=== PATIENT | female | born 1960 | race Caucasian/White ===

== ENCOUNTER 2024-07-06 16:58 | Inpatient (IN) ==
--- NOTE | 2024-07-06 17:04 | ED Triage Note ---
Date of Service July 06, 2024 Provider in Triage Author: Roscoe Mccrary History of Present Illness This patient was briefly evaluated while in triage. An abbreviated physical exam was performed. This patient is a 64-year-old Female who presents to the ED for evaluation shortness of breath, cough, heart racing x 3 days hx of afib, on warfarin was at her doctor just [employer], and was referred to the ED Physical Exam GENERAL: NAD CARDIOVASCULAR: tachycardic in 140s RESPIRATORY: CTA ABDOMEN: BS x 4. Nontender to palpation. Initial orders for labs and / or imaging were placed and patient was placed in the waiting area until a bed is available. Please see further documentation for the full ED course. MDM / Impression Impression Impression: Atrial fibrillation with RVR, Pleural effusion, Shortness of breath, Elevated troponin
--- NOTE | 2024-07-06 17:18 | Emergency Department Note ---
Impression & Plan Atrial fibrillation with RVR, Pleural effusion, Shortness of breath, Elevated troponin ED Provider Note NAME: JOSE M JOHNSON AGE: 64 SEX: F : 1960 ARRIVES VIA: Walk-In INFORMANT: Patient, friend at bedside ED PROVIDER(S): Jonah Pelayo MD CHIEF COMPLAINT: Shortness of breath MEDICAL DECISION MAKING: Patient presents due to concern for shortness of breath. The patient did have wheezing on exam was noted to be fairly tachycardic. Do believe that this may be secondary to the prior patient's use of her albuterol inhaler and nebulizers over the weekend. Patient also had wheezing on exam. IV was established and blood work was obtained and the patient was ordered IV methylprednisolone as well as leave albuterol treatments. The patient was also ordered 5 of IV Lopressor. Patient with a normal white count hemoglobin 11.9. Platelet count is unremarkable. The patient's kidney function with creatinine 1.34. Troponin to 122.3. No signs of obvious STEMI. Patient's initial EKG fast and regular patient may have underlying atrial flutter with possible 2-1 conduction. Repeat EKG shows A-fib with a rate of 97. Chest x-ray with left-sided pleural effusion. Patient is a normal white count no oxygen requirement will defer any antibiotics at this time. TSH is slightly low with elevated T4. There may be a thyroid component. I did speak with the on-call hospital service Dr. Solo and the patient was admitted to the medicine service. Critical Care: I have personally spent 42 minutes of critical care time in direct management of this patient. This includes bedside care, interpretation of diagnostic studies, and testing, discussion with consultants, patient, and family members, and other require inpatient management activities. This 42 minutes is in excess of all separately billable procedures. Discussion w/ other healthcare providers: Dr. Solo inpatient medicine service Prior /Outside records reviewed: None Differential diagnosis: Reactive airway disease, pneumonia, pneumothorax, COPD, CHF, ACS, pulmonary embolism, musculoskeletal, GERD as well as other pathologies were considered. Diagnostics, as interpreted by me: ECG: Rapid ventricular rate, narrow complex, rate of 138 likely atrial flutter with 2-1 conduction, right axis deviation, T wave version in V2 no obvious ST elevation. Repeat EKG interpreted myself A-fib rate of 97, normal QRS, right axis deviation, T wave version in aVL and V2 as well as V3. No obvious ST elevation. Cardiac monitoring: An order was placed for continuous cardiac monitoring. The monitor shows a rate of 112 with tachycardic and irregular irregular rhythm. Patient was placed on pulse oximetry Medical decision rules: None Imaging studies: I informally interpreted the patient's chest x-ray does not show obvious pneumonia or pneumothorax with formal report to follow. HPI: Patient presents due to concern for shortness of breath. The patient reports that she has been short of breath since Saturday it has been fairly constant. The patient does report that it worsens with activity. She also cannot lay flat. No prior history of A-fib status post ablation as well as valve replacements. The patient does take Coumadin. She is a smoker smoking about a pack over 3 days. Patient states that she does have cough but it is nonproductive. No falls or trauma the patient denies any leg swelling or calf pain. Patient denies any prior history of DVT or PE. Patient states that she has had some associated orthopnea but no leg swelling denies any history of CHF per patient. Patient does admit that she had been increasing her albuterol nebulizer use for shortness of breath over the weekend and was unsure as to whether not this was helpful. PAST MEDICAL HISTORY: See Below PAST SURGICAL HISTORY: See Below SOCIAL HISTORY: See Below HOME MEDICATIONS: See Below ALLERGIES: See Below VITALS: See Below PHYSICAL EXAMINATION: GENERAL: NAD, non-toxic. EYE EXAM: Normal conjunctiva. PERRL, no anisocoria and EOM's grossly intact w/o pain. OROPHARYNX: Dry mucous membranes, edentulous. NECK: Trachea midline, no stridor. Supple, no nuchal rigidity, no adenopathy, non-tender. No signs of meningismus. FROM of the neck with good chin to chest and neck extension. LUNGS: Wheezing noted throughout. Normal chest wall mechanics. HEART: Tachycardic and irregularly irregular, no MRG. ABDOMEN: Abdomen soft, non-tender, no masses, no rebound or guarding. BACK: No CVA TTP. SKIN: No rashes and no bruising. UPPER EXTREMITIES: Upper extremities are grossly normal. LOWER EXTREMITIES: Grossly normal, no edema. Negative Homans' sign bilaterally. NEURO EXAM: A&O x3, cranial nerves II-XII grossly intact, normal speech, moves all 4 extremities. 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 Family History Other Family history non-contributory Social History Smoking Status: Current every day smoker Preferred Language: Singaporean Feels Safe at Home: Yes Allergies Allergies Allergy/AdvReac Type Severity Reaction Status Date / Time Quinolones Allergy Intermediate HIVES Verified 01/26/13 16:26 cyclobenzaprine Allergy Mild Verified 01/26/13 16:26 amitriptyline Allergy Unknown UNKNOWN Verified 06/28/17 00:29 Home Meds Home Medications Medication Instructions Recorded Confirmed NOTE: ##0 03/10/13 Meclizine HCl 25 mg PO TID PRN dizziness ##0 06/23/14 DOCUSATE SODIUM 1 cap PO DAILY ##0 09/01/14 Multivitamin 1 tab PO DAILY #0 tabs 09/01/14 NITROGLYCERIN (NITROSTAT) 0.3 mg UT PRN #0 BTLS 09/01/14 Omeprazole (Prilosec) 40 mg PO QAM #0 caps 09/01/14 Bupropion (Wellbutrin) 75 mg PO DAILY #0 tabs 03/31/16 LEVOTHYROXINE SODIUM (SYNTHROID) 150 mcg PO DAILY ##0 03/31/16 ATORVASTATIN (LIPITOR) 80 mg PO DAILY #0 tabs 06/28/17 Albuterol Sulfate (Proventil Hfa) 2 puff inhalation Q4H PRN 06/28/17 SOB/Wheezing ##0 FERROUS SULFATE (KP FERROUS 325 mg PO DAILY #0 tabs 06/28/17 SULFATE) Furosemide (Lasix) 40 mg PO DAILY #0 tabs 06/28/17 IPRATROPIUM-ALBUTEROL (DUONEB) 3 ml inhalation Q4H PRN 06/28/17 SOB/Wheezing #0 inhalations KLOR CON M10 10 meq PO DAILY ##0 06/28/17 Metoprolol Tartrate (Lopressor) 12.5 mg PO BID #0 tabs 06/28/17 (Lopressor) Warfarin Sod (Coumadin) 10 mg PO UD ##0 06/28/17 Previous Rx's Medication Instructions Recorded ENOXAPARIN (LOVENOX) 110 mg SC DAILY ##3 06/29/17 enoxaparin 80 mg/0.8 mL 80 mg (0.8 mL) subcut Q12H #8 mL 06/15/23 subcutaneous syringe (Lovenox) Results & Data (ED) Vital Signs Vital Signs - 24 hr 07/06/24 17:02 07/06/24 17:14 07/06/24 17:56 Temperature 36.7 C Temperature Source Temporal Artery Scan Pulse Rate 138 H 116 H Pulse Rate [Finger] Pulse Rhythm Regular Pulse Strength Normal Respiratory Rate 20 Respiratory Effort / Characteristics Non-Labored Spontaneous Respiratory Depth Normal Blood Pressure 110/70 Blood Pressure [Right Arm] Blood Pressure Mean 83 Blood Pressure Mean [Right Arm] Pulse Oximetry 97 97 Oxygen Delivery Method Room Air Room Air Oxygen Flow Rate 0 Sepsis Recent Fever Within 48 Hours No Sepsis New/Unexplained Change in Mental Status N/A Sepsis Action Taken by Nursing No Action Required 07/06/24 18:01 07/06/24 18:30 Temperature Temperature Source Pulse Rate 96 H Pulse Rate [Finger] 91 H Pulse Rhythm Pulse Strength Respiratory Rate 26 H Respiratory Effort / Characteristics Respiratory Depth Blood Pressure 126/83 Blood Pressure [Right Arm] 112/84 Blood Pressure Mean Blood Pressure Mean [Right Arm] 93 Pulse Oximetry 94 Oxygen Delivery Method Room Air Oxygen Flow Rate Sepsis Recent Fever Within 48 Hours Sepsis New/Unexplained Change in Mental Status Sepsis Action Taken by Longterm Medications Current Medication List: was personally reviewed by me Laboratory Data Attestation: I reviewed the patient's lab results. 07/06/24 17:21 07/06/24 17:21 Lab Results 07/06/24 Range/Units 17:21 WBC 7.34 (4.8-10.8) K/ul RBC 4.40 (4.20-5.40) M/uL Hgb 11.9 L (12.0-16.0) g/dl Hct 38.1 (37.0-47.0) % MCV 86.6 (80.0-100.0) fL MCH 27.0 (25.0-34.0) pg MCHC 31.2 L (32.0-36.0) g/dL RDW Std Deviation 46.2 (36.4-46.3) fL RDW Coeff of Mitul 14.8 H (11.5-14.5) % Plt Count 220 (130-400) K/uL MPV 12.8 H (9.4-12.4) fL Immature Gran % (Auto) 0.3 % Neut % (Auto) 65.8 % Lymph % (Auto) 16.8 % Saunders % (Auto) 12.3 % Eos % (Auto) 3.7 % Baso % (Auto) 1.1 % Neut # (Auto) 4.84 (1.40-6.50) K/uL Lymph # (Auto) 1.23 (1.20-3.40) K/uL Saunders # (Auto) 0.90 H (0.11-0.59) K/uL Eos # (Auto) 0.27 (0.00-0.50) K/uL Baso # (Auto) 0.08 (0.00-0.20) K/uL Immature Gran # (Auto) 0.02 (0.01-0.20) K/uL PT 21.1 H (9.0-12.0) Seconds INR 2.1 H (0.9-1.1) Sodium 139 (136-145) mmol/L Potassium 4.4 (3.5-5.1) mmol/L Chloride 105 (98-107) mmol/L Carbon Dioxide 27 (21-32) mmol/L Anion Gap 7 (3-11) BUN 18 (6-23) mg/dl Creatinine 1.34 H (0.6-1.2) mg/dl Est Cr Clr Drug Dosing 40.7 ml/min eGFR 44.56 BUN/Creatinine Ratio 13.4 (10-20) Glucose 137 H (70-99(Fasting)) mg/dl Calcium 9.6 (8.6-10.3) mg/dl Magnesium 1.8 (1.7-2.4) mg/dl Total Bilirubin 1.2 H (0.2-1.0) mg/dl AST 40 H (13-39) U/L ALT 22 (7-52) U/L Alkaline Phosphatase 75 (34-104) U/L Troponin I High Sens 122.3 H* (0-14) pg/ml Total Protein 7.5 (6.0-8.3) gm/dl Albumin 4.2 (3.4-5.0) gm/dl Globulin 3.3 (2.5-4.0) gm/dl Albumin/Globulin Ratio 1.3 (0.9-2) TSH 0.292 L (0.300-4.500) uIu/ml Free T4 2.17 H (0.61-1.60) ng/dl Administered Medications Discontinued Medications Levalbuterol HCl (Levalbuterol 1.25 Mg/3 Ml Neb) 1.25 mg NEB NOW STA Stop: 07/06/24 17:40 Last Admin: 07/06/24 18:01 Dose: 1.25 mg Documented By: YAHAIRA Methylprednisolone (Methylprednisolone 125 Mg/2 Ml Vial) 125 mg IV NOW STA Stop: 07/06/24 17:40 Last Admin: 07/06/24 18:01 Dose: 125 mg Documented By: YAHAIRA Metoprolol Tartrate (Metoprolol Tartrate 1 Mg/Ml Vial) 5 mg IV NOW STA Stop: 07/06/24 17:40 Last Admin: 07/06/24 18:01 Dose: 5 mg Documented By: YAHAIRA Imaging Data Radiologist's Impression: Chest X-Ray 07/06/24 17:04 INDICATION: Chest pain. TECHNIQUE: Frontal radiograph of the chest. COMPARISON: Radiograph from 06/15/2023. FINDINGS: Cardiomegaly. Mild pulmonary vascular congestion. Small left pleural effusion with underlying atelectasis/airspace disease. Subsegmental atelectasis/airspace disease in the right lower lobe. No pneumothorax. No acute fracture. IMPRESSION: Mild pulmonary vascular congestion. Small left pleural effusion with underlying atelectasis/airspace disease. Subsegmental atelectasis/airspace disease in the right lower lobe. Electronically signed by Nabor Odom 07-06-2024 5:52 PM Discharge Plan Visit Data Chief Complaint: Shortness of Breath/Dyspnea Stated Complaint: FAST HEART RATE, SOB, ED Provider: Jonah Pelayo Discharge Problem: Atrial fibrillation with RVR, Pleural effusion, Shortness of breath, Elevated troponin Forms Stand Alone Forms: My [facility] [employer] Prescriptions Prescriptions: No Action NOTE: Qty: 0 Patient Comments: FAMILY REPORTS, PT NOT GOOD AT TAKING MEDICATIONS PRESCRIBED, WILL MISS SCHEDULED DOSES. Meclizine HCl 25 MG tablet 25 mg PO TID PRN (Reason: dizziness) Qty: 0 DOCUSATE SODIUM 100 MG capsule 1 cap PO DAILY Qty: 0 Multivitamin tablet 1 tab PO DAILY Qty: 0 NITROGLYCERIN (NITROSTAT) 0.3 MG SUB 0.3 mg UT PRN Qty: 0 Omeprazole (Prilosec) 40 MG CONTR REL CAP 40 mg PO QAM Qty: 0 LEVOTHYROXINE SODIUM (SYNTHROID) 150 MCG tablet 150 mcg PO DAILY Qty: 0 Bupropion (Wellbutrin) 75 MG tablet 75 mg PO DAILY Qty: 0 ATORVASTATIN (LIPITOR) 80 MG tablet 80 mg PO DAILY Qty: 0 Metoprolol Tartrate (Lopressor) (Lopressor) 25 MG tablet 12.5 mg PO BID Qty: 0 Warfarin Sod (Coumadin) 5 MG tablet 10 mg PO UD Qty: 0 Patient Comments: Take 10mg PO daily for Now.Dose to keen inr between 2.5 to 3.5 Furosemide (Lasix) 40 MG tablet 40 mg PO DAILY Qty: 0 KLOR CON M10 10 meq PO DAILY Qty: 0 FERROUS SULFATE (KP FERROUS SULFATE) 325 MG tablet 325 mg PO DAILY Qty: 0 Albuterol Sulfate (Proventil Hfa) 108 MCG/ACT AER 2 puff Inhalation Q4H PRN (Reason: SOB/Wheezing) Qty: 0 IPRATROPIUM-ALBUTEROL (DUONEB) 3 ML NEBULIZR-SOLN 3 ml Inhalation Q4H PRN (Reason: SOB/Wheezing) Qty: 0 ENOXAPARIN (LOVENOX) 80 MG/0.8 ML INJECTION 110 mg SC DAILY Qty: 3 0RF enoxaparin [Lovenox] 80 mg/0.8 mL syringe 80 mg subcut Q12H Qty: 8 0RF Referrals Referrals: Eron Watson MD [Primary Care Provider] -
[2024-07-06 17:38] LABS: Basophils # (auto) 0.08 K/uL (0.00-0.20); Basophils % (auto) 1.1 %; Eosinophils # (auto) 0.27 K/uL (0.00-0.50); Eosinophils % (auto) 3.7 %; Hematocrit (blood only) 38.1 % (37.0-47.0); Hemoglobin 11.9 g/dl (12.0-16.0); Immature Granulocytes # (auto) 0.02 K/uL (0.01-0.20); Immature Granulocytes % (auto) 0.3 %; Lymphocytes # (auto) 1.23 K/uL (1.20-3.40); Lymphocytes % (auto) 16.8 %; Mean Corpuscular Hgb Conc 31.2 g/dL (32.0-36.0); Mean Corpuscular Volume 86.6 fL (80.0-100.0); Mean Platelet Volume 12.8 fL (9.4-12.4); Monocytes % (auto) 12.3 %; Neutrophils # (auto) 4.84 K/uL (1.40-6.50); Neutrophils % (auto) 65.8 %; Platelet Count 220 K/uL (130-400); RDW Coefficient of Variation 14.8 % (11.5-14.5); RDW Standard Deviation 46.2 fL (36.4-46.3); White Blood Count 7.34 K/ul (4.8-10.8)
[2024-07-06 17:51] LABS: Albumin Globulin Ratio 1.3 (0.9-2); Albumin Level 4.2 gm/dl (3.4-5.0); BUN Creatinine Ratio 13.4 (10-20); Bilirubin,Total 1.2 mg/dl (0.2-1.0); Calcium 9.6 mg/dl (8.6-10.3); Creatinine Clr Calc Pharmacy 40.7 ml/min; Globulin 3.3 gm/dl (2.5-4.0); Magnesium 1.8 mg/dl (1.7-2.4); Potassium 4.4 mmol/L (3.5-5.1); Total Protein 7.5 gm/dl (6.0-8.3)
--- NOTE | 2024-07-06 17:53 | XRay Report ---
INDICATION: Chest pain. TECHNIQUE: Frontal radiograph of the chest. COMPARISON: Radiograph from 06/15/2023. FINDINGS: Cardiomegaly. Mild pulmonary vascular congestion. Small left pleural effusion with underlying atelectasis/airspace disease. Subsegmental atelectasis/airspace disease in the right lower lobe. No pneumothorax. No acute fracture. IMPRESSION: Mild pulmonary vascular congestion. Small left pleural effusion with underlying atelectasis/airspace disease. Subsegmental atelectasis/airspace disease in the right lower lobe. Electronically signed by Nabor Odom 07-06-2024 5:52 PM
[2024-07-06] MEDS: LEVALBUTEROL 1.25 MG/3 ML NEB NEB STA (18:01)
[2024-07-06] MEDS: methylPREDNISolone 125 MG/2 ML VIAL IV STA (18:01)
[2024-07-06] MEDS: METOPROLOL TARTRATE 1 MG/ML VIAL IV STA (18:01)
[2024-07-06 18:06] LABS: Thyroid Stimulating Hormone 0.292 uIu/ml (0.300-4.500)
[2024-07-06 18:08] LABS: Troponin I High Sensitivity 122.3 pg/ml (0-14)
[2024-07-06 18:09] LABS: INR 2.1 (0.9-1.1); Prothrombin Time 21.1 Seconds (9.0-12.0)
[2024-07-06 18:42] LABS: T4 Free Thyroxine 2.17 ng/dl (0.61-1.60)
[2024-07-06] MEDS: MAGNESIUM SULFATE / D5W 1 GM/100 ML BAG IV SCH (19:33)
[2024-07-06] MEDS ORDERED: MECLIZINE HCL 25 MG TAB PO PRN (19:39)
[2024-07-06] MEDS ORDERED: ALUMINUM/MAGNESIUM SUSP 30 ML UDC PO PRN (19:41)
[2024-07-06] MEDS ORDERED: POLYETHYLENE (MIRALAX) 17 GM PACK PO PRN (19:41)
[2024-07-06] MEDS ORDERED: ACETAMINOPHEN 325 MG TAB PO PRN (19:41)
--- NOTE | 2024-07-06 19:51 | History & Physical Report ---
Date of Service July 06, 2024 Assessment & Plan (1) Atrial fibrillation with RVR: Plan A-fib RVR: Patient presented with elevated heart rate, noted to be in A-fib. Received 5 Mg IV metoprolol in ED with heart rate improvement in 90s. Will start her on metoprolol to tartrate 25 Mg twice daily, IV metoprolol 5 Mg every 4 hours as needed for heart rate greater than 115 beats per minute. Cardiology consult, telemetry monitoring, monitor replete electrolytes. COPD exacerbation: Solu-Medrol, azithromycin. Follow clinical response. History of hypothyroidism: FT4 elevated with low TSH, will decrease the levothyroxine dose to 125 mcg daily. Repeat thyroid function test in about 6 weeks time, follow-up with PCP. Other chronic medical conditions: Continue with/resume home meds as when able DVT prophylaxis: Patient on warfarin for A-fib Full code History of Present Illness Chief Complaint: A-fib RVR Primary Care Provider: Eron Watson MD 64-year-old lady with PMH of asthma, COPD, A-fib RVR, prosthetic replacement of heart valve comes at referral of her PCP office for A-fib RVR. Per patient, she was not feeling well since last 3 to 4 days, was having worsening shortness of breath, nonproductive cough/increase in frequency, palpitation and visited her doctor today where she was noted to be with heart rate in 130s and atrial fibrillation and was directed to the ED. Patient denies sore throat/fever/chest pain/belly pain. Patient reports some nausea and vomiting , last vomiting was yesterday. Patient denies pain or burning with passing urine, reports moving bowels okay. Patient is a current smoker, smokes 1 packs in 3 days, denies alcohol use, reports occasional marijuana use. Medications reviewed with the patient at bedside Plan of care discussed with the patient and her niece at bedside in detail, they voiced understanding. Full code as per my discussion with the patient. Allergies Allergy/AdvReac Type Severity Reaction Status Date / Time Quinolones Allergy Intermediate HIVES Verified 07/06/24 19:17 cyclobenzaprine Allergy Mild Verified 07/06/24 19:17 amitriptyline Allergy Unknown UNKNOWN Verified 07/06/24 19:17 Home Medications Medication Instructions Recorded Confirmed Type NOTE: ##0 03/10/13 History meclizine 25 mg tablet 25 mg PO QPM PRN Dizziness ##0 06/23/14 07/06/24 History multivitamin 1 tab PO DAILY #0 tabs 09/01/14 07/06/24 History nitroglycerin 0.3 mg sublingual 0.3 mg UT PRN #0 BTLS 09/01/14 07/06/24 History tablet (Nitrostat) bupropion HCl 75 mg tablet 75 mg PO QPM #0 tabs 03/31/16 07/06/24 History levothyroxine 150 mcg tablet 150 mcg PO DAILY ##0 03/31/16 07/06/24 History albuterol sulfate 90 mcg/actuation 2 puff inhalation Q4H PRN 06/28/17 07/06/24 History aerosol inhaler shortness of breath/wheezing ##0 ferrous sulfate 325 mg (65 mg 325 mg PO DAILY #0 tabs 06/28/17 07/06/24 History iron) tablet furosemide 40 mg tablet 40 mg PO QAM #0 tabs 06/28/17 07/06/24 History ipratropium 0.5 mg-albuterol 3 mg 3 ml inhalation Q4H PRN 06/28/17 07/06/24 History (2.5 mg base)/3 mL nebulization sob/wheezing #0 inhalations soln potassium chloride 10 mEq 10 meq PO QAM ##0 06/28/17 07/06/24 History tablet,extended release (Klor-Con) warfarin 5 mg tablet 5 - 7.5 mg PO .SEEATTACHED ##0 06/28/17 07/06/24 History ezetimibe 10 mg tablet 10 mg PO QPM 07/06/24 07/06/24 History metoprolol succinate 25 mg 25 mg PO QAM 07/06/24 07/06/24 History tablet,extended release 24 hr rosuvastatin 40 mg tablet 40 mg PO QPM 07/06/24 07/06/24 History Past Med/Surg History Problem List (Updated 07/06/24 @ 19:00 by Jonah Pelayo MD) Elevated troponin (Acute) Shortness of breath (Acute) Pleural effusion (Acute) Atrial fibrillation with RVR (Acute) Encounter for removal of sutures (Acute) Pneumonia 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 Family History Other Family history non-contributory Social History Smoking Status: Current every day smoker Preferred Language: Portuguese Feels Safe at Home: Yes Review of Systems Review of Systems: Negative otherwise mentioned in HPI. Physical Exam Physical Exam: GENERAL: Alert and oriented x3. NAD, on RA. HEENT: No pallor, no icterus. Pupils equal, round and reactive to light. Oral mucosa moist. NECK: No JVD, no neck masses. HEART: S1 and S2 heard. irregular rate and rhythm.HR in 110s. No murmur, no gallop. RESPIRATORY SYSTEM: Normal AP diameter. No accessory muscle use. b/l decreased breath sounds and rhonchi, no crackles. ABDOMEN: Soft, bowel sounds present, nontender, no distention. CENTRAL NERVOUS SYSTEM: No facial droop. Speech is clear. Obeys simple commands. Moves extremities. EXTREMITIES: No edema, no erythema seen. Results & Data Results & Data Vital Signs (Past 12 Hours) Vital Signs Temp Pulse Pulse Resp BP BP Pulse Ox 07/06/24 19:32 132 H 24 110/90 92 07/06/24 18:30 91 H 26 H 112/84 94 07/06/24 18:01 96 H 126/83 07/06/24 17:56 116 H 07/06/24 17:14 97 07/06/24 17:02 36.7 C 138 H 20 110/70 97 O2 Del Method O2 Flow Rate 07/06/24 19:32 Room Air 07/06/24 18:30 Room Air 07/06/24 18:01 07/06/24 17:56 07/06/24 17:14 Room Air 0 07/06/24 17:02 Room Air
[2024-07-06] MEDS: AZITHROMYCIN 250 MG TAB PO SCH (20:04)
[2024-07-06] MEDS ORDERED: methylPREDNISolone 125 MG/2 ML VIAL IV SCH (21:00)
[2024-07-06] MEDS: ROSUVASTATIN CALCIUM 20 MG TAB PO SCH (21:30)
[2024-07-06] MEDS: WARFARIN SOD 5 MG TAB PO ONE (21:31)
[2024-07-06] MEDS: buPROPion HCl 75 MG TABLET PO SCH (21:31)
[2024-07-06] MEDS: EZETIMIBE 10 MG TAB PO SCH (21:31)
[2024-07-06] MEDS: METOPROLOL TARTRATE 25 MG TAB PO ONE (21:34)
[2024-07-06] MEDS: methylPREDNISolone 40 MG in SYRINGE 0 ML IV SCH (22:40)
[2024-07-07] MEDS: METOPROLOL TARTRATE 1 MG/ML VIAL IV PRN (02:43)
[2024-07-07] MEDS: LEVOTHYROXINE SODIUM 125 MCG TABLET PO SCH (06:03)
--- OUTSIDE RECORDS SUMMARY | 2024-07-07 06:23 | External Medical Summary | Summary of Care ---
Author Name Unknown Organization [facility] Address [address] [place] [address] Phone [phone] Care Team Providers Care Freezer Person Name Role Phone Shirley COLEY MD, Eron Rodríguez Primary Care Provider Encounter Details Date Type Department Care Team (Late st Contact Info) Description 07/03/2024 Orders Only PATIENT PORTAL DO NOT DELETE THIS DEPT USED BY [place] REY[place]O [id number] Allergies Active Allergy Reactions Criticality Noted Date Comments Ciprofloxacin 12/19/2006 hives Cyclobenzaprine 12/19/2006 Gi upset Nortriptyline Hcl 12/19/2006 Fast heart rate documented as of this encounter (statuses as of 07/03/2024) Medications Multiple Vitamins-Minerals (MULTIVITAMIN ADULT) TABS Take 1 Tab by mouth daily. Active Cholecalciferol 25 MCG (1000 UT) Oral Tablet Take 1 Tablet by mouth in the morning. 04/28/20 18 Active albuterol-ipratrop ium (DUONEB) 2.5-0.5 MG/3ML nebulizer solutionIndication s:Asthma, mild persistent USE INHALATION SOLUTION DIRECTED EVERY 4 HOURS 180 mL 04/06/20 19 Active Additional Information Patient not taking.Reported on 11/07/2023 Nitroglycerin 0.3 MG Sublingual Tablet Sublingual (Nitrostat)Indicat ions:Paroxysmal atrial fibrillation (HCC) PLACE 1 TAB UNDER TONGUE EVERY 5 MIN NEEDED FOR CHEST PAIN. MAX 3 TABS IN 15 MIN 100 Tablet 2 04/10/20 22 Active Additional Information Patient not taking.Reported on 11/07/2023 Furosemide 40 MG Oral Tablet (Lasix)Indications :History of low potassium Take 1.5 Tablets by mouth in the morning. 135 Tablet 3 06/14/20 23 Active Additional Information Patient taking differently: 80 mgOral Daily(AM), Reported on 08/02/2023 Potassium Chloride Yael ER 10 MEQ Oral Tablet Extended Release (Klor-Con M10)Indications:Hi story of low potassium Take 2 Tablets by mouth in the morning. 180 Tablet 3 06/14/20 23 Active buPROPion HCl 75 MG Oral Tablet (Wellbutrin) TAKE 1 TABLET BY MOUTH EVERY DAY 90 Tablet 1 06/20/20 23 Active Levothyroxine Sodium 150 MCG Oral Tablet (Levoxyl)Indicatio ns:Acquired hypothyroidism TAKE 1 TAB BY MOUTH DAILY FIRST THING IN THE MORNING. (AT LEAST 30 MIN PRIOR TO BREAKFAST OR OTHER MEDS) SAT-SAT. TAKE 1 & 1/2 TAB ON SATURDAY 100 Tablet 3 08/17/20 23 Active Meclizine HCl 25 MG Oral Tablet (Antivert)Indicati ons:Dizziness TAKE 1 TABLET BY MOUTH UP TO 3 TIMES DAILY NEEDED FOR DIZZINESS 90 Tablet 1 10/16/19 24 Active Albuterol Sulfate HFA 108 (90 Base) MCG/ACT Inhalation Aerosol SolutionIndication s:Wheezing USE 2 PUFFS EVERY 4 HOURS NEEDED FOR WHEEZING/COUGH 18 g 1 10/16/19 24 Active Ezetimibe 10 MG Oral Tablet (Zetia)Indications :Dyslipidemia, goal LDL below 70 TAKE 1 TABLET BY MOUTH EVERY DAY 90 Tablet 3 02/07/20 24 Active Metoprolol Succinate ER 25 MG Oral Tablet Extended Release 24 Hour (toPROL XL)Indications:Atr ial fibrillation, unspecified type (HCC) TAKE 1 TABLET BY MOUTH EVERY DAY IN THE MORNING 30 Tablet 5 06/18/20 24 Active Rosuvastatin Calcium 40 MG Oral Tablet (Crestor) Take 1 Tablet by mouth in the morning. 90 Tablet 06/30/20 24 Active Hospital, Clinic, or Other Facility Administered Medication Ordered Dose Route Frequency Start Date End Date Status Albuterol Sulfate (Proventil) (2.5 MG/3ML) 0.083% inhalation solution 2.5 mgIndications:COPD, mild (HCC) 2.5 mg NEBULIZER PRN 09/12/2023 09/11/2024 Active albuterol (VENTOLIN HFA/PROVENTIL HFA) inhalerIndications:COPD , mild (HCC) 3 Puff IN PRN 09/12/2023 09/11/2024 Active documented as of this encounter (statuses as of 07/03/2024) Active Problems Problem Noted Date Diagnosed Date COPD, group C, by GOLD 2017 classification 10/07 Overview: Per COPD GOLD Classification Chronic kidney disease, stage 3b 07/08/2023 Overview: Per CKD protocol COPD exacerbation 01/29/2022 Chronic atrial fibrillation 02/09/2021 Elevated PTHrP level 04/28/2018 Dyslipidemia, goal LDL below 100 07/16/2016 Tobacco use disorder 07/16/2016 Asthma, mild persistent 05/26/2013 GIB (gastrointestinal bleeding) 03/11/2013 Anemia 03/11/2013 S/P AVR 03/11/2013 S/P MVR (mitral valve replacement) 03/11/2013 MEDICATION USE AGREEMENT 12/04/2011 Dyslipidemia, goal LDL below 130 07/25/2010 Atrial fibrillation 10/13/2008 S/P aortic valve replacement 10/13/2008 S/P mitral valve replacement 10/13/2008 Other and unspecified rheumatic heart diseases(3 98.99) 03/03/2008 Esophageal reflux 12/25/2005 Lymphadenitis, unspecified, except mesenteric Hypothyroidism 04/16/2002 ADJ DISORDER W/DEPRES MOOD 04/16/2002 Anticoagulation management encounter 02/24/2002 MITR-AORTIC MULT INVOLV 06/11/2001 [facility] current use of anticoagulant therapy Overview (05/27/2017): ICD-10 update of inactive term documented as of this encounter (statuses as of 07/03/2024) Resolved Problems Problem Noted Date Diagnosed Date Resolved Date COPD, mild 01/29/2022 10/10/2023 Overview: Per COPD GOLD Classification Stage 3a chronic kidney disease 07/04/2020 07/11/2023 Overview: Per CKD protocol Paroxysmal atrial fibrillation 03/10/2019 01/29/2022 Kidney disease, chronic, sta ge III (GFR 30-59 ml/min) 10/31/2015 07/07/2020 Overview: Per CKD protocol #1 LISA (acute kidney injury) 03/17/2013 Hemorrhagic shock 03/11/2013 03/10/2019 Dyslipidemia, goal to be determined 10/06/2010 08/05/2013 Asthma with severity to be determined 02/16/2010 05/26/2013 Overview (12/05/2015): Per Asthma Taxonomy ICD-10 update of inactive term Dyslipidemia, goal to be determined 08/04/2008 07/25/2010 Asthma, allergic 11/24/2007 02/16/2010 ADVANCE DIRECTIVE INFORMATION 06/16/2007 06/29/2024 Overview (06/16/2007): No, Advance Directive brochure given to patient at prior appointment. documented as of this encounter (statuses as of 07/03/2024) Immunizations Name Administration Dates Next Due COVID-19 mRNA, LNP-s, No Pre serve, 2-Dose Series (Moderna) 02/18/2021,01/17/2021 Pneumococcal Polysaccharide PPV23 (Pneumovax) 06/23/2018 Seasonal Influenza Vac., MDV , IM, 0.5 mL (Fluzone) 10/26/2013,06/01/2010,08/04/2008,09/22 Seasonal Influenza, PF, 6 M & above, IM , (FluLaval or Fluzone) 06/23/2018 Seasonal Influenza, Quadriva lent, No Preserve, IM 09/13/2015 TD, Preservative Free 03/10/2019 TDAP, Age 7 and older, IM (Adacel) 01/22/2008 documented as of this encounter Social History Tobacco Use Types Packs/Day Years Used Date Smoking Tobacco: Every Day Cigarettes 0.5 34 Smokeless Tobacco: Never Alcohol Use Standard Drinks/Week Comments Yes 0 (1 standard drink = 0.6 oz pur e alcohol) very rare PHQ-2 Answer Date Recorded PHQ Adult Total Score 0 08/28/2022 Comments No Sex and Gender Information Value Date Recorded Sex Assigned at Not on file Legal Sex Female 5:13 AM EST Gender Identity Not on file Sexual Orientation Not on file documented as of this encounter Functional Status * Are you deaf or do you have serious difficulty hearing? Answer Date of Assessment Author No 09/29/2014 7:54 AM Cramen Tony RN * Are you blind or do you have serious difficulty seeing, even when wearing glasses? Answer Date of Assessment Author No 09/29/2014 7:54 AM Carmen Tony RN * Do you have serious difficulty walking or climbing stairs? (5 years old or older) Answer Date of Assessment Author No 09/29/2014 7:54 AM Carmen Tony RN * Do you have difficulty dressing or bathing? (5 years old or older) Answer Date of Assessment Author No 09/29/2014 7:54 AM Carmen Tony RN * Because of a physical, mental, or emotional condition, do you have difficulty doing errands alone such as visiting a doctors office or shopping? (15 years old or older) Answer Date of Assessment Author No 09/29/2014 7:54 AM Carmen Tony RN documented as of this encounter Mental Status * Because of a physical, mental, or emotional condition, do you have serious difficulty concentrating, remembering, or making decisions? (5 years old or older) Answer Entry Date Author No 09/29/2014 7:54 AM Carmen Tony RN documented in this encounter Plan of Treatment Upcoming Encounters Date Type Department Care Team (Late st Contact Info) Description 08/13/2024 4:00 PM EST Office Visit Family Practice [facility] [place] [address] [place] [address] Deborah Manning PA-C [address] [place] [address] Health Maintenance Due Date Last Done Comments DISCUSS TOBACCO CESSATION (REFER TO SMARTSET #8068) 1961 Alpha-1 Antitrypsin 1979 HPV/Co-Test 1991 Cologuard 2006 Colonoscopy 2006 Colorectal Cancer Screening 2006 Fecal Occult Blood Test 2006 Sigmoidoscopy 2006 Zoster Vaccines (1 of 2) 2011 Cervical Cancer Screening 11/19/2015 Pap Smear 11/19/2015 11/18/2012 (Done elsewhere), 04/16/2002 Pneumococcal Vaccine: Pediatrics (0 to 5 Years) and At-Risk Patients (6 to 64 Years) (2 of 2 - PCV) 06/23/2019 06/23/2018 Mammogram 07/14/2019 07/14/2018, 08/27, 07/21/2003 Depression Screening 08/28/2023 08/28/2022 COVID-19 Vaccine ( season) 2024 02/18/2021, 01/17/2021 Influenza Vaccine (FLU shot) (#1) 2024 06/23/2018, 09/13/2015, 10/26/2013, Additional history exists GFR 04/29/2024 10/28/2023, 08/26, 08/02/2023, Additional history exists CKD PHOS USE SMARTSET 50674 06/12/202405/26, 01/29/2022, 02/09/2021, Additional history exists Albumin/Creatinine Ratio 07/08/2024 023, 01/29/2022, 11/16/2019, Additional history exists CKD HGB USE SMARTSET 61725 10/27/202410/27, 08/02/2023, 07/08/2023, Additional history exists O2 ASSESSMENT COMPLETED IN PAST YEAR FOR COPD 10/27/2024 10/28/2023 TSH 10/27/2024 10/28/2023, 05/26, 08/28/2022, Additional history exists Diabetes Screening 10/27/2026 10/28/2023, 0 09/12/2023, 08/02/2023, Additional history exists Lipid Panel 06/12/2028 06/12/2023, 06/01/2022, 06/02/2021, Additional history exists DTap/Tdap Vaccines (3 - Td or Tdap) 03/10/2029 03/10/2019, 01/22/2008 HPV (Gardasil) Vaccine Aged Out No lo nger eligible based on patient's age to complete this topic Hepatitis B Vaccine Aged Out No longe r eligible based on patient's age to complete this topic MENINGOCOCCAL (MENACTRA/MENVEO) Aged Out No longer eligible based on patient's age to complete this topic documented as of this encounter Medical Devices Implanted Type Area Post Acute Care Nurse Device Identifier Shelf Expiration Date Model / Serial / Lot Sut Dima 6 [id number] - [id number] Implanted:Qty: 4 on 09/28/2014 by Angel Rios MD at [place] [facility] [place] N/A: Chest JNJ : [employer] 02/23/2019 [id number] / / [id number] Valve Heart [facility]ortic [facility] Hp19mm - [id number] Implanted:Qty: 1 on 09/28/2014 by Angel Rios MD at [place] [facility] [place] N/A: Heart [facility] : CARDIOVASCULAR 05/22/2015 [id number] / [id number] / documented as of this encounter Advance Directives * Full Code (Latest Code Status on File) Date Activated Date Inactivated Comments 09/28/2014 11:40 AM 10/03/2014 3:24 PM This order re flects the patients wishes and were consensually agreed upon. * Full Code Date Activated Date Inactivated Comments 03/11/2013 1:08 AM 03/17/2013 7:00 PM This order r eflects the patients wishes and were consensually agreed upon. Question Answer Comments Discussion of Advance Directives occurred with: Not Discussed Does the patient have a Living Will? No Does the patient have Health Care Power of Attor elsi? No Care Teams Freezer Person Relationship Specialty Start Date End Date Eron Watson III, MD [address] [facility] [place] [address] PCP - General Family Medicine 11/16/19 documented as of this encounter
--- OUTSIDE RECORDS SUMMARY | 2024-07-07 06:23 | External Medical Summary | Summary of Care ---
Author Name Unknown Organization [facility] Address [address] [place] [address] Phone [phone] Care Team Providers Care Commercial Loan Assistant Name Role Phone Shirley COLEY MD, John E Primary Care Provider [phone] Reason for Visit * Reason Onset Date Comments Medication Refill 06/29/2024 Encounter Details Date Type Department Care Team (Late st Contact Info) Description 06/29/2024 Refill Family Practice [facility] [address] [facility] [place] [place] [address] Clement Louise III, MD [address] [place] [address] Dyslipidemia, goal LDL below 100*; Encounter for long-term (current) use of medications Allergies Active Allergy Reactions Criticality Noted Date Comments Ciprofloxacin 12/19/2006 hives Cyclobenzaprine 12/19/2006 Gi upset Nortriptyline Hcl 12/19/2006 Fast heart rate documented as of this encounter (statuses as of 07/02/2024) Medications Medication Sig Dispensed Refills Start Date End Date Status Multiple Vitamins-Minerals (MULTIVITAMIN ADULT) TABS Take 1 Tab by mouth daily. Active Cholecalciferol 25 MCG (1000 UT) Oral Tablet Take 1 Tablet by mouth in the morning. 04/28/2018 Active albuterol-ipratropi um (DUONEB) 2.5-0.5 MG/3ML nebulizer solutionIndications :Asthma, mild persistent USE INHALATION SOLUTION DIRECTED EVERY 4 HOURS 180 mL 04/06/2019 Active Additional Information Patient not taking.Reported on 11/07/2023 Nitroglycerin 0.3 MG Sublingual Tablet Sublingual (Nitrostat)Indicati ons:Paroxysmal atrial fibrillation (HCC) PLACE 1 TAB UNDER TONGUE EVERY 5 MIN NEEDED FOR CHEST PAIN. MAX 3 TABS IN 15 MIN 100 Tablet 2 04/10/2022 Active Additional Information Patient not taking.Reported on 11/07/2023 Furosemide 40 MG Oral Tablet (Lasix)Indications: History of low potassium Take 1.5 Tablets by mouth in the morning. 135 Tablet 3 06/14/2023 Active Additional Information Patient taking differently: 80 mgOral Daily(AM), Reported on 08/02/2023 Potassium Chloride Yael ER 10 MEQ Oral Tablet Extended Release (Klor-Con M10)Indications:His tory of low potassium Take 2 Tablets by mouth in the morning. 180 Tablet 3 06/14/2023 Active buPROPion HCl 75 MG Oral Tablet (Wellbutrin) TAKE 1 TABLET BY MOUTH EVERY DAY 90 Tablet 1 06/20/2023 Active Levothyroxine Sodium 150 MCG Oral Tablet (Levoxyl)Indication s:Acquired hypothyroidism TAKE 1 TAB BY MOUTH DAILY FIRST THING IN THE MORNING. (AT LEAST 30 MIN PRIOR TO BREAKFAST OR OTHER MEDS) SAT-SAT. TAKE 1 & 1/2 TAB ON SATURDAY 100 Tablet 3 08/17/2023 Active Meclizine HCl 25 MG Oral Tablet (Antivert)Indicatio ns:Dizziness TAKE 1 TABLET BY MOUTH UP TO 3 TIMES DAILY NEEDED FOR DIZZINESS 90 Tablet 1 10/16/2023 Active Albuterol Sulfate HFA 108 (90 Base) MCG/ACT Inhalation Aerosol SolutionIndications :Wheezing USE 2 PUFFS EVERY 4 HOURS NEEDED FOR WHEEZING/COUGH 18 g 1 10/16/2023 Active Ezetimibe 10 MG Oral Tablet (Zetia)Indications: Dyslipidemia, goal LDL below 70 TAKE 1 TABLET BY MOUTH EVERY DAY 90 Tablet 3 02/07/2024 Active Metoprolol Succinate ER 25 MG Oral Tablet Extended Release 24 Hour (toPROL XL)Indications:Atri al fibrillation, unspecified type (HCC) TAKE 1 TABLET BY MOUTH EVERY DAY IN THE MORNING 30 Tablet 5 06/18/2024 Active Rosuvastatin Calcium 40 MG Oral Tablet (Crestor) Take 1 Tablet by mouth in the morning. 90 Tablet 06/30/2024 Active Rosuvastatin Calcium 40 MG Oral Tablet (Crestor) TAKE 1 TABLET BY MOUTH EVERY DAY 90 Tablet 1 10/16/2023 Discontinu ed(Refill) Hospital, Clinic, or Other Facility Administered Medication Ordered Dose Route Frequency Start Date End Date Status Albuterol Sulfate (Proventil) (2.5 MG/3ML) 0.083% inhalation solution 2.5 mgIndications:COPD, mild (HCC) 2.5 mg NEBULIZER PRN 09/12/2023 09/11/2024 Active albuterol (VENTOLIN HFA/PROVENTIL HFA) inhalerIndications:COPD , mild (HCC) 3 Puff IN PRN 09/12/2023 09/11/2024 Active documented as of this encounter (statuses as of 07/02/2024) Active Problems Problem Noted Date Diagnosed Date [...] management encounter 02/24/2002 MITR-AORTIC MULT INVOLV 06/11/2001 alf current use of anticoagulant therapy Overview: ICD-10 update of inactive term documented as of this encounter (statuses as of 07/02/2024) Resolved Problems Problem Noted Date Diagnosed Date [...] with severity to be determined 02/16/2010 05/26/2013 Overview: Per Asthma Taxonomy ICD-10 update of inactive term Dyslipidemia, goal to be determined 08/04/2008 07/25/2010 Asthma, allergic 11/24/2007 02/16/2010 ADVANCE DIRECTIVE INFORMATION 06/16/2007 06/29/2024 Overview: No, Advance Directive brochure given to patient at prior appointment. documented as of this encounter (statuses as of 07/02/2024) Immunizations Name Administration Dates Next Due COVID-19 [...] Recorded PHQ Adult Total Score 0 08/28/2022 Sex and Gender Information Value Date Recorded Sex Assigned at Not on file Gender Identity Not on file Sexual Orientation Not on file Job Start Date Occupation Industry Not on file Not on file Not on file documented as of this encounter Functional Status Functional Status Response Date of Assess ment Are you deaf or do you have serious difficulty h earing? No 09/29/2014 Are you blind or do you have serious difficulty seeing, even when wearing glasses? No 09/29/2014 Do you have serious difficul ty walking or climbing stairs? (5 years old or older) No 09/29/2014 Do you have difficulty dress ing or bathing? (5 years old or older) No 09/29/2014 Because of a physical, menta l, or emotional condition, do you have difficulty doing errands alone such as visiting a doctor s office or shopping? (15 years old or older) No 09/29/19 15 Cognitive Status Response Date of Assessm ent Because of a physical, menta l, or emotional condition, do you have serious difficulty concentrating, remembering, or making decisions? (5 years old or older) No 09/29/2014 documented as of this encounter Miscellaneous Notes * Telephone Encounter - Jose F Hahn - 07/02/2024 12:43 AM EST Received message from [facility] regarding patient needing labs. Patient was notified. Successfully contacted patient and provided [facility] message. * Telephone Encounter - Ildefonso Maciel [facility] - 06/30/2024 2:34 PM ESTSigned Prescriptions: Disp Refills Rosuvastatin Calcium 40 MG Oral Tablet (Cr*90 Tab*0 Sig: Take 1 Tablet by mouth in the morning. Authorizing Provider: CLEMENT LOUISE III Ordering User: ILDEFONSO MACIEL * Telephone Encounter - Geovanna Go carton forming machine adjuster - 06/29/2024 12:27 PM EST Did you pend patient's preferred pharmacy and medication before forwarding?yes Pharmacy: [id number] [address] [facility] Pending Prescriptions: Disp Refills Rosuvastatin Calcium 40 MG Oral Tablet (C*90 Tab*1 Sig: Take 1 Tablet by mouth in the morning. Last Visit: 10/28/2023 (in office), Visit date not found (telemedicine) Next Visit: 08/13/2024 If no future appointments scheduled, and last appointment is greater than a year ago, please schedule patient for a follow-up appointment Last date the medication was ordered: 10/16/2023 Is this request for a controlled substance?No Urine Drug Screen: Results for orders placed or performed in visit on 06/19/17 TOX SCREEN, URINE, W/ CONFIRMATION Result Value Amphetamine NEGATIVE Barbiturates NEGATIVE Benzodiazepines NEGATIVE Cannabinoids POSITIVE (A) Cocaine Metabolite NEGATIVE Morphine / Codeine NEGATIVE METHADONE METABOLITE NEGATIVE OXYCODONE NEGATIVE TOX COMMENT THE ABOVE SCREENING RESULTS ARE PRESUMPTIVE AND CAN ONLY BE USED FOR MEDICAL PURPOSES. POSITIVE RESULTS REFLEX TO CONFIRMATORY TESTING. Cutoff Concentration *Note: Due to a large number of results and/or encounters for the requested time period, some results have not been displayed. A complete set of results can be found in Results Review. Patient Phone Numbers Labs: Lab Results Component Value Date/Time CREAT 1.4 (H) 10/28/2023 03:24 PM CREAT 1.3 (H) 11/16/2019 10:36 AM POTASSIUM 4.0 10/28/2023 03:24 PM POTASSIUM 3.7 03/10/2019 12:29 PM TSH 0.80 10/28/2023 03:24 PM TSH 0.25 (L) 03/10/2019 12:29 PM LDL 62 06/12/2023 01:09 PM LDL 68 01/29/2022 03:57 PM LDL 102 11/16/2019 10:36 AM ALT 25 09/12/2023 02:42 PM ALT 25 03/10/2019 12:29 PM HGBA1C 4.9 09/15/2014 02:58 PM documented in this encounter Plan of Treatment Upcoming Encounters Date Type Department Care Team (Late st Contact Info) Description 08/13/2024 4:00 PM EST Office Visit Family Practice [facility] [place] [address] [facility] [place] [address] Deborah Manning PA-C [address] [place] [address] Scheduled Orders Name Type Priority Associated Diagnoses Orde r Schedule LIPID PANEL WITH DIRECT LDL IF TG IS HIGH Lab Routine Dyslipidemia, goal LDL below 100 Expected: 06/30/2024 (Approximate), Expires: 06/30/2025 ALBUMIN / CREATININE RATIO, URINE Lab Routine Encounter for long-term (current) use of medications Expected: 06/30/2024, Expires: 06/30/2025 BASIC METABOLIC PANEL Lab Routine Encounter for long-term (current) use of medications Expected: 06/30/2024 (Approximate), Expires: 06/30/2025 Health Maintenance Due Date Last Done Comments DISCUSS TOBACCO CESSATION (REFER TO SMARTSET #3411) 1961 Alpha-1 Antitrypsin 1979 HPV/Co-Test 1991 Cologuard [...] Additional history exists CKD PHOS USE SMARTSET 63420 06/12/202405/26, 01/29/2022, 02/09/2021, Additional history exists Albumin/Creatinine Ratio 07/08/202407/08/ 023, 01/29/2022, 11/16/2019, Additional history exists CKD HGB USE SMARTSET 67087 10/27/202410/27, 08/02/2023, 07/08/2023, Additional history exists O2 ASSESSMENT COMPLETED IN PAST YEAR FOR COPD 10/27/2024 10/28/2023 TSH 10/27/2024 10/28/2023, 05/26, 08/28/2022, Additional history exists Diabetes Screening 10/27/2026 10/28/2023, 0 09/12/2023, 08/02/2023, Additional history exists Lipid Panel 06/12/2028 06/12/2023, 06/0 01/2022, 06/02/2021, Additional history exists DTap/Tdap Vaccines (3 [...] this encounter Medical Devices Implanted Type Area Watch Mechanic Device Identifier Shelf Expiration Date Model / Serial / Lot oM Ch 6 [id number] - [id number] Implanted:Qty: 4 on 09/28/2014 [place] [facility] [place] Chest JNJ : [employer] 02/23/2019 [id number] / / [id number] Valve Heart Aortic [facility] Hp19mm - [id number] Implanted:Qty: 1 on 09/28/2014 [place] Rois [place] [facility] [place]: Heart [facility] : CARDIOVASCULAR 05/22/2015 [id number]-[id number] / [id number] / documented as of this encounter Visit Diagnoses Diagnosis Dyslipidemia, goal LDL below 100- Primary Other and unspecified hyperlipidemia Encounter for long-term (current) use of medications Encounter for long-term (current) use of other medications documented in this encounter Advance Directives * Full Code [...] Power of Attor elsi? No Care Teams Commercial Loan Assistant Relationship Specialty Start Date End Date Clement Louise III, MD [address] [place] [address] PCP - General Family Medicine 11/16/19 documented as of this encounter
--- OUTSIDE RECORDS SUMMARY | 2024-07-07 06:23 | External Medical Summary | Summary of Care ---
Author Name Unknown Organization [facility] Address [address] [place] [address] Phone [phone] Care Team Providers Care Student Financial Services Counselor Name Role Phone Shirley COLEY MD, John E Primary Care Provider [phone] Reason for Visit * Reason Onset Date Comments Medication Refill 06/29/2024 Encounter Details Date Type Department Care Team (Late st Contact Info) Description 06/29/2024 Refill Family Practice [facility] 200 [facility] [place] [address] Clement Louise III, MD [address] [place] [address] Dyslipidemia, goal LDL below 100*; Encounter for long-term (current) use of medications Allergies Active Allergy Reactions Criticality Noted Date Comments Ciprofloxacin 12/19/2006 hives Cyclobenzaprine 12/19/2006 Gi upset Nortriptyline Hcl 12/19/2006 Fast heart rate documented as of this encounter (statuses as of 07/01/2024) Medications Medication Sig Dispensed Refills Start Date [...] as of this encounter (statuses as of 07/01/2024) Active Problems Problem Noted Date Diagnosed Date [...] management encounter 02/24/2002 MITR-AORTIC MULT INVOLV 06/11/2001 residential current use of anticoagulant therapy Overview: ICD-10 update of inactive term documented as of this encounter (statuses as of 07/01/2024) Resolved Problems Problem Noted Date Diagnosed Date [...] as of this encounter (statuses as of 07/01/2024) Immunizations Name Administration Dates Next Due COVID-19 [...] encounter Miscellaneous Notes * Telephone Encounter - Ildefonso Maciel [facility] - 06/30/2024 2:34 PM ESTSigned Prescriptions: Disp Refills Rosuvastatin Calcium 40 MG Oral Tablet (Cr*90 Tab*0 Sig: Take 1 Tablet by mouth in the morning. Authorizing Provider: CLEMENT LOUISE III User: ILDEFONSO MACIEL * Telephone Encounter - Geovanna Go CPhT - 06/29/2024 12:27 PM EST Did you pend patient's preferred pharmacy and medication before forwarding?yes Pharmacy: [id number] [address] [facility] Pending Prescriptions: Disp Refills Rosuvastatin Calcium 40 [...] EST Office Visit Family Practice [facility] [place] [address] [place] [address] Deborah Manning PA-C [address] [place] [address] Scheduled Orders Name Type Priority Associated Diagnoses [...] Comments DISCUSS TOBACCO CESSATION (REFER TO SMARTSET #3295) 1960 Alpha-1 Antitrypsin 1979 HPV/Co-Test 1991 Cologuard [...] Depression Screening 08/28/2023 08/28/2022 COVID-19 Vaccine ( - season) 2024 02/18/2021, 01/17/2021 Influenza Vaccine (FLU shot) (#1) 2024 06/23/2018, 09/13/2015, 10/26/2013, Additional history exists GFR 04/29/2024 10/28/2023, 08/26, 08/02/2023, Additional history exists CKD PHOS USE SMARTSET 18829 06/12/202405/26, 01/29/2022, 02/09/2021, Additional history exists Albumin/Creatinine Ratio 07/08/202407/08/ 023, 01/29/2022, 11/16/2019, Additional history exists CKD HGB USE SMARTSET 11623 10/27/202410/27, 08/02/2023, 07/08/2023, Additional history exists O2 [...] this encounter Medical Devices Implanted Type Area Conditioning Yard Supervisor Device Identifier Shelf Expiration Date Model / Serial / Lot Sut Steel 6 M654g - [id number] Implanted:Qty: 4 on 09/28/2014 by Angel Rios MD at [place] [facility] [place] N/A: Chest JNJ : [employer] 02/23/2019 M654G / / [id number] Valve Heart Aortic [facility] Hp19mm - [id number] Implanted:Qty: 1 on 09/28/2014 by Angel Rios MD at OR [facility] [place] N/A: Heart [facility] : CARDIOVASCULAR 05/22/2015 [id number] / documented as of this encounter Visit [...] Power of Attor elsi? No Care Teams Student Financial Services Counselor Relationship Specialty Start Date End Date Clement Louise III, MD [address] [place] [address] PCP - General Family Medicine 11/16/19 documented as of this encounter
--- OUTSIDE RECORDS SUMMARY | 2024-07-07 06:24 | External Medical Summary | Summary of Care ---
Author Name Unknown Organization [facility] Address [address] [place] [address] Phone [phone] Care Team Providers Care Global Sales Executive Name Role Phone Shirley COLEY MD, John E Primary Care Provider [phone] Reason for Visit * Reason Comments eRx-Medication Refill Encounter Details Date Type Department Care Team (Late st Contact Info) Description 02/29/[address] [facility] 200 [facility] [place] [address] Eron Watson III, MD 200 [place] [address] History of low potassium Allergies Active Allergy Reactions Criticality Noted Date Comments Ciprofloxacin 12/19/2006 hives Cyclobenzaprine 12/19/2006 Gi upset Nortriptyline Hcl 12/19/2006 Fast heart rate documented as of this encounter (statuses as of 03/02/2024) Medications Medication Sig Dispensed Refills Start Date End Date Status Multiple Vitamins-Minerals (MULTIVITAMIN ADULT) TABS Take 1 Tab by mouth daily. Active Cholecalciferol 25 MCG (1000 UT) Oral Tablet Take 1 Tablet by mouth in the morning. 04/28/2018 Active albuterol-ipratropiu m (DUONEB) 2.5-0.5 MG/3ML nebulizer solutionIndications: Asthma, mild persistent USE INHALATION SOLUTION DIRECTED EVERY 4 HOURS 180 mL 04/06/2019 Active Additional Information Patient not taking.Reported on 11/07/2023 Nitroglycerin 0.3 MG Sublingual Tablet Sublingual (Nitrostat)Indicatio ns:Paroxysmal atrial fibrillation (HCC) PLACE 1 TAB UNDER TONGUE EVERY 5 MIN NEEDED FOR CHEST PAIN. MAX 3 TABS IN 15 MIN 100 Tablet 2 04/10/2022 Active Additional Information Patient not taking.Reported on 11/07/2023 Warfarin Sodium 5 MG Oral Tablet (Coumadin)Indication s:S/P aortic valve replacement,S/P MVR (mitral valve replacement) TAKE 2 TABLETS (10 MG) BY MOUTH TODAY, THEN DIRECTED BY THE ANTI-COAGULATION CLINIC 30 Tablet 11 05/06/2023 Active Furosemide 40 MG Oral Tablet (Lasix)Indications:H istory of low potassium Take 1.5 Tablets by mouth in the morning. 135 Tablet 3 06/14/2023 Active Additional Information Patient taking differently: 80 mgOral Daily(AM), Reported on 08/02/2023 Potassium Chloride Yael ER 10 MEQ Oral Tablet Extended Release (Klor-Con M10)Indications:Hist ory of low potassium Take 2 Tablets by mouth in the morning. 180 Tablet 3 06/14/2023 Active buPROPion HCl 75 MG Oral Tablet (Wellbutrin) TAKE 1 TABLET BY MOUTH EVERY DAY 90 Tablet 1 06/20/2023 Active Levothyroxine Sodium 150 MCG Oral Tablet (Levoxyl)Indications :Acquired hypothyroidism TAKE 1 TAB BY MOUTH DAILY FIRST THING IN THE MORNING. (AT LEAST 30 MIN PRIOR TO BREAKFAST OR OTHER MEDS) MON-SAT. TAKE 1 & 1/2 TAB ON SATURDAY 100 Tablet 3 08/17/2023 Active Meclizine HCl 25 MG Oral Tablet (Antivert)Indication s:Dizziness TAKE 1 TABLET BY MOUTH UP TO 3 TIMES DAILY NEEDED FOR DIZZINESS 90 Tablet 1 10/16/2023 Active Rosuvastatin Calcium 40 MG Oral Tablet (Crestor) TAKE 1 TABLET BY MOUTH EVERY DAY 90 Tablet 1 10/16/2023 Active Albuterol Sulfate HFA 108 (90 Base) MCG/ACT Inhalation Aerosol SolutionIndications: Wheezing USE 2 PUFFS EVERY 4 HOURS NEEDED FOR WHEEZING/COUGH 18 g 1 10/16/2023 Active Metoprolol Succinate ER 25 MG Oral Tablet Extended Release 24 Hour (toPROL XL)Indications:Atria l fibrillation, unspecified type (HCC) TAKE 1 TABLET BY MOUTH EVERY DAY IN THE MORNING 30 Tablet 5 01/02/2024 Active Ezetimibe 10 MG Oral Tablet (Zetia)Indications:D yslipidemia, goal LDL below 70 TAKE 1 TABLET BY MOUTH EVERY DAY 90 Tablet 3 02/07/2024 Active Hospital, Clinic, or Other Facility Administered Medication Ordered Dose Route Frequency Start Date End Date Status Albuterol Sulfate (Proventil) (2.5 MG/3ML) 0.083% inhalation solution 2.5 mgIndications:COPD, mild (HCC) 2.5 mg NEBULIZER PRN 09/12/2023 09/11/2024 Active albuterol (VENTOLIN HFA/PROVENTIL HFA) inhalerIndications:COPD , mild (HCC) 3 Puff IN PRN 09/12/2023 09/11/2024 Active documented as of this encounter (statuses as of 03/02/2024) Active Problems Problem Noted Date Diagnosed Date [...] and unspecified rheumatic heart diseases(3 98.99) 03/03/2008 ADVANCE DIRECTIVE INFORMATION 06/16/2007 Overview: No, Advance Directive brochure given to patient at prior appointment. Esophageal reflux 12/25/2005 Lymphadenitis, unspecified, except mesenteric Hypothyroidism 04/16/2002 ADJ DISORDER W/DEPRES MOOD 04/16/2002 Anticoagulation management encounter 02/24/2002 MITR-AORTIC MULT INVOLV 06/11/2001 technician terminal and repeater current use of anticoagulant therapy Overview: ICD-10 update of inactive term documented as of this encounter (statuses as of 03/02/2024) Resolved Problems Problem Noted Date Diagnosed Date [...] determined 08/04/2008 07/25/2010 Asthma, allergic 11/24/2007 02/16/2010 documented as of this encounter (statuses as of 03/02/2024) Immunizations Name Administration Dates Next Due COVID-19 mRNA, LNP-s, No Pre serve, 2-Dose Series (Moderna) 02/18/2021,01/17/2021 Pneumococcal Polysaccharide PPV23 (Pneumovax) 06/23/2018 Seasonal Influenza, PF, 6 M & above, IM , (FluLaval or Fluzone) 06/23/2018 Seasonal Influenza, Quadriva lent, No Preserve, IM 09/13/2015 Seasonal Influenza, Split, I IV3, With Preserve, Inj 10/26/2013,06/01/2010,08/04/2008,09/22 TD, Preservative Free 03/10/2019 TDAP, Age 8 [...] encounter Miscellaneous Notes * Telephone Encounter - Jeremie Soto, [facility] - 03/02/2024 10:45 AM EDT Refused Prescriptions: Disp Refills Furosemide 40 MG Oral Tablet (Lasix) 90 Tab*2 Sig: TAKE 1 TABLET BY MOUTH EVERY DAYRefused By: JEREMIE SOTO for Refusal: Too soon Klor-Con M10 10 MEQOral Tablet Extended R*90 Tab*2 Sig: TAKE 1 TABLET BY MOUTH EVERY DAYRefused By: JEREMIE SOTO for Refusal: Too soon documented in this encounter Plan of Treatment Upcoming Encounters Date Type Department Care Team (Late st Contact Info) Description 03/06/2024 6:15 AM EDT Anticoagulation [facility], [place]ividad [place] [address] [place] [address] [place] [address] [facility], [address] [place] [address] Health Maintenance Due Date Last Done Comments DISCUSS TOBACCO CESSATION (REFER TO SMARTSET #6003) 1960 Alpha-1 Antitrypsin 1979 HPV/Co-Test 1991 Cologuard [...] 06/23/2019 06/23/2018 Mammogram 07/14/2019 07/14/2018, 08/27, 07/21/2003 COVID-19 Vaccine ( - 2022- season) 2023 02/18/2021, 01/17/2021 Depression Screening 08/28/2023 08/28/2022 Influenza Vaccine (FLU shot) (#1) 2024 06/23/2018, 09/13/2015, 10/26/2013, Additional history exists GFR 04/29/2024 10/28/2023, 08/26, 08/02/2023, Additional history exists CKD PHOS USE SMARTSET 17748 06/12/202405/26, 01/29/2022, 02/09/2021, Additional history exists Albumin/Creatinine Ratio 07/08/2024 023, 01/29/2022, 11/16/2019, Additional history exists CKD HGB USE SMARTSET 47778 10/27/202410/27, 08/02/2023, 07/08/2023, Additional history exists O2 ASSESSMENT COMPLETED IN PAST YEAR FOR COPD 10/27/2024 10/28/2023 TSH 10/27/2024 10/28/2023, 05/26, 08/28/2022, Additional history exists Diabetes Screening 10/27/2026 10/28/2023, 0 09/12/2023, 08/02/2023, Additional history exists Lipid Panel 06/12/2028 06/12/2023, 06/0 01/2022, 06/02/2021, Additional history exists DTaP,Tdap,and Td Vaccines (3 - Td or Tdap) 03/10/2029 [...] this encounter Medical Devices Implanted Type Area Adoption Agent Device Identifier Shelf Expiration Date Model / Serial / Lot Sut Steel 6 M654g - [id number] Implanted:Qty: 4 on 09/28/2014 by [place] [facility] [place] Chest JNJ : [employer] 02/23/2019 M654G / / [id number] Valve Heart Aortic [facility] Hp19mm - [id number] Implanted:Qty: 1 on 09/28/2014 by Angel Rios MD [place] [facility] [place]/A: Heart [facility] : CARDIOVASCULAR 05/22/2015 [id number]-[id number] / [id number] / documented as of this encounter Visit Diagnoses Diagnosis History of low potassium documented in this encounter Advance Directives * [...] Power of Attor elsi? No Care Teams Global Sales Executive Relationship Specialty Start Date End Date Eron Watson III, MD [address] [place] [address] PCP - General Family Medicine 11/16/19 documented as of this encounter
--- OUTSIDE RECORDS SUMMARY | 2024-07-07 06:24 | External Medical Summary | Summary of Care ---
Author Name Unknown Organization [facility] Address [address] [place] [address] Phone [phone] Care Team Providers Care Insurance Claims Adjuster Name Role Phone Shirley COLEY MD, Eron Rodríguez Primary Care Provider [phone] Reason for Visit * Reason Comments Dosage Adjustment Via Phone (anticoag Cl inic) Encounter Details Date Type Department Care Team ([facility] st Contact Info) Description 02/28/2024 6:45 PM EDT [facility], Fordmaryse Hastings [address] [place] [address] [place] [address] [place] [address] Anticoagulation management encounter* Allergies Active Allergy Reactions Criticality Noted Date Comments Ciprofloxacin 12/19/2006 hives Cyclobenzaprine 12/19/2006 Gi upset Nortriptyline Hcl 12/19/2006 Fast heart rate documented as of this encounter (statuses as of 02/28/2024) Medications Medication Sig Dispensed Refills Start Date [...] as of this encounter (statuses as of 02/28/2024) Active Problems Problem Noted Date Diagnosed Date [...] management encounter 02/24/2002 MITR-AORTIC MULT INVOLV 06/11/2001 long-term current use of anticoagulant therapy Overview: ICD-10 update of inactive term documented as of this encounter (statuses as of 02/28/2024) Resolved Problems Problem Noted Date Diagnosed Date [...] as of this encounter (statuses as of 02/28/2024) Immunizations Name Administration Dates Next Due COVID-19 [...] No 09/29/2014 documented as of this encounter Progress Notes * Vickie Chan PHARM Tech - 02/28/2024 8:07 AM EDT Patient Phone Numbers Spoke with patient to remind her she is overdue for PT/INR blood work. Patient states she will makeit to lab a day next week, not sure which day at this time. Will follow up with result. Thank you, Vickie Chan Planer Hand [facility] ([facility]) 02/28/2024,8:07 AM documented in this encounter Plan of Treatment Upcoming Encounters Date Type Department Care Team (Late st Contact Info) Description 03/06/2024 6:15 AM EDT An[facility], Natividad [address] [place] [address] [place] [address] Health Maintenance Due Date Last Done Comments DISCUSS TOBACCO CESSATION (REFER TO SMARTSET #1376) 1960 Alpha-1 Antitrypsin 1979 HPV/Co-Test 1991 Cologuard [...] Mammogram 07/14/2019 07/14/2018, 08/27, 07/21/2003 COVID-19 Vaccine (2022- season) 2023 02/18/2021, 01/17/2021 Depression Screening 08/28/2023 08/28/2022 Influenza Vaccine (FLU shot) (#1) 2024 06/23/2018, 09/13/2015, 10/26/2013, Additional history exists GFR 04/29/2024 10/28/2023, 08/26, 08/02/2023, Additional history exists CKD PHOS USE SMARTSET 80042 06/12/202405/26, 01/29/2022, 02/09/2021, Additional history exists Albumin/Creatinine Ratio 07/08/2024 023, 01/29/2022, 11/16/2019, Additional history exists CKD HGB USE SMARTSET 03223 10/27/202410/27, 08/02/2023, 07/08/2023, Additional history exists O2 [...] this encounter Medical Devices Implanted Type Area Pocket Setter Lockstitch Device Identifier Shelf Expiration Date Model / Serial / Lot Sut Steel 6 M654g - [id number] Implanted:Qty: 4 on 09/28/2014 by [place] [facility] [place]A: Chest JNJ : [employer] 02/23/2019 M654G / / [id number] Valve Heart Aortic [facility] Hp19mm - [id number] Implanted:Qty: 1 on 09/28/2014 by Angel Rios MD [place] [facility] [place] N/A: Heart [facility] : CARDIOVASCULAR 05/22/2015 [id number]-[id number] / [id number] / documented as of this encounter Visit Diagnoses Diagnosis Anticoagulation management encounter- Primary Encounter for therapeutic drug monitoring documented in this encounter Advance Directives * [...] Power of Attor elsi? No Care Teams Insurance Claims Adjuster Relationship Specialty Start Date End Date Eron Watson III, MD [address] [place] [address] PCP - General Family Medicine 11/16/19 documented as of this encounter
--- OUTSIDE RECORDS SUMMARY | 2024-07-07 06:24 | External Medical Summary | Summary of Care ---
Author Name Unknown Organization [facility] Address [address] [place] [address] Phone [phone] Care Team Providers Care Shaper Setter Name Role Phone Shirley COLEY MD, John E Primary Care Provider [phone] Reason for Visit * Reason Comments eRx-Medication Refill Encounter Details Date Type Department Care Team (Late st Contact Info) Description 06/16/2024 Refill Family Practice [facility] [place] 200 [place] [address] Eron Watson III, MD 200 [place] [address] History of low potassium; S/P aortic valve replacement; S/P MVR (mitral valve replacement) Allergies Active Allergy Reactions Criticality Noted Date Comments Ciprofloxacin 12/19/2006 hives Cyclobenzaprine 12/19/2006 Gi upset Nortriptyline Hcl 12/19/2006 Fast heart rate documented as of this encounter (statuses as of 06/18/2024) Medications Medication Sig Dispensed Refills Start Date [...] on 11/07/2023 Furosemide 40 MG Oral Tablet (Lasix)Indications:H istory [...] 10/16/2023 Active Ezetimibe 10 MG Oral Tablet (Zetia)Indications:D yslipidemia, goal LDL below 70 TAKE 1 TABLET BY MOUTH EVERY DAY 90 Tablet 3 02/07/2024 Active Metoprolol Succinate ER 25 MG Oral Tablet Extended Release 24 Hour (toPROL XL)Indications:Atria l fibrillation, unspecified type (HCC) TAKE 1 TABLET BY MOUTH EVERY DAY IN THE MORNING 30 Tablet 5 06/18/2024 Active Hospital, Clinic, or Other Facility Administered Medication Ordered Dose Route Frequency Start Date End Date Status Albuterol Sulfate (Proventil) (2.5 MG/3ML) 0.083% inhalation solution 2.5 mgIndications:COPD, mild (HCC) 2.5 mg NEBULIZER PRN 09/12/2023 09/11/2024 Active albuterol (VENTOLIN HFA/PROVENTIL HFA) inhalerIndications:COPD , mild (HCC) 3 Puff IN PRN 09/12/2023 09/11/2024 Active documented as of this encounter (statuses as of 06/18/2024) Active Problems Problem Noted Date Diagnosed Date [...] management encounter 02/24/2002 MITR-AORTIC MULT INVOLV 06/11/2001 [facility] current use of anticoagulant therapy Overview: ICD-10 update of inactive term documented as of this encounter (statuses as of 06/18/2024) Resolved Problems Problem Noted Date Diagnosed Date [...] as of this encounter (statuses as of 06/18/2024) Immunizations Name Administration Dates Next Due COVID-19 [...] encounter Miscellaneous Notes * Telephone Encounter - Yamileth Davies PHARM Tech - 06/18/2024 2:55 PM EDT Received message from [facility] regarding patient needing an appointment and labs. Call Placed, Pt was agreeable to set up appointment but did not want to schedule at this time. Patient advised they will call back to set up appointment. Thank you, Yamielth Davies Dough Maker [facility] 06/18/2024, 2:55 PM * Telephone Encounter - Christa Day [facility] - 06/18/2024 1:51 PM EDT Refused Prescriptions: Disp Refills Furosemide 40 MG Oral Tablet (Lasix) 90 Tab*2 Sig: Take 1 Tablet by mouth in the morning. TAKE 1 AND 1/2 TABLET BY MOUTH IN THE MORNING. Refused By: CHRISTA DAY Reason for Refusal: Patient Should Contact Provider First Warfarin Sodium 5 MG Oral Tablet (Coumadin)30 Tab*11 Sig: TAKE 2 TABLETS (10 MG) BY MOUTH TODAY, THEN DIRECTED BY THE ANTI-COAGULATION CLINIC Refused By: CHRISTA DAY Reason for Refusal: Patient Should Contact Provider First Mendez M10 10 MEQ Oral Tablet Extended R*90 Tab*2 Sig: TAKE 1 TABLET BY MOUTH EVERY DAY Refused By: CHRISTA DAY Reason for Refusal: Too soon Reason for Refusal Comment: DOSE INCREASED ----- * Telephone Encounter - Christa Day RPh - 06/18/2024 1:43 PM EDT Please contact patient so that an appointment can be scheduled with her PRIMARY CARE AND CARDIOLOGY. She has not had INR checked since October and has been discharged from coumadin clinic. Last Visit: 10/28/2023 (in office), Visit date not found (telemedicine) Next Visit: Visit date not found Thank you, Christa Day, PharmD Clinical Pharmacist [facility] ([facility]) [phone] 06/18/2024, 1:49 PM documented in this encounter Plan of Treatment Upcoming Encounters Date Type Department Care Team (Late st Contact Info) Description 08/13/2024 4:00 PM EST Office Visit Family Practice [facility] [address] [place] [address] Deborah Manning PA-C [address] [place] [address] Health Maintenance Due Date Last Done Comments DISCUSS TOBACCO CESSATION (REFER TO SMARTSET #3291) 1960 Alpha-1 Antitrypsin 1979 HPV/Co-Test 1991 Cologuard [...] Additional history exists CKD PHOS USE SMARTSET 04773 06/12/202405/26, 01/29/2022, 02/09/2021, Additional history exists Albumin/Creatinine Ratio 07/08/202407/08/ 023, 01/29/2022, 11/16/2019, Additional history exists CKD HGB USE SMARTSET 96523 10/27/202410/27, 08/02/2023, 07/08/2023, Additional history exists O2 [...] this encounter Medical Devices Implanted Type Area [employer] Special Education Teacher Device Identifier Shelf Expiration Date Model / Serial / Lot Sut Steel 6 M654g - [id number] Implanted:Qty: 4 on 09/28/2014 [place] [facility] [place] Chest JNJ : [employer] 02/23/2019 M654G / / [id number] Valve Heart Aortic [facility] Hp19mm - [id number] Implanted:Qty: 1 on 09/28/2014 [place] R[place] [facility] [place]/A: Heart [facility] : CARDIOVASCULAR 05/22/2015 [id number]-[id number] / [id number] / documented as of this encounter Visit Diagnoses Diagnosis History of low potassium S/P aortic valve replacement Heart valve replaced by other means S/P MVR (mitral valve replacement) Heart valve replaced by other means documented in this encounter Advance Directives * [...] Power of Attor elsi? No Care Teams Shaper Setter Relationship Specialty Start Date End Date Eron Watson III, MD 200 [place] [address] PCP - General Family Medicine 11/16/19 documented as of this encounter
--- OUTSIDE RECORDS SUMMARY | 2024-07-07 06:24 | External Medical Summary | Summary of Care ---
Author Name Unknown Organization [facility] Address [address] [place] [address] Phone [phone] Care Team Providers Care Truck Repair Service Estimator Name Role Phone Shirley COLEY MD, Eron Rodríguez Primary Care Provider [phone] Reason for Visit * Reason Onset Date Comments FYI 06/29/2024 Encounter Details Date Type Department Care Team (Late st Contact Info) Description 06/29/2024 Telephone Centralized Clinical Pharmacy Services, Natividad [facility] [address] [place] [address] [place] [address] Rafaela Meza, [facility] [address] [place] [address] Allergies Active Allergy Reactions Criticality Noted Date Comments Ciprofloxacin 12/19/2006 hives Cyclobenzaprine 12/19/2006 Gi upset Nortriptyline Hcl 12/19/2006 Fast heart rate documented as of this encounter (statuses as of 06/29/2024) Medications Medication Sig Dispensed Refills Start Date [...] as of this encounter (statuses as of 06/29/2024) Active Problems Problem Noted Date Diagnosed Date [...] management encounter 02/24/2002 MITR-AORTIC MULT INVOLV 06/11/2001 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 Discharge letter printed and mailed to patient today via Certified Mail. Mary Smallwood CPhT, [place] Director Of Valuation II Centralized Clincal Pharmacy Services ([facility]PS) * Telephone Encounter - Rafaela Meza RPh - 06/29/2024 12:[address] [facility] final d/c letter not read on myG yet. Letter will be printed and mailed to patient. Rafaela Meza Rph, Pharm.D. Clinical Pharmacist Centralized Clinical Pharmacy Services (CCPS) [phone] 06/29/2024,12:54 PM documented in this encounter Plan of Treatment Upcoming Encounters Date Type Department Care Team (Late st Contact Info) Description 08/13/2024 4:00 PM EST Office Visit Family Practice Monty [facility] [place] [address] [place] [address] Deborah Manning PA-C [address] [facility] [place] [address] Health Maintenance Due Date Last Done Comments DISCUSS TOBACCO CESSATION (REFER TO SMARTSET #1443) 1961 Alpha-1 Antitrypsin 1979 HPV/Co-Test 1991 Cologuard [...] Additional history exists CKD PHOS USE SMARTSET 30304 06/12/202405/26, 01/29/2022, 02/09/2021, Additional history exists Albumin/Creatinine Ratio 07/08/2024 023, 01/29/2022, 11/16/2019, Additional history exists CKD HGB USE SMARTSET 79665 10/27/202410/27, 08/02/2023, 07/08/2023, Additional history exists O2 [...] this encounter Medical Devices Implanted Type Area Sider Mechanic Device Identifier Shelf Expiration Date Model / Serial / Lot Sut Steel 6 M654g - [id number] Implanted:Qty: 4 on 09/28/2014 by Angel Rios MD at [place] [facility] [place]/A: Chest JNJ : [employer] 02/23/2019 M654G / / [id number] Valve Heart Aortic [facility] Hp19mm - [id number] Implanted:Qty: 1 on 09/28/2014 by Angel Rios MD at [place] [facility] [place] N/A: Heart [facility] [employer]ER : CARDIOVASCULAR 05/22/2015 [id number]-50 [id number] / [id number] / documented as of this encounter Advance [...] Power of Attor elsi? No Care Teams Truck Repair Service Estimator Relationship Specialty Start Date End Date Shirley COLEY, Eron Rodríguez MD [address] [place] [address] PCP - General Family Medicine 11/16/19 documented as of this encounter
--- OUTSIDE RECORDS SUMMARY | 2024-07-07 06:24 | External Medical Summary | Summary of Care ---
Author Name Unknown Organization [facility] Address [address] [place] [address] Phone [phone] Care Team Providers Care Instructor Industrial Design Name Role Phone Shirley COLEY MD, Eron Rodríguez Primary Care Provider [phone] Reason for Visit * Reason Comments Dosage Adjustment Via Phone (anticoag Cl inic) Encounter Details Date Type Department Care Team (Latest Contact Info) Description 01/30/2024 6:45 PM EDT Anticoagulation Centralized Clinical Pharmacy Services, Natividad [address] [place] [address] [place] [address] S/P aortic valve replacement*; S/P mitral valve replacement; Atrial fibrillation (HCC); Chronic atrial fibrillation (HCC) Allergies Active Allergy Reactions Criticality Noted Date Comments Ciprofloxacin 12/19/2006 hives Cyclobenzaprine 12/19/2006 Gi upset Nortriptyline Hcl 12/19/2006 Fast heart rate documented as of this encounter (statuses as of 01/30/2024) Medications Medication Sig Dispensed Refills Start Date [...] Additional Information Patient not taking.Reported on 11/07/2023 Ezetimibe 10 MG Oral Tablet (Zetia)Indications:D yslipidemia, goal LDL below 70 TAKE 1 TABLET BY MOUTH EVERY DAY 90 Tablet 3 12/31/2022 Active Warfarin Sodium 5 MG Oral Tablet (Coumadin)Indication [...] THE MORNING 30 Tablet 5 01/02/2024 Active Hospital, Clinic, or Other Facility Administered Medication Ordered Dose Route Frequency Start Date End Date Status Albuterol Sulfate (Proventil) (2.5 MG/3ML) 0.083% inhalation solution 2.5 mgIndications:COPD, mild (HCC) 2.5 mg NEBULIZER PRN 09/12/2023 09/11/2024 Active albuterol (VENTOLIN HFA/PROVENTIL HFA) inhalerIndications:COPD , mild (HCC) 3 Puff IN PRN 09/12/2023 09/11/2024 Active documented as of this encounter (statuses as of 01/30/2024) Active Problems Problem Noted Date Diagnosed Date [...] encounter 02/24/2002 MITR-AORTIC MULT INVOLV 06/11/2001 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 [employer] [facility] message sent --yes Clinic will follow up again in 4 week(s). Last INR 10/28/2023 Thank you, Sosa Moss CPhT Loan Auditor II Centralized Clinical Pharmacy Services (CCPS) 01/30/2024,8:22 AM documented in this encounter Plan of Treatment Upcoming Encounters Date Type Department Care Team (Late st Contact Info) Description 02/28/2024 6:45 PM EDT Anticoagulation Centralized Clinical Pharmacy Services, Natividad Hastings [address] [place] [address] [place] [address] [facility] [address] [facility] [place] [address] Health Maintenance Due Date Last Done Comments [...] Screening 08/28/2023 08/28/2022 Influenza Vaccine (FLU shot) (Season Ended) 2024 06/23/2018, 09/13/2015, 10/26/2013, Additional history exists GFR 04/29/2024 10/28/2023, 08/26, 08/02/2023, Additional history exists CKD PHOS USE SMARTSET 44886 06/12/202405/26, 01/29/2022, 02/09/2021, Additional history exists Albumin/Creatinine Ratio 07/08/2024 023, 01/29/2022, 11/16/2019, Additional history exists CKD HGB USE SMARTSET 84630 10/27/202410/27, 08/02/2023, 07/08/2023, Additional history exists O2 ASSESSMENT COMPLETED IN PAST YEAR FOR COPD 10/27/2024 10/28/2023 TSH 10/27/2024 10/28/2023, 05/26, 08/28/2022, Additional history exists Diabetes Screening 10/27/2026 10/28/2023, 0 09/12/2023, 08/02/2023, Additional history exists Lipid Panel 06/12/2028 06/12/2023, 06/0 01/2022, 06/02/2021, Additional history exists DTaP,Tdap,and Td Vaccines (3 - Td or Tdap) 03/10/2029 03/10/2019, 01/22/2008 GARDASIL-HPV IMMUNIZATION SERIES Aged Out No longer eligible based on patient's age to complete this topic Hepatitis B Aged Out No longer eligi ble based on patient's age to complete this topic MENINGOCOCCAL (MENACTRA/MENVEO) Aged Out No longer eligible based on patient's age to complete this topic documented as of this encounter Medical Devices Implanted Type Area Rf Design Engineer Device Identifier Shelf Expiration Date Model / Serial / Lot Sut Dima 6 M654g - [id number] Implanted:Qty: 4 on 09/28/2014 [place] [facility] [place] Chest JNJ : [employer] 02/23/2019 M654G / / [id number] Valve Heart Aortic [facility] Hp19mm - [id number] Implanted:Qty: 1 on 09/28/2014 by Angel Rios MD [place] [facility] [place]/A: Heart [facility] [employer] : CARDIOVASCULAR 05/22/2015 [id number]-50 5 / [id number] / documented as of this encounter Visit Diagnoses Diagnosis S/P aortic valve replacement- Primary Heart valve replaced by other means S/P mitral valve replacement Heart valve replaced by other means Atrial fibrillation (HCC) Atrial fibrillation Chronic atrial fibrillation (HCC) Atrial fibrillation documented in this encounter Advance Directives * [...] Power of Attor elsi? No Care Teams Instructor Industrial Design Relationship Specialty Start Date End Date Eron Watson III, MD [address] [place] [address] PCP - General Family Medicine 11/16/19 documented as of this encounter
--- OUTSIDE RECORDS SUMMARY | 2024-07-07 06:24 | External Medical Summary | Summary of Care ---
Author Name Unknown Organization [facility] Address [address] [place] [address] Phone [phone] Care Team Providers Care Audograph Operator Name Role Phone Shirley COLEY MD, Eron Rodríguez Primary Care Provider [phone] Reason for Visit * Reason Onset Date Comments FYI 06/29/2024 Encounter Details Date Type Department Care Team (Late st Contact Info) Description 06/29/2024 Telephone Centralized Clinical Pharmacy Services, Natividad Hastings [address] [place] [address] [place] [address] Rafaela Meza, [facility] [address] [place] [address] Allergies Active Allergy Reactions Criticality Noted Date [...] encounter 02/24/2002 MITR-AORTIC MULT INVOLV 06/11/2001 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 Mary Smallwood CPhT, [place] Oil Refiner II Centralized Clincal Pharmacy Services (CCPS) * Telephone Encounter - Rafaela Meza RPh - 06/29/2024 12:53 PM EST [facility] final d/c letter not read on myG yet. Letter will be printed and mailed to patient. Rafaela Meza Rph, Pharm.D. Clinical Pharmacist Centralized Clinical Pharmacy Services (CCPS) [phone] 06/29/2024,12:54 PM documented in this encounter Plan of Treatment Upcoming Encounters Date Type Department Care Team (Late st Contact Info) Description 08/13/2024 4:00 PM EST Office Visit Family Practice Monty Borden [place] [address] [place] [address] Deborah Manning PA-C [address] [facility] [place] [address] Health Maintenance Due Date Last Done Comments DISCUSS TOBACCO CESSATION (REFER TO SMARTSET #5891) 1960 Alpha-1 Antitrypsin 1979 HPV/Co-Test 1991 Cologuard [...] Additional history exists CKD PHOS USE SMARTSET 76616 06/12/202405/26, 01/29/2022, 02/09/2021, Additional history exists Albumin/Creatinine Ratio 07/08/2024 023, 01/29/2022, 11/16/2019, Additional history exists CKD HGB USE SMARTSET 69177 10/27/202410/27, 08/02/2023, 07/08/2023, Additional history exists O2 [...] this encounter Medical Devices Implanted Type Area Contract Administrative Assistant Device Identifier Shelf Expiration Date Model / Serial / Lot Sut Steel 6 M654g - [id number] Implanted:Qty: 4 on 09/28/2014 by Angel Rios MD at [place] [facility] [place] N/A: Chest JNJ : [employer] 02/23/2019 M654G / / [id number] Valve Heart Aortic [facility] Hp19mm - [id number] Implanted:Qty: 1 on 09/28/2014 by Angel Rios MD at OR [facility] [place] N/A: Heart [facility] [employer] : CARDIOVASCULAR 05/22/2015 19AFHPJ-50 5 / [id number] / documented as of this encounter Advance [...] Power of Attor elsi? No Care Teams Audograph Operator Relationship Specialty Start Date End Date Shirley COLEY, Eron Rodríguez MD [address] [place] [address] PCP - General Family Medicine 11/16/19 documented as of this encounter
--- OUTSIDE RECORDS SUMMARY | 2024-07-07 06:24 | External Medical Summary | Summary of Care ---
Author Name Unknown Organization [facility] Address [address] [place] [address] Phone [phone] Care Team Providers Care Water Quality Control Engineer Name Role Phone Shirley COLEY MD, Eron Rodríguez Primary Care Provider [phone] Reason for Visit * Reason Comments Dosage Adjustment Via Phone (anticoag Cl inic) Encounter Details Date Type Department Care Team (Late st Contact Info) Description 04/03/2024 6:45 PM EDT Anticoagulation Centralized Clinical Pharmacy Services, [facility] [place] [address] [place] [address] [place] [address] [place] [address] S/P aortic valve replacement*; S/P mitral valve replacement; Atrial fibrillation (HCC); Chronic atrial fibrillation (HCC) Allergies Active Allergy Reactions Criticality Noted Date Comments Ciprofloxacin 12/19/2006 hives Cyclobenzaprine 12/19/2006 Gi upset Nortriptyline Hcl 12/19/2006 Fast heart rate documented as of this encounter (statuses as of 04/03/2024) Medications Medication Sig Dispensed Refills Start Date [...] as of this encounter (statuses as of 04/03/2024) Active Problems Problem Noted Date Diagnosed Date [...] management encounter 02/24/2002 MITR-AORTIC MULT INVOLV 06/11/2001 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 Last INR 3/4. Will attempt gain in 4 weeks. Thank you, Michelle Durand Websphere Portal Architect Centralized Clinical Pharmacy Services (CCPS) ( Formerly Telepharmacy) 04/03/2024, 7:57 AM documented in this encounter Plan of Treatment Upcoming Encounters Date Type Department Care Team (Late st Contact Info) Description 05/01/2024 6:45 PM EDT Anticoagulation Centralized Clinical Pharmacy Services, Natividad Hastings [address] [place] [address] [place] [address] [facility] [address] [place] [address] Health Maintenance Due Date Last Done Comments DISCUSS TOBACCO CESSATION (REFER TO SMARTSET #0026) 1960 Alpha-1 Antitrypsin 1979 HPV/Co-Test 1991 Cologuard [...] 07/14/2019 07/14/2018, 08/27, 07/21/2003 COVID-19 Vaccine ( season) 2023 02/18/2021, 01/17/2021 Depression Screening 08/28/2023 08/28/2022 Influenza Vaccine (FLU shot) (#1) 2024 06/23/2018, 09/13/2015, 10/26/2013, Additional history exists GFR 04/29/2024 10/28/2023, 08/26, 08/02/2023, Additional history exists CKD PHOS USE SMARTSET 44163 06/12/202405/26, 01/29/2022, 02/09/2021, Additional history exists Albumin/Creatinine Ratio 07/08/2024 023, 01/29/2022, 11/16/2019, Additional history exists CKD HGB USE SMARTSET 45706 10/27/202410/27, 08/02/2023, 07/08/2023, Additional history exists O2 [...] this encounter Medical Devices Implanted Type Area Healthcare Business Analyst Device Identifier Shelf Expiration Date Model / Serial / Lot Sut Steel 6 M654g - [id number] Implanted:Qty: 4 on 09/28/2014 by Angel Rios MD [place] [facility] [place]/A: Chest JNJ : [employer] 02/23/2019 M654G / / [id number] Valve Heart Aortic [facility] Hp19mm - [id number] Implanted:Qty: 1 on 09/28/2014 by Angel Rios MD at [place] [facility] [place] N/A: Heart [facility] [employer] : CARDIOVASCULAR 05/22/2015 19AFHPJ-50 5 / [id number] / documented as of this encounter Visit [...] Power of Attor elsi? No Care Teams Water Quality Control Engineer Relationship Specialty Start Date End Date Eron Watson III, MD [address] [facility] [place] [address] PCP - General Family Medicine 11/16/19 documented as of this encounter
--- OUTSIDE RECORDS SUMMARY | 2024-07-07 06:24 | External Medical Summary | Summary of Care ---
Author Name Unknown Organization [facility] Address [address] [place] [address] Phone [phone] Care Team Providers Care Pattern Illustrator Name Role Phone Shirley COLEY MD, Eron Rodríguez Primary Care Provider [phone] Reason for Visit * Reason Comments eRx-Medication Refill Encounter Details Date Type Department Care Team (Late st Contact Info) Description 02/06/2024 Refill Cardiology [place] [address]acie [address] [place], [place] [id number] Micki Lock CRNP [address] [place] [address] Dyslipidemia, goal LDL below 70 Allergies Active Allergy Reactions Criticality Noted Date Comments Ciprofloxacin 12/19/2006 hives Cyclobenzaprine 12/19/2006 Gi upset Nortriptyline Hcl 12/19/2006 Fast heart rate documented as of this encounter (statuses as of 02/07/2024) Medications Medication Sig Dispensed Refills Start Date End Date Status Multiple Vitamins-Minerals (MULTIVITAMIN ADULT) TABS Take 1 Tab by mouth daily. Active Cholecalciferol 25 MCG (1000 UT) Oral Tablet Take 1 Tablet by mouth in the morning. 8 Active albuterol-ipratropi um (DUONEB) 2.5-0.5 MG/3ML nebulizer solutionIndications :Asthma, mild persistent USE INHALATION SOLUTION DIRECTED EVERY 4 HOURS 180 mL 9 Active Additional Information Patient not taking.Reported on 11/07/2023 Nitroglycerin 0.3 MG Sublingual Tablet Sublingual (Nitrostat)Indicati ons:Paroxysmal atrial fibrillation (HCC) PLACE 1 TAB UNDER TONGUE EVERY 5 MIN NEEDED FOR CHEST PAIN. MAX 3 TABS IN 15 MIN 100 Tablet 2 2 Active Additional Information Patient not taking.Reported on 11/07/2023 Warfarin Sodium 5 MG Oral Tablet (Coumadin)Indicatio ns:S/P aortic valve replacement,S/P MVR (mitral valve replacement) TAKE 2 TABLETS (10 MG) BY MOUTH TODAY, THEN DIRECTED BY THE ANTI-COAGULATIO N CLINIC 30 Tablet 11 3 Active Furosemide 40 MG Oral Tablet (Lasix)Indications: History of low potassium Take 1.5 Tablets by mouth in the morning. 135 Tablet 3 3 Active Additional Information Patient taking differently: 80 mgOral Daily(AM), Reported on 08/02/2023 Potassium Chloride Yael ER 10 MEQ Oral Tablet Extended Release (Klor-Con M10)Indications:His tory of low potassium Take 2 Tablets by mouth in the morning. 180 Tablet 3 3 Active buPROPion HCl 75 MG Oral Tablet (Wellbutrin) TAKE 1 TABLET BY MOUTH EVERY DAY 90 Tablet 1 3 Active Levothyroxine Sodium 150 MCG Oral Tablet (Levoxyl)Indication s:Acquired hypothyroidism TAKE 1 TAB BY MOUTH DAILY FIRST THING IN THE MORNING. (AT LEAST 30 MIN PRIOR TO BREAKFAST OR OTHER MEDS) SAT-SAT. TAKE 1 & 1/2 TAB ON SATURDAY 100 Tablet 3 3 Active Meclizine HCl 25 MG Oral Tablet (Antivert)Indicatio ns:Dizziness TAKE 1 TABLET BY MOUTH UP TO 3 TIMES DAILY NEEDED FOR DIZZINESS 90 Tablet 1 4 Active Rosuvastatin Calcium 40 MG Oral Tablet (Crestor) TAKE 1 TABLET BY MOUTH EVERY DAY 90 Tablet 1 4 Active Albuterol Sulfate HFA 108 (90 Base) MCG/ACT Inhalation Aerosol SolutionIndications :Wheezing USE 2 PUFFS EVERY 4 HOURS NEEDED FOR WHEEZING/COUGH 18 g 1 4 Active Metoprolol Succinate ER 25 MG Oral Tablet Extended Release 24 Hour (toPROL XL)Indications:Atri al fibrillation, unspecified type (HCC) TAKE 1 TABLET BY MOUTH EVERY DAY IN THE MORNING 30 Tablet 5 4 Active Ezetimibe 10 MG Oral Tablet (Zetia)Indications: Dyslipidemia, goal LDL below 70 TAKE 1 TABLET BY MOUTH EVERY DAY 90 Tablet 3 4 Active Ezetimibe 10 MG Oral Tablet (Zetia)Indications: Dyslipidemia, goal LDL below 70 TAKE 1 TABLET BY MOUTH EVERY DAY 90 Tablet 3 3 02/07/20 24 Discontinued Hospital, Clinic, or Other Facility Administered Medication Ordered Dose Route Frequency Start Date End Date Status Albuterol Sulfate (Proventil) (2.5 MG/3ML) 0.083% inhalation solution 2.5 mgIndications:COPD, mild (HCC) 2.5 mg NEBULIZER PRN 09/12/2023 09/11/2024 Active albuterol (VENTOLIN HFA/PROVENTIL HFA) inhalerIndications:COPD , mild (HCC) 3 Puff IN PRN 09/12/2023 09/11/2024 Active documented as of this encounter (statuses as of 02/07/2024) Active Problems Problem Noted Date Diagnosed Date [...] management encounter 02/24/2002 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-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 MULT 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 Overview: ICD-10 update of inactive term documented as of this encounter (statuses as of 02/07/2024) Resolved Problems Problem Noted Date Diagnosed Date [...] as of this encounter (statuses as of 02/07/2024) Immunizations Name Administration Dates Next Due COVID-19 [...] encounter Miscellaneous Notes * Telephone Encounter - Roger Car PA-C - 02/07/2024 1:12 PM EDT Signed Prescriptions: Disp Refills Ezetimibe 10 MG Oral Tablet (Zetia) 90 Tab*3 Sig: TAKE 1 TABLET BY MOUTH EVERY DAY Authorizing Provider: ROGER CAR * Telephone Encounter - Tami Colbert [facility] - 02/07/2024 8:32 AM EDTPending Prescriptions: Disp Refills Ezetimibe 10 MG Oral Tablet [Pharmacy Med *90 Tab*3 Sig: TAKE 1 TABLET BY MOUTH EVERY DAY * Telephone Encounter - Tami Colbert [facility] - 02/07/2024 8:30 AM EDT Pending Prescriptions: Disp Refills Ezetimibe 10 MG Oral Tablet (Zetia) [Phar*90 Tab*3 Sig: TAKE 1 TABLET BY MOUTH EVERY DAY Patient Active Problem List Diagnosis MITR-AORTIC MULT INVOLV Anticoagulation management encounter Hypothyroidism ADJ DISORDER W/DEPRES MOOD Lymphadenitis, unspecified, except mesenteric shelter current use of anticoagulant therapy ADVANCE DIRECTIVE INFORMATION Esophageal reflux Other and unspecified rheumatic heart diseases(398.99) Atrial fibrillation (HCC) S/P aortic valve replacement S/P mitral valve replacement Dyslipidemia, goal LDL below 130 MEDICATION USE AGREEMENT GIB (gastrointestinal bleeding) Anemia S/P AVR S/P MVR (mitral valve replacement) Asthma, mild persistent Dyslipidemia, goal LDL below 100 Tobacco use disorder Elevated PTHrP level Chronic atrial fibrillation (HCC) COPD exacerbation (HCC) Chronic kidney disease, stage 3b (HCC) COPD, group C, by GOLD 2017 classification ([facility]) Last Visit: Visit date not found (in office), Visit date not found (telemedicine) Next Visit: on Recall for GW Results for orders placed or performed in visit on 10/28/23 CBC Result Value Ref Range WBC 8.31 4.00 - 10.80 K/uL RBC 4.72 3.85 - 5.15 M/uL HGB 12.5 12.0 - 15.3 g/dL HCT 40.2 36.0 - 45.2 % MCV 85.2 81.5 - 97.5 fL MCH 26.5 27.0 - 34.0 pg MCHC 31.1 32.0 - 36.0 g/dL RDW 15.4 11.5 - 15.5 % PLT 240 140 - 400 K/uL MPV 11.9 6.6 - 11.1 fL TSH WITH FREE T4 IF INDICATED Result Value Ref Range TSH 0.80 0.27 - 4.20 uIU/mL BASIC METABOLIC PANEL Result Value Ref Range BUN 24 (H) 6 - 20 mg/dL Creatinine 1.4 (H) 0.5 - 1.0 mg/dL Estimated Glomerular Filtration Rate 44 (L) >=60 mL/min Sodium 140 135 - 146 mmol/L Potassium 4.0 3.5 - 5.1 mmol/L Chloride 102 98 - 107 mmol/L CO2 27 22 - 32 mmol/L Anion Gap 11 7 - 15 mmol/L Glucose 104 70 - 120 mg/dL Calcium 9.5 8.4 - 10.2 mg/dL BNP, NT-PRO Result Value Ref Range BNP, NT-Pro 1,368 (H) <300 pg/mL PT INR Result Value Ref Range Prothrombin Time 40.4 (H) 11.6 - 15.2 seconds INR 4.1 (H) 0.8 - 1.2 *Note: Due to a large number of results and/or encounters for the requested time period, some results have not been displayed. A complete set of results can be found in Results Review. documented in this encounter Plan of Treatment Upcoming Encounters Date Type Department Care Team (Late st Contact Info) Description 02/28/2024 6:45 PM EDT Anticoagulation [facility], Natividad Hastings [address] [place] [address] [place] [address] [facility] [address] [facility] [place] [address] Health Maintenance Due Date Last Done Comments DISCUSS TOBACCO CESSATION (REFER TO SMARTSET #5190) 1961 Alpha-1 Antitrypsin 1979 HPV/Co-Test 1991 Cologuard [...] 07/14/2018, 08/27, 07/21/2003 COVID-19 Vaccine ( - season) 2023 02/18/2021, 01/17/2021 Depression Screening 08/28/2023 08/28/2022 Influenza Vaccine (FLU shot) (Season Ended) 2024 06/23/2018, 09/13/2015, 10/26/2013, Additional history exists GFR 04/29/2024 10/28/2023, 08/26, 08/02/2023, Additional history exists CKD PHOS USE SMARTSET 89281 06/12/202405/26, 01/29/2022, 02/09/2021, Additional history exists Albumin/Creatinine Ratio 07/08/202407/08/ 023, 01/29/2022, 11/16/2019, Additional history exists CKD HGB USE SMARTSET 92588 10/27/202410/27, 08/02/2023, 07/08/2023, Additional history exists O2 [...] this encounter Medical Devices Implanted Type Area Encapsulator Device Identifier Shelf Expiration Date Model / Serial / Lot Sut Steel 6 M654g - [id number] Implanted:Qty: 4 on 09/28/2014 by Angel Rios MD at [place] [facility] [place] N/A: Chest JNJ : [employer] 02/23/2019 [id number] / / [id number] Valve Heart Aortic [facility] Hp19mm - [id number] Implanted:Qty: 1 on 09/28/2014 by Angel Rios MD at [place] [facility] [place] N/A: Heart [employer] : CARDIOVASCULAR 05/22/2015 [id number]-50 [id number] / [id number] / documented as of this encounter Visit Diagnoses Diagnosis Dyslipidemia, goal LDL below 70 Other and unspecified hyperlipidemia documented in this encounter Advance Directives * [...] Power of Attor elsi? No Care Teams Pattern Illustrator Relationship Specialty Start Date End Date Eron Watson III, MD [address] [place] [address] PCP - General Family Medicine 11/16/19 documented as of this encounter
--- OUTSIDE RECORDS SUMMARY | 2024-07-07 06:24 | External Medical Summary | Summary of Care ---
Author Name Unknown Organization [facility] Address [address] [place] [address] Phone [phone] Care Team Providers Care Outdoor Adventure Leader Name Role Phone Shirley COLEY MD, Eron Rodríguez Primary Care Provider [phone] Reason for Visit * Reason Comments Dosage Adjustment Via Phone (anticoag Cl inic) Encounter Details Date Type Department Care Team (Late st Contact Info) Description 05/01/2024 6:45 PM EDT Anticoagulation [facility], [address] [place] [address] [place] [address] S/P aortic valve replacement*; S/P mitral valve replacement; Chronic atrial fibrillation (HCC); Atrial fibrillation, unspecified type (HCC) Allergies Active Allergy Reactions Criticality Noted Date Comments Ciprofloxacin 12/19/2006 hives Cyclobenzaprine 12/19/2006 Gi upset Nortriptyline Hcl 12/19/2006 Fast heart rate documented as of this encounter (statuses as of 05/01/2024) Medications Medication Sig Dispensed Refills Start Date [...] 01/02/2024 Active Ezetimibe 10 MG Oral Tablet (Zetia)Indications: Dyslipidemia, goal LDL below 70 TAKE 1 TABLET BY MOUTH EVERY DAY 90 Tablet 3 02/07/2024 Active Warfarin Sodium 5 MG Oral Tablet (Coumadin)Indicatio ns:S/P aortic valve replacement,S/P MVR (mitral valve replacement) TAKE 2 TABLETS (10 MG) BY MOUTH TODAY, THEN DIRECTED BY THE ANTI-COAGULATION CLINIC 30 Tablet 11 05/06/2023 4 Discontinu ed([facility]) Hospital, Clinic, or Other Facility Administered Medication Ordered Dose Route Frequency Start Date End Date Status Albuterol Sulfate (Proventil) (2.5 MG/3ML) 0.083% inhalation solution 2.5 mgIndications:COPD, mild (HCC) 2.5 mg NEBULIZER PRN 09/12/2023 09/11/2024 Active albuterol (VENTOLIN HFA/PROVENTIL HFA) inhalerIndications:COPD , mild (HCC) 3 Puff IN PRN 09/12/2023 09/11/2024 Active documented as of this encounter (statuses as of 05/01/2024) Active Problems Problem Noted Date Diagnosed Date [...] management encounter 02/24/2002 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 Overview: ICD-10 update of inactive term documented as of this encounter (statuses as of 05/01/2024) Resolved Problems Problem Noted Date Diagnosed Date [...] as of this encounter (statuses as of 05/01/2024) Immunizations Name Administration Dates Next Due COVID-19 mRNA, LNP-s, No Pre serve, 2-Dose Series (Moderna) 02/18/2021,01/17/2021 Pneumococcal Polysaccharide PPV23 (Pneumovax) 06/23/2018 Seasonal Influenza, PF, 6 M & above, IM , (FluLaval or Fluzone) 06/23/2018 Seasonal Influenza, Quadriva lent, No Preserve, IM 09/13/2015 Seasonal Influenza, Trivalen t, (IIV3), with Preserv, (Fluzone) 10/26/2013,06/01/2010,08/04/2008,09/22 TD, Preservative Free 03/10/2019 TDAP, Age [...] as of this encounter Progress Notes * Rafaela Meza RPh - 05/01/2024 10:30 AM EDT Patient discharged from [facility] service at this time. Discharge Checklist 1. Delete the care team [x] 2. Uncheck list membership [x] 3. D/C Coag orders [x] 4. Resolve episode [x] 5. Discontinue warfarin on med list (if applicable) [x] 6. Cancel future appointments [x] Rafaela Meza Rph, Pharm.D. Clinical Pharmacist [facility] ([facility]) [phone] 05/01/2024,10:31 AM * Rafaela Meza [facility] - 05/01/2024 10:29 AM EDT Sent via Pressi 05/01/24. Dear Yaneth Dietrich, This letter is being sent to inform you that the [facility] has discharged you due to your non-compliance with plan of care. Because appropriate management of anticoagulation therapy requires regular monitoring and you have failed to comply with the established monitoring requirements it has become necessary for us to terminate your relationship with the anticoagulation (Coumadin) clinic. You have not kept your scheduled appointments, have not returned any of the several phone calls from clinic, nor responded to the letters/correspondence we have sent. If you are still taking the Coumadin (warfarin), it is very important to have regular labwork and followup in order toensure both the safety and efficacy of the medication. Without such, you are placing yourself at risk of bleeding or potential blood clots. At this point, the management of your Coumadin (warfarin) will be transferred back to your physician who will also receive a copy of this letter. Please note that you will be welcomed back to the Anticoagulation Clinic at any time in the future at your request and upon agreement to be more compliant with future appointments. If you have any questions, problems or concerns, please do not hesitate to contact me at the phone number listed above Rafaela Meza RPh 05/01/2024, 10:29 AM * Zina Dickson and rescue fire fighter crash fire - 05/01/2024 8:07 AM EDT Patient has reached 6 months with no new INR, last INR is from 10/28/23. [facility] please advise. Thank you, Katie Dickson Purler [facility] ([facility]) 05/01/2024, 8:07 AM documented in this encounter Plan of Treatment Health Maintenance Due Date Last Done Comments DISCUSS TOBACCO CESSATION (REFER TO SMARTSET #4811) 1960 Alpha-1 Antitrypsin 1979 HPV/Co-Test 1991 Cologuard [...] Additional history exists CKD PHOS USE SMARTSET 67479 06/12/202405/26, 01/29/2022, 02/09/2021, Additional history exists Albumin/Creatinine Ratio 07/08/2024 023, 01/29/2022, 11/16/2019, Additional history exists CKD HGB USE SMARTSET 75488 10/27/202410/27, 08/02/2023, 07/08/2023, Additional history exists O2 [...] this encounter Medical Devices Implanted Type Area Illustrator Set Device Identifier Shelf Expiration Date Model / Serial / Lot Sut Dima 6 M654g - [id number] Implanted:Qty: 4 on 09/28/2014 by Angel Rios MD at OR [facility] [place] [place] N/A: Chest JNJ : [employer] 02/23/2019 M654G / / [id number] Valve Heart Aortic [facility] Hp19mm - [id number] Implanted:Qty: 1 on 09/28/2014 by Angel Rios MD at OR [facility] [place] [place] N/A: Heart [facility] [employer] : CARDIOVASCULAR 05/22/2015 [id number]-50 [id number] / [id number] / documented as of this encounter Visit Diagnoses Diagnosis S/P aortic valve replacement- Primary Heart valve replaced by other means S/P mitral valve replacement Heart valve replaced by other means Chronic atrial fibrillation (HCC) Atrial fibrillation Atrial fibrillation, unspecified type (HCC) documented in this encounter Advance Directives * [...] Power of Attor elsi? No Care Teams Outdoor Adventure Leader Relationship Specialty Start Date End Date Eron Watson III, MD [address] [place] [address] PCP - General Family Medicine 11/16/19 documented as of this encounter
--- OUTSIDE RECORDS SUMMARY | 2024-07-07 06:24 | External Medical Summary | Summary of Care ---
Author Name Unknown Organization [facility] Address [address] [place] [address] Phone [phone] Care Team Providers Care Technical Writer And Editor Name Role Phone Shirley COLEY MD, Eron Rodríguez Primary Care Provider [phone] Reason for Visit * Reason Comments eRx-Medication Refill Encounter Details Date Type Department Care Team (Late st Contact Info) Description 06/16/[address] [facility] [address] [facility] [place] [address] Deborah Manning PA-C [address] [facility] [place] [address] Atrial fibrillation, unspecified type (HCC) Allergies Active [...] FOR WHEEZING/COUGH 18 g 1 4 Active Ezetimibe 10 MG Oral Tablet (Zetia)Indications: Dyslipidemia, goal LDL below 70 TAKE 1 TABLET BY MOUTH EVERY DAY 90 Tablet 3 4 Active Metoprolol Succinate ER 25 MG Oral Tablet Extended Release 24 Hour (toPROL XL)Indications:Atri al fibrillation, unspecified type (HCC) TAKE 1 TABLET BY MOUTH EVERY DAY IN THE MORNING 30 Tablet 5 4 Active Metoprolol Succinate ER 25 MG Oral Tablet Extended Release 24 Hour (toPROL XL)Indications:Atri al fibrillation, unspecified type (HCC) TAKE 1 TABLET BY MOUTH EVERY DAY IN THE MORNING 30 Tablet 5 4 06/18/20 24 Discontinued Hospital, Clinic, or Other Facility [...] management encounter 02/24/2002 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] Additional history exists CKD PHOS USE SMARTSET 51143 06/12/202405/26, 01/29/2022, 02/09/2021, Additional history exists Albumin/Creatinine Ratio 07/08/2024 023, 01/29/2022, 11/16/2019, Additional history exists CKD HGB USE SMARTSET 65312 10/27/202410/27, 08/02/2023, 07/08/2023, Additional history exists O2 [...] this encounter Medical Devices Implanted Type Area Regulatory Compliance Officer Device Identifier Shelf Expiration Date Model / Serial / Lot Sut Steel 6 M654g - [id number] Implanted:Qty: 4 on 09/28/2014 by Angel Rios MD at [place] [facility] [place] N/A: Chest JNJ : [employer] 02/23/2019 M654G / / [id number] Valve Heart Aortic [facility] Hp19mm - [id number] Implanted:Qty: 1 on 09/28/2014 by Angel Rios MD at OR [facility] [place] N/A: Heart [facility] [employer] : CARDIOVASCULAR 05/22/2015 19AFHPJ-50 [id number] / [id number] / documented as of this encounter Visit Diagnoses Diagnosis Atrial fibrillation, unspecified type (HCC) documented in [...] Power of Attor elsi? No Care Teams Technical Writer And Editor Relationship Specialty Start Date End Date Eron Watson III, MD [address] [place] [address] PCP - General Family Medicine 11/16/19 documented as of this encounter
--- OUTSIDE RECORDS SUMMARY | 2024-07-07 06:24 | External Medical Summary | Summary of Care ---
Author Name Unknown Organization [facility] Address [address] [place] [address] Phone [phone] Care Team Providers Care Extermination Supervisor Name Role Phone Shirley COLEY MD, John E Primary Care Provider [phone] Reason for Visit * Reason Onset Date Comments Advice 10/15/2023 Med Request 10/15/2023 Encounter Details Date Type Department Care Team (Late st Contact Info) Description 10/15/2023 Telephone Family Practice [facility] [address] [facility] [place] [address] Eron Watson III, MD [address] [place] [address] Advice; Med Request Allergies Active Allergy Reactions Criticality Noted Date Comments Ciprofloxacin 12/19/2006 hives Cyclobenzaprine 12/19/2006 Gi upset Nortriptyline Hcl 12/19/2006 Fast heart rate documented as of this encounter (statuses as of 01/14/2024) Medications Medication Sig Dispensed Refills Start Date End Date Status Multiple Vitamins-Minerals (MULTIVITAMIN ADULT) TABS Take 1 Tab by mouth daily. Active Cholecalciferol 25 MCG (1000 UT) Oral Tablet Take 1 Tablet by mouth in the morning. 8 Active albuterol-ipratrop ium (DUONEB) 2.5-0.5 MG/3ML nebulizer [...] on 11/07/2023 Ezetimibe 10 MG Oral Tablet (Zetia)Indications :Dyslipidemia, goal LDL below 70 TAKE 1 TABLET BY MOUTH EVERY DAY 90 Tablet 3 3 Active Warfarin Sodium 5 MG Oral Tablet (Coumadin)Indicati ons:S/P aortic valve replacement,S/P MVR (mitral valve replacement) TAKE 2 TABLETS (10 MG) BY MOUTH TODAY, THEN DIRECTED BY THE ANTI-COAGULATIO N CLINIC 30 Tablet 11 3 Active Furosemide 40 MG Oral Tablet (Lasix)Indications :History [...] ON SATURDAY 100 Tablet 3 3 Active Albuterol Sulfate HFA 108 (90 Base) MCG/ACT Inhalation Aerosol SolutionIndication s:Wheezing USE 2 PUFFS EVERY 4 HOURS NEEDED FOR WHEEZING/COUGH 18 g 1 2 024 Discontinued Rosuvastatin Calcium 40 MG Oral Tablet (Crestor) TAKE 1 TABLET BY MOUTH EVERY DAY 90 Tablet 1 3 024 Discontinued Meclizine HCl 25 MG Oral Tablet (Antivert)Indicati ons:Dizziness TAKE 1 TABLET BY MOUTH UP TO 3 TIMES DAILY NEEDED FOR DIZZINESS 90 Tablet 1 3 024 Discontinued Metoprolol Succinate ER 25 MG Oral Tablet Extended Release 24 Hour (Toprol XL)Indications:Atr ial fibrillation, unspecified type (HCC) Take 1 Tablet by mouth in the morning. 30 Tablet 5 3 024 Discontinued Azithromycin 250 MG Oral Tablet (Zithromax) Take 2 tabs by mouth on the first day, then 1 tab daily on days two through five 6 Tablet 3 024 Discontinued(Me dication List Clean Up) predniSONE 10 MG Oral Tablet (Deltasone) Take 5 tabs for 2 days, 4 tabs for 2 days, 3 tabs for 2 days, 2 tabs for 2 days 1 tab for 2 days 30 Tablet 3 024 Discontinued(Me dication List Clean Up) Tiotropium Morris Monohydrate 1.25 MCG/ACT Inhalation Aerosol Solution (Spiriva Respimat) Inhale 2 Puffs by mouth in the morning. 4 g 5 4 024 Discontinued(Me dication List Clean Up) predniSONE 10 MG Oral Tablet (Deltasone) Take 5 tabs for 2 days, 4 tabs for 2 days, 3 tabs for 2 days, 2 tabs for 2 days 1 tab for 2 days 30 Tablet 4 024 Discontinued(Me dication List Clean Up) Amoxicillin-Pot Clavulanate 875-125 MG Oral Tablet (Augmentin) Take 1 Tablet by mouth in the morning and 1 Tablet before bedtime. Do all this for 10 days. 20 Tablet 4 024 Discontinued(Me dication List Clean Up) Hospital, Clinic, or Other Facility Administered Medication Ordered Dose Route Frequency Start Date End Date Status Albuterol Sulfate (Proventil) (2.5 MG/3ML) 0.083% inhalation solution 2.5 mgIndications:COPD, mild (HCC) 2.5 mg NEBULIZER PRN 09/12/2023 09/11/2024 Active albuterol (VENTOLIN HFA/PROVENTIL HFA) inhalerIndications:COPD , mild (HCC) 3 Puff IN PRN 09/12/2023 09/11/2024 Active documented as of this encounter (statuses as of 01/14/2024) Active Problems Problem Noted Date Diagnosed Date [...] management encounter 02/24/2002 MITR-AORTIC MULT INVOLV 06/11/2001 [facility] current use of anticoagulant therapy Overview: ICD-10 update of inactive term documented as of this encounter (statuses as of 01/14/2024) Resolved Problems Problem Noted Date Diagnosed Date [...] as of this encounter (statuses as of 01/14/2024) Immunizations Name Administration Dates Next Due COVID-19 mRNA, LNP-s, No Pre serve, 2-Dose Series (Moderna) 02/18/2021,01/17/2021 Pneumococcal Polysaccharide PPV23 (Pneumovax) 06/23/2018 Seasonal Influenza, PF, 6 M & above, IM , (FluLaval or Fluzone) 06/23/2018 Seasonal Influenza, Quadriva lent, No Preserve, IM 09/13/2015 Seasonal Influenza, Split, I IV3, With Preserve, Inj 10/26/2013,06/01/2010,08/04/2008,09/22 TD, Preservative Free 03/10/2019 TDAP (age 11 and older)(Adacel) 01/22/2008 documented as of this encounter Social [...] encounter Miscellaneous Notes * Telephone Encounter - Storm Duran OSA - 10/18/2023 9:38 AM EST MyG sent 10-18-2023 * Telephone Encounter - Chichi العلي DO - 10/15/2023 4:43 PM EST Sent in abx and steroid for possible COPD recommendation, recommend in person evaluation tomorrow, ER with emergencies- we are seeing a lot of influenza, and if she has that or covid, need antiviral medication, antibiotics wont help, so recommend testing in office. Please make an in person appointment for evaluation, exam to decide the best path forward together Ok to use an acute "same day" appt. Note: to get "first dibbs" on the appointments- they don't open up until 5pm the day prior. You cancall (phones are open until 7pm) or go online to make an acute appt after 5pm Chichi العلي DO * Telephone Encounter - Marti Duran LPN - 10/15/2023 3:13 PM EST Okay for requested meds or should she be seen first?She has COPD but I don't see a rescue kit on her med list. * Telephone Encounter - Annamaria Philippe OSA - 10/15/2023 2:34 PM EST Patient called requesting antibiotic and steroid. She is having chest congestion, runny nose, wheezing and cough. Please send to pharmacy on file. documented in this encounter Plan of Treatment Upcoming Encounters Date Type Department Care Team (Late st Contact Info) Description 01/30/2024 6:45 PM EDT Anticoagulation Pharmacy Call Center [address] [facility] [place] [address] [facility] [address] [facility] [place] [address] Health Maintenance Due Date Last Done Comments DISCUSS TOBACCO CESSATION (REFER TO SMARTSET #6376) 1961 Alpha-1 Antitrypsin 1979 HPV/Co-Test 1991 Cologuard [...] Additional history exists CKD PHOS USE SMARTSET 24348 06/12/202405/26, 01/29/2022, 02/09/2021, Additional history exists Albumin/Creatinine Ratio 07/08/202407/08/ 023, 01/29/2022, 11/16/2019, Additional history exists CKD HGB USE SMARTSET 55444 10/27/202410/27, 08/02/2023, 07/08/2023, Additional history exists O2 [...] this encounter Medical Devices Implanted Type Area Director Heart Device Identifier Shelf Expiration Date Model / Serial / Lot Sut Dima 6 M654g - [id number] Implanted:Qty: 4 on 09/28/2014 by Angel Rios MD at [place] [facility] [place] N/A: Chest JNJ : [employer] 02/23/2019 M654G / / [id number] Valve Heart Aortic [facility] Hp19mm - [id number] Implanted:Qty: 1 on 09/28/2014 by Angel Rios MD at [place] [facility] [place] N/A: Heart [employer] : CARDIOVASCULAR 05/22/2015 [id number]-50 [id number] / [id number] / documented as of this encounter Advance [...] Power of Attor elsi? No Care Teams Extermination Supervisor Relationship Specialty Start Date End Date Eron Watson III, MD [address] [facility] [place] [address] PCP - General Family Medicine 11/16/19 documented as of this encounter
--- OUTSIDE RECORDS SUMMARY | 2024-07-07 06:24 | External Medical Summary | Summary of Care ---
Author Name Unknown Organization [facility] Address [address] [place] [address] Phone [phone] Care Team Providers Care Shingle Carrier Name Role Phone Shirley COLEY MD, John E Primary Care Provider [phone] Encounter Details Date Type Department Care Team (Late st Contact Info) Description 10/29/2023 Telephone Family Practice [facility] [address] [place] [address] Eron Watson III, MD [address] [place] [address] Allergies Active Allergy Reactions Criticality Noted Date Comments Ciprofloxacin 12/19/2006 hives Cyclobenzaprine 12/19/2006 Gi upset Nortriptyline Hcl 12/19/2006 Fast heart rate documented as of this encounter (statuses as of 01/28/2024) Medications Medication Sig Dispensed Refills Start Date [...] on 11/07/2023 Ezetimibe 10 MG Oral Tablet (Zetia)Indications: Dyslipidemia, [...] Oral Tablet Extended Release 24 Hour (Toprol XL)Indications:Atri al fibrillation, unspecified type (HCC) Take 1 Tablet by mouth in the morning. 30 Tablet 5 3 01/02/20 24 Discontinued Hospital, Clinic, or Other Facility Administered Medication Ordered Dose Route Frequency Start Date End Date Status Albuterol Sulfate (Proventil) (2.5 MG/3ML) 0.083% inhalation solution 2.5 mgIndications:COPD, mild (HCC) 2.5 mg NEBULIZER PRN 09/12/2023 09/11/2024 Active albuterol (VENTOLIN HFA/PROVENTIL HFA) inhalerIndications:COPD , mild (HCC) 3 Puff IN PRN 09/12/2023 09/11/2024 Active documented as of this encounter (statuses as of 01/28/2024) Active Problems Problem Noted Date Diagnosed Date [...] management encounter 02/24/2002 MITR-AORTIC MULT INVOLV 06/11/2001 correction current use of anticoagulant therapy Overview: ICD-10 update of inactive term documented as of this encounter (statuses as of 01/28/2024) Resolved Problems Problem Noted Date Diagnosed Date [...] as of this encounter (statuses as of 01/28/2024) Immunizations Name Administration Dates Next Due COVID-19 [...] encounter Miscellaneous Notes * Telephone Encounter - Linda Dominique OSA - 11/01/2023 10:03 AM EST Sent to radiation oncology. Not sure where this needs to be sent but it is not for us. It looks like cardiology appointment is needed. * Telephone Encounter - Deborah Manning PA-C - 10/29/2023 8:35 PM EST Schedule cardiololgy debra * Telephone Encounter - Frieda Regalado LPN - 10/29/2023 3:46 PM EST ----- Message from Deborah Boris Manning PA-C sent at 10/28/2023 8:04 PM EST ----- Change in EKG noted. Would recommend getting an echocardiogram and in with Cardiology a sap documented in this encounter Plan of Treatment Upcoming Encounters Date Type Department Care Team (Late st Contact Info) Description 01/30/2024 6:45 PM EDT Anticoagulation [facility] [address] [place] [address] [place] [address] [facility] [address] [facility] [place] [address] Health Maintenance Due Date Last Done Comments [...] Mammogram 07/14/2019 07/14/2018, 08/27, 07/21/2003 COVID-19 Vaccine (3 - 2022- season) 2023 02/18/2021, 01/17/2021 Depression Screening 08/28/2023 08/28/2022 Influenza Vaccine (FLU shot) (Season Ended) 2024 06/23/2018, 09/13/2015, 10/26/2013, Additional history exists GFR 04/29/2024 10/28/2023, 08/26, 08/02/2023, Additional history exists CKD PHOS USE SMARTSET 71641 06/12/202405/26, 01/29/2022, 02/09/2021, Additional history exists Albumin/Creatinine Ratio 07/08/2024 023, 01/29/2022, 11/16/2019, Additional history exists CKD HGB USE SMARTSET 16862 10/27/202410/27, 08/02/2023, 07/08/2023, Additional history exists O2 [...] this encounter Medical Devices Implanted Type Area Staffing And Scheduling Coordinator Device Identifier Shelf Expiration Date Model / Serial / Lot Sut Steel 6 M654g - [id number] Implanted:Qty: 4 on 09/28/2014 by Angel Rios MD at OR [facility] [place] N/A: Chest JNJ : [employer] 02/23/2019 M654G / / [id number] Valve Heart Aortic [facility] Hp19mm - [id number] Implanted:Qty: 1 on 09/28/2014 by Angel Rios MD at OR [facility] [place] N/A: Heart [employer] : CARDIOVASCULAR 05/22/2015 [id number]-[id number] / [id number] / documented as of this encounter Advance [...] Power of Attor elsi? No Care Teams Shingle Carrier Relationship Specialty Start Date End Date Eron Watson III, MD [address] [place] [address] PCP - General Family Medicine 11/16/19 documented as of this encounter
--- OUTSIDE RECORDS SUMMARY | 2024-07-07 06:25 | External Medical Summary | Summary of Care ---
Author Name Unknown Organization [facility] Address [address] [place] [address] Phone [phone] Care Team Providers Care Equipment Scheduler Name Role Phone Shirley COLEY MD, Eron Rodríguez Primary Care Provider [phone] Reason for Visit * Reason Comments Dosage Adjustment Via Phone (anticoag Cl inic) Encounter Details Date Type Department Care Team (Latest Contact Info) Description 01/09/2024 6:45 PM EDT Anticoagulation Pharmacy Call Center [address] [place] [address] [facility] [address] [place] [address] S/P aortic valve replacement*; S/P mitral valve replacement; Atrial fibrillation (HCC); Chronic atrial fibrillation (HCC) Allergies Active Allergy Reactions Criticality Noted Date Comments Ciprofloxacin 12/19/2006 hives Cyclobenzaprine 12/19/2006 Gi upset Nortriptyline Hcl 12/19/2006 Fast heart rate documented as of this encounter (statuses as of 01/09/2024) Medications Medication Sig Dispensed Refills Start Date End Date Status Multiple Vitamins-Minerals (MULTIVITAMIN ADULT) TABS Take 1 Tab by mouth daily. 0 Active Cholecalciferol 25 MCG (1000 UT) Oral Tablet Take 1 Tablet by mouth in the morning. 0 04/28/2018 Active albuterol-ipratropiu m (DUONEB) 2.5-0.5 MG/3ML nebulizer solutionIndications: Asthma, mild persistent USE INHALATION SOLUTION DIRECTED EVERY 4 HOURS 180 mL 0 04/06/2019 Active Additional Information Patient not taking.Reported [...] as of this encounter (statuses as of 01/09/2024) Active Problems Problem Noted Date Diagnosed Date [...] management encounter 02/24/2002 MITR-AORTIC MULT INVOLV 06/11/2001 terminologist current use of anticoagulant therapy Overview: ICD-10 update of inactive term documented as of this encounter (statuses as of 01/09/2024) Resolved Problems Problem Noted Date Diagnosed Date [...] as of this encounter (statuses as of 01/09/2024) Immunizations Name Administration Dates Next Due COVID-19 [...] as of this encounter Progress Notes * Chayito Hodges PHARM Tech - 01/09/2024 8:11 AM EDT Patient Phone Numbers No voicemail, unable to leave message on patients answering machine to schedule MT[facility] appointmentfor anticoagulation management. [facility] sent --yes Clinic will follow up again in 3 week(s). [Attempt # N/A] Thank you, Chayito Hodges Finance Professor [facility] ([facility]) [phone] 01/09/2024,8:11 AM documented in this encounter Plan of Treatment Upcoming Encounters Date Type Department Care Team (Late st Contact Info) Description 01/30/2024 6:45 PM EDT Anticoagulation Pharmacy Call Center WB [address] [facility] [place] [address] [facility] [address] [facility] [place] [address] Health Maintenance Due Date Last Done Comments [...] Additional history exists CKD PHOS USE SMARTSET 06031 06/12/202405/26, 01/29/2022, 02/09/2021, Additional history exists Albumin/Creatinine Ratio 07/08/2024 023, 01/29/2022, 11/16/2019, Additional history exists CKD HGB USE SMARTSET 02044 10/27/202410/27, 08/02/2023, 07/08/2023, Additional history exists O2 [...] this encounter Medical Devices Implanted Type Area Certified Composites Technician Device Identifier Shelf Expiration Date Model / Serial / Lot Sut Steel 6 M654g - [id number] Implanted:Qty: 4 on 09/28/2014 by Angel Rios MD at OR [facility] [place] N/A: Chest JNJ : [employer] 02/23/2019 M654G / / [id number] Valve Heart Aortic [facility] Hp19mm - [id number] Implanted:Qty: 1 on 09/28/2014 by Angel Rios MD at OR [facility] [place] N/A: Heart [facility] [employer] : CARDIOVASCULAR 05/22/2015 [id number]-50 [id number] / [id number] / documented as of this encounter Visit Diagnoses Diagnosis S/P aortic valve replacement- Primary Heart valve replaced by other means S/P mitral valve replacement Heart valve replaced by other means Atrial fibrillation (HCC) Atrial fibrillation Chronic atrial fibrillation (HCC) Atrial fibrillation documented in this encounter Advance Directives Latest Code Status on File Code Status Date Activated Date Inactivated Comments Full Code 09/28/2014 11:40 AM 10/03/2014 3:24 PM This o rder reflects the patients wishes and were consensually agreed upon. Code Status History Code Status Date Activated Date Inactivated Comments Full Code 03/11/2013 1:08 AM 03/17/2013 7:00 PM This order reflects the patients wishes and were consensually agreed upon. Question Answer Comments Discussion of Advance Directives occurred with: Not Discussed Does the patient have a Living Will? No Does the patient have Health Care Power of Carbonator? No Care Teams Equipment Scheduler Relationship Specialty Start Date End Date Eron Watson III, MD [address] [facility] [place] [address] PCP - General Family Medicine 11/16/19 documented as of this encounter
[2024-07-07 07:01] LABS: Hematocrit (blood only) 32.9 % (37.0-47.0); Hemoglobin 10.8 g/dl (12.0-16.0); Mean Corpuscular Hemoglobin 27.8 pg (25.0-34.0); Mean Corpuscular Hgb Conc 32.8 g/dL (32.0-36.0); Mean Corpuscular Volume 84.8 fL (80.0-100.0); Mean Platelet Volume 12.9 fL (9.4-12.4); Platelet Count 178 K/uL (130-400); RDW Coefficient of Variation 14.7 % (11.5-14.5); RDW Standard Deviation 44.9 fL (36.4-46.3); Red Blood Count 3.88 M/uL (4.20-5.40); White Blood Count 4.69 K/ul (4.8-10.8)
[2024-07-07 07:19] LABS: BUN Creatinine Ratio 17.4 (10-20); Creatinine Clr Calc Pharmacy 41.3 ml/min; Magnesium 2.2 mg/dl (1.7-2.4); Phosphorus 3.7 mg/dl (2.5-4.9); Potassium 4.4 mmol/L (3.5-5.1)
[2024-07-07] MEDS: METOPROLOL TARTRATE 25 MG TAB PO SCH (07:50)
[2024-07-07] MEDS: FUROSEMIDE 40 MG TAB PO SCH (07:51)
[2024-07-07] MEDS: FERROUS SULFATE 325 MG TAB PO SCH (07:51)
[2024-07-07] MEDS: POTASSIUM CHLORIDE 10 MEQ TABCR PO SCH (08:02)
[2024-07-07] MEDS ORDERED: LEVALBUTEROL HCL 0.63 MG/3 ML NEB NEB PRN (08:25)
[2024-07-07] MEDS: ALBUT/IPRATROP 3MG/0.5MG NEB 3 ML VIAL NEB SCH (08:51)
[2024-07-07] MEDS: predniSONE 20 MG TAB PO SCH (09:27)
[2024-07-07] MEDS ORDERED: STAT IV Infusion **Titration per Protocol STA (09:58)
--- NOTE | 2024-07-07 10:14 | Cardiology Consultation ---
Date of Consultation July 07, 2024 Assessment & Plan (1) Atrial fibrillation with RVR: (2) COPD exacerbation: (3) Hypothyroidism: (4) H/O mechanical aortic valve replacement: (5) History of mitral valve replacement with mechanical valve: Plan Patient with worsening cough/wheezing/SOB over the last week, consistent with probable COPD exacerbation, lower respiratory tract infection. Arrived at PCP office yesterday for treatment/evaluation and found to have recurrent afib RVR with HR's in the 130's and sent to the ER. Upon arrival to ER, she was treated with several doses of IV metoprolol and started on metoprolol tartrate 25 mg BID (home dose is metoprolol succinate 25 mg daily).. Patient is on chronic Coumadin for anticoagulation given her mechanical AVR and mechanical MVR. Unfortunately she has been non compliant with PT/INR follow up and was discharged from anticoagulation clinic. despite being discharged, patient reports she has been taking Coumadin 5 mg and 7.5 mg on a regular basis. INR on admission was 2.1. GOal INR is 2.5-3.5 with her mechanical valve Daily PT/INR. Repeat pending today. Will need to re-establish with anticoagulation clinic Echo ordered. Results pending In regards to afib RVR, will start IV diltiazem for improved HR support. Continue metoprolol 25 mg BID for now. Titrate as needed/tolerated. Rate vs rhythm control needs to be considered as it may be difficult to maintain NSR going forward. Continue Coumadin. INR 2.1 and therapeutic in regards to afib. minimally elevated troponin consistent with demand ischemia in setting of afib RVR. She has a history of normal coronary arteries per most recent cath in 2014. No anginal complaints Repeat EKG in AM BP controlled. Continue antibiotics, steroids, neb treatments per hospitalist for COPD exacerbation. TSH low on arrival. Levothyroxine dose reduced. Case discussed with Dr. Donato Dobson spent a total of minutes on the date of service in preparation, delivery, and documentation of the care provided to this patient, excluding any time spent in the performance of separately billed services. Mirna oChn PA-C Department of Cardiology, [facility] This chart was completed in part utilizing Speech Voice Recognition Software. Grammatical errors, random word insertions, pronoun errors, and incomplete sentences are an occasional consequence of this system due to software limitations, ambient noise, and hardware issues. Any formal questions or concer ns about the content, text, or information contained within the body of this dictation should be directly addressed to the provider for clarification. Supervising Physician Co-Signing Physician Notes Patient was seen and personally examined. Full assessment and plan as outlined above. Care and management discussed in detail with advanced provider and personally endorsed. 64-year-old female well-known to cardiac service with prior rheumatic heart disease status post aortic and mitral valve replacement with mechanical prostheses. Underlying significant lung disease present. Patient presents with acute exacerbation of pulmonary concerns complicated by atrial fibrillation with elevated ventricular response rate. Prior history of paroxysmal atrial fibrillation. Patient chronically anticoagulated with warfarin secondary to mechanical valve Plan as above treat underlying pulmonary issues with rate control with IV diltiazem initially. Will review echocardiogram but preliminary views reveals normally functioning valve structures, left ventricular systolic function with dilated right ventricle and elevated pulmonary pressures as in past Cardiology will continue to follow History of Present Illness Reason for Consultation: Afib RVR Requesting Physician: Jose Hospitalist Attending Physician: Dr. Sewell History of Present Illness Patient is a 64 year old female who was admitted to [facility] yesterday from PCP office with complaints of cough, SOB, wheezing and elevated HR. Found to have afib RVR in the 130's during visit. Patient reports respiratory symptoms began last week with increased coughing and SOB. On or Saturday she noted her HR was elevated on home pulse oximeter in the 120's. Patient is known to [facility] cardiology with complex history includin. Rheumatic valvular heart disease, status post aortic and mitral valve bioprosthesis replacement initially 1993 a. Redo mitral valve replacement with [place] 25 mm mechanical prosthesis 1998 b. Redo aortic valve replacement 09/28/2014 with [place] 19 mm mechanical prosthesis -chronic anticoagulation with Coumadin. Non compliant. INR goal for mechanical valve 2.5-3.5 2. Paroxysmal AFib 3. Recurrent right amaurosis fugax, symptoms of greater than 5 years duration noted complaint 2014 or prior 4. Chronic tobacco use 5. Widely patent coronary anatomy on 2015 coronary angiogram 6. Carotid artery stenosis, less than 50% stenosis in the right and 50-69% stenosis in the left- follows with vascular 7. Mild peripheral vascular disease per ABIs 06/14/2023 Patient has been non compliant with anticoagulation clinic. Last INR was in October 2023. INR admission was 2.1. She reports she has been taking Coumadin but not getting INR checked. In Apr 2024, outpatient [facility] clinic sent a discharge letter to patient given her non compliance Since admission, patient was given several doses of IV metoprolol and oral metoprolol tartrate. this morning, her HR remains elevated in the 120's. She reports ongoing SOB, cough, wheezing. She notes ongoing palpitations. No chest pain. No orthopnea, PND or edema. Allergies Allergy/AdvReac Type Severity Reaction Status Date / Time Quinolones Allergy Intermediate HIVES Verified 07/06/24 19:17 cyclobenzaprine Allergy Mild Verified 07/06/24 19:17 amitriptyline Allergy Unknown UNKNOWN Verified 07/06/24 19:17 Home Medications Medication Instructions Recorded Confirmed Type NOTE: ##0 03/10/13 History meclizine 25 mg tablet 25 mg PO QPM PRN Dizziness ##0 06/23/14 07/06/24 History multivitamin 1 tab PO DAILY #0 tabs 09/01/14 07/06/24 History nitroglycerin 0.3 mg sublingual 0.3 mg UT PRN #0 BTLS 09/01/14 07/06/24 History tablet (Nitrostat) bupropion HCl 75 mg tablet 75 mg PO QPM #0 tabs 03/31/16 07/06/24 History levothyroxine 150 mcg tablet 150 mcg PO DAILY ##0 03/31/16 07/06/24 History albuterol sulfate 90 mcg/actuation 2 puff inhalation Q4H PRN 06/28/17 07/06/24 History aerosol inhaler shortness of breath/wheezing ##0 ferrous sulfate 325 mg (65 mg 325 mg PO DAILY #0 tabs 06/28/17 07/06/24 History iron) tablet furosemide 40 mg tablet 40 mg PO QAM #0 tabs 06/28/17 07/06/24 History ipratropium 0.5 mg-albuterol 3 mg 3 ml inhalation Q4H PRN 06/28/17 07/06/24 History (2.5 mg base)/3 mL nebulization sob/wheezing #0 inhalations soln potassium chloride 10 mEq 10 meq PO QAM ##0 06/28/17 07/06/24 History tablet,extended release (Klor-Con) warfarin 5 mg tablet 5 - 7.5 mg PO .SEEATTACHED ##0 06/28/17 07/06/24 History ezetimibe 10 mg tablet 10 mg PO QPM 07/06/24 07/06/24 History metoprolol succinate 25 mg 25 mg PO QAM 07/06/24 07/06/24 History tablet,extended release 24 hr rosuvastatin 40 mg tablet 40 mg PO QPM 07/06/24 07/06/24 History Patient History Medical History Hypothyroidism Atrial fibrillation Hypertension Subtherapeutic international normalized ratio (INR) Surgical History Mechanical heart valve present Aortic and mitral valve. 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 Other Information That Helps Us Care for You: No Feels Safe at Home: Yes Safety Concerns: Feels Safe At This Time Review of Systems Review of Systems: All systems reviewed & are unremarkable except as noted in HPI & below Physical Exam Constitutional: WD/WN, vitals as above + thin Neck: trachea midline, no thyromegaly normal visual inspection Respiratory: + cough; no respiratory distress Ausc ultation: + diminished lung sounds and + wheezes Cardiovascular: Rate/Rhythm: + tachycardic and + irregularly irregular Gastrointestinal (Abdomen): normal bowel sounds, soft, nontender, no hepatosplenomegaly Neurologic: PERRL, EOMI, accommodation nl, no face palsy, no dysarthria Results & Data Vital Signs (Past 12 Hours) Vital Signs Temp Pulse Pulse Resp BP BP Pulse Ox 07/07/24 08:15 120 H 07/07/24 07:49 126 H 07/07/24 07:24 36.5 C 111 H 20 113/79 91 07/07/24 02:59 112 H 119/80 07/07/24 02:43 36.4 C L 124 H 22 95 07/07/24 02:43 122 H 115/82 07/06/24 22:45 126 H 07/06/24 22:45 36.5 C 110 H 20 110/75 95 07/06/24 22:30 O2 Del Method 07/07/24 08:15 07/07/24 07:49 07/07/24 07:24 Room Air 07/07/24 02:59 07/07/24 02:43 Room Air 07/07/24 02:43 07/06/24 22:45 07/06/24 22:45 Room Air 07/06/24 22:30 Room Air Laboratory Results Cardiac Enzymes 07/06/24 07/06/24 Range/Units 17:21 19:34 AST 40 H (13-39) U/L Troponin I High Sens 122.3 H* 93.4 H* D (0-14) pg/ml Coagulation 07/06/24 Range/Units 17:21 PT 21.1 H (9.0-12.0) Seconds CBC 07/06/24 07/07/24 Range/Units 17:21 06:29 WBC 7.34 4.69 L (4.8-10.8) K/ul RBC 4.40 3.88 L (4.20-5.40) M/uL Hgb 11.9 L 10.8 L (12.0-16.0) g/dl Hct 38.1 32.9 L (37.0-47.0) % Plt Count 220 178 (130-400) K/uL Neut # (Auto) 4.84 (1.40-6.50) K/uL Lymph # (Auto) 1.23 (1.20-3.40) K/uL Alfalfa # (Auto) 0.90 H (0.11-0.59) K/uL Eos # (Auto) 0.27 (0.00-0.50) K/uL Baso # (Auto) 0.08 (0.00-0.20) K/uL Comprehensive Metabolic Panel 07/06/24 07/07/24 Range/Units 17:21 06:29 Sodium 139 135 L (136-145) mmol/L Potassium 4.4 4.4 (3.5-5.1) mmol/L Chloride 105 107 (98-107) mmol/L Carbon Dioxide 27 22 (21-32) mmol/L BUN 18 23 (6-23) mg/dl Creatinine 1.34 H 1.32 H (0.6-1.2) mg/dl Glucose 137 H 162 H (70-99(Fasting)) mg/dl Calcium 9.6 9.0 (8.6-10.3) mg/dl AST 40 H (13-39) U/L ALT 22 (7-52) U/L Alkaline Phosphatase 75 (34-104) U/L Total Protein 7.5 (6.0-8.3) gm/dl Albumin 4.2 (3.4-5.0) gm/dl Intake and Output 07/06/24 07/07/24 07/07/24 22:59 06:59 14:59 Intake Total 151.667 / 351.667 200 / 351.667 Balance 151.667 / 351.667 200 / 351.667 Intake: IV 151.667 / 151.667 Magnesium Sulfate / D5w 1 gm In 151.667 / 151.667 100 ml @ 50 mls/hr IV Q2H [facility] Rx#:[id number] Oral 200 / 200 Other: # Unmeasured Voids 2 Weight 68.1 kg 68 kg Weight Measurement Method Built in [facility] Diagnostic Findings Telemetry reviewed: Persistent atrial fib since admission, rates ranging 100-1 20's this morning. EKG reviewed from admission dated 07/06/24 at 17:13: Atrial fib/flutter with RVR incomplete RBBB T wave inversions in anterior leads Repeat EKG reviewed from 07/06/24: Atrial fib with RVR T wave inversions in anterior leads EKG reviewed from 07/07/24 5:57 Atrial fib with RVR T wave inversion in anterior leads Echo pending - Chest X-Ray 07/06/24 17:04 INDICATION: Chest pain. TECHNIQUE: Frontal radiograph of the chest. COMPARISON: Radiograph from 06/15/2023. FINDINGS: Cardiomegaly. Mild pulmonary vascular congestion. Small left pleural effusion with underlying atelectasis/airspace disease. Subsegmental atelectasis/airspace disease in the right lower lobe. No pneumothorax. No acute fracture. IMPRESSION: Mild pulmonary vascular congestion. Small left pleural effusion with underlying atelectasis/airspace disease. Subsegmental atelectasis/airspace disease in the right lower lobe. Electronically signed by Nabor Odom 07-06-2024 5:52 PM Prior outpatient echo report reviewed dated 06/2023: Interpretation Summary The examination is adequate to evaluate the referral indication. The left ventricular cavity size is normal. The LV wall thickness is mildly increased (concentric). The left ventricular wall motion is normal. The qualitative LV ejection fraction is 60-64% (normal). The left atrium is severely enlarged (>48 ml/m^2,). The right atrium is mildly enlarged. There is an aortic valve bileaftlet disc (St. Remy type) mechanical prosthesis present. The aortic valve prosthesis systolic gradients are normal for this type prosthesis. There is a mitral valve bileaflet disc (St[place] Remy type) mechanical prosthesis present. There is severe mitral valve annular thickening and calcification Mitral valve prosthetic regurgitation is not assessed due to acoustic shadowing from the prosthesis. The mitral valve prosthesis systolic gradients borderline elevated for this prosthesis, with mean gradient of 11.2 millimeters Hg. Mild tricuspid regurgitation is present. There is mild pulmonary regurgitation. There is no evidence of pulmonary hypertension Medications Administered Current Inpatient Medications Acetaminophen (Acetaminophen 325 Mg Tab) 650 mg PO Q4H PRN PRN Reason: Pain or Fever Stop: 08/05/24 19:40 Al Hydrox/Mg Hydrox/Simethicone (Aluminum/Magnesium Susp 30 Ml Udc) 15 ml PO Q4H PRN PRN Reason: Dyspepsia Stop: 08/05/24 19:40 Azithromycin (Azithromycin 250 Mg Tab) 500 mg PO Q24H [facility] Stop: 07/11/24 19:29 Last Admin: 07/06/24 20:04 Dose: 500 mg Bupropion HCl (Bupropion Hcl 75 Mg Tablet) 75 mg PO QPM [facility] Stop: 08/05/24 20:59 Last Admin: 07/06/24 21:31 Dose: 75 mg Ezetimibe (Ezetimibe 10 Mg Tab) 10 mg PO QPM [facility] Stop: 08/05/24 20:59 Last Admin: 07/06/24 21:31 Dose: 10 mg Ferrous Sulfate (Ferrous Sulfate 325 Mg Tab) 325 mg PO DAILY [facility] Stop: 08/06/24 08:59 Last Admin: 07/07/24 07:51 Dose: 325 mg Furosemide (Furosemide 40 Mg Tab) 40 mg PO QAM [facility] Stop: 08/06/24 08:59 Last Admin: 07/07/24 07:51 Dose: 40 mg Diltiazem HCl 125 mg/ Dextrose 125 mls @ 5 mls/hr IV .Q24H [facility]; Protocol Stop: 08/06/24 09:59 Last Admin: 07/07/24 10:52 Dose: 5 mg/hr, 5 mls/hr Levalbuterol HCl (Levalbuterol Hcl 0.63 Mg/3 Ml Neb) 0.63 mg NEB Q4H PRN; Protocol PRN Reason: Shortness Of Breath Or Wheezing Stop: 08/06/24 08:24 Levothyroxine Sodium (Levothyroxine Sodium 125 Mcg Tablet) 125 mcg PO DAILYBB [facility] Stop: 08/06/24 06:29 Last Admin: 07/07/24 06:03 Dose: 125 mcg Meclizine HCl (Meclizine Hcl 25 Mg Tab) 25 mg PO QPM PRN PRN Reason: Dizziness Stop: 08/05/24 19:38 Metoprolol Tartrate (Metoprolol Tartrate 1 Mg/Ml Vial) 5 mg IV Q4 PRN PRN Reason: afib rvr, for HR > 115 bpm. Stop: 08/05/24 19:59 Last Admin: 07/07/24 07:49 Dose: 5 mg Metoprolol Tartrate (Metoprolol Tartrate 25 Mg Tab) 25 mg PO BID [facility] Stop: 08/06/24 08:59 Last Admin: 07/07/24 07:50 Dose: 25 mg Polyethylene Glycol (Polyethylene (Miralax) 17 Gm Pack) 17 gm PO DAILY PRN PRN Reason: Constipation Stop: 08/05/24 19:40 Potassium Chloride (Potassium Chloride 10 Meq Tabcr) 10 meq PO QAM [facility] Stop: 08/06/24 08:59 Last Admin: 07/07/24 08:02 Dose: 10 meq Prednisone (Prednisone 20 Mg Tab) 40 mg PO DAILY [facility] Stop: 08/06/24 08:59 Last Admin: 07/07/24 09:27 Dose: 40 mg Rosuvastatin Calcium (Rosuvastatin Calcium 20 Mg Tab) 40 mg PO QPM [facility] Stop: 08/05/24 20:59 Last Admin: 07/06/24 21:30 Dose: 40 mg Warfarin Sodium (Warfarin Sod 5 Mg Tab) 5 mg PO [id number] [facility] Stop: 08/06/24 15:59 Warfarin Sodium (Warfarin Sod 7.5 Mg Tab) 7.5 mg PO Fr@1600 [facility] Stop: 08/09/24 15:59
[2024-07-07] MEDS: dilTIAZem HCl 5 MG/ML 5 ML VIAL IV STA (10:51)
[2024-07-07] MEDS: dilTIAZem HCL 125 MG in DEXTROSE 5% 100 ML IV SCH (10:52)
[2024-07-07 13:55] LABS: INR 3.5 (0.9-1.1); Prothrombin Time 34.3 Seconds (9.0-12.0)
--- NOTE | 2024-07-07 15:47 | Hospitalist Progress Note ---
Date of Service July 07, 2024 Assessment & Plan (1) Atrial fibrillation with RVR: (2) History of mitral valve replacement with mechanical valve: (3) Elevated troponin: Plan: Due to rapid ventricular response (4) Hypothyroidism: Plan: With suppressed TSH (5) Hypertension: (6) Warfarin anticoagulation: Plan Patient with known paroxysmal atrial fibrillation now with rapid ventricular response Communication with cardiology team, patient has responded well to Cardizem in the past, Cardizem bolus and drip. Patient appears to have converted back into sinus/junctional rhythm with the Cardizem, further med management as dictated by cardiology Synthroid dose has been reduced, recheck TSH in 4 to 6 weeks INR now therapeutic, continue Coumadin dosing, monitor INR Renal function at baseline Admission and Anticipated Discharge Date Admission Date: July 06, 2024 Subjective Patient denies any chest pain or shortness of breath. Can feel her heart in atrial fibrillation Physical Exam Physical Exam: Constitutional: Alert, nontoxic HEENT: Mucous membranes moist. Lungs: Clear to auscultation, decreased, no wheezes rales or rhonchi CV: S1-S2, irregular, tachycardic Abdomen: Soft, nontender, nondistended Extremities: No significant edema Neuro: No focal deficits Psych: Cooperative, normal mood Results & Data Results & Data Vital Signs (Past 12 Hours) Vital Signs Temp Pulse Pulse Resp BP Pulse Ox O2 Del Method 07/07/24 15:32 36.5 C 70 20 112/63 95 Room Air 07/07/24 11:23 36.4 C L 68 20 107/69 91 Room Air 07/07/24 10:25 Room Air 07/07/24 10:24 104 H 18 95 Room Air 07/07/24 08:51 117 H 20 94 Room Air 07/07/24 08:15 120 H 07/07/24 07:49 126 H 07/07/24 07:24 36.5 C 111 H 20 113/79 91 Room Air Diagnostic Findings Reviewed imaging, laboratory and diagnostic studies. Pertinent findings as below. INR 3.5 Creatinine 1.32 Glucoses reviewed Troponins trending down Personally reviewed EKG, converted to junctional rhythm
[2024-07-07] MEDS: WARFARIN SOD 5 MG TAB PO SCH (16:07)
[2024-07-08 07:26] LABS: INR 5.4 (0.9-1.1); Prothrombin Time 50.7 Seconds (9.0-12.0)
--- NOTE | 2024-07-08 10:00 | Cardiology Progress Note ---
Date of Service July 08, 2024 Assessment & Plan (1) Atrial fibrillation with RVR: (2) COPD exacerbation: (3) Hypothyroidism: (4) H/O mechanical aortic valve replacement: (5) History of mitral valve replacement with mechanical valve: Plan 07/07/24: Patient with worsening cough/wheezing/SOB over the last week, consistent with probable COPD exacerbation, lower respiratory tract infection. Arrived at PCP office yesterday for treatment/evaluation and found to have recur rent afib RVR with HR's in the 130's and sent to the ER. Upon arrival to ER, she was treated with several doses of IV metoprolol and started on metoprolol tartrate 25 mg BID (home dose is metoprolol succinate 25 mg daily).. Patient is on chronic Coumadin for anticoagulation given her mechanical AVR and mechanical MVR. Unfortunately she has been non compliant with PT/INR follow up and was discharged from anticoagulation clinic. despite being discharged, patient reports she has been taking Coumadin 5 mg and 7.5 mg on a regular basis. INR on admission was 2.1. GOal INR is 2.5-3.5 with her mechanical valve Daily PT/INR. Repeat pending today. Will need to re-establish with anticoagulation clinic Echo ordered. Results pending In regards to afib RVR, will start IV diltiazem for improved HR support. Continue metoprolol 25 mg BID for now. Titrate as needed/tolerated. Rate vs rhythm control needs to be considered as it may be difficult to maintain NSR going forward. Continue Coumadin. INR 2.1 and therapeutic in regards to afib. minimally elevated troponin consistent with demand ischemia in setting of afib RVR. She has a history of normal coronary arteries per most recent cath in 2014. No anginal complaints Repeat EKG in AM BP controlled. Continue antibiotics, steroids, neb treatments per hospitalist for COPD exacerbation. TSH low on arrival. Levothyroxine dose reduced. 07/08/24: Persistent afib noted today on telemetry. Improved HR's. Likely afib has been persistent/chronic for quite some time. Last known EKG was May 2023 and she was in afib during this time. IV Diltiazem stopped yesterday afternoon. Transition from metoprolol tartrate 25 mg BID to metoprolol succinate 25 mg BID (prior home dose was 25 daily) Continue anticoagulation therapy. Goal INR for mechanical valves is 2.5-3.5. INR this morning is 5.4. Hold dose tonight. She will need new referral to anticoagulation clinic on discharge ([place] per patient preference). Compliance discussed. She is agreeable to going for her routine INR screenings. Echo with normal LVEF, moderate LA enlargement and normal gradients of mechanical AVR and mechanical MVR. Continue treatment for COPD exacerbation per hospitalist No further cardiac testing warranted at this time. Case discussed with Dr. Donato Dobson spent a total of 30 minutes on the date of service in preparation, delivery, and documentation of the care provided to this patient, excluding any time spent in the performance of separately billed services. Mirna Cohn PA-C Department of Cardiology, [facility] This chart was completed in part utilizing Speech Voice Recognition Software. Grammatical errors, random word insertions, pronoun errors, and incomplete sentences are an occasional consequence of this system due to software limit ations, ambient noise, and hardware issues. Any formal questions or concerns about the content, text, or information contained within the body of this dictation should be directly addressed to the provider for clarification. Admission and Anticipated Discharge Date Admission Date: July 06, 2024 Supervising Physician Co-Signing Physician Notes Patient seen and examined, care and management as above as per advanced provider. Discussed and personally endorsed. Complex 64-year-old female with rheumatic heart disease status post aortic and mitral valve replacement with mechanical prosthesis, persistent atrial fibrillation. Admitted with exacerbation of underlying pulmonary disease/COPD. Chronic tobacco use. Atrial fibrillation rates elevated likely secondary to lapse in medications as well as increased demand secondary to pulmonary disease. Atrial fibrillation rates now much improved. Back on recommended dosing of metoprolol succinate 25 mg twice per day with good tolerance Respiratory status significantly improved still wheezing with mild cough Clinically improving. Noncompliance chronically an issue Urged tobacco cessation Subjective Patient resting in bed. Reports ongoing cough, which kept her up all night. Ongoing wheeze. No fever or chills. No chest pain. No SOB at rest. Palpitations resolved. HR improved. There was discussion yesterday whether or not patient co nverted to NSR with IV dilitazem infusion. Per review of telemetery and EKG's, it appears her rates improved and she remains in rate controlled atrial fib/flutter at this time. Dilt was stopped yesterday. Review of Systems Review of Systems: All systems reviewed & are unremarkable except as noted in HPI & below Physical Exam Constitutional: WD/WN, vitals as above + thin Neck: trachea midline, no thyromegaly normal visual inspection Respiratory: + cough; no respiratory distress Ausc ultation: + diminished lung sounds and + wheezes Cardiovascular: Rate/Rhythm: + irregularly irregular Heart Sounds: + murmur (II/ crisp mechanical valve) Vessels: no JVD Extremities: no edema Gastrointestinal (Abdomen): normal bowel sounds, soft, nontender, no hepatosplenomegaly Neurologic: PERRL, EOMI, accommodation nl, no face palsy, no dysarthria Results & Data Vital Signs (Past 12 Hours) Vital Signs Temp Pulse Pulse Resp BP Pulse Ox O2 Del Method 07/08/24 07:38 36.3 C L 70 18 114/68 93 Room Air 07/08/24 07:21 70 07/08/24 02:42 36.5 C 67 16 100/62 92 Room Air 07/07/24 22:36 36.4 C L 67 20 101/62 93 Room Air 07/07/24 22:00 70 Laboratory Results Coagulation 07/07/24 07/08/24 Range/Units 13:03 06:23 PT 34.3 H 50.7 H (9.0-12.0) Seconds Intake and Output 07/07/24 07/08/24 07/08/24 22:59 06:59 14:59 Intake Total 50 / 550 125 / 125 Balance 50 / 550 125 / 125 Intake: IV 125 / 125 dilTIAZem HCL 125 mg In 125 / 125 Dextrose 5% 100 ml @ 5 MG/HR 5 mls/hr IV .Q24H [facility] Rx#: [id number] Oral 50 / 550 Other: # Unmeasured Voids 1 Weight 68 kg 68.3 kg Weight Measurement Method Built in [facility] Diagnostic Findings Telemetry reviewed: Rate controlled atrial fib/flutter in the s. Improved rates starting around 11:00 AM yesterday Echo results reviewed dated 07/07/24: Afib with controlled rates during exam Borderline LVH Normal LVEF at 50-55% LA is moderately dilated [employer]ileaf[place] [employer] aortic mechanical prosthesis with normal gradients Bileaf[employer] mechanical mitral valve with normal gradients. mild TR RV systolic pressure moderately elevated at 40-50mmHg Medications Administered Current Inpatient Medications Acetaminophen (Acetaminophen 325 Mg Tab) 650 mg PO Q4H PRN PRN Reason: Pain or Fever Stop: 08/05/24 19:40 Al Hydrox/Mg Hydrox/Simethicone (Aluminum/Magnesium Susp 30 Ml Udc) 15 ml PO Q4H PRN PRN Reason: Dyspepsia Stop: 08/05/24 19:40 Azithromycin (Azithromycin 250 Mg Tab) 500 mg PO Q24H [facility] Stop: 07/11/24 19:29 Last Admin: 07/07/24 20:14 Dose: 500 mg Bupropion HCl (Bupropion Hcl 75 Mg Tablet) 75 mg PO QPM [facility] Stop: 08/05/24 20:59 Last Admin: 07/07/24 20:14 Dose: 75 mg Ezetimibe (Ezetimibe 10 Mg Tab) 10 mg PO QPM [facility] Stop: 08/05/24 20:59 Last Admin: 07/07/24 20:14 Dose: 10 mg Ferrous Sulfate (Ferrous Sulfate 325 Mg Tab) 325 mg PO DAILY [facility] Stop: 08/06/24 08:59 Last Admin: 07/08/24 08:08 Dose: 325 mg Furosemide (Furosemide 40 Mg Tab) 40 mg PO QAM [facility] Stop: 08/06/24 08:59 Last Admin: 07/08/24 08:09 Dose: 40 mg Levalbuterol HCl (Levalbuterol Hcl 0.63 Mg/3 Ml Neb) 0.63 mg NEB Q4H PRN; Protocol PRN Reason: Shortness Of Breath Or Wheezing Stop: 08/06/24 08:24 Levothyroxine Sodium (Levothyroxine Sodium 125 Mcg Tablet) 125 mcg PO DAILYBB [facility] Stop: 08/06/24 06:29 Last Admin: 07/08/24 05:46 Dose: 125 mcg Meclizine HCl (Meclizine Hcl 25 Mg Tab) 25 mg PO QPM PRN PRN Reason: Dizziness Stop: 08/05/24 19:38 Metoprolol Succinate (Metoprolol Succ 25mg Ext Rel Tab) 25 mg PO BID [facility] Stop: 08/07/24 20:59 Metoprolol Tartrate (Metoprolol Tartrate 1 Mg/Ml Vial) 5 mg IV Q4 PRN PRN Reason: afib rvr, for HR > 115 bpm. Stop: 08/05/24 19:59 Last Admin: 07/07/24 07:49 Dose: 5 mg Polyethylene Glycol (Polyethylene (Miralax) 17 Gm Pack) 17 gm PO DAILY PRN PRN Reason: Constipation Stop: 08/05/24 19:40 Potassium Chloride (Potassium Chloride 10 Meq Tabcr) 10 meq PO QAM [facility] Stop: 08/06/24 08:59 Last Admin: 07/08/24 08:09 Dose: 10 meq Prednisone (Prednisone 20 Mg Tab) 40 mg PO DAILY [facility] Stop: 08/06/24 08:59 Last Admin: 07/08/24 08:09 Dose: 40 mg Rosuvastatin Calcium (Rosuvastatin Calcium 20 Mg Tab) 40 mg PO QPM [facility] Stop: 08/05/24 20:59 Last Admin: 07/07/24 20:14 Dose: 40 mg Warfarin Sodium (Warfarin Sod 5 Mg Tab) 5 mg PO [id number] [facility] Stop: 08/06/24 15:59 Last Admin: 07/07/24 16:07 Dose: 5 mg Warfarin Sodium (Warfarin Sod 7.5 Mg Tab) 7.5 mg PO Fr@1600 [facility] Stop: 08/09/24 15:59
--- NOTE | 2024-07-08 12:32 | Discharge Summary ---
Discharge Summary Date of Service July 08, 2024 Principal Dx & Hospital Course #1 = Principal Diagnosis (1) Atrial fibrillation with RVR: (2) COPD exacerbation: (3) History of mitral valve replacement with mechanical valve: (4) Elevated troponin: Due to rapid ventricular response (5) Hypothyroidism: With suppressed TSH (6) Hypertension: (7) Warfarin anticoagulation: Plan Patient presented to the emergency room with increasing shortness of breath and dyspnea on exertion for several weeks. Patient has known atrial fibrillation with rates usually well-controlled. She was in her physician's office earlier in the day and noted to have rapid ventricular response. Patient was admitted to the hospital. She was placed on athletic monitor. She was treated with steroids and nebulizer treatments for exacerbation of COPD as evidenced by her wheezing. Cardiology consultation was obtained. Patient was very responsive to diltiazem in the past. She was given a loading dose of diltiazem and started on a diltiazem drip. She responded quite nicely to this with improved rate control. Diltiazem drip was titrated off and her metoprolol dosing was increased. She was titrated off oxygen. She was continued on her warfarin for her mechanical valve. INR was monitored daily. On the day of discharge she was up and ambulatory without shortness of breath. She had no longer has significant palpitations. Rates are much better controlled. She has nebulizers and inhalers at home to continue to treat her exacerbation of COPD. At this point extremely low suspicion for bacterial cause for her COPD exacerbation. Will discontinue the Zithromax. Has impacted her INR. Will have her hold her warfarin tonight and resume tomorrow with an INR check on Saturday. She will follow-up with her outpatient solution developer and PCP. Notes For Next Care Provider Continue to monitor INR for mechanical valve Follow-up with cardiology Recheck TSH in 4 to 6 weeks Medication Changes From Visit Metoprolol dosing increased Short burst of prednisone for COPD exacerbation May need daily inhalers for management of COPD Admission HPI Per Admitting Provider 64-year-old lady with PMH of asthma, COPD, A-fib RVR, prosthetic replacement of heart valve comes at referral of her PCP office for A-fib RVR. Per patient, she was not feeling well since last 3 to 4 days, was having worsening shortness of breath, nonproductive cough/increase in frequency, palpitation and visited her doctor today where she was noted to be with heart rate in 130s and atrial fibrillation and was directed to the ED. Patient denies sore throat/fever/chest pain/belly pain. Patient reports some nausea and vomiting , last vomiting was yesterday. Patient denies pain or burning with passing urine, reports moving bowels okay. Patient is a current smoker, smokes 1 packs in 3 days, denies alcohol use, reports occasional marijuana use. Medications reviewed with the patient at bedside Plan of care discussed with the patient and her niece at bedside in detail, they voiced understanding. Full code as per my discussion with the patient. Admission Exam Per Admitting Provider See H&P Discharge Exam Constitutional: Alert, nontoxic, no distress HEENT: Mucous membranes moist. Lungs: Decreased breath sounds, improved airflow compared to admission, few rare wheezes CV: S1-S2, irregular, rate controlled, systolic murmur Abdomen: Soft, nontender, nondistended Extremities: No significant edema Neuro: No focal deficits Psych: Cooperative, normal mood Updated Medication List Medication Instructions Recorded Confirmed Type NOTE: ##0 03/10/13 History meclizine 25 mg tablet 25 mg PO QPM PRN Dizziness ##0 06/23/14 07/06/24 History multivitamin 1 tab PO DAILY #0 tabs 09/01/14 07/06/24 History nitroglycerin 0.3 mg sublingual 0.3 mg UT PRN #0 BTLS 09/01/14 07/06/24 History tablet (Nitrostat) bupropion HCl 75 mg tablet 75 mg PO QPM #0 tabs 03/31/16 07/06/24 History albuterol sulfate 90 mcg/actuation 2 puff inhalation Q4H PRN 06/28/17 07/06/24 History aerosol inhaler shortness of breath/wheezing ##0 ferrous sulfate 325 mg (65 mg 325 mg PO DAILY #0 tabs 06/28/17 07/06/24 History iron) tablet furosemide 40 mg tablet 40 mg PO QAM #0 tabs 06/28/17 07/06/24 History ipratropium 0.5 mg-albuterol 3 mg 3 ml inhalation Q4H PRN 06/28/17 07/06/24 History (2.5 mg base)/3 mL nebulization sob/wheezing #0 inhalations soln potassium chloride 10 mEq 10 meq PO QAM ##0 06/28/17 07/06/24 History tablet,extended release (Klor-Con) ezetimibe 10 mg tablet 10 mg PO QPM 07/06/24 07/06/24 History rosuvastatin 40 mg tablet 40 mg PO QPM 07/06/24 07/06/24 History benzonatate 100 mg capsule 100 mg PO TID PRN cough #30 caps 07/08/24 Rx guaifenesin 600 mg tablet, 600 mg PO BID PRN cough #30 tabs 07/08/24 Rx extended release 12 hr (Mucinex) levothyroxine 125 mcg tablet 125 mcg PO DAILYBB #30 tabs 07/08/24 Rx (Synthroid) metoprolol succinate 25 mg 25 mg PO BID 30 days #60 tabs 07/08/24 Rx tablet,extended release 24 hr prednisone 20 mg tablet 40 mg (2 x 20 mg) PO DAILY 3 days 07/08/24 Rx #6 tabs warfarin 5 mg tablet 5 mg PO DAILY #0 tabs 07/08/24 07/06/24 Rx Hospital Stay Data Consultations 07/06/24 18:31 ED Decision to Admit Stat 07/06/24 19:41 Consult Cardiology Routine Diagnostic Imagining Performed Reviewed imaging, laboratory and diagnostic studies. Pertinent findings as below. INR 5.4 Glucose 150 Electrolytes stable Creatinine 1.32, baseline TSH 0.29 Pending Results Patient Have Any Pending Studies at Discharge: No Discharge Instructions Given to Patient (Per Discharging Provider) Hold your warfarin tonight and restart on 07/09/2024 Get your Coumadin level checked/INR checked on 07/10/2024 . follow-up with Coumadin clinic Follow-up with your solution developer Take medications as prescribed Total Time Total Time Spent Total Time Spent (In Minutes): 36
[2024-07-08] MEDS ORDERED: METOPROLOL SUCC 25MG EXT REL TAB PO SCH (21:00)
--- NOTE | 2024-07-09 08:41 | Electrocardiogram Report ---
Test Reason : Blood Pressure : */* mmHG Vent. Rate : 125 BPM Atrial Rate : 125 BPM P-R Int : * ms QRS Dur : 90 ms QT Int : 380 ms P-R-T Axes : * 91 99 degrees QTcB Int : 548 ms Atrial fibrillation with rapid ventricular response Nonspecific T wave abnormality Anterior leads Abnormal ECG When compared with ECG of 06-Jul-2024 17:57, HR has increased by 28 bpm Confirmed by Jeremiah Jaime ([id number]) on 07/09/2024 8:41:20 AM Referred By: Lynnette Banks Confirmed By: Jeremiah Jaime
--- NOTE | 2024-07-09 08:50 | Electrocardiogram Report ---
Test Reason : Blood Pressure : */* mmHG Vent. Rate : 70 BPM Atrial Rate : 54 BPM P-R Int : * ms QRS Dur : 86 ms QT Int : 458 ms P-R-T Axes : * 77 161 degrees QTcB Int : 494 ms Accelerated Junctional rhythm Diffuse Nonspecific T wave abnormality Prolonged QT Abnormal ECG When compared with ECG of 07-Jul-2024 05:57, Vent. rate has decreased by 55 bpm Confirmed by Jeremiah Jaime ([id number]) on 07/09/2024 8:49:59 AM Referred By: Lynnette Banks Confirmed By: Jeremiah Jaime
--- NOTE | 2024-07-09 09:00 | Electrocardiogram Report ---
Test Reason : Blood Pressure : */* mmHG Vent. Rate : 70 BPM Atrial Rate : 69 BPM P-R Int : * ms QRS Dur : 90 ms QT Int : 430 ms P-R-T Axes : * 80 152 degrees QTcB Int : 464 ms Accelerated Junctional rhythm Nonspecific T wave abnormality Anterior leads Abnormal ECG When compared with ECG of 07-Jul-2024 14:31, No significant change was found Confirmed by Jeremiah Jaime ([id number]) on 07/09/2024 9:00:11 AM Referred By: Lynnette Banks Confirmed By: Jeremiah Jaime
--- NOTE | 2024-07-09 15:16 | Electrocardiogram Report ---
Test Reason : Blood Pressure : */* mmHG Vent. Rate : 138 BPM Atrial Rate : 138 BPM P-R Int : 152 ms QRS Dur : 96 ms QT Int : 308 ms P-R-T Axes : -27 111 95 degrees QTcB Int : 466 ms Poor data quality, interpretation may be adversely affected Probable Atrial flutter with 2:1 A-V conduction Incomplete right bundle branch block Abnormal ECG When compared with ECG of 15-Jun-2023 14:37, Atrial flutter has replaced Atrial fibrillation Vent. rate has increased by 55 bpm Incomplete right bundle branch block now present Confirmed by Jeremiah Jaime ([id number]) on 07/09/2024 3:16:25 PM Referred By: Lynnette Banks Confirmed By: Jeremiah Jaime
--- NOTE | 2024-07-09 15:17 | Electrocardiogram Report ---
Test Reason : Blood Pressure : */* mmHG Vent. Rate : 97 BPM Atrial Rate : * BPM P-R Int : * ms QRS Dur : 84 ms QT Int : 362 ms P-R-T Axes : * 87 124 degrees QTcB Int : 459 ms Atrial fibrillation Diffuse Minor Nonspecific ST and T wave abnormality Abnormal ECG When compared with ECG of 06-Jul-2024 17:13, Atrial fibrillation has replaced Atrial flutter HR has decreased by 41 bpm Confirmed by Jeremiah Jaime ([id number]) on 07/09/2024 3:17:13 PM Referred By: Lynnette Banks Confirmed By: Jeremiah Jaime
[2024-07-10] MEDS ORDERED: WARFARIN SOD 7.5 MG TAB PO SCH (16:00)
== END 2024-07-08 13:00 | disposition home or self-care (01) | DRG 309 ==
LOC: ED 16:58 → 2S 19:41 → SUATTDRO 19:41 → 2S 21:54

== ENCOUNTER 2025-05-16 20:44 | Inpatient (IN) ==
--- NOTE | 2025-05-16 21:09 | Emergency Department Note ---
Impression & Plan Hypoxia Admission ED Provider Note HPI: History obtained from patient. The patient is a 65-year-old female with history of mechanical mitral valve, currently on Coumadin, history of atrial fibrillation, who presents the emergency department with a chief complaint of cough and left-sided chest discomfort with cough. Patient states that she has also had some generalized weakness/fatigue for the past several days. On arrival here to the ED the patient is tachycardic in the 120s, oxygen saturation is 89% on room air. Patient was placed on nasal cannula oxygen with good improvement. Patient is afebrile on arrival. ROS: - Per HPI Differential Diagnosis: Arrhythmia to include atrial fibrillation with RVR, WPW, ventricular tachycardia, ACS, PE, viral upper respiratory infection, pneumonia, COPD exacerbation, amongst other potential pathologies. *Outpatient medications and allergy history reviewed. 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 Lab work shows no leukocytosis, hemoglobin is stable 11.1, platelet count is normal, CMP does not show any evidence of any critical findings. Creatinine is mildly elevated above baseline at 1.69, troponin is mildly elevated at 17.6 however this is lower than previous numbers. Patient denies any chest pain at rest, she states she does get some when she coughs. BNP is elevated at 814, chest x-ray shows a large left-sided pleural effusion per my interpretation. INR is therapeutic at 2.4, low suspicion for PE. On reevaluation following IV diltiazem as well as IV fluids, the patient states she is feeling improved while at rest. Her heart rate down trended to within normal limits following IV diltiazem. Will hold off on breathing treatments at this time as to not stimulate tachycardia. Viral panel testing is negative. Patient did have significant shortness of breath with exertion when she got up to go to the bathroom, I feel at this point she should be admitted for continuation of supplemental oxygen, diuresis, and further management. I discussed all of these findings with the on-call hospitalist, Dr. Christina, and the patient was placed for admission in stable condition. Consultants/Discussions held with other healthcare providers: - Dr. Christina, hospitalist Disposition discussion held by myself with: - Patient * CRITICAL CARE TIME: ( 45 ) minutes - Stabilization of patient with tachyarrhythmia/atrial flutter requiring IV medications for rate control, time spent at the bedside, management of patient with hypoxia at 89% on room air requiring supplemental oxygen for correction, interpretation of diagnostic studies, discussion with other healthcare providers and arrangement of admission. Diagnosis: 1. Dyspnea, acute 2. Atrial flutter with RVR, acute 3. Left-sided pleural effusion, acute on chronic 4. 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 Feels Safe at Home: Yes Assistive Devices: None Allergies Allergies Allergy/AdvReac Type Severity Reaction Status Date / Time Quinolones Allergy Intermediate HIVES Verified 07/06/24 19:17 cyclobenzaprine Allergy Mild Verified 07/06/24 19:17 amitriptyline Allergy Unknown UNKNOWN Verified 07/06/24 19:17 Home Meds Home Medications Medication Instructions Recorded Confirmed NOTE: ##0 03/10/13 meclizine 25 mg tablet 25 mg PO QPM PRN Dizziness ##0 06/23/14 07/06/24 multivitamin 1 tab PO DAILY #0 tabs 09/01/14 07/06/24 nitroglycerin 0.3 mg sublingual 0.3 mg UT PRN #0 BTLS 09/01/14 07/06/24 tablet (Nitrostat) bupropion HCl 75 mg tablet 75 mg PO QPM #0 tabs 03/31/16 07/06/24 albuterol sulfate 90 mcg/actuation 2 puff inhalation Q4H PRN 06/28/17 05/16/25 aerosol inhaler shortness of breath/wheezing ##0 furosemide 40 mg tablet 40 mg PO QAM #0 tabs 06/28/17 05/16/25 ipratropium 0.5 mg-albuterol 3 mg 3 ml inhalation Q4H PRN 06/28/17 07/06/24 (2.5 mg base)/3 mL nebulization sob/wheezing #0 inhalations soln potassium chloride 10 mEq 10 meq PO QAM ##0 06/28/17 07/06/24 tablet,extended release (Klor-Con) ezetimibe 10 mg tablet 10 mg PO QPM 07/06/24 07/06/24 rosuvastatin 40 mg tablet 40 mg PO QPM 07/06/24 05/16/25 azithromycin 250 mg tablet 250 mg 05/16/25 cholecalciferol (vitamin D3) 25 25 mcg (1,000 unit) tablet iron,carbonyl 65 mg-vitamin C 125 65 - 125 tab PO 05/16/25 mg tablet,delayed release (Vitron-C) magnesium 250 mg tablet 250 mg 05/16/25 prednisone 10 mg tablet 10 mg 05/16/25 Previous Rx's Medication Instructions Recorded levothyroxine 125 mcg tablet 125 mcg PO DAILYBB #30 tabs 07/08/24 (Synthroid) metoprolol succinate 25 mg 25 mg PO BID 30 days #60 tabs 07/08/24 tablet,extended release 24 hr warfarin 5 mg tablet 5 mg PO DAILY #0 tabs 07/08/24 Results & Data (ED) Vital Signs Vital Signs - 24 hr 05/16/25 20:48 05/16/25 20:51 05/16/25 21:15 Temperature 36.9 C Temperature Source Oral Pulse Rate 127 H 127 H Pulse Rate [Apical] 126 H Respiratory Rate 24 24 Respiratory Effort / Characteristics Non-Labored Spontaneous Respiratory Depth Normal Blood Pressure 117/80 Blood Pressure [Right Arm] 117/80 Blood Pressure Mean 92 Blood Pressure Mean [Right Arm] 92 Pulse Oximetry 89 L 96 Oxygen Delivery Method Room Air Nasal Cannula Oxygen Flow Rate Sepsis Recent Fever Within 48 Hours No Sepsis New/Unexplained Change in Mental Status No Sepsis Action Taken by Nursing No Action Required 05/16/25 22:03 05/16/25 23:16 Temperature Temperature Source Pulse Rate 117 H 125 H Pulse Rate [Apical] Respiratory Rate 27 H Respiratory Effort / Characteristics Respiratory Depth Blood Pressure 112/80 Blood Pressure [Right Arm] Blood Pressure Mean Blood Pressure Mean [Right Arm] Pulse Oximetry 93 Oxygen Delivery Method Nasal Cannula Oxygen Flow Rate 2 Sepsis Recent Fever Within 48 Hours Sepsis New/Unexplained Change in Mental Status Sepsis Action Taken by Nursing Laboratory Data 05/16/25 20:55 05/16/25 20:55 Lab Results 05/16/25 05/16/25 05/16/25 Range/Units 20:55 21:18 21:19 WBC 10.51 (4.8-10.8) K/ul RBC 3.97 L (4.20-5.40) M/uL Hgb 11.1 L (12.0-16.0) g/dl Hct 35.0 L (37.0-47.0) % MCV 88.2 (80.0-100.0) fL MCH 28.0 (25.0-34.0) pg MCHC 31.7 L (32.0-36.0) g/dL RDW Std Deviation 47.1 H (36.4-46.3) fL RDW Coeff of Mitul 14.9 H (11.5-14.5) % Plt Count 241 (130-400) K/uL MPV 12.4 (9.4-12.4) fL Immature Gran % (Auto) 0.4 % Neut % (Auto) 82.9 % Lymph % (Auto) 7.4 % [place] % (Auto) 7.9 % Eos % (Auto) 0.6 % Baso % (Auto) 0.8 % Neut # (Auto) 8.72 H (1.40-6.50) K/uL Lymph # (Auto) 0.78 L (1.20-3.40) K/uL [place] # (Auto) 0.83 H (0.11-0.59) K/uL Eos # (Auto) 0.06 (0.00-0.50) K/uL Baso # (Auto) 0.08 (0.00-0.20) K/uL Immature Gran # (Auto) 0.04 (0.01-0.20) K/uL PT 24.1 H (9.0-12.0) Seconds INR 2.4 H (0.9-1.1) VBG pH 7.45 H (7.36-7.41) VBG pCO2 41 (38-50) mmHg VBG pO2 36 mmHg VBG HCO3 29 mmol/L VBG O2 Saturation 61.6 % VBG Base Excess 4.1 mEq/L Sodium 136 (136-145) mmol/L Potassium 3.8 (3.5-5.1) mmol/L Chloride 100 (98-107) mmol/L Carbon Dioxide 31 (21-32) mmol/L Anion Gap 5 (3-11) BUN 25 H (6-23) mg/dl Creatinine 1.69 H (0.6-1.2) mg/dl Est Cr Clr Drug Dosing 29.0 ml/min eGFR 33.52 BUN/Creatinine Ratio 14.8 (10-20) Glucose 115 H (70-99(Fasting)) mg/dl Calcium 9.4 (8.6-10.3) mg/dl Magnesium (1.7-2.4) mg/dl Total Bilirubin 1.6 H (0.2-1.0) mg/dl AST 41 H (13-39) U/L ALT 15 (7-52) U/L Alkaline Phosphatase 73 (34-104) U/L Troponin I High Sens 17.6 H (0-14) pg/ml B-Natriuretic Peptide 814 H (0-100) pg/ml Total Protein 7.9 (6.0-8.3) gm/dl Albumin 3.9 (3.4-5.0) gm/dl Globulin 4.0 (2.5-4.0) gm/dl Albumin/Globulin Ratio 1.0 (0.9-2) Urine Color Urine Appearance (Clear) Urine pH (4.5-7.5) Ur Specific [place] (1.000-1.030) Urine Protein (Negative) Urine Glucose (UA) (Negative) Urine Ketones (Negative) Urine Blood (Negative) Urine Nitrite (Negative) Urine Bilirubin (Negative) Urine Urobilinogen (Negative) Ur Leukocyte Esterase (Negative) Urine WBC (Auto) (0-5) /hpf Urine RBC (Auto) (0-2) /hpf U Hyaline Cast (Auto) (0-2) /lpf U Epithel Cells (Auto) (0-2) /hpf Urine Bacteria (Auto) (None Seen) Urine Comment SARS-CoV-2 (PCR) NEGATIVE (Negative) Influenza Type A (PCR) Negative (Neg) Influenza Type B (PCR) Negative (Neg) RSV (RT-PCR) Negative (Neg) 05/16/25 05/16/25 Range/Units 22:05 22:51 WBC (4.8-10.8) K/ul RBC (4.20-5.40) M/uL Hgb (12.0-16.0) g/dl Hct (37.0-47.0) % MCV (80.0-100.0) fL MCH (25.0-34.0) pg MCHC (32.0-36.0) g/dL RDW Std Deviation (36.4-46.3) fL RDW Coeff of Mitul (11.5-14.5) % Plt Count (130-400) K/uL MPV (9.4-12.4) fL Immature Gran % (Auto) % Neut % (Auto) % Lymph % (Auto) % [place] % (Auto) % Eos % (Auto) % Baso % (Auto) % Neut # (Auto) (1.40-6.50) K/uL Lymph # (Auto) (1.20-3.40) K/uL [place] # (Auto) (0.11-0.59) K/uL Eos # (Auto) (0.00-0.50) K/uL Baso # (Auto) (0.00-0.20) K/uL Immature Gran # (Auto) (0.01-0.20) K/uL PT (9.0-12.0) Seconds INR (0.9-1.1) VBG pH (7.36-7.41) VBG pCO2 (38-50) mmHg VBG pO2 mmHg VBG HCO3 mmol/L VBG O2 Saturation % VBG Base Excess mEq/L Sodium (136-145) mmol/L Potassium (3.5-5.1) mmol/L Chloride (98-107) mmol/L Carbon Dioxide (21-32) mmol/L Anion Gap (3-11) BUN (6-23) mg/dl Creatinine (0.6-1.2) mg/dl Est Cr Clr Drug Dosing ml/min eGFR BUN/Creatinine Ratio (10-20) Glucose (70-99(Fasting)) mg/dl Calcium (8.6-10.3) mg/dl Magnesium 2.0 (1.7-2.4) mg/dl Total Bilirubin (0.2-1.0) mg/dl AST (13-39) U/L ALT (7-52) U/L Alkaline Phosphatase (34-104) U/L Troponin I High Sens 14.8 H (0-14) pg/ml B-Natriuretic Peptide (0-100) pg/ml Total Protein (6.0-8.3) gm/dl Albumin (3.4-5.0) gm/dl Globulin (2.5-4.0) gm/dl Albumin/Globulin Ratio (0.9-2) Urine Color Yellow Urine Appearance Clear (Clear) Urine pH 6.5 (4.5-7.5) Ur Specific [place] 1.014 (1.000-1.030) Urine Protein Trace H (Negative) Urine Glucose (UA) Negative (Negative) Urine Ketones Negative (Negative) Urine Blood Trace H (Negative) Urine Nitrite Negative (Negative) Urine Bilirubin Negative (Negative) Urine Urobilinogen Negative (Negative) Ur Leukocyte Esterase Negative (Negative) Urine WBC (Auto) 0-5 (0-5) /hpf Urine RBC (Auto) 3-5 H (0-2) /hpf U Hyaline Cast (Auto) 3-5 H (0-2) /lpf U Epithel Cells (Auto) 0-2 (0-2) /hpf Urine Bacteria (Auto) None Seen (None Seen) Urine Comment SARS-CoV-2 (PCR) (Negative) Influenza Type A (PCR) (Neg) Influenza Type B (PCR) (Neg) RSV (RT-PCR) (Neg) Administered Medications Discontinued Medications Diltiazem HCl (Diltiazem Hcl 5 Mg/Ml 5 Ml Vial) 10 mg IV NOW STA Stop: 05/16/25 21:06 Last Admin: 05/16/25 21:13 Dose: 10 mg Documented By: SIDNEY Co-signed By: PRECIOUS Furosemide (Furosemide 40 Mg/4 Ml Vial) 40 mg IV ONE ONE Stop: 05/16/25 22:16 Last Admin: 05/16/25 23:14 Dose: 40 mg Documented By: SIDNEY Sodium Chloride (Nss) 500 mls @ 999 mls/hr IV .Q31M ONE Stop: 05/16/25 21:36 Last Infusion: 05/16/25 21:48 Dose: Infused Documented By: Admin: 05/16/25 21:13 Dose: 999 mls/hr Documented By: SIDNEY Methylprednisolone (Methylprednisolone 125 Mg/2 Ml Vial) 40 mg IV ONE STA Stop: 05/16/25 23:08 Last Admin: 05/16/25 23:13 Dose: 40 mg Documented By: SIDNEY Metoprolol Tartrate (Metoprolol Tartrate 1 Mg/Ml Vial) 2.5 mg IV NOW STA Stop: 05/16/25 22:35 Last Admin: 05/16/25 23:16 Dose: 2.5 mg Documented By: SIDNEY Potassium Chloride (Potassium Chloride Crtab 20 Meq Tabcr) 40 meq PO NOW STA Stop: 05/16/25 22:36 Last Admin: 05/16/25 23:15 Dose: 40 meq Documented By: SIDNEY Imaging Data Radiologist's Impression: Chest X-Ray 05/16/25 20:58 Exam(s): XR CXR 1 VIEW EXAM: XR Chest, 1 View CLINICAL HISTORY: Reason for exam: Dyspnea. TECHNIQUE: Frontal view of the chest. COMPARISON: 07/06/2024 FINDINGS: Lungs: Interstitial opacities bilaterally suggesting pulmonary edema. Left mid and lower lung airspace disease. Pleural space: Moderate left pleural effusion. Heart: Sternotomy. Cardiomegaly. Cardiac valve replacements (x2). Mediastinum: Mediastinal surgical clips. Bones/joints: No acute osseous findings. IMPRESSION: 1. Interstitial opacities bilaterally suggesting pulmonary edema. 2. Left mid and lower lung airspace disease. Pneumonia not excluded. Consider CT evaluation. 3. Moderate left pleural effusion. Electronically signed by: Michael Ledezma M.D. 05/16/25 22:20 PM Discharge Plan Visit Data Chief Complaint: Illness Stated Complaint: GENERALIZED ILLNESS X SEVERAL DAYS ED Provider: Dmitriy Millan Discharge Problem: Hypoxia Patient Disposition: Admitted As Inpatient Condition: Fair Forms Stand Alone Forms: [facility] Prescriptions Prescriptions: No Action NOTE: Qty: 0 Patient Comments: FAMILY REPORTS, PT NOT GOOD AT TAKING MEDICATIONS PRESCRIBED, WILL MISS SCHEDULED DOSES. meclizine 25 mg Tablet 25 mg PO QPM PRN (Reason: Dizziness) Qty: 0 Rx Instructions: 1 table three times a day as needed nitroglycerin [Nitrostat] 0.3 mg Tablet, Sublingual 0.3 mg UT PRN Qty: 0 multivitamin tablet 1 tab PO DAILY Qty: 0 bupropion HCl 75 mg Tablet 75 mg PO QPM Qty: 0 Rx Instructions: 1 tab in the morning furosemide 40 mg Tablet 40 mg PO QAM Qty: 0 Rx Instructions: Take with Klor-Con tabs per patient potassium chloride [Klor-Con 10] 10 mEq Tablet Extended Release 10 meq PO QAM Qty: 0 Rx Instructions: with lasix per patient albuterol sulfate 90 mcg/actuation Hfa Aerosol Inhaler 2 puff Inhalation Q4H PRN (Reason: shortness of breath/wheezing) Qty: 0 ipratropium-albuterol 0.5 mg-3 mg(2.5 mg base)/3 mL Solution For Nebulization 3 ml Inhalation Q4H PRN (Reason: sob/wheezing) Qty: 0 prednisone 10 mg Tablet 10 mg Rx Instructions: take 5 tabs for 2 days, 4 tabs for 2 days, 3 tabs for 2 days, 2 tabs for 2 days, 1 tab for 2 days azithromycin 250 mg tablet 250 mg magnesium 250 mg Tablet 250 mg Rx Instructions: 1 tablet in morning cholecalciferol (vitamin D3) 25 mcg (1,000 unit) Tablet 25 Vitron-C 65 mg iron- 125 mg Tablet,Delayed Release (Dr/Ec) 65 - 125 tab PO ezetimibe 10 mg tablet 10 mg PO QPM Rx Instructions: with supper rosuvastatin 40 mg tablet 40 mg PO QPM warfarin 5 mg Tablet 5 mg PO DAILY Qty: 0 0RF Patient Comments: Take 10mg PO daily for Now.Dose to keen inr between 2.5 to 3.5 metoprolol succinate 25 mg tablet extended release 24 hr 25 mg PO BID 30 Days Qty: 60 0RF Rx Instructions: 1 in am an 1 at bedtime levothyroxine [Synthroid] 125 mcg Tablet 125 mcg PO DAILYBB Qty: 30 0RF Referrals Referrals: Eron Watson MD [Primary Care Provider] -
[2025-05-16 21:13] LABS: Hematocrit (blood only) 35.0 % (37.0-47.0); Hemoglobin 11.1 g/dl (12.0-16.0); Immature Granulocytes # (auto) 0.04 K/uL (0.01-0.20); Immature Granulocytes % (auto) 0.4 %; Mean Corpuscular Hemoglobin 28.0 pg (25.0-34.0); Mean Corpuscular Volume 88.2 fL (80.0-100.0); Platelet Count 241 K/uL (130-400); RDW Standard Deviation 47.1 fL (36.4-46.3); Red Blood Count 3.97 M/uL (4.20-5.40); White Blood Count 10.51 K/ul (4.8-10.8)
[2025-05-16] MEDS: SODIUM CHLORIDE 0.9% 500 ML IV ONE (21:13)
[2025-05-16 21:27] LABS: Alanine Aminotransferase 15.0 U/L (7-52); Albumin Globulin Ratio 1.0 (0.9-2); Albumin Level 3.9 gm/dl (3.4-5.0); Alkaline Phosphatase 73.0 U/L (34-104); Anion Gap 5.0 (3-11); Bilirubin,Total 1.6 mg/dl (0.2-1.0); Blood Urea Nitrogen 25.0 mg/dl (6-23); Calcium 9.4 mg/dl (8.6-10.3); Carbon Dioxide 31.0 mmol/L (21-32); Chloride 100.0 mmol/L (98-107); Creatinine Clr Calc Pharmacy 29.0 ml/min; Globulin 4.0 gm/dl (2.5-4.0); Glucose 115.0 mg/dl (70-99(Fasting)); Potassium 3.8 mmol/L (3.5-5.1); Sodium 136.0 mmol/L (136-145); Total Protein 7.9 gm/dl (6.0-8.3)
[2025-05-16 21:39] LABS: INR 2.4 (0.9-1.1); Prothrombin Time 24.1 Seconds (9.0-12.0)
[2025-05-16 21:52] LABS: Base Excess VBG 4.1 mEq/L; HCO3 VBG 29 mmol/L; Oxygen Saturation VBG 61.6 %; PCO2 VBG 41 mmHg (38-50); PO2 VBG 36 mmHg; pH VBG 7.45 (7.36-7.41)
[2025-05-16 22:21] LABS: Influenza A virus by PCR Negative (Neg); Influenza B virus by PCR Negative (Neg); SARS CoV2 RNA(COVID-19) Ceph NEGATIVE (Negative)
--- NOTE | 2025-05-16 22:21 | XRay Report ---
Exam(s): XR CXR 1 VIEW EXAM: XR Chest, 1 View CLINICAL HISTORY: Reason for exam: Dyspnea. TECHNIQUE: Frontal view of the chest. COMPARISON: 07/06/2024 FINDINGS: Lungs: Interstitial opacities bilaterally suggesting pulmonary edema. Left mid and lower lung airspace disease. Pleural space: Moderate left pleural effusion. Heart: Sternotomy. Cardiomegaly. Cardiac valve replacements (x2). Mediastinum: Mediastinal surgical clips. Bones/joints: No acute osseous findings. IMPRESSION: 1. Interstitial opacities bilaterally suggesting pulmonary edema. 2. Left mid and lower lung airspace disease. Pneumonia not excluded. Consider CT evaluation. 3. Moderate left pleural effusion. Electronically signed by: Michael Ledezma M.D. 05/16/25 22:20 PM
[2025-05-16 22:24] LABS: Appearance Urine Clear (Clear); Bacteria Urine Automated None Seen (None Seen); Epithelial Cell Urine Auto 0-2 /hpf (0-2); Glucose Urine UA Negative (Negative); WBC Urine Automated 0-5 /hpf (0-5)
[2025-05-16] MEDS: FUROSEMIDE 40 MG/4 ML VIAL IV ONE (23:14)
[2025-05-16] MEDS: POTASSIUM CHLORIDE CRTAB 20 MEQ TABCR PO STA (23:15)
[2025-05-16] MEDS: METOPROLOL TARTRATE 1 MG/ML VIAL IV STA (23:16)
[2025-05-16 23:23] LABS: Magnesium 2.0 mg/dl (1.7-2.4)
--- NOTE | 2025-05-16 23:56 | History & Physical Report ---
Date of Service May 16, 2025 Assessment & Plan (1) Acute hypoxemic respiratory failure: Plan: Assessment and plan below following discussion of case with ED provider and reviewing patient history/pertinent normal/abnormal diagnostic test results. Acute hypoxemic respiratory failure History diastolic dysfunction Multifactorial COPD exacerbation secondary to viral RTI Mild CHF exacerbation Left pleural effusion Rapid atrial flutter secondary to illness, INR therapeutic Troponin elevation secondary to above in the setting of chronic kidney dysfunction rheumatic heart disease status post mechanical AVR/MVR on Coumadin, INR slightly subtherapeutic for mechanical MVR mild TR hypertension, BP on the lower side hyperlipidemia on statin Rx chronic anemia, hemoglobin at baseline hypothyroidism, euthyroid as of outpatient TSH last August 2024 Hyperglycemia rule out DM ongoing tobacco abuse Admit to PCU given rapid A-fib Supplemental O2 IV Lopressor 1 dose now Supportive management for viral RTI Nebs RTC, prednisone course Pulmonology consult re: respiratory failure, L pleural effusion Hold Coumadin until patient seen by pulmonology in anticipation of procedure Check hemoglobin A1c DVT prophylaxis. Coumadin INR goal between 2.5 and 3.5 if no pulmonary intervention Full code Total critical care time was 40 minutes. Text document was generated using [employer] voice recognition software. It may contain grammatical or spelling errors. Kindly contact undersigned for clarification of any documentation item in question. History of Present Illness Chief Complaint: Shortness of breath Primary Care Provider: Eron Watson MD History obtained from patient and records. Medical history significant for chronic diastolic heart failure (EF 50 to 55%, TTE 2023), A-fib, rheumatic heart disease status post mechanical AVR/MVR on Coumadin, mild TR, hypertension, hyperlipidemia, COPD, CRI (baseline creatinine 1.7), chronic anemia (baseline hemoglobin (10-11), hypothyroidism, GERD, mood disorder, ongoing tobacco abuse. Last confinement June 2024 for A-fib with RVR/COPD exacerbation. Few days history of dry cough symptoms, difficult expectoration and worsening SOB. Denies aspiration or fluid retention. Actually losing weight. No chest pain. Possible sick contacts at home. O2 sats 80s, rapid A-fib heart rate 120s upon arrival at the ER. IV Cardizem, Solu-Medrol, and Lasix administered at the ER. Medical History as above Surgical History : Left foot surgery, cholecystectomy, shoulder surgeries, mechanical AVR/MVR Family History : Heart disease, alcoholism Personal/Social history : 1 pack daily, no EtOH intake, disabled Allergies Allergy/AdvReac Type Severity Reaction Status Date / Time Quinolones Allergy Intermediate HIVES Verified 07/06/24 19:17 cyclobenzaprine Allergy Mild Verified 07/06/24 19:17 amitriptyline Allergy Unknown UNKNOWN Verified 07/06/24 19:17 Home Medications Medication Instructions Recorded Confirmed Type NOTE: ##0 03/10/13 History meclizine 25 mg tablet 25 mg PO QPM PRN Dizziness ##0 06/23/14 07/06/24 History multivitamin 1 tab PO DAILY #0 tabs 09/01/14 07/06/24 History nitroglycerin 0.3 mg sublingual 0.3 mg UT PRN #0 BTLS 09/01/14 07/06/24 History tablet (Nitrostat) bupropion HCl 75 mg tablet 75 mg PO QPM #0 tabs 03/31/16 07/06/24 History albuterol sulfate 90 mcg/actuation 2 puff inhalation Q4H PRN 06/28/17 05/16/25 History aerosol inhaler shortness of breath/wheezing ##0 furosemide 40 mg tablet 40 mg PO QAM #0 tabs 06/28/17 05/16/25 History ipratropium 0.5 mg-albuterol 3 mg 3 ml inhalation Q4H PRN 06/28/17 07/06/24 History (2.5 mg base)/3 mL nebulization sob/wheezing #0 inhalations soln potassium chloride 10 mEq 10 meq PO QAM ##0 06/28/17 07/06/24 History tablet,extended release (Klor-Con) ezetimibe 10 mg tablet 10 mg PO QPM 07/06/24 07/06/24 History rosuvastatin 40 mg tablet 40 mg PO QPM 07/06/24 05/16/25 History levothyroxine 125 mcg tablet 125 mcg PO DAILYBB #30 tabs 07/08/24 Rx (Synthroid) metoprolol succinate 25 mg 25 mg PO BID 30 days #60 tabs 07/08/24 05/16/25 Rx tablet,extended release 24 hr warfarin 5 mg tablet 5 mg PO DAILY #0 tabs 07/08/24 05/16/25 Rx azithromycin 250 mg tablet 250 mg 09/21/25 History cholecalciferol (vitamin D3) 05/16/25 History mcg (1,000 unit) tablet iron,carbonyl 65 mg-vitamin C 125 65 - 125 tab PO 05/16/25 History mg tablet,delayed release (Vitron-C) magnesium 250 mg tablet 250 mg 05/16/25 History prednisone 10 mg tablet 10 mg 05/16/25 History Past Med/Surg History Problem List (Updated 05/17/25 @ 04:09 by Gary Christina MD) Acute hypoxemic respiratory failure Hypoxia (Acute) Warfarin anticoagulation History of mitral valve replacement with mechanical valve H/O mechanical aortic valve replacement COPD exacerbation Elevated troponin (Acute) Shortness of breath (Acute) Pleural effusion (Acute) Atrial fibrillation with RVR (Acute) Encounter for removal of sutures (Acute) Pneumonia 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 Feels Safe at Home: Yes Assistive Devices: None Review of Systems Review of Systems: As per HPI, all other systems reviewed and negative Physical Exam Physical Exam: GENERAL: Slightly uncomfortable, minimal respiratory distress SKIN: Pallor, warm HEENT: Pale palpebral conjunctivae, no ptosis, dry buccal mucosa, nasal cannula in place NECK : Supple, no tenderness CHEST : Decreased breath sounds, scattered expiratory wheezes, no tenderness HEART : Tachycardic, mechanical murmur ABDOMEN: Some distention, nontender EXTREMITIES : No LE swelling/tenderness, palpable pulses, no other conspicuous deformities noted NEUROLOGIC : Coherent, no facial asymmetry, no other gross focality Results & Data Results & Data Vital Signs (Past 12 Hours) Vital Signs Temp Pulse Pulse Resp BP BP Pulse Ox 05/16/25 23:16 125 H 112/80 05/16/25 22:03 117 H 27 H 93 05/16/25 21:15 126 H 24 117/80 96 05/16/25 20:51 127 H 05/16/25 20:48 36.9 C 127 H 24 117/80 89 L O2 Del Method O2 Flow Rate 05/16/25 23:16 05/16/25 22:03 Nasal Cannula 2 05/16/25 21:15 Nasal Cannula 05/16/25 20:51 05/16/25 20:48 Room Air Laboratory Results Laboratory Results WBC 10.51 K/ul (4.8-10.8) 05/16/25 20:55 RBC 3.97 M/uL (4.20-5.40) L 05/16/25 20:55 Hgb 11.1 g/dl (12.0-16.0) L 05/16/25 20:55 Hct 35.0 % (37.0-47.0) L 05/16/25 20:55 MCV 88.2 fL (80.0-100.0) 05/16/25 20:55 MCH 28.0 pg (25.0-34.0) 05/16/25 20:55 MCHC 31.7 g/dL (32.0-36.0) L 05/16/25 20:55 RDW Std Deviation 47.1 fL (36.4-46.3) H 05/16/25 20:55 RDW Coeff of Mitul 14.9 % (11.5-14.5) H 05/16/25 20:55 Plt Count 241 K/uL (130-400) 05/16/25 20:55 MPV 12.4 fL (9.4-12.4) 05/16/25 20:55 Immature Gran % (Auto) 0.4 % 05/16/25 20:55 Neut % (Auto) 82.9 % 05/16/25 20:55 Lymph % (Auto) 7.4 % 05/16/25 20:55 [place] % (Auto) 7.9 % 05/16/25 20:55 Eos % (Auto) 0.6 % 05/16/25 20:55 Baso % (Auto) 0.8 % 05/16/25 20:55 Neut # (Auto) 8.72 K/uL (1.40-6.50) H 05/16/25 20:55 Lymph # (Auto) 0.78 K/uL (1.20-3.40) L 05/16/25 20:55 [place] # (Auto) 0.83 K/uL (0.11-0.59) H 05/16/25 20:55 Eos # (Auto) 0.06 K/uL (0.00-0.50) 05/16/25 20:55 Baso # (Auto) 0.08 K/uL (0.00-0.20) 05/16/25 20:55 Immature Gran # (Auto) 0.04 K/uL (0.01-0.20) 05/16/25 20:55 PT 24.1 Seconds (9.0-12.0) H 05/16/25 20:55 INR 2.4 (0.9-1.1) H 05/16/25 20:55 VBG pH 7.45 (7.36-7.41) H 05/16/25 21:18 VBG pCO2 41 mmHg (38-50) 05/16/25 21:18 VBG pO2 36 mmHg 05/16/25 21:18 VBG HCO3 29 mmol/L 05/16/25 21:18 VBG O2 Saturation 61.6 % 05/16/25 21:18 VBG Base Excess 4.1 mEq/L 05/16/25 21:18 Sodium 136 mmol/L (136-145) 05/16/25 20:55 Potassium 3.8 mmol/L (3.5-5.1) 05/16/25 20:55 Chloride 100 mmol/L (98-107) 05/16/25 20:55 Carbon Dioxide 31 mmol/L (21-32) 05/16/25 20:55 Anion Gap 5 (3-11) 05/16/25 20:55 BUN 25 mg/dl (6-23) H 05/16/25 20:55 Creatinine 1.69 mg/dl (0.6-1.2) H 05/16/25 20:55 Est Cr Clr Drug Dosing 29.0 ml/min 05/16/25 20:55 eGFR 33.52 05/16/25 20:55 BUN/Creatinine Ratio 14.8 (10-20) 05/16/25 20:55 Glucose 115 mg/dl (70-99(Fasting)) H 05/16/25 20:55 Calcium 9.4 mg/dl (8.6-10.3) 05/16/25 20:55 Magnesium 2.0 mg/dl (1.7-2.4) 05/16/25 22:51 Total Bilirubin 1.6 mg/dl (0.2-1.0) H 05/16/25 20:55 AST 41 U/L (13-39) H 05/16/25 20:55 ALT 15 U/L (7-52) 05/16/25 20:55 Alkaline Phosphatase 73 U/L (34-104) 05/16/25 20:55 Troponin I High Sens 14.8 pg/ml (0-14) H 05/16/25 22:51 B-Natriuretic Peptide 814 pg/ml (0-100) H 05/16/25 20:55 Total Protein 7.9 gm/dl (6.0-8.3) 05/16/25 20:55 Albumin 3.9 gm/dl (3.4-5.0) 05/16/25 20:55 Globulin 4.0 gm/dl (2.5-4.0) 05/16/25 20:55 Albumin/Globulin Ratio 1.0 (0.9-2) 05/16/25 20:55 Urine Color Yellow 05/16/25 22:05 Urine Appearance Clear (Clear) 05/16/25 22:05 Urine pH 6.5 (4.5-7.5) 05/16/25 22:05 Ur Specific [place] 1.014 (1.000-1.030) 05/16/25 22:05 Urine Protein Trace (Negative) H 05/16/25 22:05 Urine Glucose (UA) Negative (Negative) 05/16/25 22:05 Urine Ketones Negative (Negative) 05/16/25 22:05 Urine Blood Trace (Negative) H 05/16/25 22:05 Urine Nitrite Negative (Negative) 05/16/25 22:05 Urine Bilirubin Negative (Negative) 05/16/25 22:05 Urine Urobilinogen Negative (Negative) 05/16/25 22:05 Ur Leukocyte Esterase Negative (Negative) 05/16/25 22:05 Urine WBC (Auto) 0-5 /hpf (0-5) 05/16/25 22:05 Urine RBC (Auto) 3-5 /hpf (0-2) H 05/16/25 22:05 U Hyaline Cast (Auto) 3-5 /lpf (0-2) H 05/16/25 22:05 U Epithel Cells (Auto) 0-2 /hpf (0-2) 05/16/25 22:05 Urine Bacteria (Auto) None Seen (None Seen) 05/16/25 22:05 Urine Comment 05/16/25 22:05 SARS-CoV-2 (PCR) NEGATIVE (Negative) 05/16/25 21:19 Influenza Type A (PCR) Negative (Neg) 05/16/25 21:19 Influenza Type B (PCR) Negative (Neg) 05/16/25 21:19 RSV (RT-PCR) Negative (Neg) 05/16/25 21:19 Impressions Chest X-Ray 05/16/25 20:58 Exam(s): XR CXR 1 VIEW EXAM: XR Chest, 1 View CLINICAL HISTORY: Reason for exam: Dyspnea. TECHNIQUE: Frontal view of the chest. COMPARISON: 07/06/2024 FINDINGS: Lungs: Interstitial opacities bilaterally suggesting pulmonary edema. Left mid and lower lung airspace disease. Pleural space: Moderate left pleural effusion. Heart: Sternotomy. Cardiomegaly. Cardiac valve replacements (x2). Mediastinum: Mediastinal surgical clips. Bones/joints: No acute osseous findings. IMPRESSION: 1. Interstitial opacities bilaterally suggesting pulmonary edema. 2. Left mid and lower lung airspace disease. Pneumonia not excluded. Consider CT evaluation. 3. Moderate left pleural effusion. Electronically signed by: Michael Ledezma M.D. 05/16/25 22:20 PM Diagnostic Findings EKG as per my interpretation :Rate 130, junctional rhythm, RAD, RBBB, nonspecific T wave abnormalities, PVCs
--- NOTE | 2025-05-17 02:32 | CT Scan Report ---
EXAM: CT chest diagnostic wo con CLINICAL HISTORY: pleural effusion, cough TECHNIQUE: Contiguous axial CT images of the chest were acquired without administration of intravenous contrast. Coronal and sagittal reconstructions were obtained. One of the following dose reduction techniques were utilized for this exam: Automated exposure control, adjustment of the mA and/or kV according to patient size, use of iterative reconstruction. COMPARISON: CTPA dated 06/15/2023 CXR dated 07/06/2024 reviewed. FINDINGS: Lungs: Newly seen from CTA, stable from CXR left-sided mild to moderate pleural effusion is seen, associated with relaxation atelectasis of the underlying lung parenchyma, with partial collapse of the left lower lobe and lingula. Left upper lung lobe few atelectatic bands. Stable right lower lung lobe peripheral subpleural reticulations. Both lung mena show mosaic attenuation likely due to air trapping. Newly seen right upper lung lobe few small pulmonary nodules, the largest measures 3x4 mm (series 4, image 90). No right pleural effusion. Mediastinum and Hilar Structures: Progressive course regarding the previously seen hilar and mediastinal lymph nodes seen in the current study, multiple and amalgamated seen at regions of prevascular, retrocaval, paraaortic, aorto-pulmonary, and subcarinal regions, the largest is at the paraaortic region measuring 2.7x4 cm compared to 1.5x2.2 cm. There is a soft tissue density area which is just medial to the left lung abutting the pulmonary trunk. It could be a part of lymphadenopathy or atelectatic lung. However, the possibility of a mass lesion cannot be ruled out. Stable prominent size of the pulmonary artery. Cardiomegaly with aortic and tricuspid valve replacements. Atheromatous calcifications of the aorta or coronary arteries noted. Trachea and Main Bronchi: The trachea and main bronchi are patent without evidence of obstruction or abnormality. Chest Wall: The chest wall is unremarkable with no evidence of soft tissue or bony abnormalities. Upper Abdomen: Visualized portions of the liver, adrenal glands, and kidneys are unremarkable. Splenic calcifications. Bones: Intact sternotomy wire sutures. Visualized osseous structures are normal, no evidence of fracture or lytic/sclerotic lesions. Degeneerative changes are seen in the spine. IMPRESSION: 1. Left-sided mild to moderate pleural effusion with associated relaxation atelectasis, resulting in partial collapse of the left lower lobe and lingula. 2. Newly noted few small right upper lobe pulmonary nodules, the largest measuring 3 × 4 mm. 3. Stable right lower lobe subpleural reticulations. 4. Mosaic attenuation of both lungs, likely representing air trapping. 5. Interval progression of mediastinal and hilar lymphadenopathy, with conglomerate nodes in prevascular, retrocaval, paraaortic, aorto-pulmonary, and subcarinal regions. Largest node in the paraaortic region now measures 2.7 × 4 cm (previously 1.5 × 2.2 cm). 6. There is a soft tissue density area which is just medial to the left lung abutting the pulmonary trunk. It could be a part of lymphadenopathy or atelectatic lung. However, the possibility of a mass lesion cannot be ruled out. 7. CT scan chest with contrast is advised for further evaluation. Electronically signed by Ryan Ureña 05-17-2025 02:31 AM
[2025-05-17] MEDS: DIGOXIN 250 MCG in SYRINGE 9 ML IV ONE (02:59)
[2025-05-17 06:48] LABS: Hematocrit (blood only) 33.1 % (37.0-47.0); Hemoglobin 10.4 g/dl (12.0-16.0); Immature Granulocytes # (auto) 0.03 K/uL (0.01-0.20); Immature Granulocytes % (auto) 0.4 %; Mean Corpuscular Hemoglobin 27.4 pg (25.0-34.0); Mean Corpuscular Volume 87.3 fL (80.0-100.0); Platelet Count 208 K/uL (130-400); RDW Standard Deviation 46.2 fL (36.4-46.3); Red Blood Count 3.79 M/uL (4.20-5.40); White Blood Count 7.14 K/ul (4.8-10.8)
[2025-05-17 07:13] LABS: Anion Gap 7.0 (3-11); Blood Urea Nitrogen 27.0 mg/dl (6-23); Calcium 8.8 mg/dl (8.6-10.3); Carbon Dioxide 28.0 mmol/L (21-32); Chloride 103.0 mmol/L (98-107); Creatinine Clr Calc Pharmacy 30.5 ml/min; Glucose 135.0 mg/dl (70-99(Fasting)); Potassium 4.3 mmol/L (3.5-5.1); Sodium 138.0 mmol/L (136-145)
[2025-05-17] MEDS: LEVOTHYROXINE SODIUM 125 MCG TABLET PO SCH (07:21)
[2025-05-17 07:26] LABS: INR 2.2 (0.9-1.1); Prothrombin Time 22.6 Seconds (9.0-12.0)
[2025-05-17] MEDS: LEVALBUTEROL 1.25 MG/3 ML NEB NEB SCH (07:40)
[2025-05-17] MEDS: IPRATROPIUM BROMIDE NEB SOLN 0.02% 0.5MG/2.5ML VIAL INH SCH (07:40)
[2025-05-17 08:07] LABS: Hemoglobin A1C 5.2 % (4.5-5.6)
[2025-05-17] MEDS: METOPROLOL SUCC 25MG EXT REL TAB PO SCH (08:55)
[2025-05-17] MEDS: predniSONE 20 MG TAB PO SCH (08:55)
--- NOTE | 2025-05-17 10:13 | Hospitalist Progress Note ---
Date of Service May 17, 2025 Assessment & Plan (1) Hypoxia: Plan: 65F with PMH chronic diastolic heart failure (EF 50 to 55%, TTE 2023), A-fib, rheumatic heart disease status post mechanical AVR/MVR on Coumadin, mild TR, hypertension, hyperlipidemia, COPD, CKD3, chronic anemia (baseline hemoglobin (10-11), hypothyroidism, GERD, mood disorder, ongoing tobacco abuse who presents with SOB #Hypoxia -Requiring 2L NC. Was NOT in hypoxic resp failure -CT showing Moderate L pleural effusion with partial collapse of LLL and lingula + scattered pulm nodules, lymphadenopathy, L lung tissue density concerning for mass -Given her ongoing lifelong smoking history, concern for lung CA -Possible mild COPD exacerbation but minimal wheezing on exam Plan -Strongly advised to patient to obtain a thoracentesis due to concern for malignancy but patient adamantly refused. Risks and benefits were thoroughly discussed -Appreciate pulm input -Continue prednisone for possible mild COPD exac -Wean O2 as tolerated -IS and flutter therapy #Afib RVR -History of pAF -On toprol 25mg BID -HR in low 100s -Likely triggered by hypoxia, nebs Plan -Continue home toprol 25mg BID. BP on softer side -Try to limit beta agonist (duo nebs) -Cardiac monitoring -If RVR worsens or still in RVR by tomorrow, will ask her cardiology team to evaluate -Coumadin currently held for possible thoracentesis. if she still refuses thora by tomorrow, resume coumadin #CKD3 -At baseline -Avoid nephrotoxic agents if possible #Anemia -At baseline -No s/s acute blood loss -F/u with PCP #Mechanical AVR -Coumadin PEPE -Daily INR #Hypothyroidism -Continue home synthroid #HTN -BP soft today -Continue home toprol I spent a total of 38minutes coordinating, documenting, and providing care for this patient excluding time spent in the performance of separately billed services. This included personally reviewing all current laboratories and imaging studies, medical reconciliation, outpatient chart review and discussion with specialists (2) History of mitral valve replacement with mechanical valve: (3) COPD exacerbation: (4) Pleural effusion: Admission and Anticipated Discharge Date Admission Date: May 16, 2025 Subjective Feeling well today. mild SOB. some wheezing. non productive cough. no other complaints. Physical Exam Physical Exam: Vitals and labs reviewed General: chronically ill appearing older than stated age NAD HEENT: EOMI, PERRLA Neck: Supple Cardiac: irregular, tachy Lungs: bibasilar rales. no whezing or rhonchi or distress Abd: S NT ND BS positive :No robb MSK: Full ROM. No obvious deformities Ext: No Edema cyanosis Skin: Warm, Dry Neuro: AOx3 No focal deficits. Psych: Normal Mood Results & Data Results & Data Vital Signs (Past 12 Hours) Vital Signs Temp Pulse Pulse Resp BP BP Pulse Ox 05/17/25 09:00 05/17/25 07:40 82 20 96 05/17/25 07:32 36.6 C 100 H 20 105/74 90 05/17/25 04:39 36.4 C L 119 H 17 106/76 90 05/17/25 03:38 108 H 05/17/25 03:38 05/17/25 03:07 36.3 C L 114 H 26 H 107/74 93 05/17/25 02:59 114 H 05/17/25 02:11 124 H 105/69 05/17/25 02:02 36.6 C 124 H 18 105/69 90 05/17/25 02:01 05/17/25 01:00 100 H 24 98/79 L 96 05/17/25 00:52 107 H 05/17/25 00:00 100 H 24 108/81 97 05/16/25 23:16 125 H 112/80 05/16/25 23:12 120 H 25 H 112/80 94 05/16/25 22:03 117 H 27 H 93 Pulse Ox O2 Del Method O2 Del Method O2 Flow Rate 05/17/25 09:00 Room Air 05/17/25 07:40 Nasal Cannula 3 05/17/25 07:32 Oxymask 2 05/17/25 04:39 Oxymask 2 05/17/25 03:38 05/17/25 03:38 Room Air, Oxymask 2 05/17/25 03:07 Room Air 05/17/25 02:59 05/17/25 02:11 05/17/25 02:02 Room Air 05/17/25 02:01 91 Room Air 05/17/25 01:00 Oxymask 2 05/17/25 00:52 05/17/25 00:00 Oxymask 3 05/16/25 23:16 05/16/25 23:12 Nasal Cannula 2 05/16/25 22:03 Nasal Cannula 2 Laboratory Results Abnormal lab results 05/16/25 05/16/25 05/16/25 Range/Units 20:55 21:18 22:05 RBC 3.97 L (4.20-5.40) M/uL Hgb 11.1 L (12.0-16.0) g/dl Hct 35.0 L (37.0-47.0) % MCHC 31.7 L (32.0-36.0) g/dL RDW Std Deviation 47.1 H (36.4-46.3) fL RDW Coeff of Mitul 14.9 H (11.5-14.5) % Neut # (Auto) 8.72 H (1.40-6.50) K/uL Lymph # (Auto) 0.78 L (1.20-3.40) K/uL [place] # (Auto) 0.83 H (0.11-0.59) K/uL PT 24.1 H (9.0-12.0) Seconds INR 2.4 H (0.9-1.1) VBG pH 7.45 H (7.36-7.41) BUN 25 H (6-23) mg/dl Creatinine 1.69 H (0.6-1.2) mg/dl Glucose 115 H (70-99(Fasting)) mg/dl Total Bilirubin 1.6 H (0.2-1.0) mg/dl AST 41 H (13-39) U/L Troponin I High Sens 17.6 H (0-14) pg/ml B-Natriuretic Peptide 814 H (0-100) pg/ml Urine Protein Trace H (Negative) Urine Blood Trace H (Negative) Urine RBC (Auto) 3-5 H (0-2) /hpf U Hyaline Cast (Auto) 3-5 H (0-2) /lpf 05/16/25 05/17/25 Range/Units 22:51 05:54 RBC 3.79 L (4.20-5.40) M/uL Hgb 10.4 L (12.0-16.0) g/dl Hct 33.1 L (37.0-47.0) % MCHC 31.4 L (32.0-36.0) g/dL RDW Std Deviation (36.4-46.3) fL RDW Coeff of Mitul 14.9 H (11.5-14.5) % Neut # (Auto) (1.40-6.50) K/uL Lymph # (Auto) 0.58 L (1.20-3.40) K/uL [place] # (Auto) (0.11-0.59) K/uL PT 22.6 H (9.0-12.0) Seconds INR 2.2 H (0.9-1.1) VBG pH (7.36-7.41) BUN 27 H (6-23) mg/dl Creatinine 1.61 H (0.6-1.2) mg/dl Glucose 135 H (70-99(Fasting)) mg/dl Total Bilirubin (0.2-1.0) mg/dl AST (13-39) U/L Troponin I High Sens 14.8 H (0-14) pg/ml B-Natriuretic Peptide (0-100) pg/ml Urine Protein (Negative) Urine Blood (Negative) Urine RBC (Auto) (0-2) /hpf U Hyaline Cast (Auto) (0-2) /lpf
--- NOTE | 2025-05-17 10:30 | Electrocardiogram Report ---
Test Reason : Blood Pressure : */* mmHG Vent. Rate : 127 BPM Atrial Rate : * BPM P-R Int : * ms QRS Dur : 104 ms QT Int : 340 ms P-R-T Axes : * 90 105 degrees QTcB Int : 494 ms Accelerated Junctional rhythm with retrograde conduction with Premature ventricular complexes Incomplete right bundle branch block Nonspecific T wave abnormality Abnormal ECG When compared with ECG of 08-Jul-2024 05:48, Premature ventricular complexes are now Present Vent. rate has increased by 57 bpm Incomplete right bundle branch block is now Present Confirmed by Chinmay Fam ([id number]) on 05/17/2025 10:29:44 AM Referred By: REFERRED SELF Confirmed By: Chinmay Fam
--- NOTE | 2025-05-17 14:18 | Pulmonary Consultation ---
Date of Consultation May 17, 2025 Assessment & Plan (1) Pleural effusion: Moderate left pleural effusion. Concern about possible metastatic/malignant effusion. I had a long and detailed discussion regarding the findings on the chest CT, including the pleural effusion as well as the hilar/mediastinal abnormalities. I explained to her that the there is a good likelihood that the effusion is related to the mediastinal abnormalities, and that the safest next step would be to send the pleural fluid for cytology, before considering the need for other procedures (namely bronchoscopy with biopsy). The patient seemed to understand the procedure and its pros and cons. She wants to discuss it with a friend of hers. At this time will keep the patient off of Warfarin, and will consider performing diagnostic thoracentesis (Left) as soon as INR becomes 1.8. If there will be any delay then the patient can be maintained on therapeutic-dose Heparin until the procedure can be done. (2) Acute hypoxemic respiratory failure: Minimal hypoxemia on room air on presentation. Unclear baseline, but at least partly worsening gas exchange secondary to pleural effusion on a baseline of COPD and ? HFpEF. Titrate Oxygen to keep SpO2 90-94%. Consider testing for qualification for home-Oxygen prior to discharge: Overnight Oximetry on room-air and Oximetry during ambulation if patient not requiring Oxygen at rest. (3) Warfarin anticoagulation: Will need to wait for Thoracentesis until INR becomes 1.8. If there will be any delay then the patient can be maintained on therapeutic-dose Heparin until the procedure can be done. (4) COPD exacerbation: COPD by history, and I doubt that the patient is having active exacerbation at this time. Continue current bronchodilators. Consideration can be given for Pulmonary Rehab on outpatient basis. (5) Shortness of breath: At least partly worsening secondary to pleural effusion on a baseline of COPD and ? HFpEF. Continue current bronchodilators. Will monitor response to thoracentesis. (6) Mediastinal lymphadenopathy: Patient has history of enlarged mediastinal lymph nodes, which had been stable until 2 years prior. There has been enlargement on CT from this admission. It is unclear if this is the same issue from many years prior, which is doubtful. Possible metastatic disease. The patient reports having a "lesion" on the left lung on recent imaging studies. At this time, the safest route is to drain the left pleural effusion. Further workup (Bronchoscopy, mediastinal lymph-node biopsies, etc...) can be considered according to results of pleural-fluid cytology. Plan See above. History of Present Illness Reason for Consultation: Left pleural effusion. Attending Physician: Dickson Hernandez DO History of Present Illness The patient is a very pleasant 65-year-old female who presented to the ED with cough and left-sided chest discomfort associated with coughing. She reported several days of generalized weakness and fatigue prior to arrival. On arrival to the ED, she was noted to be tachycardic with heart rates in the 120s and had SpO2 of 89% on room air. She was placed on nasal cannula oxygen with good imp rovement in her oxygenation. She was afebrile. The patient described a few days history of dry cough with difficulty expectorating, and worsening shortness of breath. She admitted that she been losing weight. She denied chest pain. She mentioned possible sick contacts at home. Her past medical history was significant for chronic diastolic heart failure (? HFpEF, EF 5055% per TTE in 2023), atrial fibrillation, rheumatic heart disease status post mechanical aortic and mitral valve replacement on Coumadin, hypertension, hyperlipidemia, COPD, CKD (baseline creatinine 1.7), chronic anemia, hypothyroidism, GERD, mood disorder, and ongoing tobacco use. She was last hospitalized in June 2024 for atrial fib with RVR and COPD exacerbation. On presentation she had a CXR and chest CT. The latter confirmed presence of left pleural effusion, in addition to enlargement of hilar and mediastinal lymph nodes when compared to study from May 2023. The CT also described "a soft tissue density area which is just medial to the left lung abutting the pulmonary trunk. It could be a part of lymphadenopathy or atelectatic lung. However, the possibility of a mass lesion cannot be ruled out." I reviewed the above studies. The suspicious soft-tissue mass seems to be contributing to significant narrowing of the left upper lobe branches. The patient reports that she had been told recently that she has a "lesion' on her left lung after having CXR at an outside facility. The patient has been a chronic smoker, and was smoking 2-3 packs per week. She reports that she did not benefit from nicotine patches in the past. 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 She also has a sister who has chronic lung disease, but the patient is unaware of its nature. Her sister had been a smoker many years ago. Allergies Allergy/AdvReac Type Severity Reaction Status Date / Time Quinolones Allergy Intermediate HIVES Verified 07/06/24 19:17 cyclobenzaprine Allergy Mild Verified 07/06/24 19:17 amitriptyline Allergy Unknown UNKNOWN Verified 07/06/24 19:17 Home Medications Medication Instructions Recorded Confirmed Type NOTE: ##0 03/10/13 History meclizine 25 mg tablet 25 mg PO QPM PRN Dizziness ##0 06/23/14 07/06/24 History multivitamin 1 tab PO DAILY #0 tabs 09/01/14 07/06/24 History nitroglycerin 0.3 mg sublingual 0.3 mg UT PRN #0 BTLS 09/01/14 07/06/24 History tablet (Nitrostat) bupropion HCl 75 mg tablet 75 mg PO QPM #0 tabs 03/31/16 07/06/24 History albuterol sulfate 90 mcg/actuation 2 puff inhalation Q4H PRN 06/28/17 05/16/25 History aerosol inhaler shortness of breath/wheezing ##0 furosemide 40 mg tablet 40 mg PO QAM #0 tabs 06/28/17 05/16/25 History ipratropium 0.5 mg-albuterol 3 mg 3 ml inhalation Q4H PRN 06/28/17 07/06/24 History (2.5 mg base)/3 mL nebulization sob/wheezing #0 inhalations soln potassium chloride 10 mEq 10 meq PO QAM ##0 06/28/17 07/06/24 History tablet,extended release (Klor-Con) ezetimibe 10 mg tablet 10 mg PO QPM 07/06/24 07/06/24 History rosuvastatin 40 mg tablet 40 mg PO QPM 07/06/24 05/16/25 History levothyroxine 125 mcg tablet 125 mcg PO DAILYBB #30 tabs 07/08/24 Rx (Synthroid) metoprolol succinate 25 mg 25 mg PO BID 30 days #60 tabs 07/08/24 05/16/25 Rx tablet,extended release 24 hr warfarin 5 mg tablet 5 mg PO DAILY #0 tabs 07/08/24 05/16/25 Rx azithromycin 250 mg tablet 250 mg 05/16/25 History cholecalciferol (vitamin D3) 25 25 05/16/25 History mcg (1,000 unit) tablet iron,carbonyl 65 mg-vitamin C 125 65 - 125 tab PO 05/16/25 History mg tablet,delayed release (Vitron-C) magnesium 250 mg tablet 250 mg 05/16/25 History prednisone 10 mg tablet 10 mg 05/16/25 History Patient History Medical History Hypothyroidism Atrial fibrillation Hypertension Subtherapeutic international normalized ratio (INR) Surgical History Mechanical heart valve present Aortic and mitral valve. 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 Constitutional: In no acute distress, using Oxygenvia nasal cannula. Eyes: Anicteric.Noconjunctivitis.No periorbital edema. ENMT: No oral thrush. No oropharyngeal erythema or exudates Neck: No palpable masses or adenopathy; could not appreciate JV pulse elevation. Respiratory: Diffusely decreased breath sounds, especially over left base with dullness; no wheezing or crackles. No use of accessory muscles and no prolonged exhalation. Cardiovascular: Distant sounds, clicks of mechanical valves heard throughout the precordium; regular rhythm, no murmurs, no gallops, no rubs. Gastrointestinal (Abdomen): Soft, nontender, normal bowel sounds, couldnot appreciateorganomegaly. Musculoskeletal: No clubbing,no cyanosis,no edema. Skin: Warm and dry to touch. Noobvious lesions. Neurologic: No gross motor deficits. Seems appropriate. Results & Data Results & Data Vital Signs (Past 12 Hours) Vital Signs Temp Pulse Pulse Resp BP BP Pulse Ox 05/17/25 11:18 36.6 C 82 20 105/55 L 98 05/17/25 11:08 64 14 99 05/17/25 09:00 05/17/25 07:40 82 20 96 05/17/25 07:32 36.6 C 100 H 20 105/74 90 05/17/25 04:39 36.4 C L 119 H 17 106/76 90 05/17/25 03:38 108 H 05/17/25 03:38 05/17/25 03:07 36.3 C L 114 H 26 H 107/74 93 05/17/25 02:59 114 H 05/17/25 02:11 124 H 105/69 05/17/25 02:02 36.6 C 124 H 18 105/69 90 05/17/25 02:01 Pulse Ox O2 Del Method O2 Del Method O2 Flow Rate 05/17/25 11:18 Nasal Cannula 2 05/17/25 11:08 Nasal Cannula 2 05/17/25 09:00 Room Air 05/17/25 07:40 Nasal Cannula 3 05/17/25 07:32 Oxymask 2 05/17/25 04:39 Oxymask 2 05/17/25 03:38 05/17/25 03:38 Room Air, Oxymask 2 05/17/25 03:07 Room Air 05/17/25 02:59 05/17/25 02:11 05/17/25 02:02 Room Air 05/17/25 02:01 91 Room Air Laboratory Results Abnormal Lab Results 05/16/25 05/16/25 05/16/25 20:55 21:18 21:19 WBC 10.51 RBC 3.97 L Hgb 11.1 L Hct 35.0 L MCV 88.2 MCH 28.0 MCHC 31.7 L RDW Std Deviation 47.1 H RDW Coeff of Mitul 14.9 H Plt Count 241 MPV 12.4 Immature Gran % (Auto) 0.4 Neut % (Auto) 82.9 Lymph % (Auto) 7.4 [place] % (Auto) 7.9 Eos % (Auto) 0.6 Baso % (Auto) 0.8 Neut # (Auto) 8.72 H Lymph # (Auto) 0.78 L [place] # (Auto) 0.83 H Eos # (Auto) 0.06 Baso # (Auto) 0.08 Immature Gran # (Auto) 0.04 PT 24.1 H INR 2.4 H VBG pH 7.45 H VBG pCO2 41 VBG pO2 36 VBG HCO3 29 VBG O2 Saturation 61.6 VBG Base Excess 4.1 Sodium 136 Potassium 3.8 Chloride 100 Carbon Dioxide 31 Anion Gap 5 BUN 25 H Creatinine 1.69 H Est Cr Clr Drug Dosing 29.0 eGFR 33.52 BUN/Creatinine Ratio 14.8 Glucose 115 H Estimat Average Glucose Hemoglobin A1c Calcium 9.4 Magnesium Total Bilirubin 1.6 H AST 41 H ALT 15 Alkaline Phosphatase 73 Troponin I High Sens 17.6 H B-Natriuretic Peptide 814 H Total Protein 7.9 Albumin 3.9 Globulin 4.0 Albumin/Globulin Ratio 1.0 Procalcitonin Urine Color Urine Appearance Urine pH Ur Specific Cascade Urine Protein Urine Glucose (UA) Urine Ketones Urine Blood Urine Nitrite Urine Bilirubin Urine Urobilinogen Ur Leukocyte Esterase Urine WBC (Auto) Urine RBC (Auto) U Hyaline Cast (Auto) U Epithel Cells (Auto) Urine Bacteria (Auto) Urine Comment SARS-CoV-2 (PCR) NEGATIVE Influenza Type A (PCR) Negative Influenza Type B (PCR) Negative RSV (RT-PCR) Negative 05/16/25 05/16/25 05/17/25 22:05 22:51 05:54 WBC 7.14 RBC 3.79 L Hgb 10.4 L Hct 33.1 L MCV 87.3 MCH 27.4 MCHC 31.4 L RDW Std Deviation 46.2 RDW Coeff of Mitul 14.9 H Plt Count 208 MPV 12.4 Immature Gran % (Auto) 0.4 Neut % (Auto) 89.4 Lymph % (Auto) 8.1 [place] % (Auto) 1.8 Eos % (Auto) 0.0 Baso % (Auto) 0.3 Neut # (Auto) 6.38 Lymph # (Auto) 0.58 L [place] # (Auto) 0.13 Eos # (Auto) 0.00 Baso # (Auto) 0.02 Immature Gran # (Auto) 0.03 PT 22.6 H INR 2.2 H VBG pH VBG pCO2 VBG pO2 VBG HCO3 VBG O2 Saturation VBG Base Excess Sodium 138 Potassium 4.3 Chloride 103 Carbon Dioxide 28 Anion Gap 7 BUN 27 H Creatinine 1.61 H Est Cr Clr Drug Dosing 30.5 eGFR 35.53 BUN/Creatinine Ratio 16.8 Glucose 135 H Estimat Average Glucose 103 Hemoglobin A1c 5.2 Calcium 8.8 Magnesium 2.0 Total Bilirubin AST ALT Alkaline Phosphatase Troponin I High Sens 14.8 H B-Natriuretic Peptide Total Protein Albumin Globulin Albumin/Globulin Ratio Procalcitonin Urine Color Yellow Urine Appearance Clear Urine pH 6.5 Ur Specific Cascade 1.014 Urine Protein Trace H Urine Glucose (UA) Negative Urine Ketones Negative Urine Blood Trace H Urine Nitrite Negative Urine Bilirubin Negative Urine Urobilinogen Negative Ur Leukocyte Esterase Negative Urine WBC (Auto) 0-5 Urine RBC (Auto) 3-5 H U Hyaline Cast (Auto) 3-5 H U Epithel Cells (Auto) 0-2 Urine Bacteria (Auto) None Seen Urine Comment SARS-CoV-2 (PCR) Influenza Type A (PCR) Influenza Type B (PCR) RSV (RT-PCR) 05/17/25 09:47 WBC RBC Hgb Hct MCV MCH MCHC RDW Std Deviation RDW Coeff of Mitul Plt Count MPV Immature Gran % (Auto) Neut % (Auto) Lymph % (Auto) [place] % (Auto) Eos % (Auto) Baso % (Auto) Neut # (Auto) Lymph # (Auto) [place] # (Auto) Eos # (Auto) Baso # (Auto) Immature Gran # (Auto) PT INR VBG pH VBG pCO2 VBG pO2 VBG HCO3 VBG O2 Saturation VBG Base Excess Sodium Potassium Chloride Carbon Dioxide Anion Gap BUN Creatinine Est Cr Clr Drug Dosing eGFR BUN/Creatinine Ratio Glucose Estimat Average Glucose Hemoglobin A1c Calcium Magnesium Total Bilirubin AST ALT Alkaline Phosphatase Troponin I High Sens B-Natriuretic Peptide 1310 H Total Protein Albumin Globulin Albumin/Globulin Ratio Procalcitonin 0.11 Urine Color Urine Appearance Urine pH Ur Specific Cascade Urine Protein Urine Glucose (UA) Urine Ketones Urine Blood Urine Nitrite Urine Bilirubin Urine Urobilinogen Ur Leukocyte Esterase Urine WBC (Auto) Urine RBC (Auto) U Hyaline Cast (Auto) U Epithel Cells (Auto) Urine Bacteria (Auto) Urine Comment SARS-CoV-2 (PCR) Influenza Type A (PCR) Influenza Type B (PCR) RSV (RT-PCR) Diagnostic Findings Chest X-Ray 05/16/25 20:58 Exam(s): XR CXR 1 VIEW EXAM: XR Chest, 1 View CLINICAL HISTORY: Reason for exam: Dyspnea. TECHNIQUE: Frontal view of the chest. COMPARISON: 07/06/2024 FINDINGS: Lungs: Interstitial opacities bilaterally suggesting pulmonary edema. Left mid and lower lung airspace disease. Pleural space: Moderate left pleural effusion. Heart: Sternotomy. Cardiomegaly. Cardiac valve replacements (x2). Mediastinum: Mediastinal surgical clips. Bones/joints: No acute osseous findings. IMPRESSION: 1. Interstitial opacities bilaterally suggesting pulmonary edema. 2. Left mid and lower lung airspace disease. Pneumonia not excluded. Consider CT evaluation. 3. Moderate left pleural effusion. Electronically signed by: Michael Ledezma M.D. 05/16/25 22:[address] 05/17/25 01:13 EXAM: CT chest diagnostic wo con CLINICAL HISTORY: pleural effusion, cough TECHNIQUE: Contiguous axial CT images of the chest were acquired without administration of intravenous contrast. Coronal and sagittal reconstructions were obtained. One of the following dose reduction techniques were utilized for this exam: Automated exposure control, adjustment of the mA and/or kV according to patient size, use of iterative reconstruction. COMPARISON: CTPA dated 06/15/2023 CXR dated 07/06/2024 reviewed. FINDINGS: Lungs: Newly seen from CTA, stable from CXR left-sided mild to moderate pleural effusion is seen, associated with relaxation atelectasis of the underlying lung parenchyma, with partial collapse of the left lower lobe and lingula. Left upper lung lobe few atelectatic bands. Stable right lower lung lobe peripheral subpleural reticulations. Both lung mena show mosaic attenuation likely due to air trapping. Newly seen right upper lung lobe few small pulmonary nodules, the largest measures 3x4 mm (series 4, image 90). No right pleural effusion. Mediastinum and Hilar Structures: Progressive course regarding the previously seen hilar and mediastinal lymph nodes seen in the current study, multiple and amalgamated seen at regions of prevascular, retrocaval, paraaortic, aorto-pulmonary, and subcarinal regions, the largest is at the paraaortic region measuring 2.7x4 cm compared to 1.5x2.2 cm. There is a soft tissue density area which is just medial to the left lung abutting the pulmonary trunk. It could be a part of lymphadenopathy or atelectatic lung. However, the possibility of a mass lesion cannot be ruled out. Stable prominent size of the pulmonary artery. Cardiomegaly with aortic and tricuspid valve replacements. Atheromatous calcifications of the aorta or coronary arteries noted. Trachea and Main Bronchi: The trachea and main bronchi are patent without evidence of obstruction or abnormality. Chest Wall: The chest wall is unremarkable with no evidence of soft tissue or bony abnormalities. Upper Abdomen: Visualized portions of the liver, adrenal glands, and kidneys are unremarkable. Splenic calcifications. Bones: Intact sternotomy wire sutures. Visualized osseous structures are normal, no evidence of fracture or lytic/sclerotic lesions. Degeneerative changes are seen in the spine. IMPRESSION: 1. Left-sided mild to moderate pleural effusion with associated relaxation atelectasis, resulting in partial collapse of the left lower lobe and lingula. 2. Newly noted few small right upper lobe pulmonary nodules, the largest measuring 3 × 4 mm. 3. Stable right lower lobe subpleural reticulations. 4. Mosaic attenuation of both lungs, likely representing air trapping. 5. Interval progression of mediastinal and hilar lymphadenopathy, with conglomerate nodes in prevascular, retrocaval, paraaortic, aorto-pulmonary, and subcarinal regions. Largest node in the paraaortic region now measures 2.7 × 4 cm (previously 1.5 × 2.2 cm). 6. There is a soft tissue density area which is just medial to the left lung abutting the pulmonary trunk. It could be a part of lymphadenopathy or atelectatic lung. However, the possibility of a mass lesion cannot be ruled out. 7. CT scan chest with contrast is advised for further evaluation. Electronically signed by Ryan Ureña 05-17-2025 02:31 AM PG Care Time/CCT Total # of Minutes Spent Total Time Spent with Patient: Total time spent is greater than 50% in coordination of care (as documented) at patient's floor/unit and/or counseling patient: 65 minutes. Coding Level of Care Code 96133 IN/OBS CONSULT LVL 4,60M Diagnoses Pleural effusion J90 Acute hypoxemic respiratory failure J96.01 Warfarin anticoagulation Z79.01 COPD exacerbation J44.1 Shortness of breath R06.02 Mediastinal lymphadenopathy R59.0 Time Spent (min) 65
[2025-05-17] MEDS: EZETIMIBE 10 MG TAB PO SCH (20:04)
[2025-05-17] MEDS: ROSUVASTATIN CALCIUM 20 MG TAB PO SCH (20:04)
[2025-05-17] MEDS: DIGOXIN 250 MCG in SYRINGE 9 ML IV STA (22:46)
[2025-05-17 23:07] LABS: Magnesium 1.9 mg/dl (1.7-2.4)
[2025-05-18] MEDS: MAGNESIUM SULFATE / D5W 1 GM/100 ML BAG IV ONE (00:40)
[2025-05-18 07:17] LABS: Anion Gap 4.0 (3-11); Blood Urea Nitrogen 32.0 mg/dl (6-23); Calcium 8.8 mg/dl (8.6-10.3); Carbon Dioxide 29.0 mmol/L (21-32); Chloride 103.0 mmol/L (98-107); Creatinine Clr Calc Pharmacy 33.6 ml/min; Glucose 110.0 mg/dl (70-99(Fasting)); Potassium 4.4 mmol/L (3.5-5.1); Sodium 136.0 mmol/L (136-145)
[2025-05-18 07:33] LABS: Hematocrit (blood only) 31.5 % (37.0-47.0); Hemoglobin 10.3 g/dl (12.0-16.0); Mean Corpuscular Hemoglobin 28.7 pg (25.0-34.0); Mean Corpuscular Volume 87.7 fL (80.0-100.0); Platelet Count 241 K/uL (130-400); RDW Standard Deviation 46.1 fL (36.4-46.3); Red Blood Count 3.59 M/uL (4.20-5.40); White Blood Count 17.67 K/ul (4.8-10.8)
[2025-05-18 07:34] LABS: INR 2.5 (0.9-1.1); Prothrombin Time 24.8 Seconds (9.0-12.0)
[2025-05-18] MEDS ORDERED: METOPROLOL TARTRATE 1 MG/ML VIAL IV PRN (09:55)
--- NOTE | 2025-05-18 10:01 | Hospitalist Progress Note ---
Date of Service May 18, 2025 Assessment & Plan (1) Hypoxia: Plan: 65F with PMH chronic diastolic heart failure (EF 50 to 55%, TTE 2023), A-fib, rheumatic heart disease status post mechanical AVR/MVR on Coumadin, mild TR, hypertension, hyperlipidemia, COPD, CKD3, chronic anemia (baseline hemoglobin (10-11), hypothyroidism, GERD, mood disorder, ongoing tobacco abuse who presents with SOB #Hypoxia -Requiring 4L today, up from 2L yesterday -CT showing Moderate L pleural effusion with partial collapse of LLL and lingula + scattered pulm nodules, lymphadenopathy, L lung tissue density concerning for mass -Given her ongoing lifelong smoking history, concern for stage IV lung CA -Possible mild COPD exacerbation but minimal wheezing on exam Plan -Strongly advised to patient to obtain a thoracentesis due to concern for malignancy but she remains reluctant to do so -She states she would not even want chemotherapy or radiation if she did have cancer. -Appreciate pulm input -Continue prednisone for mild COPD exac, more wheezing today -Wean O2 as tolerated -IS and flutter therapy #Afib RVR -History of pAF -On toprol 25mg BID -HR in 80s currently but did go back into RVR last night -S/p IV digoxin last night -Likely triggered by hypoxia, nebs Plan -Continue home toprol 25mg BID. BP on softer side -Try to limit beta agonist (duo nebs) -Add IV prn lopressor for HR >120 -Cardiac monitoring -Coumadin currently held for possible thoracentesis. Resume PEPE #GOC discussion -She stated she was not interested in obtaining thora again today even after extensive conversation stating the reason why it is important. she stated she would not even want chemo or radiation therapy. Author then asked if she would like CPR or intubation given her previous statements. she wished to remain full code. these wishes are incongruent with each other. However, she will remain full code per patient's wishes #Chronic HFpEF -BNP elevated but clinically does not look overloaded -Her effusion is unlikely to be cardiogenic -Will check TTE to assess EF -Resume home PO lasix #CKD3 -At baseline -Avoid nephrotoxic agents if possible #Anemia -At baseline -No s/s acute blood loss -F/u with PCP #Mechanical AVR -Coumadin PEPE -Daily INR #Hypothyroidism -Continue home synthroid #HTN -BP soft today -Continue home toprol I spent a total of 52 minutes coordinating, documenting, and providing care for this patient excluding time spent in the performance of separately billed services. This included personally reviewing all current laboratories and imaging studies, medical reconciliation, outpatient chart review and discussion with specialists (2) History of mitral valve replacement with mechanical valve: (3) COPD exacerbation: (4) Pleural effusion: Admission and Anticipated Discharge Date Admission Date: May 16, 2025 Subjective Feeling well today. mild SOB. some wheezing. non productive cough. no other complaints. Physical Exam Physical Exam: Vitals and labs reviewed General: chronically ill appearing older than stated age NAD HEENT: EOMI, PERRLA Neck: Supple Cardiac: irregular, normal rate loud systolic murmur Lungs: bibasilar rales. exp wheezing no distress Abd: S NT ND BS positive :No robb MSK: Full ROM. No obvious deformities Ext: No Edema cyanosis Skin: Warm, Dry Neuro: AOx3 No focal deficits. Psych: Normal Mood Results & Data Results & Data Vital Signs (Past 12 Hours) Vital Signs Temp Pulse Pulse Resp BP Pulse Ox O2 Del Method 05/18/25 08:41 Oxymask 05/18/25 07:38 86 22 93 Nasal Cannula 05/18/25 07:04 36.6 C 83 18 111/73 95 Oxymask 05/18/25 02:49 36.5 C 84 18 119/73 98 Oxymask 05/17/25 23:00 Room Air 05/17/25 22:46 130 H 05/17/25 22:20 36.9 C 130 H 20 111/67 92 Room Air 05/17/25 21:53 119 H O2 Flow Rate 05/18/25 08:41 2 05/18/25 07:38 4 05/18/25 07:04 05/18/25 02:49 3.0 05/17/25 23:00 05/17/25 22:46 05/17/25 22:20 05/17/25 21:53 Laboratory Results Abnormal lab results 05/17/25 05/18/25 Range/Units 09:47 05:51 WBC 17.67 H D (4.8-10.8) K/ul RBC 3.59 L (4.20-5.40) M/uL Hgb 10.3 L (12.0-16.0) g/dl Hct 31.5 L (37.0-47.0) % RDW Coeff of Mitul 14.7 H (11.5-14.5) % MPV 12.6 H (9.4-12.4) fL PT 24.8 H (9.0-12.0) Seconds INR 2.5 H (0.9-1.1) BUN 32 H (6-23) mg/dl Creatinine 1.46 H (0.6-1.2) mg/dl BUN/Creatinine Ratio 21.9 H (10-20) Glucose 110 H (70-99(Fasting)) mg/dl B-Natriuretic Peptide 1310 H (0-100) pg/ml
[2025-05-18] MEDS: FUROSEMIDE 40 MG TAB PO SCH (10:18)
--- NOTE | 2025-05-18 12:27 | Electrocardiogram Report ---
Test Reason : Blood Pressure : */* mmHG Vent. Rate : 130 BPM Atrial Rate : * BPM P-R Int : * ms QRS Dur : 106 ms QT Int : 308 ms P-R-T Axes : * 77 175 degrees QTcB Int : 453 ms Accelerated Junctional rhythm with retrograde conduction Nonspecific ST and T wave abnormality Abnormal ECG When compared with ECG of 16-May-2025 20:51, Premature ventricular complexes are no longer Present Nonspecific T wave abnormality, worse in Inferior leads Nonspecific T wave abnormality, worse in Lateral leads Confirmed by Chinmay Fam ([id number]) on 05/18/2025 12:26:42 PM Referred By: REFERRED SELF Confirmed By: Chinmay Fam
--- NOTE | 2025-05-18 12:34 | XCELERA ---
[id number] \\[id number]
--- NOTE | 2025-05-18 17:46 | Pulmonology Progress Note ---
Date of Service May 18, 2025 Assessment & Plan (1) Pleural effusion: Plan: Moderate left pleural effusion. Concern about possible metastatic/malignant effusion. I had another discussion with the patient regarding the pleural effusion as well as the hilar/mediastinal abnormalities. It seems that she discussed this issue with one of her sisters who encouraged her to go ahead with the procedure, but she is still hesitant. Her argument was that even if a malignancy is found, she would not want to have chemotherapy. It seems that she had seen others suffer on chemotherapy. I countered by telling her that regardless of her choice of treatment, it is important to have a diagnosis for further management down the road, including potentially palliative treatments (Pleurx catheter, etc...). In addition, treatments are changing, and she could qualify for more tolerable treatments. At this time INR remains elevated at 2.5. I discussed this issue with Dr. Dickson Hernandez. Will need to consider a small-dose Vitamin-K to improve the INR. This would require Lovenox-bridging after the procedure. (2) Acute hypoxemic respiratory failure: Plan: Minimal hypoxemia on room air on presentation. Unclear baseline, but at least partly worsening gas exchange secondary to pleural effusion on a baseline of COPD and ? HFpEF. Titrate Oxygen to keep SpO2 90-94%. Consider testing for qualification for home-Oxygen prior to discharge: Overnight Oximetry on room-air and Oximetry during ambulation if patient not requiring Oxygen at rest. (3) Warfarin anticoagulation: Plan: Will need to wait for Thoracentesis until INR becomes 1.8 (preferably 1.5). If there will be any delay then the patient can be maintained on therapeutic-dose Heparin until the procedure can be done. (4) Shortness of breath: Plan: At least partly worsening secondary to pleural effusion on a baseline of COPD and ? HFpEF. Continue current bronchodilators. Will monitor response to thoracentesis. (5) Mediastinal lymphadenopathy: Plan: Patient has history of enlarged mediastinal lymph nodes, which had been stable until 2 years prior. There has been enlargement on CT from this admission. It is unclear if this is the same issue from many years prior, which is doubtful. Possible metastatic disease. The patient reports having a "lesion" on the left lung on recent imaging studies. At this time, the safest route is to drain the left pleural effusion. Further workup (Bronchoscopy, mediastinal lymph-node biopsies, etc...) can be considered according to results of pleural-fluid cytology. Plan See above. Admission and Anticipated Discharge Date Admission Date: May 16, 2025 Subjective The patient denies any significant improvement or worsening in her exertional tolerance. I had another discussion with the patient regarding the pleural effusion as well as the hilar/mediastinal abnormalities. It seems that she discussed this issue with one of her sisters who encouraged her to go ahead with the procedure, but she is still hesitant. Her argument was that even if a malignancy is found, she would not want to have chemotherapy. It seems that she had seen others suffer on chemotherapy. I countered by telling her that regardless of her choice of treatment, it is important to have a diagnosis for further management down the road, including potentially palliative treatments (Pleurx catheter, etc...). In addition, treatments are changing, and she could qualify for more tolerable treatments. Review of Systems Review of Systems: All systems reviewed & are unremarkable except as noted in HPI & below Physical Exam Physical Exam: Vitals and labs reviewed. General: In no acute distress, using Oxygenvia nasal cannula. Respiratory: Diffusely decreased breath sounds, especially over left base with dullness. no wheezing or crackles. No use of accessory muscles and no prolonged exhalation. Cardiac: Distant sounds, regular rhythm, no murmurs, no gallops, no rubs; could not appreciate JV pulse elevation. GI: Soft, nontender. Extremities No cyanosis,no edema. Neuro: No gross motor deficits. Seems appropriate. Results & Data Results & Data Vital Signs (Past 12 Hours) Vital Signs Temp Pulse Resp BP BP Pulse Ox O2 Del Method 05/18/25 14:35 36.5 C 82 19 112/69 95 Nasal Cannula 05/18/25 11:09 91 H 18 96 Nasal Cannula 05/18/25 10:20 36.8 C 90 18 123/70 97 Nasal Cannula 05/18/25 08:41 Oxymask 05/18/25 07:38 86 22 93 Nasal Cannula 05/18/25 07:04 36.6 C 83 18 111/73 95 Oxymask O2 Flow Rate 05/18/25 14:35 2 05/18/25 11:09 4 05/18/25 10:20 4 05/18/25 08:41 2 05/18/25 07:38 4 05/18/25 07:04 PG Care Time/CCT Total # of Minutes Spent Total Time Spent with Patient: Total time spent is greater than 50% in coordination of care (as documented) at patient's floor/unit and/or counseling patient: Coding Level of Care Code 23449 SUB INP/OBS CARE 3/50MIN Diagnoses Pleural effusion J90 Acute hypoxemic respiratory failure J96.01 Warfarin anticoagulation Z79.01 Shortness of breath R06.02 Mediastinal lymphadenopathy R59.0 Time Spent (min) 55 Comment Review chart/ imaging studies, history/ physical, update patient, family, nurse, provider.
[2025-05-19 06:30] LABS: Hematocrit (blood only) 32.6 % (37.0-47.0); Hemoglobin 10.2 g/dl (12.0-16.0); Mean Corpuscular Hemoglobin 27.8 pg (25.0-34.0); Mean Corpuscular Volume 88.8 fL (80.0-100.0); Platelet Count 233 K/uL (130-400); RDW Standard Deviation 47.7 fL (36.4-46.3); Red Blood Count 3.67 M/uL (4.20-5.40); White Blood Count 13.58 K/ul (4.8-10.8)
[2025-05-19 06:59] LABS: Anion Gap 3.0 (3-11); Blood Urea Nitrogen 32.0 mg/dl (6-23); Calcium 8.6 mg/dl (8.6-10.3); Carbon Dioxide 30.0 mmol/L (21-32); Chloride 104.0 mmol/L (98-107); Creatinine Clr Calc Pharmacy 34.1 ml/min; Glucose 87.0 mg/dl (70-99(Fasting)); Potassium 4.0 mmol/L (3.5-5.1); Sodium 137.0 mmol/L (136-145)
[2025-05-19 07:14] LABS: INR 2.4 (0.9-1.1); Prothrombin Time 24.3 Seconds (9.0-12.0)
[2025-05-19] MEDS: PHYTONADIONE 5 MG in DEXTROSE 5% 50 ML IV ONE (11:37)
--- NOTE | 2025-05-19 13:38 | Hospitalist Progress Note ---
Date of Service May 19, 2025 Assessment & Plan (1) Hypoxia: Plan: 65F with PMH chronic diastolic heart failure (EF 50 to 55%, TTE 2023), A-fib, rheumatic heart disease status post mechanical AVR/MVR on Coumadin, mild TR, hypertension, hyperlipidemia, COPD, CKD3, chronic anemia (baseline hemoglobin (10-11), hypothyroidism, GERD, mood disorder, ongoing tobacco abuse who presents with SOB #Acute Hypoxic Respiratory Failure -CT showing Moderate L pleural effusion with partial collapse of LLL and lingula + scattered pulm nodules, lymphadenopathy, L lung tissue density concerning for mass -Given her ongoing lifelong smoking history, concern for stage IV lung CA -Possible mild COPD exacerbation Plan -Discussed regarding thoracentesis again which patient agreed on. She would not like to pursue treatment if it cytology comes back with lung Ca; vit k ordered for reversal of INR. -Continue prednisone for mild COPD exac, -Wean O2 as tolerated -IS and flutter therapy #Afib RVR -History of pAF -On toprol 25mg BID Plan -Continue home toprol 25mg BID -Add IV prn lopressor for HR >120 -Cardiac monitoring -Coumadin currently held for possible thoracentesis. #Chronic HFpEF -Her effusion is unlikely to be cardiogenic -Echo shows EF of 55-60% with well seated prosthetic mitral valve. -Resume home PO lasix #CKD3 -At baseline -Avoid nephrotoxic agents if possible #Anemia -At baseline -No s/s acute blood loss -F/u with PCP #Mechanical AVR -coumadin on hold for thoracentesis -Daily INR #Hypothyroidism -Continue home synthroid #HTN -BP soft today -Continue home toprol I spent a total of 55 minutes coordinating, documenting, and providing care for this patient excluding time spent in the performance of separately billed services. This included personally reviewing all current laboratories and imaging studies, medical reconciliation, outpatient chart review and discussion with specialists (2) History of mitral valve replacement with mechanical valve: (3) COPD exacerbation: (4) Pleural effusion: Admission and Anticipated Discharge Date Admission Date: May 16, 2025 Subjective Patient seen and examined at bedside. Comfortable; not in distress. Denies fever, chills, chest pain. mild shortness on breath on exertion No significant overnight events Review of Systems Review of Systems: All systems reviewed & are unremarkable except as noted in Subjective Physical Exam Physical Exam: Constitutional: WD/WN, vitals as above, NAD, sitting up in bed, pleasant, conversing easily Respiratory:decreased breath sound at left lung lower field Cardiovascular: RRR, no murmur, no edema Vessels: no JVD or carotid bruit Chest: normal inspection of chest Abdomen: normal bowel sounds, soft, nontender, no hepatosplenomegaly Musculoskeletal: no cyanosis or clubbing, extremities motor strength 5/5 Skin: no rashes, warm and dry normal turgor Neurologic: PERRL, EOMI, accommodation nl, no face palsy, no dysarthria CN's II- XI intact bilaterally and moves all extremities Psychiatric: A+Ox3, euthymic affect Results & Data Results & Data Vital Signs (Past 12 Hours) Vital Signs Temp Pulse Resp BP Pulse Ox O2 Del Method O2 Flow Rate 05/19/25 11:24 36.7 C 82 17 90/61 L 100 Nasal Cannula 2 05/19/25 11:17 76 18 94 Nasal Cannula 05/19/25 09:00 Nasal Cannula 2 05/19/25 07:25 36.8 C 90 19 123/70 97 Nasal Cannula 05/19/25 07:11 74 16 97 Nasal Cannula 2
[2025-05-20 07:39] LABS: Hematocrit (blood only) 32.3 % (37.0-47.0); Hemoglobin 10.1 g/dl (12.0-16.0); Mean Corpuscular Hemoglobin 27.8 pg (25.0-34.0); Mean Corpuscular Volume 89.0 fL (80.0-100.0); Platelet Count 233 K/uL (130-400); RDW Standard Deviation 47.3 fL (36.4-46.3); Red Blood Count 3.63 M/uL (4.20-5.40); White Blood Count 13.07 K/ul (4.8-10.8)
[2025-05-20 08:04] LABS: Anion Gap 4.0 (3-11); Blood Urea Nitrogen 30.0 mg/dl (6-23); Calcium 8.5 mg/dl (8.6-10.3); Carbon Dioxide 33.0 mmol/L (21-32); Chloride 102.0 mmol/L (98-107); Creatinine Clr Calc Pharmacy 37.5 ml/min; Glucose 82.0 mg/dl (70-99(Fasting)); Potassium 3.8 mmol/L (3.5-5.1); Sodium 139.0 mmol/L (136-145)
[2025-05-20 08:20] LABS: INR 1.2 (0.9-1.1); Prothrombin Time 13.0 Seconds (9.0-12.0)
--- NOTE | 2025-05-20 09:52 | Hospitalist Progress Note ---
Date of Service May 20, 2025 Assessment & Plan (1) Hypoxia: Plan: 65F with PMH chronic diastolic heart failure (EF 50 to 55%, TTE 2023), A-fib, rheumatic heart disease status post mechanical AVR/MVR on Coumadin, mild TR, hypertension, hyperlipidemia, COPD, CKD3, chronic anemia (baseline hemoglobin (10-11), hypothyroidism, GERD, mood disorder, ongoing tobacco abuse who presents with SOB #Acute Hypoxic Respiratory Failure #Left-sided pleural effusion -CT showing Moderate L pleural effusion with partial collapse of LLL and lingula + scattered pulm nodules, lymphadenopathy, L lung tissue density concerning for mass -Given her ongoing lifelong smoking history, concern for stage IV lung CA -Possible mild COPD exacerbation Plan -Will appreciate pulmonology assistance regarding thoracentesis. INR is 1.2 today. Would like to bridge her to Lovenox/heparin as soon as it is deemed safe by pulmonology. Pleural fluid to be sent for cytology and further analysis. -Continue prednisone for mild COPD exac, -Wean O2 as tolerated -IS and flutter therapy #Afib RVR -History of pAF -On toprol 25mg BID Plan -Continue home toprol 25mg BID -Cardiac monitoring -Coumadin currently held for possible thoracentesis. will plan to bridge with lovenox after thoracentesis. #Chronic HFpEF -Her effusion is unlikely to be cardiogenic -Echo shows EF of 55-60% with well seated prosthetic mitral valve. -continue home PO lasix #CKD3 -At baseline -Avoid nephrotoxic agents if possible #Anemia -At baseline -No s/s acute blood loss -F/u with PCP #Mechanical AVR -coumadin on hold for thoracentesis -Daily INR #Hypothyroidism -Continue home synthroid #HTN -BP soft today -Continue home toprol I spent a total of 50 minutes coordinating, documenting, and providing care for this patient excluding time spent in the performance of separately billed [employer] es. This included personally reviewing all current laboratories and imaging studies, medical reconciliation, outpatient chart review and discussion with specialists (2) History of mitral valve replacement with mechanical valve: (3) COPD exacerbation: (4) Pleural effusion: Admission and Anticipated Discharge Date Admission Date: May 16, 2025 Subjective Patient seen and examined at bedside. She denies any shortness of breath. Oxygen requirement has decreased compared to previous days. Review of Systems Review of Systems: All systems reviewed & are unremarkable except as noted in Subjective Physical Exam Physical Exam: Constitutional: WD/WN, vitals as above, NAD, sitting up in bed, pleasant, conversing easily Respiratory:decreased breath sound at left lung lower field Cardiovascular: RRR, no murmur, no edema Vessels: no JVD or carotid bruit Chest: normal inspection of chest Abdomen: normal bowel sounds, soft, nontender, no hepatosplenomegaly Musculoskeletal: no cyanosis or clubbing, extremities motor strength 5/5 Skin: no rashes, warm and dry normal turgor Neurologic: PERRL, EOMI, accommodation nl, no face palsy, no dysarthria CN's II- XI intact bilaterally and moves all extremities Psychiatric: A+Ox3, euthymic affect Results & Data Results & Data Vital Signs (Past 12 Hours) Vital Signs Temp Pulse Resp BP BP Pulse Ox O2 Del Method 05/20/25 09:21 Nasal Cannula 05/20/25 07:09 36.5 C 56 L 19 111/58 L 100 Nasal Cannula 05/20/25 07:03 72 18 94 Nasal Cannula 05/20/25 03:10 36.6 C 67 18 104/78 95 Nasal Cannula 05/19/25 22:46 36.5 C 83 18 115/71 95 Nasal Cannula O2 Flow Rate 05/20/25 09:21 1 05/20/25 07:09 1 05/20/25 07:03 1 05/20/25 03:10 1 05/19/25 22:46 1
--- NOTE | 2025-05-20 11:58 | Procedure Note ---
Procedure Note Date of Service May 20, 2025 Procedure: Diagnostic therapeutic ultrasound-guided catheter thoracentesis Primer Inserting Machine Operator: Guy Santacruz MD. Indication: Pleural effusion Consent: Signed by patient and verified with time-out prior to procedure Anesthesia: 1% lidocaine without epinephrine local. Procedure: Consent was verified and time-out performed. Appropriate imaging studies were reviewed prior to the procedure. Patient was placed in a seated position and limited thoracic ultrasound was performed of the left hemithorax. See separate imaging. Appropriate site above the diaphragm for thoracentesis was selected. The skin was prepped and draped in normal sterile fashion. Lidocaine was used for local analgesia. Fluid was aspirated via the finder-anesthetic needle. A small skin nic was made with the scalpel and the catheter over the needle apparatus was advanced over the rib into the pleural space. Using the syringe one-way valve system, a total of 1,000 mL of blood-tinged fluid were removed. Procedure was terminated due to patient feeling some chest tightness. The catheter was removed and observed to be intact. A sterile dressing was applied. Post procedure chest x-ray was ordered. Fluid was sent for labs, culture and cytology. Complications: None Blood loss: minimal. [facility] [place] Procedure Codes (Charges) Pulmonary/Thoracic Procedure 1: Pulmonary and Thoracic: 75582 Thoracentesis w/o imaging Coding CPT Codes Pulmonary/Thoracic - Pulmonary and Thoracic: 62726 Thoracentesis w/o imaging ([id number]) Additional Codes Date of Service ([facility].SURGERY)
--- NOTE | 2025-05-20 12:48 | XRay Report ---
XR chest 1V portable CLINICAL HISTORY: s/p thoracentesis COMPARISON STUDY: 05/16/2025 FINDINGS: Stable cardiac valve repair. Stable cardiomegaly with mild pulmonary vascular congestion. T here is a small left pleural effusion and consolidation at the left lung base, improved. No pneumotho rax seen. Stable left upper mediastinal mass. IMPRESSION: No pneumothorax seen. ACT 112: Negative or not required by law. Electronically signed by: Ray Ferro M.D. 05/20/2025 12:46 PM
--- NOTE | 2025-05-20 13:30 | Pulmonology Progress Note ---
<Statement entered by Guy Santacruz MD - 05/21/25 14:17> I, Guy Santacruz MD, supervised and reviewed the physical exam, assessment, plan, and management as documented by the Advanced Care Provider for this patient encounter. I discussed the case with them, confirmed the findings, and I concur with the proposed plan of care. I was available for consultation throughout the encounter and provided guidance as needed. Date of Service May 20, 2025 Assessment & Plan (1) Pleural effusion: Plan: Moderate left pleural effusion w/ Concern about possible metastatic/malignant effusion. Vitamin K given 05/19/25. INR this am 1.2. Left thoracentesis performed this am with 1000ml removed. CXR post thoracentesis showed improved aeration of left lung with only small residual pleural effusion. No pneumothorax. Prelim studies show exudative effusion per lights criteria for LDH > 2/3 upper limit of normal. Gram stain negative. Path pending. (2) Acute hypoxemic respiratory failure: Plan: Minimal hypoxemia on room air on presentation. Unclear baseline, but at least partly worsening gas exchange secondary to pleural effusion on a baseline of COPD and ? HFpEF. Titrate Oxygen to keep SpO2 90-94%. Consider testing for qualification for home-Oxygen prior to discharge: Overnight Oximetry on room-air and Oximetry during ambulation if patient not requiring Oxygen at rest. (3) Warfarin anticoagulation: Plan: Thoracentesis performed 05/20. Vit K given 05/19 with INR 1.2 on 05/20. Restart Coumadin this evening. (4) Shortness of breath: Plan: At least partly worsening secondary to pleural effusion on a baseline of COPD and ? HFpEF. Continue current bronchodilators. Will monitor response to thoracentesis. (5) Mediastinal lymphadenopathy: Plan: Patient has history of enlarged mediastinal lymph nodes, which had been stable until 2 years prior. There has been enlargement on CT from this admission. It is unclear if this is the same issue from many years prior, which is doubtful. Possible metastatic disease. The patient reports having a "lesion" on the left lung on recent imaging studies. At this time, the safest route is to drain the left pleural effusion. Further workup (Bronchoscopy, mediastinal lymph-node biopsies, etc...) can be considered according to results of pleural-fluid cytology. Plan 40 minutes is the time spent reviewing the chart, obtaining history, performing the physical exam, and updating the patient and beside nurse. Admission and Anticipated Discharge Date Admission Date: May 16, 2025 Subjective Patient INR down to 1/2 this am after 5mg of vitamin K. Left sided thoracentesis performed today with 1000ml removed. CXR post thoracentesis with improved aeration and no pneumothorax. Patient on room air with SpO2 92 or >. Review of Systems 2 Review of Systems: All systems reviewed & are unremarkable except as noted in HPI & below Physical Exam 2 Physical Exam: VITALS: Reviewed. WEIGHT/BMI reviewed. GEN: Well-developed, NAD. PSYCH: Good Judgment. AOx3. Normal memory, mood, and affect. HEENT -Head: NC/AT; -Eyes: PERRL, EOMI. No discharge or redn ess; -Ears: External ears are normal. -Nose: Normal nares. NECK: Supple, with no masses. CV: RRR, no m/r/g. LUNGS: Clear in b/l upper lobes. diminished in b/l lower lobes. Chest rise symmetrical. ABD: Soft, NT/ND, NBS, no masses or organomegaly. : N/A SKIN: Warm, well perfused. No skin rashes or abnormal lesions. MSK: No deformities, Normal gait. EXT: No clubbing, cyanosis, or edema. NEURO: Normal muscle strength and tone. No focal deficits. Results & Data Results & Data Vital Signs (Past 12 Hours) Vital Signs Temp Pulse Resp BP BP Pulse Ox O2 Del Method 05/20/25 11:08 80 18 94 Nasal Cannula 05/20/25 10:55 36.3 C L 77 19 123/62 96 Nasal Cannula 05/20/25 09:21 Nasal Cannula 05/20/25 07:09 36.5 C 56 L 19 111/58 L 100 Nasal Cannula 05/20/25 07:03 72 18 94 Nasal Cannula 05/20/25 03:10 36.6 C 67 18 104/78 95 Nasal Cannula O2 Flow Rate 05/20/25 11:08 05/20/25 10:55 1 05/20/25 09:21 1 05/20/25 07:09 1 05/20/25 07:03 1 05/20/25 03:10 1 Laboratory Results 05/20/25 06:47 05/20/25 06:47 Abnormal Lab Results 05/20/25 05/20/25 05/20/25 06:47 13:57 Unknown WBC 13.07 H RBC 3.63 L Hgb 10.1 L Hct 32.3 L MCV 89.0 MCH 27.8 MCHC 31.3 L RDW Std Deviation 47.3 H RDW Coeff of Mitul 15.3 H Plt Count 233 MPV 11.7 PT 13.0 H INR 1.2 H Sodium 139 Potassium 3.8 Chloride 102 Carbon Dioxide 33 H Anion Gap 4 BUN 30 H Creatinine 1.31 H Est Cr Clr Drug Dosing 37.5 eGFR 45.50 BUN/Creatinine Ratio 22.9 H Glucose 82 Calcium 8.5 L Total Bilirubin 1.1 H Lactate Dehydrogenase 630 H Total Protein 7.4 Albumin 3.8 Fluid Comment Pleural Fluid Source Left Lung Pleural Color Yellow Pleural Appearance Hazy Pleural pH 7.56 H Pleural WBC (Auto) 523 Pleural RBC (Auto) 9000 Pleural Total Protein < 3.0 Pleural LDH 200 Pleural Glucose 108 Pleural Amylase 22 Diagnostic Findings Chest X-Ray 05/20/25 12:24 XR chest 1V portable CLINICAL HISTORY: s/p thoracentesis COMPARISON STUDY: 05/16/2025 FINDINGS: Stable cardiac valve repair. Stable cardiomegaly with mild pulmonary vascular congestion. There is a small left pleural effusion and consolidation at the left lung base, improved. No pneumothorax seen. Stable left upper mediastinal mass. IMPRESSION: No pneumothorax seen. ACT 112: Negative or not required by law. Electronically signed by: Ray Ferro M.D. 05/20/2025 12:46 PM PG Care Time/CCT Total # of Minutes Spent Total Time Spent with Patient: Total time spent is greater than 50% in coordination of care (as documented) at patient's floor/unit and/or counseling patient: Coding Level of Care Code 72208 SUB INP/OBS CARE 2/35MIN Diagnoses Pleural effusion J90 Acute hypoxemic respiratory failure J96.01 Warfarin anticoagulation Z79.01 Shortness of breath R06.02 Mediastinal lymphadenopathy R59.0
[2025-05-20 14:32] LABS: Albumin Level 3.8 gm/dl (3.4-5.0); Bilirubin,Total 1.1 mg/dl (0.2-1.0); Total Protein 7.4 gm/dl (6.0-8.3)
[2025-05-20] MEDS ORDERED: ENOXAPARIN 1 MG/KG SC SCH (16:00)
[2025-05-20 16:24] LABS: Appearance Pleural Fluid Hazy; Color Pleural Fluid Yellow; RBC Pleural Fluid Auto 9000 /uL; Source Pleural Fluid Left Lung; WBC Pleural Fluid Auto 523 /uL
[2025-05-20] MEDS: WARFARIN SOD 5 MG TAB PO SCH (16:58)
[2025-05-20] MEDS: ENOXAPARIN INJ 60 MG/0.6 ML SYR SQ SCH (16:58)
[2025-05-21 06:02] LABS: Hematocrit (blood only) 34.1 % (37.0-47.0); Hemoglobin 10.9 g/dl (12.0-16.0); Immature Granulocytes # (auto) 0.07 K/uL (0.01-0.20); Immature Granulocytes % (auto) 0.5 %; Mean Corpuscular Hemoglobin 27.7 pg (25.0-34.0); Mean Corpuscular Volume 86.8 fL (80.0-100.0); Platelet Count 254 K/uL (130-400); RDW Standard Deviation 47.1 fL (36.4-46.3); Red Blood Count 3.93 M/uL (4.20-5.40); White Blood Count 13.34 K/ul (4.8-10.8)
[2025-05-21 06:21] LABS: Anion Gap 3.0 (3-11); Blood Urea Nitrogen 31.0 mg/dl (6-23); Calcium 8.8 mg/dl (8.6-10.3); Carbon Dioxide 34.0 mmol/L (21-32); Chloride 100.0 mmol/L (98-107); Creatinine Clr Calc Pharmacy 35.3 ml/min; Glucose 91.0 mg/dl (70-99(Fasting)); Potassium 3.6 mmol/L (3.5-5.1); Sodium 137.0 mmol/L (136-145)
[2025-05-21 06:26] LABS: INR 1.2 (0.9-1.1); Prothrombin Time 12.8 Seconds (9.0-12.0)
[2025-05-21 06:56] LABS: Lymphocytes, Fluid 20 %; Mono,Macrophage,Mesothelial 67 %; Neutrophils, Fluid 13 %
--- NOTE | 2025-05-21 10:35 | Pulmonology Progress Note ---
<Statement entered by Guy Santacruz MD - 05/21/25 14:06> I, Guy Santacruz MD, supervised and reviewed the physical exam, assessment, plan, and management as documented by the Advanced Care Provider for this patient encounter. I discussed the case with them, confirmed the findings, and I concur with the proposed plan of care. I was available for consultation throughout the encounter and provided guidance as needed. Date of Service May 21, 2025 Assessment & Plan (1) Pleural effusion: Plan: Moderate left pleural effusion w/ Concern about possible metastatic/malignant effusion. Vitamin K given 05/19/25. INR this am 1.2. Left thoracentesis performed 05/20 with 1000ml removed. CXR post thoracentesis showed improved aeration of left lung with only small residual pleural effusion. No pneumothorax. Prelim studies show exudative effusion per lights criteria for LDH > 2/3 upper limit of normal. Gram stain negative. Path pending. Will follow up with outpatietn pulm (2) Acute hypoxemic respiratory failure: Plan: Minimal hypoxemia on room air on presentation. Unclear baseline, but at least partly worsening gas exchange secondary to pleural effusion on a baseline of COPD and ? HFpEF. Titrate Oxygen to keep SpO2 90-94%. Patient will need home oxygen. Order sent to DME. (3) Warfarin anticoagulation: Plan: Thoracentesis performed 05/20. Vit K given 05/19 with INR 1.2 on 05/20. Coumadin restarted. (4) Shortness of breath: Plan: At least partly worsening secondary to pleural effusion on a baseline of COPD and ? HFpEF. Continue current bronchodilators. Will monitor response to thoracentesis. Patient will need oxygen outpatient. Sent to DME. (5) Mediastinal lymphadenopathy: Plan: Patient has history of enlarged mediastinal lymph nodes, which had been stable until 2 years prior. There has been enlargement on CT from this admission. It is unclear if this is the same issue from many years prior, which is doubtful. Possible metastatic disease. The patient reports having a "lesion" on the left lung on recent imaging studies. At this time, the safest route is to drain the left pleural effusion. Further workup (Bronchoscopy, mediastinal lymph-node biopsies, etc...) can be considered according to results of pleural-fluid cytology. Plan 38 minutes is the time spent reviewing the chart, obtaining history, performing the physical exam, and updating the patient and bedside nurse. Admission and Anticipated Discharge Date Admission Date: May 16, 2025 Subjective Patient asymptomatic this am. Breathing is nonlabored. Patient 92% on room air with rest. Patient during walk test showed need for oxygen with exertion/ambulation. Patient will go home with oxygen. Plan for follow up in pulm clinic for pathology. Patient to discharge home today. Review of Systems 2 Review of Systems: All systems reviewed & are unremarkable except as noted in HPI & below Physical Exam 2 Physical Exam: VITALS: Reviewed. WEIGHT/BMI reviewed. GEN: Well-developed, NAD. PSYCH: Good Judgment. AOx3. Normal memory, mood, and affect. HEENT -Head: NC/AT; -Eyes: PERRL, EOMI. No discharge or redn ess; -Ears: External ears are normal. -Nose: Normal nares. NECK: Supple, with no masses. CV: RRR, no m/r/g. LUNGS: Clear in b/l upper lobes. diminished in b/l lower lobes. Chest rise symmetrical. ABD: Soft, NT/ND, NBS, no masses or organomegaly. : N/A SKIN: Warm, well perfused. No skin rashes or abnormal lesions. MSK: No deformities, Normal gait. EXT: No clubbing, cyanosis, or edema. NEURO: Normal muscle strength and tone. No focal deficits. Results & Data Results & Data Vital Signs (Past 12 Hours) Vital Signs Temp Pulse Pulse Pulse Pulse Pulse Pulse 05/21/25 09:58 78 05/21/25 09:46 75 80 68 68 05/21/25 09:25 05/21/25 07:40 79 05/21/25 07:06 36.4 C L 66 05/21/25 02:40 36.8 C 77 05/20/25 23:08 36.8 C 87 05/20/25 23:00 86 Resp Resp Resp Resp Resp BP Pulse Ox 05/21/25 09:58 16 93 05/21/25 09:46 18 18 16 16 05/21/25 09:25 05/21/25 07:40 18 94 05/21/25 07:06 18 96/61 L 92 05/21/25 02:40 18 119/61 93 05/20/25 23:08 18 100/67 94 05/20/25 23:00 Pulse Ox Pulse Ox Pulse Ox Pulse Ox O2 Del Method O2 Flow Rate 05/21/25 09:58 Room Air 05/21/25 09:46 93 87 L 94 91 2 05/21/25 09:25 Room Air 05/21/25 07:40 Room Air 05/21/25 07:06 Room Air 05/21/25 02:40 Room Air 05/20/25 23:08 Room Air 05/20/25 23:00 Laboratory Results 05/21/25 05:41 05/21/25 05:41 Abnormal Lab Results 05/20/25 05/20/25 05/21/25 13:57 Unknown 05:41 WBC 13.34 H RBC 3.93 L Hgb 10.9 L Hct 34.1 L MCV 86.8 MCH 27.7 MCHC 32.0 RDW Std Deviation 47.1 H RDW Coeff of Mitul 14.9 H Plt Count 254 MPV 11.1 Immature Gran % (Auto) 0.5 Neut % (Auto) 78.7 Lymph % (Auto) 9.7 [place] % (Auto) 9.5 Eos % (Auto) 1.5 Baso % (Auto) 0.1 Neut # (Auto) 10.49 H Lymph # (Auto) 1.29 [place] # (Auto) 1.27 H Eos # (Auto) 0.20 Baso # (Auto) 0.02 Immature Gran # (Auto) 0.07 PT 12.8 H INR 1.2 H Sodium 137 Potassium 3.6 Chloride 100 Carbon Dioxide 34 H Anion Gap 3 BUN 31 H Creatinine 1.39 H Est Cr Clr Drug Dosing 35.3 eGFR 42.37 BUN/Creatinine Ratio 22.3 H Glucose 91 Calcium 8.8 Total Bilirubin 1.1 H Lactate Dehydrogenase 630 H Total Protein 7.4 Albumin 3.8 Fluid Neutrophils % 13 Fluid Lymphocytes % 20 Fluid [place]/Macro/[place] % 67 Fluid Comment Pleural Fluid Source Left Lung Pleural Color Yellow Pleural Appearance Hazy Pleural pH 7.56 H Pleural WBC (Auto) 523 Pleural RBC (Auto) 9000 Pleural Total Protein < 3.0 Pleural LDH 200 Pleural Glucose 108 Pleural Amylase 22 Diagnostic Findings Chest X-Ray 05/20/25 12:24 XR chest 1V portable CLINICAL HISTORY: s/p thoracentesis COMPARISON STUDY: 05/16/2025 FINDINGS: Stable cardiac valve repair. Stable cardiomegaly with mild pulmonary vascular congestion. There is a small left pleural effusion and consolidation at the left lung base, improved. No pneumothorax seen. Stable left upper mediastinal mass. IMPRESSION: No pneumothorax seen. ACT 112: Negative or not required by law. Electronically signed by: Ray Ferro M.D. 05/20/2025 12:46 PM PG Care Time/CCT Total # of Minutes Spent Total Time Spent with Patient: Total time spent is greater than 50% in coordination of care (as documented) at patient's floor/unit and/or counseling patient: Coding Level of Care Code 50234 SUB INP/OBS CARE 2/35MIN Diagnoses Pleural effusion J90 Acute hypoxemic respiratory failure J96.01 Warfarin anticoagulation Z79.01 Shortness of breath R06.02 Mediastinal lymphadenopathy R59.0
[2025-05-21 11:24] VITALS: BP 96/60; TEMP 98.1
--- NOTE | 2025-05-21 12:55 | Discharge Summary ---
Date of Service May 21, 2025 Admission HPI Per Admitting Provider History obtained from patient and records. Medical history significant for chronic diastolic heart failure (EF 50 to 55%, TTE 2023), A-fib, rheumatic heart disease status post mechanical AVR/MVR on Coumadin, mild TR, hypertension, hyperlipidemia, COPD, CRI (baseline creatinine 1.7), chronic anemia (baseline hemoglobin (10-11), hypothyroidism, GERD, mood disorder, ongoing tobacco abuse. Last confinement June 2024 for A-fib with RVR/COPD exacerbation. Few days history of dry cough symptoms, difficult expectoration and worsening SOB. Denies aspiration or fluid retention. Actually losing weight. No chest pain. Possible sick contacts at home. O2 sats 80s, rapid A-fib heart rate 120s upon arrival at the ER. IV Cardizem, Solu-Medrol, and Lasix administered at the ER. Medical History as above Surgical History : Left foot surgery, cholecystectomy, shoulder surgeries, mechanical AVR/MVR Family History : Heart disease, alcoholism Personal/Social history : 1 pack daily, no EtOH intake, disabled Admission Exam Per Admitting Provider GENERAL: Slightly uncomfortable, minimal respiratory distress SKIN: Pallor, warm HEENT: Pale palpebral conjunctivae, no ptosis, dry buccal mucosa, nasal cannula in place NECK : Supple, no tenderness CHEST : Decreased breath sounds, scattered expiratory wheezes, no tenderness HEART : Tachycardic, mechanical murmur ABDOMEN: Some distention, nontender EXTREMITIES : No LE swelling/tenderness, palpable pulses, no other conspicuous deformities noted NEUROLOGIC : Coherent, no facial asymmetry, no other gross focalit Principal Diagnosis #Acute Hypoxic Respiratory Failure #Left-sided pleural effusion Discharge Exam Constitutional: WD/WN, vitals as above, NAD, sitting up in bed, pleasant, conversing easily Respiratory:decreased breath sound at left lung lower field Cardiovascular: RRR, no murmur, no edema Vessels: no JVD or carotid bruit Chest: normal inspection of chest Abdomen: normal bowel sounds, soft, nontender, no hepatosplenomegaly Musculoskeletal: no cyanosis or clubbing, extremities motor strength 5/5 Skin: no rashes, warm and dry normal turgor Neurologic: PERRL, EOMI, accommodation nl, no face palsy, no dysarthria CN's II- XI intact bilaterally and moves all extremities Psychiatric: A+Ox3, euthymic affect Discharge Data Allergies Allergy/AdvReac Type Severity Reaction Status Date / Time Quinolones Allergy Intermediate HIVES Verified 07/06/24 19:17 cyclobenzaprine Allergy Mild Verified 07/06/24 19:17 amitriptyline Allergy Unknown UNKNOWN Verified 07/06/24 19:17 Consultations 05/16/25 22:17 ED Decision to Admit Stat 05/17/25 02:42 Consult Pulmonology Routine Ordered Studies 05/17/25 01:13 CT chest diagnostic wo con Stat 05/17/25 09:17 US point of care ultrasound Stat Hospital Course (1) Hypoxia: (2) History of mitral valve replacement with mechanical valve: (3) COPD exacerbation: (4) Pleural effusion: Plan 65F with PMH chronic diastolic heart failure (EF 50 to 55%, TTE 2023), A-fib, rheumatic heart disease status post mechanical AVR/MVR on Coumadin, mild TR, hypertension, hyperlipidemia, COPD, CKD3, chronic anemia (baseline hemoglobin (10-11), hypothyroidism, GERD, mood disorder, ongoing tobacco abuse who presents with SOB #Acute Hypoxic Respiratory Failure #Left-sided pleural effusion -CT showing Moderate L pleural effusion with partial collapse of LLL and lingula + scattered pulm nodules, lymphadenopathy, L lung tissue density concerning for mass -Patient initially refused to undergo thoracentesis but later became agreeable. -She underwent thoracentesis on 05/20 of 1000ml; -Patient reported sig improvement in shortness of breath after thoracentesis; only required 2L of oxygen at exertion which was set up -Cytology is still pending. patient to follow up with PCP and pulmonology regarding cytology and further work up for underlying mass. She verbalized understanding of the instructions. -She was given prescription for lovenox for bridging with coumadin. repeat P T/INR in next few days with PCP -no other medications changes were done. Please note the above document was generated using voice recognition software. It may contain grammatical, syntax or spelling errors. Any formal questions or concerns about the content, text or information contained within the body of this dictation should be directly addressed to the provider for clarification Total Time Total Time Spent Total Time Spent (In Minutes): 45 Total Time Includes: Examination of the Patient, Discharge Planning, Medication Reconciliation, Communication With Other Providers and Other Discharge Plan Discharge Items Patient Disposition: Home - Self-Care Reason For Visit: RESP FAILURE CHF Discharge Diagnosis: #Acute Hypoxic Respiratory Failure #Left-sided pleural effusion Condition on Discharge: Fair Activity: Resume your previous activity Non-emergency contact: Primary Care Provider Call non-emergency contact if: you have any medication questions and your symptoms worsen Follow-up/Referrals: Eron Watson MD [Primary Care Provider] - 05/26/25 3:00 pm (Date & Time 05/26/2025 3:00 PM Provider: Deborah Manning PA-C [facility] ) William Leigh CRNP [Nurse Practitioner] - 05/25/25 12:45 pm (Hospital follow up on May 25 at 12:45 pm.) Diet: Regular Addtl Attending Provider Instructions: You were admitted to the hospital due to shortness of breath. You are found to have fluid buildup in left side of your lung. It was taken on by the pulmonology doctor on 05/20. There is a high likelihood that this could be cancer. The cytology of he refused is still not back. It will likely be back next week. Please follow-up with your primary care doctor regarding the results. Please also follow-up with [facility] pulmonology as you may need bronchoscopy to evaluate things further. Please repeat chest x-ray in 1 week to see if there is any reaccumulation of the fluid. This should be ordered by your primary care doctor. Please use Lovenox injection every 12 hours, 60 mg until Saturday and repeat PT/INR. If your PT/INR level is between 2.5-3.5; you can discontinue Lovenox Pending Studies at Discharge: Yes (cytology from pleural fluid) Stand-Alone Forms: My [facility] [employer], Smoking Cessation Medications and DC Order Prescriptions: New enoxaparin 60 mg/0.6 mL Syringe 60 mg subcut Q12H 5 Days Qty: 6 0RF Continued NOTE: Qty: 0 Patient Comments: FAMILY REPORTS, PT NOT GOOD AT TAKING MEDICATIONS PRESCRIBED, WILL MISS SCHEDULED DOSES. meclizine 25 mg Tablet 25 mg PO QPM PRN (Reason: Dizziness) Qty: 0 Rx Instructions: 1 table three times a day as needed nitroglycerin [Nitrostat] 0.3 mg Tablet, Sublingual 0.3 mg UT PRN Qty: 0 multivitamin tablet 1 tab PO DAILY Qty: 0 bupropion HCl 75 mg Tablet 75 mg PO QPM Qty: 0 Rx Instructions: 1 tab in the morning furosemide 40 mg Tablet 40 mg PO QAM Qty: 0 Rx Instructions: Take with Klor-Con tabs per patient potassium chloride [Klor-Con 10] 10 mEq Tablet Extended Release 10 meq PO QAM Qty: 0 Rx Instructions: with lasix per patient albuterol sulfate 90 mcg/actuation Hfa Aerosol Inhaler 2 puff Inhalation Q4H PRN (Reason: shortness of breath/wheezing) Qty: 0 ipratropium-albuterol 0.5 mg-3 mg(2.5 mg base)/3 mL Solution For Nebulization 3 ml Inhalation Q4H PRN (Reason: sob/wheezing) Qty: 0 magnesium 250 mg Tablet 250 mg Rx Instructions: 1 tablet in morning cholecalciferol (vitamin D3) 25 mcg (1,000 unit) Tablet 25 Vitron-C 65 mg iron- 125 mg Tablet,Delayed Release (Dr/Ec) 65 - 125 tab PO ezetimibe 10 mg tablet 10 mg PO QPM Rx Instructions: with supper rosuvastatin 40 mg tablet 40 mg PO QPM warfarin 5 mg Tablet 5 mg PO DAILY Qty: 0 0RF Patient Comments: Take 10mg PO daily for Now.Dose to keen inr between 2.5 to 3.5 metoprolol succinate 25 mg tablet extended release 24 hr 25 mg PO BID 30 Days Qty: 60 0RF Rx Instructions: 1 in am an 1 at bedtime levothyroxine [Synthroid] 125 mcg Tablet 125 mcg PO DAILYBB Qty: 30 0RF Discontinued prednisone 10 mg Tablet 10 mg Rx Instructions: take 5 tabs for 2 days, 4 tabs for 2 days, 3 tabs for 2 days, 2 tabs for 2 days, 1 tab for 2 days azithromycin 250 mg tablet 250 mg Discharge Orders: Discharge Order (Routine); Ordered 05/21/25 Ordered By: Camilo Downs Admission Data Admit Date/Time: 05/16/25 23:56 Attending Provider: Camilo Downs Admit Provider: Gary Christina Primary Care Provider: Eron Watson Other Providers: Gary Christina; Federico Connelly; Roshan Wiggins; Miko Sousa; Varsha Galeano; William Leigh; Guy Santacruz; Demetra Blackburn
[2025-05-21 15:17] VITALS: PULSE 83; RESP 16; O2SAT 92
== END 2025-05-21 17:08 | disposition home health service (06) | DRG 189 ==
LOC: ED 20:44 → SUATTDRO 23:56 → 2S 23:56

== ENCOUNTER 2025-07-20 07:20 | Inpatient (IN) ==
--- NOTE | 2025-07-20 07:33 | Emergency Department Note ---
Impression & Plan Pleural effusion on left, Elevated troponin, Acute dyspnea, Elevated brain natriuretic peptide (BNP) level ED Provider Note HISTORY OF PRESENT ILLNESS: Patient is a 65-year-old female presenting with shortness of breath. Patient reports that yesterday she started having shortness of breath that increased throughout the night and this morning. She reports she could not sleep well because she was so short of breath. Denies any chest pain. She normally wears 2 L nasal cannula at baseline, but reports that she increased it to 3 given her shortness of breath symptoms and was feeling slightly improved with the increased oxygen. She called [phone] given her shortness of breath this morning. She was given 2 DuoNeb treatments and route and patient reports her shortness of breath has improved slightly on arrival to the ER. Denies any chest pain. Denies any recent fevers or chills. She is currently on Lovenox, as she has a scheduled procedure for thoracentesis. She states that "I think my lung needs to be drained again." Denies any abdominal pain, nausea or vomiting. Denies any DVT or PE history. ROS: as above PHYSICAL EXAM: Constitutional: Patient appears in no acute distress. HENT: Head: Normocephalic and atraumatic. Eyes: EOMI, PERRL Mouth/Throat: Mucous membranes moist. Neck: Trachea midline. Neck supple. Cardiovascular: Tachycardic with regular rhythm. No rubs or gallops. Intact distal pulses. Pulmonary/Chest: No respiratory distress. Decreased breath sounds throughout left lung. Conversationally dyspneic. On 3L nasal cannula. Seated upright in bed leaning forward on her knees. Abdominal: Abdomen soft, no tenderness, rebound or guarding. Musculoskeletal: No edema, tenderness or deformity noted. Skin: Warm and dry. No rash, erythema, pallor or cyanosis Psychiatric: Appropriate mood and affect for situation. Neurological: Alert and keenly responsive. CN II-XII grossly intact, moving all extremities equally and fully. MDM: - Vitals signs showed tachypnea and tachycardia. - History obtained via patient. History as above. - Chronic conditions affecting care: Prosthetic heart valve; stage IV lung cancer; supraclavicular lymphadenopathy; COPD - Differential diagnoses include, but are not limited to: Congestive heart failure; acute coronary syndrome; COPD/asthma exacerbation; pulmonary edema; pulmonary embolism; pneumonia; pneumothorax; viral syndrome - Order placed for continuous cardiac monitoring. At this time, monitor showed rate of 128 bpm with normal sinus rhythm, per my interpretation. - EKG image interpreted by myself showed normal sinus rhythm. Rate tachycardic with a heart rate of 129 bpm. QT 312. No acute ischemic changes. - Laboratory workup interpreted by myself showed normal WBC; chronic anemia (Hgb 9.6); CKD (Cr 1.67); elevated troponin (14.7); elevated BNP (325) - CXR image reviewed and interpreted by myself shows a whiteout of the right lung, per my interpretation. - VBG showed hypercarbia - Viral respiratory panel negative - CT chest wo contrast showed large left pleural effusion with near complete consolidation of the left lung. There is also a small to moderate right sided pleural effusion. Noted to have numerous patchy nodular airspace opacities throughout both lungs which is new from 06/26/2025. - External medical records reviewed. Discharge summary dated 07/03/2025 from [facility] was reviewed. Patient was admitted for acute hypoxic respiratory failure and a large left-sided pleural effusion. Patient underwent a therapeutic and diagnostic thoracentesis on 07/01/2025 with IR. Preliminary fluid analysis appears transudative by lights criteria. She had near resolution of her dyspnea after thoracentesis per documentation. Patient was scheduled for an outpatient biopsy for her supraclavicular lymph node on 07/05/2025. Patient finished a course of empiric antibiotics while inpatient for obstructive pneumonia. Thoracic surgery was consulted to evaluate for PleurX catheter placement in the setting of her recurrent symptomatic pleural effusions. Thoracic surgery recommended outpatient referral once cytology reports from thoracentesis studies and lymph node biopsy have resulted. - Discussed case with supervisor power reactor for IR at 10:05 AM. She discussed the case with Dr. Ferro who would be available to do a thoracentesis. - Attempted to reach out to pulmonology to see about potential PleurX catheter placement. However, have not heard back from pulmonary at this point. - Patient is having increased work of breathing and remains tachycardic in the ER. She is now having transient episodes of hypotension with her lowest blood pressure being 90s over 70s. Given her increased work of breathing and vital sign instability, decision was made to undergo thoracentesis to attempt to decompress the patient's left lung and pulmonary will be consulted on the inpatient setting for PleurX catheter placement. - Discussion was had with case liner about patient's case and need for admission - Hospitalist consulted for admission - Patient admitted to [facility] service for further evaluation and management. ASSESSMENT AND PLAN: Diagnosis: Pleural effusion on left; acute dyspnea; elevated troponin; elevated BNP Plan: Admit Past Med/Surg History Problem List (Updated 07/20/25 @ 11:59 by Kandis Ronquillo MD) Elevated brain natriuretic peptide (BNP) level (Acute) Acute dyspnea (Acute) Elevated troponin (Acute) Pleural effusion on left (Acute) Advanced care planning/counseling discussion Anxiety Stage 4 lung cancer Supraclavicular lymphadenopathy Lung mass Acute hypoxemic respiratory failure Hypoxia (Acute) Warfarin anticoagulation (Acute) History of mitral valve replacement with mechanical valve H/O mechanical aortic valve replacement (Acute) COPD exacerbation Elevated troponin (Acute) Shortness of breath (Acute) Pleural effusion (Acute) Atrial fibrillation with RVR (Acute) Encounter for removal of sutures (Acute) Pneumonia 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 Family History (Updated 05/17/25 @ 14:37 by Guy Santacruz MD) Brother Status post lung transplantation Sister Chronic lung disease Other Family history non-contributory Social History (Updated 05/24/25 @ 10:48 by Abena Renteria RN) Smoking Status: Never smoker Tobacco Type: Cigarettes Age Started Using Tobacco: 22; Age Quit Using Tobacco: 65; Cigarettes Per Day: 1 pack; Hx Alcohol Use: No Hx Substance Use: Yes Last Used Substance: Hours (ago) Preferred Language: Palestinian Communication Ability: Effective Speaker Wirer Required: No Beliefs That Will Affect Care: None Current Living Situation: Other Current Living Situation Comment: 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 Feels Safe at Home: Yes Assistive Devices: None Allergies Allergies Allergy/AdvReac Type Severity Reaction Status Date / Time Quinolones Allergy Intermediate HIVES Verified 07/19/25 10:05 cyclobenzaprine Allergy Mild Verified 07/19/25 10:05 amitriptyline Allergy Unknown UNKNOWN Verified 07/19/25 10:05 Home Meds Home Medications Medication Instructions Recorded Confirmed meclizine 25 mg tablet 25 mg PO QPM PRN Dizziness ##0 06/23/14 07/20/25 multivitamin 1 tab PO DAILY #0 tabs 09/01/14 07/20/25 nitroglycerin 0.3 mg sublingual 0.3 mg UT PRN #0 BTLS 09/01/14 07/20/25 tablet (Nitrostat) bupropion HCl 75 mg tablet 75 mg PO QPM #0 tabs 03/31/16 07/20/25 furosemide 40 mg tablet 40 mg PO QAM #0 tabs 06/28/17 07/20/25 potassium chloride 10 mEq 10 meq PO QAM ##0 06/28/17 07/20/25 tablet,extended release (Klor-Con) ezetimibe 10 mg tablet 10 mg PO QPM 07/06/24 07/20/25 rosuvastatin 40 mg tablet 40 mg PO QPM 07/06/24 07/20/25 cholecalciferol (vitamin D3) 25 25 mcg PO DAILY 05/16/25 07/20/25 mcg (1,000 unit) tablet magnesium 250 mg tablet 250 mg PO DAILY 05/16/25 07/20/25 warfarin 5 mg tablet 0 mg PO DAILY 06/26/25 07/20/25 enoxaparin 60 mg/0.6 mL 60 mg subcut Q12H 07/20/25 07/20/25 subcutaneous syringe metoprolol succinate 25 mg 25 mg PO QID 07/20/25 07/20/25 tablet,extended release 24 hr Previous Rx's Medication Instructions Recorded levothyroxine 125 mcg tablet 125 mcg PO DAILYBB #30 tabs 07/08/24 (Synthroid) Oxygen Home #1 ea 07/14/25 Oxygen Home #1 ea 07/14/25 Portable Oxygen #1 ea 07/14/25 Results & Data (ED) Vital Signs Vital Signs - 24 hr 07/20/25 07:34 07/20/25 07:36 07/20/25 07:36 Temperature 36.4 C L Temperature Source Oral Pulse Rate 128 H 129 H Pulse Rate from SpO2 Sensor 129 H Respiratory Rate 22 35 H Respiratory Effort / Characteristics Non-Labored Spontaneous Respiratory Depth Normal Respiratory Pattern Regular Blood Pressure 107/72 107/72 Blood Pressure Mean 93 83 Blood Pressure Position Sitting Pulse Oximetry 98 96 Oxygen Delivery Method Nasal Cannula Nasal Cannula Oxygen Flow Rate 3 3 Sepsis Recent Fever Within 48 Hours No Sepsis New/Unexplained Change in Mental Status No Sepsis Action Taken by Nursing Physician Notified Oxygen Flow Rate - Titration Pulse Oximetry Post Tiitration 07/20/25 08:00 07/20/25 08:00 07/20/25 08:21 Temperature Temperature Source Pulse Rate 128 H 129 H Pulse Rate from SpO2 Sensor 128 H Respiratory Rate 29 H Respiratory Effort / Characteristics Respiratory Depth Respiratory Pattern Blood Pressure 95/76 L Blood Pressure Mean 85 Blood Pressure Position Pulse Oximetry 99 Oxygen Delivery Method Nasal Cannula Oxygen Flow Rate 3 Sepsis Recent Fever Within 48 Hours Sepsis New/Unexplained Change in Mental Status Sepsis Action Taken by Nursing Oxygen Flow Rate - Titration Pulse Oximetry Post Tiitration 07/20/25 08:30 07/20/25 08:30 07/20/25 09:00 Temperature Temperature Source Pulse Rate 139 H 138 H Pulse Rate from SpO2 Sensor 138 H Respiratory Rate 40 H 28 H Respiratory Effort / Characteristics Respiratory Depth Respiratory Pattern Blood Pressure 101/76 Blood Pressure Mean 78 Blood Pressure Position Pulse Oximetry 100 98 Oxygen Delivery Method Nasal Cannula Nasal Cannula Oxygen Flow Rate 3 3 Sepsis Recent Fever Within 48 Hours Sepsis New/Unexplained Change in Mental Status Sepsis Action Taken by Nursing Oxygen Flow Rate - Titration Pulse Oximetry Post Tiitration 07/20/25 09:00 07/20/25 09:00 07/20/25 09:21 Temperature Temperature Source Pulse Rate Pulse Rate from SpO2 Sensor Respiratory Rate Respiratory Effort / Characteristics Respiratory Depth Respiratory Pattern Blood Pressure 100/77 100/77 Blood Pressure Mean 87 87 Blood Pressure Position Pulse Oximetry 100 Oxygen Delivery Method Nasal Cannula Oxygen Flow Rate 3 Sepsis Recent Fever Within 48 Hours Sepsis New/Unexplained Change in Mental Status Sepsis Action Taken by Nursing Oxygen Flow Rate - Titration 2 Pulse Oximetry Post Tiitration 99 07/20/25 09:30 07/20/25 09:30 07/20/25 09:48 Temperature Temperature Source Pulse Rate 137 H 137 H Pulse Rate from SpO2 Sensor 163 H 138 H Respiratory Rate 38 H 32 H Respiratory Effort / Characteristics Respiratory Depth Respiratory Pattern Blood Pressure 104/73 Blood Pressure Mean 84 Blood Pressure Position Pulse Oximetry 91 94 Oxygen Delivery Method Oxygen Flow Rate Sepsis Recent Fever Within 48 Hours Sepsis New/Unexplained Change in Mental Status Sepsis Action Taken by Nursing Oxygen Flow Rate - Titration Pulse Oximetry Post Tiitration 07/20/25 10:02 07/20/25 10:03 07/20/25 10:30 Temperature Temperature Source Pulse Rate 127 H Pulse Rate from SpO2 Sensor 128 H Respiratory Rate 34 H Respiratory Effort / Characteristics Respiratory Depth Respiratory Pattern Blood Pressure 101/60 115/75 Blood Pressure Mean 65 104 Blood Pressure Position Pulse Oximetry 94 Oxygen Delivery Method Nasal Cannula Oxygen Flow Rate 2 Sepsis Recent Fever Within 48 Hours Sepsis New/Unexplained Change in Mental Status Sepsis Action Taken by Nursing Oxygen Flow Rate - Titration Pulse Oximetry Post Tiitration 07/20/25 10:30 07/20/25 11:00 07/20/25 11:00 Temperature Temperature Source Pulse Rate 135 H 127 H Pulse Rate from SpO2 Sensor 133 H 110 H Respiratory Rate 25 H 36 H Respiratory Effort / Characteristics Respiratory Depth Respiratory Pattern Blood Pressure 97/76 L Blood Pressure Mean 80 Blood Pressure Position Pulse Oximetry 98 95 Oxygen Delivery Method Nasal Cannula Nasal Cannula Oxygen Flow Rate 2 2 Sepsis Recent Fever Within 48 Hours Sepsis New/Unexplained Change in Mental Status Sepsis Action Taken by Nursing Oxygen Flow Rate - Titration Pulse Oximetry Post Tiitration 07/20/25 11:50 Temperature Temperature Source Pulse Rate Pulse Rate from SpO2 Sensor Respiratory Rate Respiratory Effort / Characteristics Respiratory Depth Respiratory Pattern Blood Pressure Blood Pressure Mean Blood Pressure Position Pulse Oximetry Oxygen Delivery Method Nasal Cannula Oxygen Flow Rate 2 Sepsis Recent Fever Within 48 Hours Sepsis New/Unexplained Change in Mental Status Sepsis Action Taken by Nursing Oxygen Flow Rate - Titration Pulse Oximetry Post Tiitration Laboratory Data 07/20/25 07:20 07/20/25 07:20 Lab Results 07/20/25 07/20/25 07/20/25 Range/Units 07:20 07:47 10:16 WBC 9.53 (4.8-10.8) K/ul RBC 3.55 L (4.20-5.40) M/uL Hgb 9.6 L (12.0-16.0) g/dL Hct 31.9 L (37.0-47.0) % MCV 89.9 (80.0-100.0) fL MCH 27.0 (25.0-34.0) pg MCHC 30.1 L (32.0-36.0) g/dL RDW Std Deviation 53.4 H (36.4-46.3) fL RDW Coeff of Mitul 16.4 H (11.5-14.5) % Plt Count 375 (130-400) K/uL MPV 11.7 (9.4-12.4) fL Immature Gran % (Auto) 0.4 % Neut % (Auto) 74.7 % Lymph % (Auto) 10.7 % Rowan % (Auto) 10.9 % Eos % (Auto) 2.0 % Baso % (Auto) 1.3 % Neut # (Auto) 7.12 H (1.40-6.50) K/uL Lymph # (Auto) 1.02 L (1.20-3.40) K/uL Rowan # (Auto) 1.04 H (0.11-0.59) K/uL Eos # (Auto) 0.19 (0.00-0.50) K/uL Baso # (Auto) 0.12 (0.00-0.20) K/uL Immature Gran # (Auto) 0.04 (0.01-0.20) K/uL PT 13.0 H (9.0-12.0) Seconds INR 1.2 H (0.9-1.1) VBG pH 7.39 (7.36-7.41) VBG pCO2 60 H (38-50) mmHg VBG pO2 < 20 mmHg VBG HCO3 36 mmol/L VBG O2 Saturation < 60.0 % VBG Base Excess 10.0 mEq/L Sodium 137 (136-145) mmol/L Potassium 4.4 (3.5-5.1) mmol/L Chloride 94 L (98-107) mmol/L Carbon Dioxide 37 H (21-32) mmol/L Anion Gap 6 (3-11) BUN 26 H (6-23) mg/dl Creatinine 1.67 H (0.6-1.2) mg/dl Est Cr Clr Drug Dosing 29.4 ml/min eGFR 34.00 BUN/Creatinine Ratio 15.6 (10-20) Glucose 143 H (70-99(Fasting)) mg/dl Calcium 9.4 (8.6-10.3) mg/dl Magnesium 2.4 (1.7-2.4) mg/dl Total Bilirubin 0.7 (0.2-1.0) mg/dl AST 41 H (13-39) U/L ALT 24 (7-52) U/L Alkaline Phosphatase 66 (34-104) U/L Troponin I High Sens 14.7 H (0-14) pg/ml B-Natriuretic Peptide 325 H (0-100) pg/ml Total Protein 8.3 (6.0-8.3) gm/dl Albumin 3.8 (3.4-5.0) gm/dl Globulin 4.5 H (2.5-4.0) gm/dl Albumin/Globulin Ratio 0.8 L (0.9-2) Adenovirus (PCR) Not Detected (NotDetected) B. pertussis DNA (PCR) Not Detected (NotDetected) B.parapertussis DNA PCR Not Detected (NotDetected) C. pneumoniae DNA (PCR) Not Detected (NotDetected) Coronavirus OC43 (PCR) Not Detected (NotDetected) Coronavirus HKU1 (PCR) Not Detected (NotDetected) Coronavirus 229E (PCR) Not Detected (NotDetected) SARS-CoV-2 (PCR) Not Detected (NotDetected) Coronavirus NL63 (PCR) Not Detected (NotDetected) Human Metapneumovir PCR Not Detected (NotDetected) Influenza Type A (PCR) Not Detected (NotDetected) Influenza Type B (PCR) Not Detected (NotDetected) M. pneumoniae (PCR) Not Detected (NotDetected) Parainfluenza 1 (PCR) Not Detected (NotDetected) Parainfluenza 2 (PCR) Not Detected (NotDetected) Parainfluenza 3 (PCR) Not Detected (NotDetected) Parainfluenza 4 (PCR) Not Detected (NotDetected) RSV (PCR) Not Detected (NotDetected) Entero/Rhino (PCR) Not Detected (NotDetected) Imaging Data Radiologist's Impression: Chest X-Ray 07/20/25 07:30 EXAM: XR chest 1V portable CLINICAL HISTORY: Dyspnea TECHNIQUE: An X-ray image of the chest is obtained in AP projection. COMPARISON: 06/26/2025 CT angio chest and cxr reviewed. FINDINGS: Pulmonary Parenchyma: Complete opacification of the left hemithorax likely gross pleural effusion with underlying lung collapse-consolidation, unchanged. Blunting of the right costophrenic angle likely mild pleural effusion. Interval progression of interstitial thickening and haziness in the right lower zone. Heart and Mediastinum: Heart size and shape are normal. No mediastinal widening or masses. No hilar or mediastinal lymphadenopathy. Suggestion of prosthetic cardiac valves, unchanged. Bony Thorax: Bony thorax appears intact without fractures or deformities. Soft Tissues: Midline sternotomy sutures redemonstrated. Surgical clips are also noted in the midline in the epigastric region. Soft tissues overlying the chest wall are unremarkable. IMPRESSION: 1. Complete opacification of the left hemithorax likely gross pleural effusion with underlying lung collapse-consolidation, unchanged. 2. Blunting of the right costophrenic angle likely mild pleural effusion, unchanged. 3. Interval progression of interstitial thickening and haziness in the right lower zone. 4. Clinical correlation is suggested. Electronically signed by Ryan Ureña 07-20-2025 08:[address] 07/20/25 08:47 CT SCAN OF THE CHEST WITHOUT IV CONTRAST CLINICAL HISTORY: Abnormal chest x-ray. Opacified left hemithorax. COMPARISON STUDY: Prior chest CT scans, most recently dated 06/26/2025. Chest x- ray dated 07/20/2025. PET/CT dated 06/10/2025. TECHNIQUE: CT scan of the thorax was performed from the thoracic inlet to the upper abdomen. Images are reviewed in the axial, sagittal, and coronal planes. IV contrast was not administered for this examination as per the referring clinician. A dose lowering technique was utilized adhering to the principles of ALARA. The examination is degraded by motion artifact, as well as by streak artifact from the arms which could not be elevated above the chest. CT DOSE: 539.95 mGy.cm FINDINGS: Thyroid: Atrophic. Thoracic aorta: There is atherosclerotic calcification of the thoracic aorta, which is normal in caliber and demonstrates standard 3-vessel arch anatomy. 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 Epicardial leads are in place. The heart is enlarged and without pericardial effusion. There is diffuse attenuation of the cardiac blood pool is compared to myocardium suggesting anemia. Lungs and pleural spaces: There is diffuse intralobular septal thickening. There is a large left pleural effusion with near complete atelectasis/consolidation of the left lung. This is similar in appearance to 06/26/2025 examination. A small superior segment of the left lower lobe remains aerated. There is a small to moderate right pleural effusion with atelectasis of the right lower lung. This has increased from 06/26/2025. The trachea and central airways are patent. There are numerous irregular nodular airspace opacities now seen throughout the right lung and within the partially aerated left lower lobe. Lower neck: There is bulky supraclavicular lymphadenopathy, left-sided greater than right. A left sided shannon aggregate on image #36 measures approximately 6 x 3 cm. Mediastinum: There is bulky mediastinal lymphadenopathy. A subcarinal node on image #90 measures approximately 6 x 4 cm. Precarinal nodes measure up to 1.6 cm short axis, and a high right paratracheal node on image #66 measures 3.4 x 2.2 cm. A 3.5 x 2.3 cm node is seen above the hiatus. Amber: There is hilar lymphadenopathy. The nodes are not well delineated without IV contrast. Axillae: There is no axillary lymphadenopathy. Upper abdomen: There are calcified splenic granulomas. Partially visualized upper abdominal viscera is otherwise grossly unremarkable. Skeletal structures: The skeletal structures are osteopenic. Degenerative change and hyperkyphosis is noted in the thoracic spine. No lytic or blastic bony lesions are seen. IMPRESSION: 1. There is a large left pleural effusion with near complete atelectasis/consolidation of left lung. A small portion of the superior left lower lobe remains aerated and this is similar to 06/26/2025. An underlying mass within the collapsed left lung would be impossible to exclude. 2. There is a [id number] right pleural effusion with dependent atelectasis. This has increased from 06/26/2025. 3. Bulky supraclavicular, mediastinal, and hilar lymphadenopathy is similar in appearance to prior studies correlate with gynecological history. 4. Cardiomegaly with evidence of fluid overload/congestive failure. 5. There are numerous patchy nodular airspace opacities throughout both lungs which are new from 06/26/2025. This may be infectious/inflammatory, or could represent pulmonary edema. Neoplastic involvement is considered less likely but not excluded. Attention at follow-up will be required. 6. Additional findings as above. ACT 112: Negative or not required by law. Electronically signed by: Cali Mcpherson M.D. 07/20/2025 10:22 AM Discharge Plan Visit Data Chief Complaint: Shortness of Breath/Dyspnea Stated Complaint: SOB ED Provider: Kandis Ronquillo Discharge Problem: Pleural effusion on left, Elevated troponin, Acute dyspnea, Elevated brain natriuretic peptide (BNP) level Patient Disposition: Admitted As Inpatient Condition: Fair Discharge Instructions Interventions: ED Discharge Assessment Last Done: 07/20/25 11:50 Forms Stand Alone Forms: [employer] Prescriptions Prescriptions: No Action meclizine 25 mg Tablet 25 mg PO QPM PRN (Reason: Dizziness) Qty: 0 Rx Instructions: 1 table three times a day as needed multivitamin Tablet 1 tab PO DAILY Qty: 0 nitroglycerin [Nitrostat] 0.3 mg Tablet, Sublingual 0.3 mg UT PRN Qty: 0 bupropion HCl 75 mg Tablet 75 mg PO QPM Qty: 0 Rx Instructions: 1 tab in the morning furosemide 40 mg Tablet 40 mg PO QAM Qty: 0 Rx Instructions: Take with Klor-Con tabs per patient potassium chloride [Klor-Con 10] 10 mEq Tablet Extended Release 10 meq PO QAM Qty: 0 Rx Instructions: with lasix per patient (DME) Oxygen Home Liters Per Minute See Rx Instructions .Route Qty: 1 0RF Rx Instructions: home oxygen concentrator with 0LPM at rest and 2LPM with exertion via nc. [email or web address] 99. Switching to [employer] (DME) Portable Oxygen Misc See Rx Instructions .Route Qty: 1 0RF Rx Instructions: portable oxygen concentrator setting 2 with exertion via nc. raymundo 99. switching to [employer] (DME) Oxygen Home Liters Per Minute See Rx Instructions .Route Qty: 1 0RF Rx Instructions: discontinue oxygen; switching dme to [employer] magnesium 250 mg Tablet 250 mg PO DAILY Rx Instructions: 1 tablet in morning cholecalciferol (vitamin D3) 25 mcg (1,000 unit) Tablet 25 mcg PO DAILY enoxaparin 60 mg/0.6 mL syringe 60 mg subcut Q12H metoprolol succinate 25 mg tablet extended release 24 hr 25 mg PO QID ezetimibe 10 mg tablet 10 mg PO QPM Rx Instructions: with supper rosuvastatin 40 mg tablet 40 mg PO QPM levothyroxine [Synthroid] 125 mcg Tablet 125 mcg PO DAILYBB Qty: 30 0RF warfarin 5 mg tablet 0 mg PO DAILY Patient Comments: 07/20- Per pt, medication currently on hold due to taking enoxaparin injections Referrals Referrals: Eron Watson MD [Primary Care Provider] -
[2025-07-20 07:47] LABS: Hematocrit (blood only) 31.9 % (37.0-47.0); Hemoglobin 9.6 g/dL (12.0-16.0); Immature Granulocytes # (auto) 0.04 K/uL (0.01-0.20); Immature Granulocytes % (auto) 0.4 %; Mean Corpuscular Hemoglobin 27.0 pg (25.0-34.0); Mean Corpuscular Volume 89.9 fL (80.0-100.0); Platelet Count 375 K/uL (130-400); RDW Standard Deviation 53.4 fL (36.4-46.3); Red Blood Count 3.55 M/uL (4.20-5.40); White Blood Count 9.53 K/ul (4.8-10.8)
[2025-07-20 07:55] LABS: Base Excess VBG 10.0 mEq/L; HCO3 VBG 36 mmol/L; Oxygen Saturation VBG < 60.0 %; PCO2 VBG 60 mmHg (38-50); PO2 VBG < 20 mmHg; pH VBG 7.39 (7.36-7.41)
[2025-07-20 08:05] LABS: Alanine Aminotransferase 24.0 U/L (7-52); Albumin Globulin Ratio 0.8 (0.9-2); Albumin Level 3.8 gm/dl (3.4-5.0); Alkaline Phosphatase 66.0 U/L (34-104); Anion Gap 6.0 (3-11); Bilirubin,Total 0.7 mg/dl (0.2-1.0); Blood Urea Nitrogen 26.0 mg/dl (6-23); Calcium 9.4 mg/dl (8.6-10.3); Carbon Dioxide 37.0 mmol/L (21-32); Chloride 94.0 mmol/L (98-107); Creatinine Clr Calc Pharmacy 29.4 ml/min; Globulin 4.5 gm/dl (2.5-4.0); Glucose 143.0 mg/dl (70-99(Fasting)); Magnesium 2.4 mg/dl (1.7-2.4); Potassium 4.4 mmol/L (3.5-5.1); Sodium 137.0 mmol/L (136-145); Total Protein 8.3 gm/dl (6.0-8.3)
[2025-07-20 08:20] LABS: INR 1.2 (0.9-1.1); Prothrombin Time 13.0 Seconds (9.0-12.0)
[2025-07-20 08:52] LABS: Chlamydia pneumoniae PCR Not Detected (NotDetected); Coronavirus 229E PCR Not Detected (NotDetected); Coronavirus CoV-2 (COVID19)PCR Not Detected (NotDetected); Coronavirus HKU1 PCR Not Detected (NotDetected); Coronavirus NL63 PCR Not Detected (NotDetected); Coronavirus OC43PCR Not Detected (NotDetected); Human Metapneumovirus PCR Not Detected (NotDetected); Parainfluenza Virus 1 PCR Not Detected (NotDetected); Parainfluenza Virus 2 PCR Not Detected (NotDetected); Parainfluenza Virus 3 PCR Not Detected (NotDetected); Parainfluenza Virus 4 PCR Not Detected (NotDetected); Respiratory Syncytial VirusPCR Not Detected (NotDetected); Rhinovirus/Enterovirus PCR Not Detected (NotDetected)
--- NOTE | 2025-07-20 08:58 | XRay Report ---
EXAM: XR chest 1V portable CLINICAL HISTORY: Dyspnea TECHNIQUE: An X-ray image of the chest is obtained in AP projection. COMPARISON: 06/26/2025 CT angio chest and cxr reviewed. FINDINGS: Pulmonary Parenchyma: Complete opacification of the left hemithorax likely gross pleural effusion with underlying lung collapse-consolidation, unchanged. Blunting of the right costophrenic angle likely mild pleural effusion. Interval progression of interstitial thickening and haziness in the right lower zone. Heart and Mediastinum: Heart size and shape are normal. No mediastinal widening or masses. No hilar or mediastinal lymphadenopathy. Suggestion of prosthetic cardiac valves, unchanged. Bony Thorax: Bony thorax appears intact without fractures or deformities. Soft Tissues: Midline sternotomy sutures redemonstrated. Surgical clips are also noted in the midline in the epigastric region. Soft tissues overlying the chest wall are unremarkable. IMPRESSION: 1. Complete opacification of the left hemithorax likely gross pleural effusion with underlying lung collapse-consolidation, unchanged. 2. Blunting of the right costophrenic angle likely mild pleural effusion, unchanged. 3. Interval progression of interstitial thickening and haziness in the right lower zone. 4. Clinical correlation is suggested. Electronically signed by Ryan Ureña 07-20-2025 08:58 AM
--- NOTE | 2025-07-20 10:24 | CT Scan Report ---
CT SCAN OF THE CHEST WITHOUT IV CONTRAST CLINICAL HISTORY: Abnormal chest x-ray. Opacified left hemithorax. COMPARISON STUDY: Prior chest CT scans, most recently dated 06/26/2025. Chest x-ray dated 07/20/2025. PET/CT dated 06/10/2025. TECHNIQUE: CT scan of the thorax was performed from the thoracic inlet to the upper abdomen. Images are reviewed in the axial, sagittal, and coronal planes. IV contrast was not administered for this ex amination as per the referring clinician. A dose lowering technique was utilized adhering to the nelia Fierro. The examination is degraded by motion artifact, as well as by streak artifact from the arms which could not be elevated above the chest. CT DOSE: 539.95 mGy.cm FINDINGS: Thyroid: Atrophic. Thoracic aorta: There is atherosclerotic calcification of the thoracic aorta, which is normal in pat braydon and demonstrates standard 3-vessel arch anatomy. 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 Epica rdial leads are in place. The heart is enlarged and without pericardial effusion. There is diffuse at tenuation of the cardiac blood pool is compared to myocardium suggesting anemia. Lungs and pleural spaces: There is diffuse intralobular septal thickening. There is a large left pleu ral effusion with near complete atelectasis/consolidation of the left lung. This is similar in appear ance to 06/26/2025 examination. A small superior segment of the left lower lobe remains aerated. There is a small to moderate right pleural effusion with atelectasis of the right lower lung. This has inc reased from 06/26/2025. The trachea and central airways are patent. There are numerous irregular nodul ar airspace opacities now seen throughout the right lung and within the partially aerated left lower lobe. Lower neck: There is bulky supraclavicular lymphadenopathy, left-sided greater than right. A left rosendo ed shannon aggregate on image #36 measures approximately 6 x 3 cm. Mediastinum: There is bulky mediastinal lymphadenopathy. A subcarinal node on image #90 measures appr oximately 6 x 4 cm. Precarinal nodes measure up to 1.6 cm short axis, and a high right paratracheal n ode on image #66 measures 3.4 x 2.2 cm. A 3.5 x 2.3 cm node is seen above the hiatus. Amber: There is hilar lymphadenopathy. The nodes are not well delineated without IV contrast. Axillae: There is no axillary lymphadenopathy. Upper abdomen: There are calcified splenic granulomas. Partially visualized upper abdominal viscera i s otherwise grossly unremarkable. Skeletal structures: The skeletal structures are osteopenic. Degenerative change and hyperkyphosis is noted in the thoracic spine. No lytic or blastic bony lesions are seen. IMPRESSION: 1. There is a large left pleural effusion with near complete atelectasis/consolidation of left lung. A small portion of the superior left lower lobe remains aerated and this is similar to 06/26/2025. An underlying mass within the collapsed left lung would be impossible to exclude. 2. There is a [id number] right pleural effusion with dependent atelectasis. This has increased from 06/26/2025. 3. Bulky supraclavicular, mediastinal, and hilar lymphadenopathy is similar in appearance to prior st udies correlate with gynecological history. 4. Cardiomegaly with evidence of fluid overload/congestive failure. 5. There are numerous patchy nodular airspace opacities throughout both lungs which are new from 06/26. This may be infectious/inflammatory, or could represent pulmonary edema. Neoplastic involvemen t is considered less likely but not excluded. Attention at follow-up will be required. 6. Additional findings as above. ACT 112: Negative or not required by law. Electronically signed by: Cali Mcpherson M.D. 07/20/2025 10:22 AM
--- NOTE | 2025-07-20 12:10 | History & Physical Report ---
Date of Service July 20, 2025 Assessment & Plan (1) Pleural effusion on left: (2) Small cell lung cancer: (3) Anxiety: (4) Atrial fibrillation: (5) Hypothyroidism: (6) Warfarin anticoagulation: (7) Hypertension: Plan This is a 65 y/o female with recently diagnosed metastatic small-cell lung cancer, recurrent pleural effusion, permanent atrial fibrillation, rheumatic heart disease s/p AVR and mechanical MVR on chronic warfarin, COPD, CKD3b, and other history as outlined below who presents to the ED with worsening shortness of breath. She has been evaluated by palliative care as an outpatient and saw oncology last week to discuss prognosis. She is not a candidate for XRT, the possibility of palliative chemo was discussed but pt unsure if she would like to proceed with chemo. She declined the MRI brain due to her inability to lie flat for the test. Today, she present with worsening shortness of breath and was referred for admission. Her oxygen requirement of 2L is stable from outpatient use. #Metastatic small cell carcinoma #Recurrent left pleural effusion - cytology x 2 has been negative for malignancy #Hypoxemic respiratory failure - on 2L at home - Admit to PCU - Discussed with ED provider - IR is agreeable to doing a thoracentesis this morning, will proceed with this procedure - Consult pulmonology for additional recommendations - Will need close outpatient f/u with oncology - Consult palliative care as patient is already established with them - Continue baseline supplemental oxygen to maintain sats #Mechanical mitral valve replacement #Permanent atrial fibrillation - Continue therapeutic lovenox for now - On warfarin at baseline but this has been on hold due to multiple procedures #CKD3b - creatinine slightly increased from baseline ~1.4 - Labs in the AM, continue to monitor Pt seen and reviewed with collaborating physician, Dr. Dalton. Plan of care discussed and as outlined above. Outpatient oncology notes, records [place] [facility] [place] reviewed to assist with the history Recent palliative care notes also reviewed. Code status: DNR/DNI DVT prophylaxis: on therapeutic Lovenox I spent a total of 86 minutes coordinating, documenting, and providing care for this patient excluding time spent in the performance of separately billed services or time spent by another provider/QHP. Sb Espino PA-C History of Present Illness Chief Complaint: increased trouble breathing Primary Care Provider: Eron Watson MD This is a 65 y/o female with recently diagnosed metastatic small-cell lung cancer, recurrent pleural effusion, permanent atrial fibrillation, rheumatic heart disease s/p AVR and mechanical MVR on chronic warfarin, COPD, CKD3b, and other history as outlined below who presents to the ED with worsening shortness of breath. Pt has a complex medical course over the last three months. She originally presented to [facility] in April with shortness of breath and was found to have acute hypoxemic respiratory failure, left pleural effusion with concern for underlying lung mass. She saw palliative care in May who noted that pt has had difficulty with obtaining the biopsy as an outpatient due to anxiety of needles and trouble lying flat. They discussed with patient that she likely had advanced cancer and would need to think about what her goals for her care would ultimately be. She presented back to the ED on 06/26/25 with palpitations and not feeling well. Pt was found to have recurrent left pleural effusion with near collapse of the left lung. Case was reviewed by pulmonology who recommended transfer for possible endobronchial debulking and/or stenting. She was [place] [facility] where she underwent diagnostic and therapeutic thoracentesis and was discharged on 07/03. On 07/05, she had an outpatient biopsy of the left supraclavicular node. Cytology from pleural fluid has been negative for malignancy. Now on chronic O2 at 2L and has been following with [facility] pulmonology. She had her first oncology visit 07/14/[address] Scott discussed with the patient her poor prognosis and that any treatment at this point would be for palliation. She is discussing with her family and deciding if she would like to pursue palliative chemotherapy. There has been discussion regarding potential Pleurx catheter due to the recurrent pleural effusion. Pt reports ongoing issues with her breathing since discharge from [facility] but was stable until this morning when she became more short of breath and increased her oxygen before coming to the ED for evaluation. FNA from left supraclavicular node on 07/05/25 showed high-grade neuroendocrine carcinoma c/w small-cell carcinoma. CT chest 06/26/25 showed increased size of subcarinal LN (5.3 x 3.4 2.8 cm), bilateral pleural effusions, left > right w/ near complete collapse of left lung w/ some variation in LLL, bilateral hilar LAD, no PE. PET-CT scan done on 06/10/2025: hypermetabolic multiple mediastinal masses bilaterally from superior to the inferior adjacent to the hiatus and the left hilum, largest mass in the left upper mediastinum measuring about 10 cm, SUV 12, stable small left pleural effusion, stable moderate size of constipation in the left lower lobe. Two subtle sclerotic changes noted in the right sacrum largest one measuring 1.6 cm SUV of 5.4. Unable to tolerate recommend MRI brain due to inability to lie flat. Allergies Allergy/AdvReac Type Severity Reaction Status Date / Time Quinolones Allergy Intermediate HIVES Verified 07/19/25 10:05 cyclobenzaprine Allergy Mild Verified 07/19/25 10:05 amitriptyline Allergy Unknown UNKNOWN Verified 07/19/25 10:05 Home Medications Medication Instructions Recorded Confirmed Type meclizine 25 mg tablet 25 mg PO QPM PRN Dizziness ##0 06/23/14 07/20/25 History multivitamin 1 tab PO DAILY #0 tabs 09/01/14 07/20/25 History nitroglycerin 0.3 mg sublingual 0.3 mg UT PRN #0 BTLS 09/01/14 07/20/25 History tablet (Nitrostat) bupropion HCl 75 mg tablet 75 mg PO DAILY #0 tabs 03/31/16 07/20/25 History furosemide 40 mg tablet 40 mg PO QAM #0 tabs 06/28/17 07/20/25 History potassium chloride 10 mEq 10 meq PO QAM ##0 06/28/17 07/20/25 History tablet,extended release (Klor-Con) ezetimibe 10 mg tablet 10 mg PO QPM 07/06/24 07/20/25 History rosuvastatin 40 mg tablet 40 mg PO QPM 07/06/24 07/20/25 History levothyroxine 125 mcg tablet 125 mcg PO DAILYBB #30 tabs 07/08/24 07/20/25 Rx (Synthroid) cholecalciferol (vitamin D3) 25 25 mcg PO DAILY 05/16/25 07/20/25 History mcg (1,000 unit) tablet magnesium 250 mg tablet 250 mg PO DAILY 05/16/25 07/20/25 History warfarin 5 mg tablet 0 mg PO DAILY 06/26/25 07/20/25 History enoxaparin 60 mg/0.6 mL 60 mg subcut Q12H 07/20/25 07/20/25 History subcutaneous syringe metoprolol succinate 25 mg 50 mg PO BID 07/20/25 07/20/25 History tablet,extended release 24 hr Past Med/Surg History Problem List (Updated 07/20/25 @ 17:06 by Latrice Espino PA-C) Small cell lung cancer Elevated brain natriuretic peptide (BNP) level (Acute) Acute dyspnea (Acute) Elevated troponin (Acute) Pleural effusion on left (Acute) Advanced care planning/counseling discussion Anxiety Stage 4 lung cancer Supraclavicular lymphadenopathy Lung mass Acute hypoxemic respiratory failure Hypoxia (Acute) Elevated troponin (Acute) Shortness of breath (Acute) Pleural effusion (Acute) Medical History (Updated 07/20/25 @ 17:06 by Latrice Espino PA-C) Atrial fibrillation with RVR Warfarin anticoagulation Mediastinal lymphadenopathy Hypothyroidism Atrial fibrillation Hypertension Subtherapeutic international normalized ratio (INR) Surgical History (Updated 07/20/25 @ 16:43 by Latrice Espino PA-C) H/O mechanical aortic valve replacement History of mitral valve replacement with mechanical valve Mechanical heart valve present Aortic and mitral valve. Family History (Updated 05/17/25 @ 14:37 by Guy Santacruz MD) Brother Status post lung transplantation Sister Chronic lung disease Other Family history non-contributory Social History (Updated 05/24/25 @ 10:48 by Abena Renteria RN) Smoking Status: Never smoker Tobacco Type: Cigarettes Age Started Using Tobacco: 22; Age Quit Using Tobacco: 65; Cigarettes Per Day: 1 pack; Hx Alcohol Use: No Hx Substance Use: No Preferred Language: Lao Communication Ability: Effective Spreader Required: No Beliefs That Will Affect Care: None Current Living Situation: Other Current Living Situation Comment: lives with friend Other Information That Helps Us Care for You: No Feels Safe at Home: Yes Safety Concerns: Feels Safe At This Time Assistive Devices: Wheelchair Review of Systems Review of Systems: All systems reviewed & are unremarkable except as noted in Subjective Physical Exam Physical Exam: General: appears uncomfortable, sitting up in bed with increased WOB and conversational dyspnea HEENT: no scleral icterus, slightly dry oral mucosa Neck: supple, trachea midline Heart: regular but tachycardic Lungs: diminished breath sounds left lung Abdomen: soft, NT, +BS Extremities: no pedal edema Skin: warm, dry, no cyanosis Neurologic: Ox3, no confusion or dysarthria Results & Data Results & Data Vital Signs (Past 12 Hours) Vital Signs Temp Pulse Resp BP Pulse Ox O2 Del Method O2 Flow Rate 07/20/25 11:50 Nasal Cannula 2 07/20/25 11:00 97/76 L 07/20/25 11:00 127 H 36 H 95 Nasal Cannula 2 07/20/25 10:30 135 H 25 H 98 Nasal Cannula 2 07/20/25 10:30 115/75 07/20/25 10:03 127 H 34 H 94 Nasal Cannula 2 07/20/25 10:02 101/60 07/20/25 09:48 137 H 32 H 94 07/20/25 09:30 137 H 38 H 91 07/20/25 09:30 104/73 07/20/25 09:21 100 Nasal Cannula 3 07/20/25 09:00 100/77 07/20/25 09:00 100/77 07/20/25 09:00 138 H 28 H 98 Nasal Cannula 3 07/20/25 08:30 101/76 07/20/25 08:30 139 H 40 H 100 Nasal Cannula 3 07/20/25 08:21 129 H 07/20/25 08:00 128 H 29 H 99 Nasal Cannula 3 07/20/25 08:00 95/76 L 07/20/25 07:36 129 H 35 H 96 Nasal Cannula 3 07/20/25 07:36 36.4 C L 128 H 22 107/72 98 Nasal Cannula 3 07/20/25 07:34 107/72 Laboratory Results Lab Results 07/20/25 07/20/25 07/20/25 Range/Units 07:20 07:47 10:16 WBC 9.53 (4.8-10.8) K/ul RBC 3.55 L (4.20-5.40) M/uL Hgb 9.6 L (12.0-16.0) g/dL Hct 31.9 L (37.0-47.0) % MCV 89.9 (80.0-100.0) fL MCH 27.0 (25.0-34.0) pg MCHC 30.1 L (32.0-36.0) g/dL RDW Std Deviation 53.4 H (36.4-46.3) fL RDW Coeff of Mitul 16.4 H (11.5-14.5) % Plt Count 375 (130-400) K/uL MPV 11.7 (9.4-12.4) fL Immature Gran % (Auto) 0.4 % Neut % (Auto) 74.7 % Lymph % (Auto) 10.7 % Amite % (Auto) 10.9 % Eos % (Auto) 2.0 % Baso % (Auto) 1.3 % Neut # (Auto) 7.12 H (1.40-6.50) K/uL Lymph # (Auto) 1.02 L (1.20-3.40) K/uL Amite # (Auto) 1.04 H (0.11-0.59) K/uL Eos # (Auto) 0.19 (0.00-0.50) K/uL Baso # (Auto) 0.12 (0.00-0.20) K/uL Immature Gran # (Auto) 0.04 (0.01-0.20) K/uL PT 13.0 H (9.0-12.0) Seconds INR 1.2 H (0.9-1.1) VBG pH 7.39 (7.36-7.41) VBG pCO2 60 H (38-50) mmHg VBG pO2 < 20 mmHg VBG HCO3 36 mmol/L VBG O2 Saturation < 60.0 % VBG Base Excess 10.0 mEq/L Sodium 137 (136-145) mmol/L Potassium 4.4 (3.5-5.1) mmol/L Chloride 94 L (98-107) mmol/L Carbon Dioxide 37 H (21-32) mmol/L Anion Gap 6 (3-11) BUN 26 H (6-23) mg/dl Creatinine 1.67 H (0.6-1.2) mg/dl Est Cr Clr Drug Dosing 29.4 ml/min eGFR 34.00 BUN/Creatinine Ratio 15.6 (10-20) Glucose 143 H (70-99(Fasting)) mg/dl Calcium 9.4 (8.6-10.3) mg/dl Magnesium 2.4 (1.7-2.4) mg/dl Total Bilirubin 0.7 (0.2-1.0) mg/dl AST 41 H (13-39) U/L ALT 24 (7-52) U/L Alkaline Phosphatase 66 (34-104) U/L Troponin I High Sens 14.7 H (0-14) pg/ml B-Natriuretic Peptide 325 H (0-100) pg/ml Total Protein 8.3 (6.0-8.3) gm/dl Albumin 3.8 (3.4-5.0) gm/dl Globulin 4.5 H (2.5-4.0) gm/dl Albumin/Globulin Ratio 0.8 L (0.9-2) Adenovirus (PCR) Not Detected (NotDetected) B. pertussis DNA (PCR) Not Detected (NotDetected) B.parapertussis DNA PCR Not Detected (NotDetected) C. pneumoniae DNA (PCR) Not Detected (NotDetected) Coronavirus OC43 (PCR) Not Detected (NotDetected) Coronavirus HKU1 (PCR) Not Detected (NotDetected) Coronavirus 229E (PCR) Not Detected (NotDetected) SARS-CoV-2 (PCR) Not Detected (NotDetected) Coronavirus NL63 (PCR) Not Detected (NotDetected) Human Metapneumovir PCR Not Detected (NotDetected) Influenza Type A (PCR) Not Detected (NotDetected) Influenza Type B (PCR) Not Detected (NotDetected) M. pneumoniae (PCR) Not Detected (NotDetected) Parainfluenza 1 (PCR) Not Detected (NotDetected) Parainfluenza 2 (PCR) Not Detected (NotDetected) Parainfluenza 3 (PCR) Not Detected (NotDetected) Parainfluenza 4 (PCR) Not Detected (NotDetected) RSV (PCR) Not Detected (NotDetected) Entero/Rhino (PCR) Not Detected (NotDetected) Diagnostic Findings Chest X-Ray 07/20/25 07:30 EXAM: XR chest 1V portable CLINICAL HISTORY: Dyspnea TECHNIQUE: An X-ray image of the chest is obtained in AP projection. COMPARISON: 06/26/2025 CT angio chest and cxr reviewed. FINDINGS: Pulmonary Parenchyma: Complete opacification of the left hemithorax likely gross pleural effusion with underlying lung collapse-consolidation, unchanged. Blunting of the right costophrenic angle likely mild pleural effusion. Interval progression of interstitial thickening and haziness in the right lower zone. Heart and Mediastinum: Heart size and shape are normal. No mediastinal widening or masses. No hilar or mediastinal lymphadenopathy. Suggestion of prosthetic cardiac valves, unchanged. Bony Thorax: Bony thorax appears intact without fractures or deformities. Soft Tissues: Midline sternotomy sutures redemonstrated. Surgical clips are also noted in the midline in the epigastric region. Soft tissues overlying the chest wall are unremarkable. IMPRESSION: 1. Complete opacification of the left hemithorax likely gross pleural effusion with underlying lung collapse-consolidation, unchanged. 2. Blunting of the right costophrenic angle likely mild pleural effusion, unchanged. 3. Interval progression of interstitial thickening and haziness in the right lower zone. 4. Clinical correlation is suggested. Electronically signed by Ryan Ureña 07-20-2025 08:[address] 07/20/25 08:47 CT SCAN OF THE CHEST WITHOUT IV CONTRAST CLINICAL HISTORY: Abnormal chest x-ray. Opacified left hemithorax. COMPARISON STUDY: Prior chest CT scans, most recently dated 06/26/2025. Chest x- ray dated 07/20/2025. PET/CT dated 06/10/2025. TECHNIQUE: CT scan of the thorax was performed from the thoracic inlet to the upper abdomen. Images are reviewed in the axial, sagittal, and coronal planes. IV contrast was not administered for this examination as per the referring clinician. A dose lowering technique was utilized adhering to the principles of ALARA. The examination is degraded by motion artifact, as well as by streak artifact from the arms which could not be elevated above the chest. CT DOSE: 539.95 mGy.cm FINDINGS: Thyroid: Atrophic. Thoracic aorta: There is atherosclerotic calcification of the thoracic aorta, which is normal in caliber and demonstrates standard 3-vessel arch anatomy. 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 Epicardial leads are in place. The heart is enlarged and without pericardial effusion. There is diffuse attenuation of the cardiac blood pool is compared to myocardium suggesting anemia. Lungs and pleural spaces: There is diffuse intralobular septal thickening. There is a large left pleural effusion with near complete atelectasis/consolidation of the left lung. This is similar in appearance to 06/26/2025 examination. A small superior segment of the left lower lobe remains aerated. There is a small to moderate right pleural effusion with atelectasis of the right lower lung. This has increased from 06/26/2025. The trachea and central airways are patent. There are numerous irregular nodular airspace opacities now seen throughout the right lung and within the partially aerated left lower lobe. Lower neck: There is bulky supraclavicular lymphadenopathy, left-sided greater than right. A left sided shannon aggregate on image #36 measures approximately 6 x 3 cm. Mediastinum: There is bulky mediastinal lymphadenopathy. A subcarinal node on image #90 measures approximately 6 x 4 cm. Precarinal nodes measure up to 1.6 cm short axis, and a high right paratracheal node on image #66 measures 3.4 x 2.2 cm. A 3.5 x 2.3 cm node is seen above the hiatus. Amber: There is hilar lymphadenopathy. The nodes are not well delineated without IV contrast. Axillae: There is no axillary lymphadenopathy. Upper abdomen: There are calcified splenic granulomas. Partially visualized upper abdominal viscera is otherwise grossly unremarkable. Skeletal structures: The skeletal structures are osteopenic. Degenerative change and hyperkyphosis is noted in the thoracic spine. No lytic or blastic bony lesions are seen. IMPRESSION: 1. There is a large left pleural effusion with near complete atelectasis/consolidation of left lung. A small portion of the superior left lower lobe remains aerated and this is similar to 06/26/2025. An underlying mass within the collapsed left lung would be impossible to exclude. 2. There is a [id number] right pleural effusion with dependent atelectasis. This has increased from 06/26/2025. 3. Bulky supraclavicular, mediastinal, and hilar lymphadenopathy is similar in appearance to prior studies correlate with gynecological history. 4. Cardiomegaly with evidence of fluid overload/congestive failure. 5. There are numerous patchy nodular airspace opacities throughout both lungs which are new from 06/26/2025. This may be infectious/inflammatory, or could represent pulmonary edema. Neoplastic involvement is considered less likely but not excluded. Attention at follow-up will be required. 6. Additional findings as above. ACT 112: Negative or not required by law. Code Status & VTE Plan VTE Prophylaxis Plan VTE Prophylaxis will be ordered: Yes Supervising Physician Co-Signing Physician Notes Attending addendum: The patient was seen and examined in the emergency room She is recently diagnosed with high-grade neuroendocrine carcinoma consistent with small cell carcinoma 07/05/25 She has been having recurrent pleural effusion and shortness of breath for some time She is a status post thoracentesis of 1 L from left side today and feeling clinically better since then Denies any significant pain, no abdominal pain nausea no vomiting, no fever no chills does not have any problem with urinary or bowel habit On examination Lying in bed with mild to moderate respiratory distress Noted to be tachycardic with 125, afebrile and low blood pressure at 97/76 and remains afebrile Chestdecreased breath sounds left side HeartS1-S2 ,irregular with 2/6 ESM and prosthetic heart sound Abdomenbenign Extremitiesno edema CNSAlert, awake and oriented. generally very weak and lethargic Her labs, EKG and imaging studies reviewed Significant finding was complete whiteout of the left lung due to effusion Significant weight loss She underwent urgent thoracentesis by IR and was only 1 L of fluid taken out and that was stopped due to ongoing pain Patient is aware about her diagnosis of neuroendocrine carcinoma and with a very poor prognosis Will continue with the current management and pain medications as needed She will be seen by the auto leasing manager and possible PleurX catheter placement Her other significant medical conditions remained stable as above Agree with assessment and plan as outlined above by Ana Espino PA-C and take the full responsibility of care in the hospital Total time taken to seeing the patient, examining her, reviewing chart and the medications and also the investigations, and planning management was [address] [place] Dalton (2) Small cell lung cancer Laterality: left Lung location: unspecified part of lung Qualified Code(s): C34.92 - Malignant neoplasm of unspecified part of left bronchus or lung (4) Atrial fibrillation Atrial fibrillation type: permanent Qualified Code(s): I48.21 - Permanent atrial fibrillation (5) Hypothyroidism Hypothyroidism type: unspecified Qualified Code(s): E03.9 - Hypothyroidism, unspecified (7) Hypertension Hypertension type: unspecified Qualified Code(s): I10 - Essential (primary) hypertension
--- NOTE | 2025-07-20 12:38 | XRay Report ---
IR thoracentesis wo tube US, XR chest 1V not portable CLINICAL HISTORY: L large pleural effusion COMPARISON STUDY: CT earlier today Technique: After the procedure was discussed and questions answered, consent was obtained. Patient wa s positioned seated upright. Left back was prepped and draped in standard sterile fashion. 1% lidocai ne was used for local anesthesia. Under ultrasound guidance, a thoracentesis catheter was advanced in to the large left pleural effusion. 1 L of serosanguineous fluid was withdrawn. Drainage was stopped at the point that the patient had chest pain and requested that the drainage be stopped. Catheter was removed. Hemostasis was obtained with manual compression. Sterile dressing was applied. Postprocedure chest x-ray shows no pneumothorax. There is a moderate to large residual left pleural e ffusion with associated pulmonary consolidation. IMPRESSION: Left thoracentesis. ACT 112: Negative or not required by law. Electronically signed by: Ray Ferro M.D. 07/20/2025 12:35 PM
--- NOTE | 2025-07-20 13:10 | Electrocardiogram Report ---
Test Reason : Blood Pressure : */* mmHG Vent. Rate : 129 BPM Atrial Rate : * BPM P-R Int : * ms QRS Dur : 90 ms QT Int : 312 ms P-R-T Axes : * 92 71 degrees QTcB Int : 457 ms Supraventricular tachycardia Rightward axis Incomplete right bundle branch block Abnormal ECG When compared with ECG of 26-Jun-2025 12:50, ST elevation now present in Inferior leads Confirmed by Titi Vallejo ([id number]) on 07/20/2025 1:09:54 PM Referred By: Confirmed By: Titi Vallejo
[2025-07-20] MEDS ORDERED: MECLIZINE HCL 25 MG TAB PO PRN (14:28)
--- NOTE | 2025-07-20 16:20 | Pulmonary Consultation ---
Date of Consultation July 20, 2025 Assessment & Plan (1) Small cell lung cancer: (2) Acute dyspnea: (3) Pleural effusion on left: Plan Impression: 65-year-old female with reported history of extensive stage small cell lung cancer (pathology not available to review but reportedly was performed at [facility]. She has a pleural effusion which is partly sympathetic in nature due to significant replacement of the entire left upper lobe with tumor as well as probable bronchial obstruction. Recommendations: 1. Small cell lung cancer: Please get pathology reports from [facility] scanned into our system for review. The patient's care is fragmented by receiving care through multiple different specialties and delayed as it has been over 2 months since her initial presentation. At this point in time, her performance status would likely pursue include cytotoxic chemotherapy I do not see a role for radiation therapy. If staging is not been completed to include MRI of the brain, this would be recommended. She has been seen by palliative care medicine here here previously and would recommend reengaging them to determine goals of therapy. Life expectancy with malignant effusions which are untreated with small cell lung cancer typically are on the order of 4 months or less and given that the patient is already 2 months out from her initial presentation, I would suspect without ongoing therapy her current survival would be estimated in weeks to months. This was communicated to the patient and she states I was the first provider to actually provide this information to her. I suspect that she has limited insight and understanding into her disease process. Agree with DNR/DNI status. 2. Pleural effusion: Effusion was drained today and the patient received some mild benefit. PleurX catheter could be placed although I suspect the patient's dyspnea is more likely related to the replacement of pulmonary parenchyma with tumor and drainage of the pleural fluid is unlikely to provide significant symptom improvement and definitely will not provide any long-term mortality benefit. She was on therapeutic Lovenox prior to presentation which has been held. This will need to be held for at least 24 hours before considering any additional invasive procedures. Will visit with her tomorrow to assess whether or not she wants to pursue any additional invasive pulmonary procedures. 3. Hypoxemic respiratory failure: Secondary to #1 and #2. Continue supplementa l oxygen moving forward. History of Present Illness Attending Physician: Greer Dalton MD History of Present Illness Asked by hospitalist to assist in evaluation management this patient with Cecilio malignant effusion and extensive small cell lung cancer. Patient has been followed by Dr. Connelly in the outpatient setting. The patient is a 65-year-old female with a history of biopsy-proven non-small cell lung cancer. She was biopsied at [place] so we do not have her pathology reports here available to review. She has been seen by [facility] and was told that therapy would be palliative however has not been initiated. It has been over 2 months since her initial presentation. She was seen at [place] for thoracentesis recently and there was apparently discussion about a PleurX catheter placement. She has complete replacement of the left upper lobe with tumor and a associated sympathetic effusion. She became more short of breath and presented to the emergency room today. Chest x-ray demonstrated opacification of the left hemithorax. Patient was sent to radiology where a thoracentesis was performed. There was removal of about a liter of fluid at which point time the patient developed chest pain and requested termination of the procedure. She has been admitted to the hospitalist for additional evaluation. The patient seen and examined on the medical floor. She states she is unclear whether the thoracentesis actually offer her much in the way of clinical benefit. She has not made a decision regarding chemotherapy. She has not met with palliative care or hospice. Unclear whether her staging has been complete d. Allergies Allergy/AdvReac Type Severity Reaction Status Date / Time Quinolones Allergy Intermediate HIVES Verified 07/19/25 10:05 cyclobenzaprine Allergy Mild Verified 07/19/25 10:05 amitriptyline Allergy Unknown UNKNOWN Verified 07/19/25 10:05 Home Medications Medication Instructions Recorded Confirmed Type meclizine 25 mg tablet 25 mg PO QPM PRN Dizziness ##0 06/23/14 07/20/25 History multivitamin 1 tab PO DAILY #0 tabs 09/01/14 07/20/25 History nitroglycerin 0.3 mg sublingual 0.3 mg UT PRN #0 BTLS 09/01/14 07/20/25 History tablet (Nitrostat) bupropion HCl 75 mg tablet 75 mg PO DAILY #0 tabs 03/31/16 07/20/25 History furosemide 40 mg tablet 40 mg PO QAM #0 tabs 06/28/17 07/20/25 History potassium chloride 10 mEq 10 meq PO QAM ##0 06/28/17 07/20/25 History tablet,extended release (Klor-Con) ezetimibe 10 mg tablet 10 mg PO QPM 07/06/24 07/20/25 History rosuvastatin 40 mg tablet 40 mg PO QPM 07/06/24 07/20/25 History levothyroxine 125 mcg tablet 125 mcg PO DAILYBB #30 tabs 07/08/24 07/20/25 Rx (Synthroid) cholecalciferol (vitamin D3) 25 25 mcg PO DAILY 05/16/25 07/20/25 History mcg (1,000 unit) tablet magnesium 250 mg tablet 250 mg PO DAILY 05/16/25 07/20/25 History warfarin 5 mg tablet 0 mg PO DAILY 06/26/25 07/20/25 History enoxaparin 60 mg/0.6 mL 60 mg subcut Q12H 07/20/25 07/20/25 History subcutaneous syringe metoprolol succinate 25 mg 50 mg PO BID 07/20/25 07/20/25 History tablet,extended release 24 hr Patient History Medical History Mediastinal lymphadenopathy Hypothyroidism Atrial fibrillation Hypertension Subtherapeutic international normalized ratio (INR) Surgical History Mechanical heart valve present Aortic and mitral valve. Family History (Updated 05/17/25 @ 14:37 by Guy Santacruz MD) Brother Status post lung transplantation Sister Chronic lung disease Other Family history non-contributory Social History (Updated 05/24/25 @ 10:48 by Abena Renteria RN) Smoking Status: Never smoker Tobacco Type: Cigarettes Age Started Using Tobacco: 22; Age Quit Using Tobacco: 65; Cigarettes Per Day: 1 pack; Hx Alcohol Use: No Hx Substance Use: No Preferred Language: [place] Communication Ability: Effective Mud Jack Operator Required: No Beliefs That Will Affect Care: None Current Living Situation: Other Current Living Situation Comment: lives with friend Other Information That Helps Us Care for You: No Feels Safe at Home: Yes Safety Concerns: Feels Safe At This Time Assistive Devices: Wheelchair Review of Systems Review of Systems: Please refer to admission H&P. No additions or deletions Physical Exam Constitutional: + ill appearing, + frail appearing, + in distress and + underweight Eyes: + anicteric sclerae and PERRL ENMT: Ears: + hearing impairment Mouth: + muffled voice, + dental caries, + poor dentition and + chipped teeth Neck: trachea midline, no thyromegaly Respiratory: + respiratory distress, + uses accessory muscles, + cough and able to speak in complete sentences Auscultation: + diminished lung sounds, + crackles and + rhonchi Cardiovascular: Rate/Rhythm: + tachycardic and + irregularly irregular Gastrointestinal (Abdomen): Inspection/Auscultation: abdomen normal to inspection Percussion/Palpation: abdomen soft Musculoskeletal: gen weakness Skin: + turgor decreased and + pallor Psychiatric: Estimated Intelligence: consistent with education level Insight: + limited insight Judgment: + limited judgement Results & Data Results & Data Vital Signs (Past 12 Hours) Vital Signs Temp Pulse Pulse Resp BP BP Pulse Ox 07/20/25 15:00 126 H 07/20/25 14:46 07/20/25 14:46 36.4 C L 103 H 22 99/68 L 96 07/20/25 14:28 07/20/25 14:11 07/20/25 12:49 125 H 07/20/25 11:50 07/20/25 11:00 97/76 L 07/20/25 11:00 127 H 36 H 95 07/20/25 10:30 135 H 25 H 98 07/20/25 10:30 115/75 07/20/25 10:03 127 H 34 H 94 07/20/25 10:02 101/60 07/20/25 09:48 137 H 32 H 94 07/20/25 09:30 137 H 38 H 91 07/20/25 09:30 104/73 07/20/25 09:21 100 07/20/25 09:00 100/77 07/20/25 09:00 100/77 07/20/25 09:00 138 H 28 H 98 07/20/25 08:30 101/76 07/20/25 08:30 139 H 40 H 100 07/20/25 08:21 129 H 07/20/25 08:00 128 H 29 H 99 07/20/25 08:00 95/76 L 07/20/25 07:36 129 H 35 H 96 07/20/25 07:36 36.4 C L 128 H 22 107/72 98 07/20/25 07:34 107/72 Pulse Ox O2 Del Method O2 Del Method O2 Flow Rate O2 Flow Rate 07/20/25 15:00 07/20/25 14:46 Nasal Cannula 2 07/20/25 14:46 Nasal Cannula 2 07/20/25 14:28 96 Nasal Cannula 2 07/20/25 14:11 Nasal Cannula 2 07/20/25 12:49 07/20/25 11:50 Nasal Cannula 2 07/20/25 11:00 07/20/25 11:00 Nasal Cannula 2 07/20/25 10:30 Nasal Cannula 2 07/20/25 10:30 07/20/25 10:03 Nasal Cannula 2 07/20/25 10:02 07/20/25 09:48 07/20/25 09:30 07/20/25 09:30 07/20/25 09:21 Nasal Cannula 3 07/20/25 09:00 07/20/25 09:00 07/20/25 09:00 Nasal Cannula 3 07/20/25 08:30 07/20/25 08:30 Nasal Cannula 3 07/20/25 08:21 07/20/25 08:00 Nasal Cannula 3 07/20/25 08:00 07/20/25 07:36 Nasal Cannula 3 07/20/25 07:36 Nasal Cannula 3 07/20/25 07:34 Critical Care Results & Data Vital Signs (Past 12 Hours) Vital Signs Temp Pulse Pulse Resp BP BP Pulse Ox 07/20/25 15:00 126 H 07/20/25 14:46 07/20/25 14:46 36.4 C L 103 H 22 99/68 L 96 07/20/25 14:28 07/20/25 14:11 07/20/25 12:49 125 H 07/20/25 11:50 07/20/25 11:00 97/76 L 07/20/25 11:00 127 H 36 H 95 07/20/25 10:30 135 H 25 H 98 07/20/25 10:30 115/75 07/20/25 10:03 127 H 34 H 94 07/20/25 10:02 101/60 07/20/25 09:48 137 H 32 H 94 07/20/25 09:30 137 H 38 H 91 07/20/25 09:30 104/73 07/20/25 09:21 100 07/20/25 09:00 100/77 07/20/25 09:00 100/77 07/20/25 09:00 138 H 28 H 98 07/20/25 08:30 101/76 07/20/25 08:30 139 H 40 H 100 07/20/25 08:21 129 H 07/20/25 08:00 128 H 29 H 99 07/20/25 08:00 95/76 L 07/20/25 07:36 129 H 35 H 96 07/20/25 07:36 36.4 C L 128 H 22 107/72 98 07/20/25 07:34 107/72 Pulse Ox O2 Del Method O2 Del Method O2 Flow Rate O2 Flow Rate 07/20/25 15:00 07/20/25 14:46 Nasal Cannula 2 07/20/25 14:46 Nasal Cannula 2 07/20/25 14:28 96 Nasal Cannula 2 07/20/25 14:11 Nasal Cannula 2 07/20/25 12:49 07/20/25 11:50 Nasal Cannula 2 07/20/25 11:00 07/20/25 11:00 Nasal Cannula 2 07/20/25 10:30 Nasal Cannula 2 07/20/25 10:30 07/20/25 10:03 Nasal Cannula 2 07/20/25 10:02 07/20/25 09:48 07/20/25 09:30 07/20/25 09:30 07/20/25 09:21 Nasal Cannula 3 07/20/25 09:00 07/20/25 09:00 07/20/25 09:00 Nasal Cannula 3 07/20/25 08:30 07/20/25 08:30 Nasal Cannula 3 07/20/25 08:21 07/20/25 08:00 Nasal Cannula 3 07/20/25 08:00 07/20/25 07:36 Nasal Cannula 3 07/20/25 07:36 Nasal Cannula 3 07/20/25 07:34 Lab & Micro Results (Past 24 Hours) RBC 3.55 M/uL (4.20-5.40) L 07/20/25 WBC 9.53 K/ul (4.8-10.8) 07/20/25 Hgb 9.6 g/dL (12.0-16.0) L 07/20/25 Hct 31.9 % (37.0-47.0) L 07/20/25 MCV 89.9 fL (80.0-100.0) 07/20/25 MCH 27.0 pg (25.0-34.0) 07/20/25 MCHC 30.1 g/dL (32.0-36.0) L 07/20/25 RDW Standard Deviation 53.4 fL (36.4-46.3) H 07/20/25 RDW Coefficient of Variation 16.4 % (11.5-14.5) H 07/20/25 Plt Count 375 K/uL (130-400) 07/20/25 MPV 11.7 fL (9.4-12.4) 07/20/25 Neutrophils (%) (Auto) 74.7 % 07/20/25 Lymphocytes (%) (Auto) 10.7 % 07/20/25 Monocytes # (Auto) 1.04 K/uL (0.11-0.59) H 07/20/25 Eosinophils # (Auto) 0.19 K/uL (0.00-0.50) 07/20/25 Immature Granulocyte % (Auto) 0.4 % 07/20/25 Neutrophils # (Auto) 7.12 K/uL (1.40-6.50) H 07/20/25 Lymphocytes # (Auto) 1.02 K/uL (1.20-3.40) L 07/20/25 Monocytes # (Auto) 1.04 K/uL (0.11-0.59) H 07/20/25 Eosinophils # (Auto) 0.19 K/uL (0.00-0.50) 07/20/25 Basophils # (Auto) 0.12 K/uL (0.00-0.20) 07/20/25 Immature Granulocyte # (Auto) 0.04 K/uL (0.01-0.20) 5 Na 137 mmol/L (136-145) 07/20/25 K 4.4 mmol/L (3.5-5.1) 07/20/25 Cl 94 mmol/L (98-107) L 07/20/25 CO2 37 mmol/L (21-32) H 07/20/25 Anion Gap 6 (3-11) 07/20/25 BUN 26 mg/dl (6-23) H 07/20/25 Creatinine 1.67 mg/dl (0.6-1.2) H 07/20/25 BUN/Creatinine Ratio 15.6 (10-20) 07/20/25 Glu 143 mg/dl (70-99(Fasting)) H 07/20/25 Ca 9.4 mg/dl (8.6-10.3) 07/20/25 Total Bilirubin 0.7 mg/dl (0.2-1.0) 07/20/25 AST 41 U/L (13-39) H 07/20/25 ALT 24 U/L (7-52) 07/20/25 Alkaline Phosphatase 66 U/L (34-104) 07/20/25 TP 8.3 gm/dl (6.0-8.3) 07/20/25 Albumin 3.8 gm/dl (3.4-5.0) 07/20/25 Globulin 4.5 gm/dl (2.5-4.0) H 07/20/25 Albumin/Globulin Ratio 0.8 (0.9-2) L 07/20/25 Mg 2.4 mg/dl (1.7-2.4) 07/20/25 07:20 Calcium Level 9.4 mg/dl (8.6-10.3) 07/20/25 07:20 Prothromb Time International Ratio 1.2 (0.9-1.1) H 07/20/25 07 :20 Venous Blood pH 7.39 (7.36-7.41) 07/20/25 07:47 Venous Blood Partial Pressure CO2 60 mmHg (38-50) H 07/20/25 07 :47 Venous Blood Partial Pressure O2 < 20 mmHg 07/20/25 07:47 Venous Blood HCO3 36 mmol/L 07/20/25 07:47 Venous Blood Base Excess 10.0 mEq/L 07/20/25 07:47 Venous Blood Oxygen Saturation < 60.0 % 07/20/25 07:47 Diagnostic Findings (Past 24 Hours) Chest X-Ray 07/20/25 07:30 EXAM: XR chest 1V portable CLINICAL HISTORY: Dyspnea TECHNIQUE: An X-ray image of the chest is obtained in AP projection. COMPARISON: 06/26/2025 CT angio chest and cxr reviewed. FINDINGS: Pulmonary Parenchyma: Complete opacification of the left hemithorax likely gross pleural effusion with underlying lung collapse-consolidation, unchanged. Blunting of the right costophrenic angle likely mild pleural effusion. Interval progression of interstitial thickening and haziness in the right lower zone. Heart and Mediastinum: Heart size and shape are normal. No mediastinal widening or masses. No hilar or mediastinal lymphadenopathy. Suggestion of prosthetic cardiac valves, unchanged. Bony Thorax: Bony thorax appears intact without fractures or deformities. Soft Tissues: Midline sternotomy sutures redemonstrated. Surgical clips are also noted in the midline in the epigastric region. Soft tissues overlying the chest wall are unremarkable. IMPRESSION: 1. Complete opacification of the left hemithorax likely gross pleural effusion with underlying lung collapse-consolidation, unchanged. 2. Blunting of the right costophrenic angle likely mild pleural effusion, unchanged. 3. Interval progression of interstitial thickening and haziness in the right lower zone. 4. Clinical correlation is suggested. Electronically signed by Ryan Ureña 07-20-2025 08:[address] 07/20/25 08:47 CT SCAN OF THE CHEST WITHOUT IV CONTRAST CLINICAL HISTORY: Abnormal chest x-ray. Opacified left hemithorax. COMPARISON STUDY: Prior chest CT scans, most recently dated 06/26/2025. Chest x- ray dated 07/20/2025. PET/CT dated 06/10/2025. TECHNIQUE: CT scan of the thorax was performed from the thoracic inlet to the upper abdomen. Images are reviewed in the axial, sagittal, and coronal planes. IV contrast was not administered for this examination as per the referring clinician. A dose lowering technique was utilized adhering to the principles of ALARA. The examination is degraded by motion artifact, as well as by streak artifact from the arms which could not be elevated above the chest. CT DOSE: 539.95 mGy.cm FINDINGS: Thyroid: Atrophic. Thoracic aorta: There is atherosclerotic calcification of the thoracic aorta, which is normal in caliber and demonstrates standard 3-vessel arch anatomy. 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 Epicardial leads are in place. The heart is enlarged and without pericardial effusion. There is diffuse attenuation of the cardiac blood pool is compared to myocardium suggesting anemia. Lungs and pleural spaces: There is diffuse intralobular septal thickening. There is a large left pleural effusion with near complete atelectasis/consolidation of the left lung. This is similar in appearance to 06/26/2025 examination. A small superior segment of the left lower lobe remains aerated. There is a small to moderate right pleural effusion with atelectasis of the right lower lung. This has increased from 06/26/2025. The trachea and central airways are patent. There are numerous irregular nodular airspace opacities now seen throughout the right lung and within the partially aerated left lower lobe. Lower neck: There is bulky supraclavicular lymphadenopathy, left-sided greater than right. A left sided shannon aggregate on image #36 measures approximately 6 x 3 cm. Mediastinum: There is bulky mediastinal lymphadenopathy. A subcarinal node on image #90 measures approximately 6 x 4 cm. Precarinal nodes measure up to 1.6 cm short axis, and a high right paratracheal node on image #66 measures 3.4 x 2.2 cm. A 3.5 x 2.3 cm node is seen above the hiatus. Amber: There is hilar lymphadenopathy. The nodes are not well delineated without IV contrast. Axillae: There is no axillary lymphadenopathy. Upper abdomen: There are calcified splenic granulomas. Partially visualized upper abdominal viscera is otherwise grossly unremarkable. Skeletal structures: The skeletal structures are osteopenic. Degenerative change and hyperkyphosis is noted in the thoracic spine. No lytic or blastic bony lesions are seen. IMPRESSION: 1. There is a large left pleural effusion with near complete atelectasi s/consolidation of left lung. A small portion of the superior left lower lobe remains aerated and this is similar to 06/26/2025. An underlying mass within the collapsed left lung would be impossible to exclude. 2. There is a [id number] right pleural effusion with dependent atelectasis. This has increased from 06/26/2025. 3. Bulky supraclavicular, mediastinal, and hilar lymphadenopathy is similar in appearance to prior studies correlate with gynecological history. 4. Cardiomegaly with evidence of fluid overload/congestive failure. 5. There are numerous patchy nodular airspace opacities throughout both lungs which are new from 06/26/2025. This may be infectious/inflammatory, or could r epresent pulmonary edema. Neoplastic involvement is considered less likely but not excluded. Attention at follow-up will be required. 6. Additional findings as above. ACT 112: Negative or not required by law. Electronically signed by: Cali Mcpherson M.D. 07/20/2025 10:22 AM Thoracentesis/Paracentesis US 07/20/25 11:30 IR thoracentesis wo tube US, XR chest 1V not portable CLINICAL HISTORY: L large pleural effusion COMPARISON STUDY: CT earlier today Technique: After the procedure was discussed and questions answered, consent was obtained. Patient was positioned seated upright. Left back was prepped and draped in standard sterile fashion. 1% lidocaine was used for local anesthesia. Under ultrasound guidance, a thoracentesis catheter was advanced into the large left pleural effusion. 1 L of serosanguineous fluid was withdrawn. Drainage was stopped at the point that the patient had chest pain and requested that the drainage be stopped. Catheter was removed. Hemostasis was obtained with manual compression. Sterile dressing was applied. Postprocedure chest x-ray shows no pneumothorax. There is a moderate to large residual left pleural effusion with associated pulmonary consolidation. IMPRESSION: Left thoracentesis. ACT 112: Negative or not required by law. Electronically signed by: Ray Ferro M.D. 07/20/2025 12:35 PM Chest X-Ray 07/20/25 12:14 IR thoracentesis wo tube US, XR chest 1V not portable CLINICAL HISTORY: L large pleural effusion COMPARISON STUDY: CT earlier today Technique: After the procedure was discussed and questions answered, consent was obtained. Patient was positioned seated upright. Left back was prepped and draped in standard sterile fashion. 1% lidocaine was used for local anesthesia. Under ultrasound guidance, a thoracentesis catheter was advanced into the large left pleural effusion. 1 L of serosanguineous fluid was withdrawn. Drainage was stopped at the point that the patient had chest pain and requested that the drainage be stopped. Catheter was removed. Hemostasis was obtained with manual compression. Sterile dressing was applied. Postprocedure chest x-ray shows no pneumothorax. There is a moderate to large residual left pleural effusion with associated pulmonary consolidation. IMPRESSION: Left thoracentesis. ACT 112: Negative or not required by law. Electronically signed by: Ray Ferro M.D. 07/20/2025 12:35 PM RT Ventilator Mngmt (Last Documented) Ventilator Ordered Settings Respiratory Rate 22 11/25/25 14:46 Ventilator - PT Measurements Respiratory Rate 22 PG Care Time/CCT Total # of Minutes Spent Total Time Spent with Patient: Total time spent is greater than 50% in coordination of care (as documented) at patient's floor/unit and/or counseling patient: Coding Level of Care Code 76827 INT INP/OBS CARE 3/75MIN Diagnoses Small cell lung cancer C34.90 Acute dyspnea R06.00 Pleural effusion on left J90
[2025-07-20] MEDS: ENOXAPARIN INJ 60 MG/0.6 ML SYR SQ SCH (20:23)
[2025-07-20] MEDS: METOPROLOL SUCC 50MG EXT REL TAB PO SCH (20:24)
[2025-07-20] MEDS: EZETIMIBE 10 MG TAB PO SCH (20:24)
[2025-07-20] MEDS: ROSUVASTATIN CALCIUM 20 MG TAB PO SCH (20:24)
[2025-07-20] MEDS: ACETAMINOPHEN 325 MG TAB PO PRN (22:39)
[2025-07-21 04:41] VITALS: TEMP 97.3
[2025-07-21 06:11] LABS: Hematocrit (blood only) 28.1 % (37.0-47.0); Hemoglobin 8.6 g/dL (12.0-16.0); Immature Granulocytes # (auto) 0.04 K/uL (0.01-0.20); Immature Granulocytes % (auto) 0.4 %; Mean Corpuscular Hemoglobin 27.0 pg (25.0-34.0); Mean Corpuscular Volume 88.4 fL (80.0-100.0); Platelet Count 328 K/uL (130-400); RDW Standard Deviation 51.6 fL (36.4-46.3); Red Blood Count 3.18 M/uL (4.20-5.40); White Blood Count 9.35 K/ul (4.8-10.8)
[2025-07-21] MEDS: LEVOTHYROXINE SODIUM 125 MCG TABLET PO SCH (06:11)
[2025-07-21 06:26] LABS: Anion Gap 8.0 (3-11); Blood Urea Nitrogen 35.0 mg/dl (6-23); Calcium 9.0 mg/dl (8.6-10.3); Carbon Dioxide 32.0 mmol/L (21-32); Chloride 96.0 mmol/L (98-107); Creatinine Clr Calc Pharmacy 25.4 ml/min; Glucose 124.0 mg/dl (70-99(Fasting)); Potassium 4.1 mmol/L (3.5-5.1); Sodium 136.0 mmol/L (136-145)
[2025-07-21 06:38] LABS: INR 1.4 (0.9-1.1); Prothrombin Time 14.4 Seconds (9.0-12.0)
[2025-07-21] MEDS: MAGNESIUM OXIDE 400 MG TAB PO SCH (08:12)
[2025-07-21] MEDS: MULTIVITAMIN TAB PO SCH (08:12)
[2025-07-21] MEDS: POTASSIUM CHLORIDE 10 MEQ TABCR PO SCH (08:12)
[2025-07-21] MEDS: CHOLECALCIFEROL 25 MCG (1000 UNITS) TAB PO SCH (08:12)
[2025-07-21] MEDS: FUROSEMIDE 40 MG TAB PO SCH (08:12)
[2025-07-21 08:37] VITALS: RESP 16
--- NOTE | 2025-07-21 08:53 | Palliative Care Consultation ---
Date of Consultation July 21, 2025 Assessment & Plan (1) Shortness of breath: (2) Anxiety: (3) Back pain: Pt c/o subscapular back pain that she attributes to her posture/position in bed she assumes "to help her breath better". She shared that the OxyIR has been managing her pain well, but she developed acute N/V this morning after taking it on empty stomach. Pt developed N/V while I was visiting with her. Ordered zofran PRN and encouraged she take pain meds with food moving forward. CONTINUE Oxycodone HCl 5 mg PO Q4H PRN, take with food. (4) Advanced care planning/counseling discussion: Met with pt at bedside, no visitors present. For 40 minutes, we discussed at length the patient's acute and chronic medical conditions, general prognosis, treatment options, and goals of care. Yaneth shared that she lives with her S.Jarad Cavanaugh, she has one son who is in alf and three teenage grandchildren who live with their mother. She shared that she knows that she is dying and that 'one of the doctors" told her yesterday that she "might in a week". She shared that she does not want to undergo any cancer directed treatment for fear that it would only make her sicker. She stated that if she is dying she would want to be at home and "just make me comfortable and keep me from struggling to breathe". We discussed options for continued life prolonging therapies vs transition to comfort directed care. Discussed hospice benefit: an interdisciplinary program offered by nurses, nurses aides, social workers, chaplains and a medical pathology teacher for patients with a terminal condition and a life expectancy of less than 6 months. This is covered by Medicare at 100%/no out of pocket expense to patient and all meds/supplies needed by patient for the reason they are on hospice are paid for/covered by hospice. Hospice care focuses on quality of life when a cure is no longer possible, or the burdens of treatment outweigh the benefits. Discussed that they will not receive curative treatments, but will receive medicine that enhances quality of life, such as treatment for high blood pressure, rapid heart rate, or anxiety. Hospice care includes pain and symptom management, emotional support, medications and medical supplies, coaching for caregivers, and grief support when needed. Hospice also provides a 24/7 call service. Hospice care will also make short-term inpatient care available when pain or symptoms become too difficult to manage at home or when caregivers need respite time. Hospice care can be provided wherever the patient lives, includingpersonal care homes or nursing homes. Hospice care is provided by a team that focuses on the patients needs. Although hospice provides a lot of support, if the patient lives at home, the day-to-day care is provided by the [place] or paid home health aides. Yaneth shared that she would like to retrun home with hospice and her partner Afshan will be her slubber machine operator. With Yaneth's permission I made phone call to Afshan and spent additional 30 minutes reviewing all of this with her, all questions encouraged and answwered. Afshan is in agreement with plan and acceptant of slubber machine operator role. (5) Palliative care by specialist: Introduced Palliative Medicine and explained our role in advanced care planning, symptom management and navigation through the progression of life limiting disease. Patient is known to palliative care team as an outpt and receptive to palliative services for goals of care discussions. Reviewed we are different from hospice, a home health nurse visiting service. (6) Comfort measures only status: Comfort plan of care parameters: 1. Patient/Family want hospice added to their care. 2. NO rehab/PT/OT 3. Strictly End of Life care only 4. NO escalation of care: do not increase oxygen, escalate therapies, etc. The focus is on comfort through end of life, assure this is accomplished with aggressive symptom management (i.e. relief of dyspnea, pain, etc.) 5. NO return to hospital 6. NO labs, imaging, surgery 7. Oral intake as desired for comfort and pleasure: NO dietary restriction, Allow permissive aspiration, do not withhold food or drink for concern of aspiration and allow PO for pleasure and comfort. 8. If difficulty urinating/commode/bedpan, ok to place Daniel catheter for comfort/hygiene/skin protection AND/OR Continue Daniel catheter for co mfort/hygiene/skin protection 9. NO: calorie counts, artificial nutrition, feeding tubes or IV fluids EOL Symptom manamgement: Continue per primary Pain/dyspnea/tachypnea morphine 2mg IVP PRN [id number] for severe pain/dyspnea Consider titratable morphine drip if pt requires >3 PRN doses in under two consecutive hours. Nausea/vomitting zofran 4mg IVP q4h PRN Agitation ativan 0.5mg IVP q4h PRN Hyperactive delirium haldol 5mg IVP q6h PRN Secretions - if repositioning not effective robinul 0.4mg IV q4h PRN atropine SL 3 drops Q1h PRN Nursing care: Discontinue all medications not directed towards comfort. Detether pt from IV tubing, monitor cables, and check vitals once per shift. Please continue HFNC and titrate down as able for patient comfort. Use medications above PRN for dyspnea/tachypnea and do not increase oxygen once titrated down. Assess q1h for pain/dyspnea and treat accordingly. Plan AVIATION PROGRAM MANAGER, plan for discharge to home with hospice. CM aware and assisting in discharge planning. History of Present Illness Reason for Consultation: goals of care/ACP Requesting Physician: Andrei Mcgrath MD Attending Physician: Andrei Mcgrath MD History of Present Illness Ms Dietrich is a 65 y/o female with recently diagnosed metastatic small-cell lung cancer, recurrent pleural effusion, permanent atrial fibrillation, rheumatic heart disease s/p AVR and mechanical MVR on chronic warfarin, COPD, CKD3b, and other history as outlined below. She is known to palliative care team as an outpatient and saw oncology last week to discuss prognosis. She is not a candidate for XRT, the possibility of palliative chemo was discussed but pt unsure if she would like to proceed with chemo. She declined the MRI brain due to her inability to lie flat for the test. She presented to ED 07/20/25 with worsening shortness of breath and was referred for admission. She was admitted for management of her dyspnea, underwent pleurocentesis and is now returned to her baseline O2 requirement of 3L. PETCT 06/10/25 1. Hypermetabolic masses throughout the mediastinum, left hilum, and left lower neck consistent with malignancy. 2. Hypermetabolic osseous lesions at the right sacrum consistent with osseous metastatic disease. 3. No other abnormal uptake seen. Allergies Allergy/AdvReac Type Severity Reaction Status Date / Time Quinolones Allergy Intermediate HIVES Verified 07/19/25 10:05 cyclobenzaprine Allergy Mild Verified 07/19/25 10:05 amitriptyline Allergy Unknown UNKNOWN Verified 07/19/25 10:05 Home Medications Medication Instructions Recorded Confirmed Type meclizine 25 mg tablet 25 mg PO QPM PRN Dizziness ##0 06/23/14 07/20/25 History multivitamin 1 tab PO DAILY #0 tabs 09/01/14 07/20/25 History nitroglycerin 0.3 mg sublingual 0.3 mg UT PRN #0 BTLS 09/01/14 07/20/25 History tablet (Nitrostat) bupropion HCl 75 mg tablet 75 mg PO DAILY #0 tabs 03/31/16 07/20/25 History furosemide 40 mg tablet 40 mg PO QAM #0 tabs 06/28/17 07/20/25 History potassium chloride 10 mEq 10 meq PO QAM ##0 06/28/17 07/20/25 History tablet,extended release (Klor-Con) ezetimibe 10 mg tablet 10 mg PO QPM 07/06/24 07/20/25 History rosuvastatin 40 mg tablet 40 mg PO QPM 07/06/24 07/20/25 History levothyroxine 125 mcg tablet 125 mcg PO DAILYBB #30 tabs 07/08/24 07/20/25 Rx (Synthroid) cholecalciferol (vitamin D3) 25 25 mcg PO DAILY 05/16/25 07/20/25 History mcg (1,000 unit) tablet magnesium 250 mg tablet 250 mg PO DAILY 05/16/25 07/20/25 History warfarin 5 mg tablet 0 mg PO DAILY 06/26/25 07/20/25 History enoxaparin 60 mg/0.6 mL 60 mg subcut Q12H 07/20/25 07/20/25 History subcutaneous syringe metoprolol succinate 25 mg 50 mg PO BID 07/20/25 07/20/25 History tablet,extended release 24 hr Patient History Medical History (Updated 07/21/25 @ 12:37 by ASHVIN Vyas) Atrial fibrillation with RVR Warfarin anticoagulation Mediastinal lymphadenopathy Hypothyroidism Atrial fibrillation Hypertension Subtherapeutic international normalized ratio (INR) Surgical History (Updated 07/20/25 @ 16:43 by Latrice Espino PA-C) H/O mechanical aortic valve replacement History of mitral valve replacement with mechanical valve Mechanical heart valve present Aortic and mitral valve. 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 Required: No Beliefs That Will Affect Care: None Current Living Situation: Other Current Living Situation Comment: lives with friend Other Information That Helps Us Care for You: No Feels Safe at Home: Yes Safety Concerns: Feels Safe At This Time Assistive Devices: Wheelchair Review of Systems Review of Systems: All systems reviewed & are unremarkable except as noted in HPI & below Respiratory: + cough, + dyspnea and + pain with cough Gastrointestinal: + early satiety, + nausea and + vomiting Physical Exam Constitutional: + ill appearing, + frail appearing and + underweight Eyes: + anicteric sclerae and PERRL ENMT: Ears: + hearing impairment Mouth: + muffled voice and + poor dentition Neck: trachea midline, no thyromegaly Respiratory: + respiratory distress, + uses accessory muscles, + cough and able to speak in complete sentences Auscultation: + diminished lung sounds, + crackles and + rhonchi Cardiovascular: Rate/Rhythm: + tachycardic and + irregularly irregular Gastrointestinal (Abdomen): normal bowel sounds, soft, nontender, no hepatosplenomegaly Percussion/Palpation: abdomen soft Musculoskeletal: generalized weakness Skin: no rashes, warm and dry + turgor decreased and + pallor Psychiatric: A+Ox3, euthymic affect Insight: + limited insight Judgment: + limited judgement Results & Data Vital Signs (Past 12 Hours) Vital Signs Temp Pulse Resp BP Pulse Ox O2 Del Method O2 Flow Rate 07/21/25 08:35 36.3 C L 125 H 16 93/60 L 100 Nasal Cannula 3 07/21/25 04:39 36.3 C L 125 H 17 108/73 99 Nasal Cannula 3 07/20/25 22:50 36.4 C L 79 16 107/68 97 Nasal Cannula 2 Laboratory Results Abnormal lab results 07/20/25 07/21/25 Range/Units 10:16 05:36 RBC 3.18 L (4.20-5.40) M/uL Hgb 8.6 L (12.0-16.0) g/dL Hct 28.1 L (37.0-47.0) % MCHC 30.6 L (32.0-36.0) g/dL RDW Std Deviation 51.6 H (36.4-46.3) fL RDW Coeff of Mitul 16.0 H (11.5-14.5) % Neut # (Auto) 7.44 H (1.40-6.50) K/uL Lymph # (Auto) 0.70 L (1.20-3.40) K/uL Petroleum # (Auto) 0.98 H (0.11-0.59) K/uL PT 14.4 H (9.0-12.0) Seconds INR 1.4 H (0.9-1.1) Chloride 96 L (98-107) mmol/L BUN 35 H (6-23) mg/dl Creatinine 1.93 H (0.6-1.2) mg/dl Glucose 124 H (70-99(Fasting)) mg/dl B-Natriuretic Peptide 325 H (0-100) pg/ml Diagnostic Findings Chest CT 07/20/25 08:47 CT SCAN OF THE CHEST WITHOUT IV CONTRAST CLINICAL HISTORY: Abnormal chest x-ray. Opacified left hemithorax. COMPARISON STUDY: Prior chest CT scans, most recently dated 06/26/2025. Chest x-ray dated 07/20/2025. PET/CT dated 06/10/2025. TECHNIQUE: CT scan of the thorax was performed from the thoracic inlet to the upper abdomen. Images are reviewed in the axial, sagittal, and coronal planes. IV contrast was not administered for this examination as per the referring clinician. A dose lowering technique was utilized adhering to the principles of ALARA. The examination is degraded by motion artifact, as well as by streak artifact from the arms which could not be elevated above the chest. CT DOSE: 539.95 mGy.cm FINDINGS: Thyroid: Atrophic. Thoracic aorta: There is atherosclerotic calcification of the thoracic aorta, which is normal in caliber and demonstrates standard 3-vessel arch anatomy. Heart: The patient is status post midline sternotomy with aortic and mitral va lve replacements. Epicardial leads are in place. The heart is enlarged and without pericardial effusion. There is diffuse attenuation of the cardiac blood pool is compared to myocardium suggesting anemia. Lungs and pleural spaces: There is diffuse intralobular septal thickening. There is a large left pleural effusion with near complete atelectasis/consolidation of the left lung. This is similar in appearance to 06/26/2025 examination. A small superior segment of the left lower lobe remains aerated. There is a small to moderate right pleural effusion with atelectasis of the right lower lung. This has increased from 06/26/2025. The trachea and central airways are patent. There are numerous irregular nodular airspace opacities now seen throughout the right lung and within the partially aerated left lower lobe. Lower neck: There is bulky supraclavicular lymphadenopathy, left-sided greater than right. A left sided shannon aggregate on image #36 measures approximately 6 x 3 cm. Mediastinum: There is bulky mediastinal lymphadenopathy. A subcarinal node on image #90 measures approximately 6 x 4 cm. Precarinal nodes measure up to 1.6 cm short axis, and a high right paratracheal node on image #66 measures 3.4 x 2.2 cm. A 3.5 x 2.3 cm node is seen above the hiatus. Amber: There is hilar lymphadenopathy. The nodes are not well delineated without IV contrast. Axillae: There is no axillary lymphadenopathy. Upper abdomen: There are calcified splenic granulomas. Partially visualized upper abdominal viscera is otherwise grossly unremarkable. Skeletal structures: The skeletal structures are osteopenic. Degenerative change and hyperkyphosis is noted in the thoracic spine. No lytic or blastic bony lesions are seen. IMPRESSION: 1. There is a large left pleural effusion with near complete atelectasis/consolidation of left lung. A small portion of the superior left lower lobe remains aerated and this is similar to 06/26/2025. An underlying mass within the collapsed left lung would be impossible to exclude. 2. There is a [id number] right pleural effusion with dependent atelectasis. This has increased from 06/26/2025. 3. Bulky supraclavicular, mediastinal, and hilar lymphadenopathy is similar in appearance to prior studies correlate with gynecological history. 4. Cardiomegaly with evidence of fluid overload/congestive failure. 5. There are numerous patchy nodular airspace opacities throughout both lungs which are new from 06/26/2025. This may be infectious/inflammatory, or could represent pulmonary edema. Neoplastic involvement is considered less likely but not excluded. Attention at follow-up will be required. 6. Additional findings as above. ACT 112: Negative or not required by law. Electronically signed by: Cali Mcpherson M.D. 07/20/2025 10:22 AM Thoracentesis/Paracentesis US 07/20/25 11:30 IR thoracentesis wo tube US, XR chest 1V not portable CLINICAL HISTORY: L large pleural effusion COMPARISON STUDY: CT earlier today Technique: After the procedure was discussed and questions answered, consent was obtained. Patient was positioned seated upright. Left back was prepped and draped in standard sterile fashion. 1% lidocaine was used for local anesthesia. Under ultrasound guidance, a thoracentesis catheter was advanced into the large left pleural effusion. 1 L of serosanguineous fluid was withdrawn. Drainage was stopped at the point that the patient had chest pain and requested that the drainage be stopped. Catheter was removed. Hemostasis was obtained with manual compression. Sterile dressing was applied. Postprocedure chest x-ray shows no pneumothorax. There is a moderate to large residual left pleural effusion with associated pulmonary consolidation. IMPRESSION: Left thoracentesis. ACT 112: Negative or not required by law. Electronically signed by: Ray Ferro M.D. 07/20/2025 12:35 PM Chest X-Ray 07/20/25 12:14 IR thoracentesis wo tube US, XR chest 1V not portable CLINICAL HISTORY: L large pleural effusion COMPARISON STUDY: CT earlier today Technique: After the procedure was discussed and questions answered, consent was obtained. Patient was positioned seated upright. Left back was prepped and draped in standard sterile fashion. 1% lidocaine was used for local anesthesia. Under ultrasound guidance, a thoracentesis catheter was advanced into the large left pleural effusion. 1 L of serosanguineous fluid was withdrawn. Drainage was stopped at the point that the patient had chest pain and requested that the drainage be stopped. Catheter was removed. Hemostasis was obtained with manual compression. Sterile dressing was applied. Postprocedure chest x-ray shows no pneumothorax. There is a moderate to large residual left pleural effusion with associated pulmonary consolidation. IMPRESSION: Left thoracentesis. ACT 112: Negative or not required by law. Electronically signed by: Ray Ferro M.D. 07/20/2025 12:35 PM Medications Administered Current Inpatient Medications Acetaminophen (Acetaminophen 325 Mg Tab) 650 mg PO Q6H PRN PRN Reason: Pain or Fever Stop: 08/19/25 17:04 Last Admin: 07/20/25 22:39 Dose: 650 mg Bupropion HCl (Bupropion Hcl 75 Mg Tablet) 75 mg PO DAILY MADHU Stop: 08/20/25 08:59 Last Admin: 07/21/25 08:12 Dose: 75 mg Ezetimibe (Ezetimibe 10 Mg Tab) 10 mg PO QPM MADHU Stop: 08/19/25 20:59 Last Admin: 07/20/25 20:24 Dose: 10 mg Enoxaparin Sodium (Enoxaparin Inj 60 Mg/0.6 Ml Syr) 60 mg SQ BID MADHU Stop: 08/19/25 20:59 Last Admin: 07/21/25 08:12 Dose: 60 mg Furosemide (Furosemide 40 Mg Tab) 40 mg PO QAM MADHU Stop: 08/20/25 08:59 Last Admin: 07/21/25 08:12 Dose: 40 mg Levothyroxine Sodium (Levothyroxine Sodium 125 Mcg Tablet) 125 mcg PO DAILYBB MADHU Stop: 08/20/25 06:29 Last Admin: 07/21/25 06:11 Dose: 125 mcg Magnesium Oxide (Magnesium Oxide 400 Mg Tab) 400 mg PO DAILY MADHU Stop: 08/20/25 08:59 Last Admin: 07/21/25 08:12 Dose: 400 mg Meclizine HCl (Meclizine Hcl 25 Mg Tab) 25 mg PO TID PRN PRN Reason: Dizziness Stop: 08/19/25 14:27 Metoprolol Succinate (Metoprolol Succ 50mg Ext Rel Tab) 50 mg PO BID MADHU Stop: 08/19/25 20:59 Last Admin: 07/21/25 08:12 Dose: 50 mg Multivitamins (Multivitamin Tab) 1 tab PO DAILY MADHU Stop: 08/20/25 08:59 Last Admin: 07/21/25 08:12 Dose: 1 tab Oxycodone HCl (Oxycodone Hcl Ir 5 Mg Tab (Immediate Release)) 5 mg PO Q4H PRN PRN Reason: Pain Stop: 08/03/25 22:55 Last Admin: 07/21/25 08:11 Dose: 5 mg Potassium Chloride (Potassium Chloride 10 Meq Tabcr) 10 meq PO QAM MADHU Stop: 08/20/25 08:59 Last Admin: 07/21/25 08:12 Dose: 10 meq Rosuvastatin Calcium (Rosuvastatin Calcium 20 Mg Tab) 40 mg PO QPM MADHU Stop: 08/19/25 20:59 Last Admin: 07/20/25 20:24 Dose: 40 mg Vitamin D (Cholecalciferol 25 Mcg (1000 Units) Tab) 25 mcg PO DAILY MADHU Stop: 08/20/25 08:59 Last Admin: 07/21/25 08:12 Dose: 25 mcg PG Care Time/CCT Total # of Minutes Spent Total Time Spent with Patient: Total time spent is greater than 50% in coordination of care (as documented) at patient's floor/unit and/or counseling patient: Advanced Care Planning 85659 Advanced Care Planning 30 Min 82536 Advanced Care Planning Additional 30 [place] [address] IN/OBS CONSULT LVL 3,45M Patient Type New History Expanded Problem Focused Exam Expanded Problem Focused Medical Decision Making High Complexity Diagnoses Shortness of breath R06.02 Anxiety F41.9 Back pain M54.9 Advanced care planning/counseling discussion Z71.89 Palliative care by specialist Z51.5 Comfort measures only status Z51.5 Additional Codes Advanced Care Planning - 69699 Advanced Care Planning 30 Min: 45215 Advanced Care Planning 30 Min ([id number]) Advanced Care Planning - 54957 Advanced Care Planning Additional 30 Min: 52920 Advanced Care Planning Additional 30 Min ([id number])
[2025-07-21] MEDS: ONDANSETRON INJ 2 MG/ML 2 ML VIAL IV STA (10:14)
[2025-07-21 10:49] VITALS: O2SAT 99
[2025-07-21] MEDS ORDERED: MoRPHine SULFATE 2 MG/ML CARP IV PRN (12:39)
[2025-07-21] MEDS ORDERED: HALOPERIDOL ORAL SOLN 2 MG/ML PO PRN (12:39)
[2025-07-21] MEDS ORDERED: ACETAMINOPHEN 325 MG TAB PO PRN (12:39)
[2025-07-21] MEDS ORDERED: ATROPINE SULFATE 1% OP SOLN 5 ML BTL SL PRN (12:39)
[2025-07-21] MEDS ORDERED: GLYCOPYRROLATE 0.2 MG/ML VIAL IV PRN (12:39)
[2025-07-21] MEDS ORDERED: HYOSCYAMINE SULFATE 0.125 MG TAB SL PRN (12:39)
--- NOTE | 2025-07-21 12:43 | Pulmonology Progress Note ---
Date of Service July 21, 2025 Assessment & Plan (1) Small cell lung cancer: Laterality: left Lung location: unspecified part of lung Qualified Code(s): C34.92 - Malignant neoplasm of unspecified part of left bronchus or lung (2) Acute dyspnea: (3) Pleural effusion on left: Plan Impression: 65-year-old female with reported history of extensive stage small cell lung cancer (pathology not available to review but reportedly was performed at [facility]). She has a pleural effusion which is partly sympathetic in nature due to significant replacement of the entire left upper lobe with tumor as well as probable bronchial obstruction. Recommendations: 1. Small cell lung cancer: Patient has elected to pursue hospice. She is working with palliative care currently 2. Pleural effusion: Patient does not want to pursue any invasive pulmonary procedures at this time. 3. Hypoxemic respiratory failure: Secondary to #1 and #2. Continue supplemental oxygen moving forward. Pulmonary will sign off. Feel free to contact us with questions or concerns moving forward Admission and Anticipated Discharge Date Admission Date: July 20, 2025 Subjective Patient seen and examined with family at bedside. The patient states her breathing is about the same. She is not coughing or expectorating phlegm. She is not experiencing any pain. She has met with palliative care and is elected to go home with hospice. She does not want to pursue any invasive pulmonary procedures at this time Review of Systems 2 Review of Systems: All systems reviewed & are unremarkable except as noted in HPI & below Physical Exam 2 Constitutional: + ill appearing, + frail appearing and + underweight Eyes: + anicteric sclerae and PERRL ENMT: Mouth: + dental caries, + poor dentition and + chipped teeth Neck: trachea midline, no thyromegaly Respiratory: + cough and able to speak in complete se ntences Auscultation: + diminished lung sounds, + crackles and + rhonchi Cardiovascular: Rate/Rhythm: + tachycardic and + irregularly irregular Gastrointestinal (Abdomen): Inspection/Auscultation: abdomen normal to inspection Percussion/Palpation: abdomen soft Skin: + turgor decreased and + pallor Psychiatric: Estimated Intelligence: consistent with education level I nsight: + limited insight Judgment: + limited judgement Results & Data Results & Data Vital Signs (Past 12 Hours) Vital Signs Temp Pulse Pulse Resp BP Pulse Ox O2 Del Method 07/21/25 10:48 36.3 C L 124 H 16 91/61 L 99 Nasal Cannula 07/21/25 10:21 106 H 07/21/25 10:21 Nasal Cannula 07/21/25 08:35 36.3 C L 125 H 16 93/60 L 100 Nasal Cannula 07/21/25 04:39 36.3 C L 125 H 17 108/73 99 Nasal Cannula O2 Flow Rate 07/21/25 10:48 3 07/21/25 10:21 07/21/25 10:21 2 07/21/25 08:35 3 07/21/25 04:39 3 Laboratory Results 07/21/25 05:36 07/21/25 05:36 Diagnostic Findings No new imaging PG Care Time/CCT Total # of Minutes Spent Total Time Spent with Patient: Total time spent is greater than 50% in coordination of care (as documented) at patient's floor/unit and/or counseling patient: Coding Level of Care Code 12537 SUB INP/OBS CARE 2/35MIN Diagnoses Small cell carcinoma of left lung, unspecified part of lung C34.92 Laterality: left Lung location: unspecified part of lung Acute dyspnea R06.00 Pleural effusion on left J90
--- NOTE | 2025-07-21 14:20 | Hospitalist Progress Note ---
Date of Service July 21, 2025 Assessment & Plan (1) Pleural effusion on left: (2) Small cell lung cancer: (3) Anxiety: (4) Atrial fibrillation: (5) Hypothyroidism: (6) Warfarin anticoagulation: (7) Hypertension: Plan per admitting service notes with addendum: This is a 65 y/o female with recently diagnosed metastatic small-cell lung cancer, recurrent pleural effusion, permanent atrial fibrillation, rheumatic heart disease s/p AVR and mechanical MVR on chronic warfarin, COPD, CKD3b, and other history as outlined below who presents to the ED with worsening shortness of breath. She has been evaluated by palliative care as an outpatient and saw oncology last week to discuss prognosis. She is not a candidate for XRT, the possibility of palliative chemo was discussed but pt unsure if she would like to proceed with chemo. She declined the MRI brain due to her inability to lie flat for the test. Today, she present with worsening shortness of breath and was referred for admission. Her oxygen requirement of 2L is stable from outpatient use. #Metastatic small cell carcinoma #Recurrent left pleural effusion - cytology x 2 has been negative for malignancy #Hypoxemic respiratory failure - on 2L at home - Admit to PCU - Discussed with ED provider - IR is agreeable to doing a thoracentesis this morning, will proceed with this procedure - Consult pulmonology for additional recommendations - Will need close outpatient f/u with oncology - Consult palliative care as patient is already established with them - Continue baseline supplemental oxygen to maintain sats 07/20 s/p thoracentesis draining 1 L 07/21 Pulmonology and Palliative Care Services evaluated the patient patient has decided to transition to home with hospice service declines any further procedures at this point continue supportive care #Mechanical mitral valve replacement #Permanent atrial fibrillation - Continue therapeutic lovenox for now - On warfarin at baseline but this has been on hold due to multiple procedures 07/21 resume coumadin at home upon discharge- will need lower dose if crea does not improve # LISA on CKD3b - creatinine slightly increased from baseline ~1.4 - Labs in the AM, continue to monitor 07/21 crea increased to 1.9 hold Lasix monitor closely Code status: DNR/DNI DVT prophylaxis: on therapeutic Lovenox Admission and Anticipated Discharge Date Admission Date: July 20, 2025 Subjective seen resting in chair, on 3 L NC states she feels fine overall breathing has improved after thoracentesis denies pain no fever/chills had vomiting earlier, improved with Zofran no other symptoms Review of Systems Review of Systems: all noted and negative except for above Physical Exam Physical Exam: General- oriented x 3, not in distress, speaks in sentences with no effort or accessory muscle use Eyes- anicteric Neck- no JVD Lungs- decreased breath sounds L mid-base Heart- normal rate, regular rhythm; no murmurs Abdomen- normal bowel sounds, nondistended, soft, no tenderness Extremities- no pretibial edema, no calf tenderness Neuro- alert, oriented x 3; no gross focal neurologic deficits Skin- warm & dry Results & Data Results & Data Vital Signs (Past 12 Hours) Vital Signs Temp Pulse Pulse Resp BP Pulse Ox O2 Del Method 07/21/25 10:48 36.3 C L 124 H 16 91/61 L 99 Nasal Cannula 07/21/25 10:21 106 H 07/21/25 10:21 Nasal Cannula 07/21/25 08:35 36.3 C L 125 H 16 93/60 L 100 Nasal Cannula 07/21/25 04:39 36.3 C L 125 H 17 108/73 99 Nasal Cannula O2 Flow Rate 07/21/25 10:48 3 07/21/25 10:21 07/21/25 10:21 2 07/21/25 08:35 3 07/21/25 04:39 3 all noted and reviewed including below (2) Small cell lung cancer Laterality: left Lung location: unspecified part of lung Qualified Code(s): C34.92 - Malignant neoplasm of unspecified part of left bronchus or lung (4) Atrial fibrillation Atrial fibrillation type: permanent Qualified Code(s): I48.21 - Permanent atrial fibrillation (5) Hypothyroidism Hypothyroidism type: unspecified Qualified Code(s): E03.9 - Hypothyroidism, unspecified (7) Hypertension Hypertension type: unspecified Qualified Code(s): I10 - Essential (primary) hypertension
[2025-07-21 20:55] VITALS: BP 92/62; PULSE 107
[2025-07-22] MEDS: LORazepam 0.5 MG TAB PO PRN (03:16)
[2025-07-22] MEDS ORDERED: ENOXAPARIN INJ 60 MG/0.6 ML SYR SQ SCH (09:00)
[2025-07-22 09:10] LABS: Anion Gap 7.0 (3-11); Blood Urea Nitrogen 43.0 mg/dl (6-23); Calcium 9.3 mg/dl (8.6-10.3); Carbon Dioxide 34.0 mmol/L (21-32); Chloride 94.0 mmol/L (98-107); Creatinine Clr Calc Pharmacy 23.9 ml/min; Glucose 119.0 mg/dl (70-99(Fasting)); Potassium 4.4 mmol/L (3.5-5.1); Sodium 135.0 mmol/L (136-145)
[2025-07-22] MEDS: ONDANSETRON INJ 2 MG/ML 2 ML VIAL IV PRN (10:21)
[2025-07-22] MEDS: ONDANSETRON 4 MG OD TAB PO PRN (10:25)
--- NOTE | 2025-07-22 15:15 | Discharge Summary ---
Discharge Summary Date of Service July 22, 2025 Principal Dx & Hospital Course #1 = Principal Diagnosis (1) Pleural effusion on left: (2) Small cell lung cancer: (3) Anxiety: (4) Atrial fibrillation: (5) Hypothyroidism: (6) Warfarin anticoagulation: (7) Hypertension: Plan per admitting service notes with addendum: This is a 65 y/o female with recently diagnosed metastatic small-cell lung cancer, recurrent pleural effusion, permanent atrial fibrillation, rheumatic heart disease s/p AVR and mechanical MVR on chronic warfarin, COPD, CKD3b, and other history as outlined below who presents to the ED with worsening shortness of breath. She has been evaluated by palliative care as an outpatient and saw oncology last week to discuss prognosis. She is not a candidate for XRT, the possibility of palliative chemo was discussed but pt unsure if she would like to proceed with chemo. She declined the MRI brain due to her inability to lie flat for the test. Today, she present with worsening shortness of breath and was r eferred for admission. Her oxygen requirement of 2L is stable from outpatient use. #Metastatic small cell carcinoma #Recurrent left pleural effusion - cytology x 2 has been negative for malignancy #Hypoxemic respiratory failure - on 2L at home - Admit to PCU - Discussed with ED provider - IR is agreeable to doing a thoracentesis this morning, will proceed with this procedure - Consult pulmonology for additional recommendations - Will need close outpatient f/u with oncology - Consult palliative care as patient is already established with them - Continue baseline supplemental oxygen to maintain sats 07/20 s/p thoracentesis draining 1 L 07/21 remains on 3 L [place] Pulmonology and Palliative Care Services evaluated the patient patient has decided to transition to home with hospice service declines any further inpatient procedures at this point, considering outpatient pleurex cath placement 07/22 home hospice set up by residential case manager, will visit patient at home tomorrow PRN oxycodone for pain prescribed #Mechanical mitral valve replacement #Permanent atrial fibrillation - Continue therapeutic lovenox for now - On warfarin at baseline but this has been on hold due to multiple procedures 07/22 patient would like to continue Lovenox SC for now (reduced to daily dose in light of acute kidney injury), as she is entertaining to have a pleurex cath placed by Pulm as outpatient will need repeat BMP next week to check renal function and adjust Lovenox dose accordingly if there are no procedures planned, resume coumadin and check INR daily # LISA on CKD3b - creatinine slightly increased from baseline ~1.4 07/21 crea increased to 1.9 hold Lasix monitor closely Code status: DNR/DNI DVT prophylaxis: on therapeutic Lovenox 07/22 crea remains elevated at 2.0 reduce Lovenox SC to daily hold Lasix repeat BMP early next week c/o PCP renally adjust doses of meds if needed Disposition home with hospice Notes For Next Care Provider Medication Changes From Visit Lovenox SC decreased to daily Lasix held Oxycodone PRN please refer to Med Rec Admission HPI Per Admitting Provider This is a 65 y/o female with recently diagnosed metastatic small-cell lung cancer, recurrent pleural effusion, permanent atrial fibrillation, rheumatic heart disease s/p AVR and mechanical MVR on chronic warfarin, COPD, CKD3b, and other history as outlined below who presents to the ED with worsening shortness of breath. Pt has a complex medical course over the last three months. She originally presented to [facility] in April with shortness of breath and was found to have acute hypoxemic respiratory failure, left pleural effusion with concern for underlying lung mass. She saw palliative care in May who noted that pt has had difficulty with obtaining the biopsy as an outpatient due to anxiety of needles and trouble lying flat. They discussed with patient that she likely had advanced cancer and would need to think about what her goals for her care would ultimately be. She presented back to the ED on 06/26/25 with palpitations and not feeling well. Pt was found to have recurrent left pleural effusion with near collapse of the left lung. Case was reviewed by pulmonology who recommended transfer for possible endobronchial debulking and/or stenting. She was accepted at [facility], where she underwent diagnostic and therapeutic thoracentesis and was discharged on 07/03. On 07/05, she had an outpatient biopsy of the left supraclavicular node. Cytology from pleural fluid has been negative for malignancy. Now on chronic O2 at 2L and has been following with [facility] pulmonology. She had her first oncology visit 07/14/[address] Scott discussed with the patient her poor prognosis and that any treatment at this point would be for palliation. She is discussing with her family and deciding if she would like to pursue palliative chemotherapy. There has been discussion regarding potential Pleurx catheter due to the recurrent pleural effusion. Pt reports ongoing issues with her breathing since discharge from [facility] but was stable until this morning when she became more short of breath and increased her oxygen before coming to the ED for evaluation. FNA from left supraclavicular node on 07/05/25 showed high-grade neuroendocrine carcinoma c/w small-cell carcinoma. CT chest 06/26/25 showed increased size of subcarinal LN (5.3 x 3.4 2.8 cm), bilateral pleural effusions, left > right w/ near complete collapse of left lung w/ some variation in LLL, bilateral hilar LAD, no PE. PET-CT scan done on 06/10/2025: hypermetabolic multiple mediastinal masses bilaterally from superior to the inferior adjacent to the hiatus and the left hilum, largest mass in the left upper mediastinum measuring about 10 cm, SUV 12, stable small left pleural effusion, stable moderate size of constipation in the left lower lobe. Two subtle sclerotic changes noted in the right sacrum largest one measuring 1.6 cm SUV of 5.4. Unable to tolerate recommend MRI brain due to inability to lie flat. Admission Exam Per Admitting Provider General: appears uncomfortable, sitting up in bed with increased WOB and conversational dyspnea HEENT: no scleral icterus, slightly dry oral mucosa Neck: supple, trachea midline Heart: regular but tachycardic Lungs: diminished breath sounds left lung Abdomen: soft, NT, +BS Extremities: no pedal edema Skin: warm, dry, no cyanosis Neurologic: Ox3, no confusion or dysarthria Discharge Exam General- oriented x 3, not in distress, speaks in sentences with no effort or accessory muscle use Eyes- anicteric Neck- no JVD Lungs- decreased breath sounds L mid-base Heart- normal rate, regular rhythm; no murmurs Abdomen- normal bowel sounds, nondistended, soft, no tenderness Extremities- no pretibial edema, no calf tenderness Neuro- alert, oriented x 3; no gross focal neurologic deficits Skin- warm & dry Updated Medication List Medication Instructions Recorded Confirmed Type meclizine 25 mg tablet 25 mg PO QPM PRN Dizziness ##0 06/23/14 07/20/25 History multivitamin 1 tab PO DAILY #0 tabs 09/01/14 07/20/25 History nitroglycerin 0.3 mg sublingual 0.3 mg UT PRN #0 BTLS 09/01/14 07/20/25 History tablet (Nitrostat) bupropion HCl 75 mg tablet 75 mg PO DAILY #0 tabs 03/31/16 07/20/25 History ezetimibe 10 mg tablet 10 mg PO QPM 07/06/24 07/20/25 History rosuvastatin 40 mg tablet 40 mg PO QPM 07/06/24 07/20/25 History levothyroxine 125 mcg tablet 125 mcg PO DAILYBB #30 tabs 07/08/24 07/20/25 Rx (Synthroid) cholecalciferol (vitamin D3) 25 25 mcg PO DAILY 05/16/25 07/20/25 History mcg (1,000 unit) tablet magnesium 250 mg tablet 250 mg PO DAILY 05/16/25 07/20/25 History warfarin 5 mg tablet 0 mg PO DAILY 06/26/25 07/20/25 History metoprolol succinate 25 mg 50 mg PO BID 07/20/25 07/20/25 History tablet,extended release 24 hr enoxaparin 60 mg/0.6 mL 60 mg (0.6 mL) subcut Q24H #0 mL 07/22/25 07/20/25 Rx subcutaneous syringe oxycodone 5 mg tablet 5 mg PO Q4H PRN severe pain #20 07/22/25 Rx tabs Hospital Stay Data Consultations 07/20/25 11:02 ED Decision to Admit Stat 07/20/25 14:28 Consult Pulmonology Routine 07/20/25 16:58 Consult Palliative Care Routine Diagnostic Imagining Performed Laboratory Results WBC 9.35 K/ul (4.8-10.8) 07/21/25 05:36 RBC 3.18 M/uL (4.20-5.40) L 07/21/25 05:36 Hgb 8.6 g/dL (12.0-16.0) L 07/21/25 05:36 Hct 28.1 % (37.0-47.0) L 07/21/25 05:36 MCV 88.4 fL (80.0-100.0) 07/21/25 05:36 MCH 27.0 pg (25.0-34.0) 07/21/25 05:36 MCHC 30.6 g/dL (32.0-36.0) L 07/21/25 05:36 RDW Std Deviation 51.6 fL (36.4-46.3) H 07/21/25 05:36 RDW Coeff of Mitul 16.0 % (11.5-14.5) H 07/21/25 05:36 Plt Count 328 K/uL (130-400) 07/21/25 05:36 MPV 11.6 fL (9.4-12.4) 07/21/25 05:36 Immature Gran % (Auto) 0.4 % 07/21/25 05:36 Neut % (Auto) 79.5 % 07/21/25 05:36 Lymph % (Auto) 7.5 % 07/21/25 05:36 [place] % (Auto) 10.5 % 07/21/25 05:36 Eos % (Auto) 0.9 % 07/21/25 05:36 Baso % (Auto) 1.2 % 07/21/25 05:36 Neut # (Auto) 7.44 K/uL (1.40-6.50) H 07/21/25 05:36 Lymph # (Auto) 0.70 K/uL (1.20-3.40) L 07/21/25 05:36 [place] # (Auto) 0.98 K/uL (0.11-0.59) H 07/21/25 05:36 Eos # (Auto) 0.08 K/uL (0.00-0.50) 07/21/25 05:36 Baso # (Auto) 0.11 K/uL (0.00-0.20) 07/21/25 05:36 Immature Gran # (Auto) 0.04 K/uL (0.01-0.20) 07/21/25 05:36 PT 14.4 Seconds (9.0-12.0) H 07/21/25 05:36 INR 1.4 (0.9-1.1) H 07/21/25 05:36 VBG pH 7.39 (7.36-7.41) 07/20/25 07:47 VBG pCO2 60 mmHg (38-50) H 07/20/25 07:47 VBG pO2 < 20 mmHg 07/20/25 07:47 VBG HCO3 36 mmol/L 07/20/25 07:47 VBG O2 Saturation < 60.0 % 07/20/25 07:47 VBG Base Excess 10.0 mEq/L 07/20/25 07:47 Sodium 135 mmol/L (136-145) L 07/22/25 08:32 Potassium 4.4 mmol/L (3.5-5.1) 07/22/25 08:32 Chloride 94 mmol/L (98-107) L 07/22/25 08:32 Carbon Dioxide 34 mmol/L (21-32) H 07/22/25 08:32 Anion Gap 7 (3-11) 07/22/25 08:32 BUN 43 mg/dl (6-23) H 07/22/25 08:32 Creatinine 2.05 mg/dl (0.6-1.2) H 07/22/25 08:32 Est Cr Clr Drug Dosing 23.9 ml/min 07/22/25 08:32 eGFR 26.58 07/22/25 08:32 BUN/Creatinine Ratio 21.0 (10-20) H 07/22/25 08:32 Glucose 119 mg/dl (70-99(Fasting)) H 07/22/25 08:32 Calcium 9.3 mg/dl (8.6-10.3) 07/22/25 08:32 Magnesium 2.4 mg/dl (1.7-2.4) 07/20/25 07:20 Total Bilirubin 0.7 mg/dl (0.2-1.0) 07/20/25 07:20 AST 41 U/L (13-39) H 07/20/25 07:20 ALT 24 U/L (7-52) 07/20/25 07:20 Alkaline Phosphatase 66 U/L (34-104) 07/20/25 07:20 Troponin I High Sens 14.7 pg/ml (0-14) H 07/20/25 07:20 B-Natriuretic Peptide 325 pg/ml (0-100) H 07/20/25 10:16 Total Protein 8.3 gm/dl (6.0-8.3) 07/20/25 07:20 Albumin 3.8 gm/dl (3.4-5.0) 07/20/25 07:20 Globulin 4.5 gm/dl (2.5-4.0) H 07/20/25 07:20 Albumin/Globulin Ratio 0.8 (0.9-2) L 07/20/25 07:20 Adenovirus (PCR) Not Detected (NotDetected) 07/20/25 07:47 B. pertussis DNA (PCR) Not Detected (NotDetected) 07/20/25 07:47 B.parapertussis DNA PCR Not Detected (NotDetected) 07/20/25 07:47 C. pneumoniae DNA (PCR) Not Detected (NotDetected) 07/20/25 07:47 Coronavirus OC43 (PCR) Not Detected (NotDetected) 07/20/25 07:47 Coronavirus HKU1 (PCR) Not Detected (NotDetected) 07/20/25 07:47 Coronavirus 229E (PCR) Not Detected (NotDetected) 07/20/25 07:47 SARS-CoV-2 (PCR) Not Detected (NotDetected) 07/20/25 07:47 Coronavirus NL63 (PCR) Not Detected (NotDetected) 07/20/25 07:47 Human Metapneumovir PCR Not Detected (NotDetected) 07/20/25 07:47 Influenza Type A (PCR) Not Detected (NotDetected) 07/20/25 07:47 Influenza Type B (PCR) Not Detected (NotDetected) 07/20/25 07:47 M. pneumoniae (PCR) Not Detected (NotDetected) 07/20/25 07:47 Parainfluenza 1 (PCR) Not Detected (NotDetected) 07/20/25 07:47 Parainfluenza 2 (PCR) Not Detected (NotDetected) 07/20/25 07:47 Parainfluenza 3 (PCR) Not Detected (NotDetected) 07/20/25 07:47 Parainfluenza 4 (PCR) Not Detected (NotDetected) 07/20/25 07:47 RSV (PCR) Not Detected (NotDetected) 07/20/25 07:47 Entero/Rhino (PCR) Not Detected (NotDetected) 07/20/25 07:[address] 07/20/25 08:47 CT SCAN OF THE CHEST WITHOUT IV CONTRAST CLINICAL HISTORY: Abnormal chest x-ray. Opacified left hemithorax. COMPARISON STUDY: Prior chest CT scans, most recently dated 06/26/2025. Chest x- ray dated 07/20/2025. PET/CT dated 06/10/2025. TECHNIQUE: CT scan of the thorax was performed from the thoracic inlet to the upper abdomen. Images are reviewed in the axial, sagittal, and coronal planes. IV contrast was not administered for this examination as per the referring clinician. A dose lowering technique was utilized adhering to the principles of ALARA. The examination is degraded by motion artifact, as well as by streak artifact from the arms which could not be elevated above the chest. CT DOSE: 539.95 mGy.cm FINDINGS: Thyroid: Atrophic. Thoracic aorta: There is atherosclerotic calcification of the thoracic aorta, which is normal in caliber and demonstrates standard 3-vessel arch anatomy. 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 Epicardial leads are in place. The heart is enlarged and without pericardial effusion. There is diffuse attenuation of the cardiac blood pool is compared to myocardium suggesting anemia. Lungs and pleural spaces: There is diffuse intralobular septal thickening. There is a large left pleural effusion with near complete atelectasis/consolidation of the left lung. This is similar in appearance to 06/26/2025 examination. A small superior segment of the left lower lobe remains aerated. There is a small to moderate right pleural effusion with atelectasis of the right lower lung. This has increased from 06/26/2025. The trachea and central airways are patent. There are numerous irregular nodular airspace opacities now seen throughout the right lung and within the partially aerated left lower lobe. Lower neck: There is bulky supraclavicular lymphadenopathy, left-sided greater than right. A left sided shannon aggregate on image #36 measures approximately 6 x 3 cm. Mediastinum: There is bulky mediastinal lymphadenopathy. A subcarinal node on image #90 measures approximately 6 x 4 cm. Precarinal nodes measure up to 1.6 cm short axis, and a high right paratracheal node on image #66 measures 3.4 x 2.2 cm. A 3.5 x 2.3 cm node is seen above the hiatus. Amber: There is hilar lymphadenopathy. The nodes are not well delineated without IV contrast. Axillae: There is no axillary lymphadenopathy. Upper abdomen: There are calcified splenic granulomas. Partially visualized upper abdominal viscera is otherwise grossly unremarkable. Skeletal structures: The skeletal structures are osteopenic. Degenerative change and hyperkyphosis is noted in the thoracic spine. No lytic or blastic bony lesions are seen. IMPRESSION: 1. There is a large left pleural effusion with near complete atelectasis/consolidation of left lung. A small portion of the superior left lower lobe remains aerated and this is similar to 06/26/2025. An underlying mass within the collapsed left lung would be impossible to exclude. 2. There is a [id number] right pleural effusion with dependent atelectasis. This has increased from 06/26/2025. 3. Bulky supraclavicular, mediastinal, and hilar lymphadenopathy is similar in appearance to prior studies correlate with gynecological history. 4. Cardiomegaly with evidence of fluid overload/congestive failure. 5. There are numerous patchy nodular airspace opacities throughout both lungs which are new from 06/26/2025. This may be infectious/inflammatory, or could represent pulmonary edema. Neoplastic involvement is considered less likely but not excluded. Attention at follow-up will be required. 6. Additional findings as above. ACT 112: Negative or not required by law. Electronically signed by: Cali Mcpherson M.D. 07/20/2025 10:22 AM Thoracentesis/Paracentesis US 07/20/25 11:30 IR thoracentesis wo tube US, XR chest 1V not portable CLINICAL HISTORY: L large pleural effusion COMPARISON STUDY: CT earlier today Technique: After the procedure was discussed and questions answered, consent was obtained. Patient was positioned seated upright. Left back was prepped and draped in standard sterile fashion. 1% lidocaine was used for local anesthesia. Under ultrasound guidance, a thoracentesis catheter was advanced into the large left pleural effusion. 1 L of serosanguineous fluid was withdrawn. Drainage was stopped at the point that the patient had chest pain and requested that the drainage be stopped. Catheter was removed. Hemostasis was obtained with manual compression. Sterile dressing was applied. Postprocedure chest x-ray shows no pneumothorax. There is a moderate to large residual left pleural effusion with associated pulmonary consolidation. IMPRESSION: Left thoracentesis. ACT 112: Negative or not required by law. Electronically signed by: Ray Ferro M.D. 07/20/2025 12:35 PM Chest X-Ray 07/20/25 12:14 IR thoracentesis wo tube US, XR chest 1V not portable CLINICAL HISTORY: L large pleural effusion COMPARISON STUDY: CT earlier today Technique: After the procedure was discussed and questions answered, consent was obtained. Patient was positioned seated upright. Left back was prepped and draped in standard sterile fashion. 1% lidocaine was used for local anesthesia. Under ultrasound guidance, a thoracentesis catheter was advanced into the large left pleural effusion. 1 L of serosanguineous fluid was withdrawn. Drainage was stopped at the point that the patient had chest pain and requested that the drainage be stopped. Catheter was removed. Hemostasis was obtained with manual compression. Sterile dressing was applied. Postprocedure chest x-ray shows no pneumothorax. There is a moderate to large residual left pleural effusion with associated pulmonary consolidation. IMPRESSION: Left thoracentesis. ACT 112: Negative or not required by law. Electronically signed by: Ray Ferro M.D. 07/20/2025 12:35 PM Pending Results Patient Have Any Pending Studies at Discharge: Yes Discharge Instructions Given to Patient (Per Discharging Provider) PLEASE REFER TO YOUR NEW MEDICATION LIST AND FOLLOW INSTRUCTIONS CAREFULLY. Use Lovenox only once daily. Discuss with your primary care physician next week regarding Lovenox dosing and transitioning back to Coumadin. Stop Lasix. Use Oxycodone strictly as directed. PLEASE CALL YOUR PRIMARY CARE PHYSICIAN OR RETURN TO THE ER IF WITH WORSENING OF SYMPTOMS. FOLLOW UP WITH PRIMARY CARE PHYSICIAN OUTLINED ABOVE. Care to be continued by Hospice Care Service at home. Total Time Total Time Spent Total Time Spent (In Minutes): 40 minutes
== END 2025-07-22 11:45 | disposition hospice, home (50) | DRG 180 ==
LOC: ED 07:20 → 4W 11:56 → SUATTDRO 11:56 → 4W 14:11

== ENCOUNTER 2025-08-04 14:19 | Inpatient (IN) ==
[2025-08-04 14:42] VITALS: TEMP 97.5
--- NOTE | 2025-08-04 15:17 | Emergency Department Note ---
Impression & Plan Small cell lung cancer, Metastatic disease, Hospice care patient ED Provider Note NAME: JOSE M JOHNSON AGE: 65 SEX: F : 1960 ARRIVES VIA: Ambulance INFORMANT: Patient ED PROVIDER(S): Xu Horton MD CHIEF COMPLAINT: Hospice care patient, admission for pain control PLAN: Disposition: Admit MEDICAL DECISION MAKING: The patient is a 65-year-old woman with a past medical history of metastatic small cell lung cancer currently on hospice who presents to the emergency department referred by her hospice agency for admission for hospice care as family feels that they are unable to manage her pain/comfort needs at home. Patient presents accompanied by her niece who is helping to care for her at home but reports that they have been unable to do this effectively as the patient has been refusing her oral medications and they did not have a syringe or liquid medications to treat the patient's symptoms. She confirms that the patient remains in hospice care and want to proceed with continued comfort care. Patient's niece understands that the patient had weeks to live only. On evaluation the patient is chronically ill-appearing but no acute distress, afebrile with heart in the 120s and vital signs otherwise stable. The patient will awaken to voice but with limited speech. She appears to move all extremities equally. Abdomen is nontender. PRN morphine and Ativan ordered for pain and anxiolysis. Case was discussed with Norma Rudd PAC [facility], who will evaluate the patient for admission for further comfort care. Further management per admitting team. Triage Nursing notes reviewed and agree them. Prior/external medical records reviewed Vital Signs: reviewed Differential diagnosis: Infection, dehydration, metabolic abnormality, hypo/hyperglycemia, electrolyte disturbance, anemia, hypoxia, cardiac sources, intracerebral event, toxicologic, neurologic, as well as other pathologies. ER treatment provided: See below. Consultation(s): Norma Rudd PAC with [facility]gr[facility] HPI: Per MDM. ROS: See above HPI for pertinent positives & negatives. A total of 10 systems reviewed and were otherwise negative. VITALS:See Below PHYSICAL EXAMINATION: GENERAL: Awake to voice, chronically ill/cachectic-appearing, in no distress HENT: Normocephalic, atraumatic. Oropharynx with dry mucous membranes and otherwise unremarkable. EYES: Normal conjunctiva. Sclera non-icteric. NECK: Supple. No nuchal rigidity. FROM. No JVD. RESPIRATORY: Clear to auscultation. CARDIAC: Tachycardic rate, normal rhythm. Extremities warm and perfused. Pulses equal. ABDOMEN: Soft, non-distended. No tenderness to palpation. No rebound or guarding. No masses. MUSCULOSKELETAL: Chest examination reveals no tenderness. The back is symmetrical on inspection without obvious abnormality. There is no CVA tenderness to palpation. No joint edema. LOWER EXTREMITIES: Calves are equal size bilaterally and non-tender. No edema. No discoloration. NEURO: Awaken to voice but with limited speech. She appears to move all extremities equally. SKIN: Dry/pale. No rash or jaundice noted. Xu Horton MD Past Med/Surg History Problem List (Updated 08/06/25 @ 11:43 by Xu Horton MD) Hospice care patient (Acute) Metastatic disease (Acute) Cancer associated pain Comfort measures only status Back pain Palliative care by specialist Small cell lung cancer (Acute) Elevated brain natriuretic peptide (BNP) level (Acute) Acute dyspnea (Acute) Elevated troponin (Acute) Pleural effusion on left (Acute) Advanced care planning/counseling discussion Anxiety Stage 4 lung cancer Supraclavicular lymphadenopathy Lung mass Acute hypoxemic respiratory failure Hypoxia (Acute) Elevated troponin (Acute) Shortness of breath (Acute) Pleural effusion (Acute) Medical History Atrial fibrillation with RVR Warfarin anticoagulation Mediastinal lymphadenopathy Hypothyroidism Atrial fibrillation Hypertension Subtherapeutic international normalized ratio (INR) Surgical History H/O mechanical aortic valve replacement History of mitral valve replacement with mechanical valve Mechanical heart valve present Aortic and mitral valve. Family History Brother Status post lung transplantation Sister Chronic lung disease Other Family history non-contributory Social History Smoking Status: Former smoker Tobacco Type: Cigarettes Age Started Using Tobacco: 22; Age Quit Using Tobacco: 65; Cigarettes Per Day: 1 pack; Hx Alcohol Use: No Hx Substance Use: No Preferred Language: Swiss Communication Ability: Unable Scheduling Specialist Required: No Beliefs That Will Affect Care: Spiritual Current Living Situation: Family Current Living Situation Comment: moved to Jazzy's house, sister, a couple days ago Other Information That Helps Us Care for You: No Feels Safe at Home: Yes Assistive Devices: Oxygen - Continuous, Walker and Wheelchair Allergies Allergies Allergy/AdvReac Type Severity Reaction Status Date / Time Quinolones Allergy Intermediate HIVES Verified 08/04/25 16:50 cyclobenzaprine Allergy Mild . Verified 08/04/25 16:50 amitriptyline Allergy Unknown UNKNOWN Verified 08/04/25 16:50 Home Meds Home Medications Medication Instructions Recorded Confirmed bupropion HCl 75 mg tablet 75 mg PO DAILY 08/04/25 08/04/25 furosemide 40 mg tablet 40 mg PO DAILY 08/04/25 08/04/25 levothyroxine 125 mcg tablet 125 mcg PO DAILYBB 08/04/25 08/04/25 meclizine 25 mg tablet 25 mg PO TID PRN Dizziness 08/04/25 08/04/25 ondansetron HCl 4 mg tablet 4 mg PO Q6H PRN Nausea 08/04/25 08/04/25 oxycodone 5 mg tablet 5 mg PO Q4H PRN Pain 08/04/25 08/04/25 Results & Data (ED) Vital Signs Vital Signs - 24 hr 08/04/25 14:36 08/04/25 14:58 08/04/25 15:09 Temperature 36.4 C L Temperature Source Oral Pulse Rate 120 H 121 H Pulse Rate [Right Finger] 121 H Respiratory Rate 10 L 12 Respiratory Effort / Characteristics Non-Labored Spontaneous Respiratory Depth Shallow Respiratory Pattern Apnea Blood Pressure 103/69 Blood Pressure [Right Arm] 103/69 Blood Pressure Mean 80 Blood Pressure Mean [Right Arm] 80 Pulse Oximetry 99 100 Oxygen Delivery Method Nasal Cannula Room Air Oxygen Flow Rate 4.5 Sepsis Recent Fever Within 48 Hours No Sepsis New/Unexplained Change in Mental Status No Sepsis Action Taken by Nursing No Action Required Administered Medications Discontinued Medications Glycopyrrolate (Glycopyrrolate 0.2 Mg/Ml Vial) 0.4 mg IV Q4H PRN PRN Reason: Rattling Secretions or Pulm Congestion Stop: 09/03/25 18:45 Last Admin: 08/05/25 20:32 Dose: 0.4 mg Documented By: Admin: 08/05/25 16:24 Dose: 0.4 mg Documented By: WALTER Lorazepam 0.5 mg/ Syringe 0.5 mls @ 2 mls/min IV Q4H PRN PRN Reason: Anxiety/Agitation Stop: 09/03/25 18:45 Last Admin: 08/05/25 04:39 Dose: 2 mls/min Documented By: ABDIEL Lorazepam (Lorazepam 1 Mg/1 Ml Syr Ed Inj Use) 0.25 mg IV ONE STA Stop: 08/04/25 15:50 Last Admin: 08/04/25 15:58 Dose: 0.25 mg Documented By: SOPHIA Miscellaneous (Check Scopolamine Patch Placement) 1 each N/A QS MADHU Stop: 09/04/25 00:00 Last Admin: 08/05/25 23:06 Dose: 1 each Documented By: Admin: 08/05/25 16:13 Dose: 1 each Documented By: Admin: 08/05/25 07:24 Dose: 1 each Documented By: Admin: 08/05/25 00:00 Dose: 1 each Documented By: ABDIEL Morphine Sulfate (Morphine Sulfate 2 Mg/Ml Carp) 2 mg IV NOW STA Stop: 08/04/25 15:50 Last Admin: 08/04/25 15:58 Dose: 2 mg Documented By: SOPHIA Morphine Sulfate (Morphine Sulfate 2 Mg/Ml Carp) 4 mg IV Q1H PRN PRN Reason: Pain or Respiratory Distress Stop: 08/18/25 18:45 Last Admin: 08/05/25 21:18 Dose: 4 mg Documented By: Admin: 08/05/25 11:06 Dose: 4 mg Documented By: WALTER Scopolamine (Scopolamine 1 Mg/72 Hr Tdsy Patch) 1 patch TD Q72H MADHU Stop: 09/03/25 16:14 Last Admin: 08/04/25 17:25 Dose: 1 patch Documented By: [id number] Discharge Plan Visit Data Chief Complaint: Pain (Generalized) Stated Complaint: Pain (Generalized) ED Provider: Xu Horton Discharge Problem: Small cell lung cancer, Metastatic disease, Hospice care patient Patient Disposition: Admitted As Inpatient Condition: Serious Discharge Instructions Interventions: ED Discharge Assessment Last Done: 08/04/25 19:47 Discharge Problem: Small cell lung cancer Qualifiers: Laterality: unspecified laterality Lung location: unspecified part of lung Qualified Code(s): C34.90 - Malignant neoplasm of unspecified part of unspecifie d bronchus or lung Metastatic disease Qualifiers: Area of secondary neoplastic involvement: unspecified site Qualified Code(s): C79.9 - Secondary malignant neoplasm of unspecified site
[2025-08-04] MEDS ORDERED: MoRPHine SULFATE 10 MG/0.5 ML UDP PO PRN (15:27)
[2025-08-04] MEDS ORDERED: LORazepam 0.5 MG TAB PO PRN (15:27)
[2025-08-04] MEDS: LORazepam 1 MG/1 ML SYR ED Inj Use IV STA (15:58)
[2025-08-04] MEDS: MoRPHine SULFATE 2 MG/ML CARP IV STA (15:58)
--- NOTE | 2025-08-04 16:02 | History & Physical Report ---
Date of Service August 04, 2025 Assessment & Plan (1) Cancer associated pain: (2) Comfort measures only status: (3) Small cell lung cancer: Plan This is a 65-year-old female who has significant past medical history of metastatic small cell carcinoma, recurrent left pleural effusion, chronic hypoxemic respiratory failure, mechanical mitral valve replacement, permanent atrial fibrillation and CKD stage III who presents to ED secondary to uncontrolled symptoms while on hospice at home. Case was discussed with case management. Pt is presenting due to uncontrolled sx being managed at home in association with end of life care. Pt follows [facility] hospice. Pt will be admitted under GIP. Will place comfort care orders. Discussed with niece at bedside in detail. Will attempt to get pt sx under control, low threshold for morphine gtt if unsuccessful. Pt was seen and examined in collaboration with Dr. Mcgrath, please see addendum I spent a total of 55 minutes coordinating, documenting and providing care for this patient excluding time spent in the performance of separately billed services or time spent by another provider/QHP. History of Present Illness Chief Complaint: uncontrolled sx on hospice Primary Care Provider: Eron Watson MD This is a 65-year-old female who has significant past medical history of metastatic small cell carcinoma, recurrent left pleural effusion, chronic hypoxemic respiratory failure, mechanical mitral valve replacement, permanent atrial fibrillation and CKD stage III who presents to ED secondary to uncontrolled symptoms while on hospice at home. Patient's niece is at bedside who helps elicit history. She has not had any form of meaningful intake over the last 2 days. She has been very difficult to care for at home as patient is having significant restlessness, pain and occasional combativeness. She has been compliant with her oxygen, but family has been having a difficult time getting oral medications in her. At times she has been spitting them out. Family reports they were not provided with a home pack or liquid medication with syringe. They have been trying to crush her meds and has not been working. Niece at bedside does not want to see her suffer like this any longer and therefore decided to bring her to ED. Allergies Allergy/AdvReac Type Severity Reaction Status Date / Time Quinolones Allergy Intermediate HIVES Verified 08/04/25 16:50 cyclobenzaprine Allergy Mild . Verified 08/04/25 16:50 amitriptyline Allergy Unknown UNKNOWN Verified 08/04/25 16:50 Home Medications Medication Instructions Recorded Confirmed Type bupropion HCl 75 mg tablet 75 mg PO DAILY 08/04/25 08/04/25 History furosemide 40 mg tablet 40 mg PO DAILY 08/04/25 08/04/25 History levothyroxine 125 mcg tablet 125 mcg PO DAILYBB 08/04/25 08/04/25 History meclizine 25 mg tablet 25 mg PO TID PRN Dizziness 08/04/25 08/04/25 History ondansetron HCl 4 mg tablet 4 mg PO Q6H PRN Nausea 08/04/25 08/04/25 History oxycodone 5 mg tablet 5 mg PO Q4H PRN Pain 08/04/25 08/04/25 History Past Med/Surg History Problem List Cancer associated pain Comfort measures only status Back pain Palliative care by specialist Small cell lung cancer Elevated brain natriuretic peptide (BNP) level (Acute) Acute dyspnea (Acute) Elevated troponin (Acute) Pleural effusion on left (Acute) Advanced care planning/counseling discussion Anxiety Stage 4 lung cancer Supraclavicular lymphadenopathy Lung mass Acute hypoxemic respiratory failure Hypoxia (Acute) Elevated troponin (Acute) Shortness of breath (Acute) Pleural effusion (Acute) Medical History Atrial fibrillation with RVR Warfarin anticoagulation Mediastinal lymphadenopathy Hypothyroidism Atrial fibrillation Hypertension Subtherapeutic international normalized ratio (INR) Surgical History H/O mechanical aortic valve replacement History of mitral valve replacement with mechanical valve Mechanical heart valve present Aortic and mitral valve. Family History Brother Status post lung transplantation Sister Chronic lung disease Other Family history non-contributory Social History Smoking Status: Former smoker Tobacco Type: Cigarettes Age Started Using Tobacco: 22; Age Quit Using Tobacco: 65; Cigarettes Per Day: 1 pack; Hx Alcohol Use: No Hx Substance Use: No Preferred Language: German Communication Ability: Effective Manual Winder Required: No Beliefs That Will Affect Care: None Current Living Situation: Other Current Living Situation Comment: lives with friend Feels Safe at Home: Yes Assistive Devices: Oxygen - Continuous, Walker and Wheelchair Review of Systems Review of Systems: Unobtainable due to cognitive status Physical Exam Physical Exam: Gen: Thin, frail female, very restless with constant movement in bed, does not appear to be in respiratory distress, alert but not oriented HEENT: Normocephalic, atraumatic, conjunctivae moist, sclerae anicteric, mucous membranes dry Lung: diminished breath sounds bilaterally, poor inspiratory effort Heart: IRR/IRR Abdomen: Soft, NT, ND +BS x 4 Extremities: No edema Skin: Warm, no rash, negative turgor. Results & Data Results & Data Vital Signs (Past 12 Hours) Vital Signs Temp Pulse Pulse Resp BP BP Pulse Ox 08/04/25 15:09 121 H 08/04/25 14:58 121 H 12 103/69 100 08/04/25 14:36 36.4 C L 120 H 10 L 103/69 99 O2 Del Method O2 Flow Rate 08/04/25 15:09 08/04/25 14:58 Room Air 08/04/25 14:36 Nasal Cannula 4.5 Medications Administered Medication List Discontinued Medications Lorazepam (Lorazepam 1 Mg/1 Ml Syr Ed Inj Use) 0.25 mg IV ONE STA Stop: 08/04/25 15:50 Last Admin: 08/04/25 15:58 Dose: 0.25 mg Documented By: SOPHIA Morphine Sulfate (Morphine Sulfate 2 Mg/Ml Carp) 2 mg IV NOW STA Stop: 08/04/25 15:50 Last Admin: 08/04/25 15:58 Dose: 2 mg Documented By: ASW Code Status & VTE Plan Code Status DNR/DNI Supervising Physician Co-Signing Physician Notes Attending Addendum: Case reviewed with the advanced practitioner. I have personally performed a history and physical examination on the patient. I have reviewed the advanced practitioner's documentation on the date of service referenced in note, and I agree with, and take responsibility for the plan of care. please refer to her notes for full details patient seen and examined, records reviewed by myself as well on exam, patient have received IV morphine, sleeping comfortably, on 3L O2 via nasal cannula VS noted and reviewed sleeping, not in distress, no accessory muscle use normal rate, regular rhythm, no murmurs decreased breath sounds at the bases non distended, soft, nontender no bipedal edema, erythema, warmth assessment and plan> Metastatic Lung Cancer with Pleural Effusion patient under home with hospice, but symptoms not adequately managed at home as per family Patient to be admitted under GIP, with as needed IV morphine, Ativan, scopolamine patch, atropine drops for better symptom control and patient's comfort other diagnoses and plan of care as per advanced practitioner's notes I spent a total of 25 minutes coordinating, documenting, and providing care for this patient, excluding time spent in the performance of separately billed services or time spent by another provider/QHP. Andrei Mcgrath MD (3) Small cell lung cancer Laterality: left Lung location: unspecified part of lung Qualified Code(s): C34.92 - Malignant neoplasm of unspecified part of left bronchus or lung
[2025-08-04 16:46] VITALS: BP 76/51; PULSE 120; O2SAT 99
[2025-08-04] MEDS: SCOPOLAMINE 1 MG/72 HR TDSY PATCH TD SCH (17:25)
[2025-08-04] MEDS ORDERED: ONDANSETRON INJ 2 MG/ML 2 ML VIAL IV PRN (18:46)
[2025-08-05] MEDS: CHECK SCOPOLAMINE PATCH PLACEMENT SCH
[2025-08-05] MEDS: LORazepam Inj 0.5 MG in SYRINGE 0.25 ML IV PRN (04:39)
--- NOTE | 2025-08-05 10:50 | Hospitalist Progress Note ---
Date of Service August 05, 2025 Assessment & Plan (1) Small cell lung cancer: (2) Cancer associated pain: (3) Comfort measures only status: Plan 65-year-old female who has significant past medical history of metastatic small cell carcinoma, recurrent left pleural effusion, chronic hypoxemic respiratory failure, mechanical mitral valve replacement, permanent atrial fibrillation and CKD stage III who presents to ED secondary to uncontrolled symptoms while on hospice at home. Small cell lung cancer Cancer associated pain Comfort measures only Patient presenting with uncontrolled symptoms at home associated with end of life care Admitted under GIP per [facility] Comfort care orders Symptoms seem to be under control with PRN IV morphine, ativan, scopolamine patch Patient in active stages of dying per dealer sales manager *Spoke with patient's brother on the phone and provided update, requesting daily updates* DVT Prophylaxis: N/A due to comfort care Code Status: DNR/DNI Patient seen in collaboration with Dr. Solo. Please see addendum. I spent a total of 45 minutes coordinating, documenting and providing care for this patient excluding time spent in the performance of separately billed services or time spent by another provider/QHP. Admission and Anticipated Discharge Date Admission Date: August 04, 2025 Supervising Physician Co-Signing Physician Notes Patient is seen and examined at bedside. Patient is F[employer] status. Patient has cancer associated pain in the setting of small cell lung cancer. Patient appears comfortable on exam. Total time spent independently: 12 minutes. I have seen and examined the patient and have discussed the case with the provider above. I agree with the assessment and plan as stated. Subjective Patient seen resting in bed Appears comfortable with oxygen in place Would not answer questions Swatted at me during physical exam Review of Systems Review of Systems: Unobtainable due to cognitive status Physical Exam Physical Exam: General/Psych: ill appearing, frail, resting in bed, appears comfortable, not responding to questions Head: normocephalic, atraumatic Neck: normal visual inspection, trachea midline Respiratory: decreased respiratory effort, lungs clear to auscultation, no wheeze/rales/rhonchi Cardiovascular: irregularly irregular tachycardic rate and rhythm, no murmur/rub/gallop Extremities: no cyanosis or clubbing, normal peripheral pulses, no BLE edema Abdomen/GI: hypoactive bowel sounds, soft, nontender Neurologic/MSK: Moves all extremities Skin: no rashes, pale color, warm and dry Results & Data Results & Data Vital Signs (Past 12 Hours) Vital Signs O2 Del Method O2 Flow Rate 08/05/25 07:25 Nasal Cannula 2 Medications Administered Current Inpatient Medications Glycopyrrolate (Glycopyrrolate 0.2 Mg/Ml Vial) 0.4 mg IV Q4H PRN PRN Reason: Rattling Secretions or Pulm Congestion Stop: 09/03/25 18:45 Lorazepam 0.5 mg/ Syringe 0.5 mls @ 2 mls/min IV Q4H PRN PRN Reason: Anxiety/Agitation Stop: 09/03/25 18:45 Last Admin: 08/05/25 04:39 Dose: 2 mls/min Miscellaneous (Check Scopolamine Patch Placement) 1 each N/A QS MADHU Stop: 09/04/25 00:00 Last Admin: 08/05/25 07:24 Dose: 1 each Miscellaneous (Remove Transderm-Scop Patch) 1 each N/A Q72H MADHU Stop: 09/06/25 16:59 Morphine Sulfate (Morphine Sulfate 2 Mg/Ml Carp) 4 mg IV Q1H PRN PRN Reason: Pain or Respiratory Distress Stop: 08/18/25 18:45 Last Admin: 08/05/25 11:06 Dose: 4 mg Ondansetron HCl (Ondansetron Inj 2 Mg/Ml 2 Ml Vial) 4 mg IV Q4H PRN PRN Reason: Nausea &/or Vomiting Stop: 09/03/25 18:45 Scopolamine (Scopolamine 1 Mg/72 Hr Tdsy Patch) 1 patch TD Q72H MADHU Stop: 09/03/25 16:14 Last Admin: 08/04/25 17:25 Dose: 1 patch (1) Small cell lung cancer Laterality: left Lung location: unspecified part of lung Qualified Code(s): C34.92 - Malignant neoplasm of unspecified part of left bronchus or lung
[2025-08-05] MEDS: MoRPHine SULFATE 2 MG/ML CARP IV PRN (11:06)
[2025-08-05] MEDS: GLYCOPYRROLATE 0.2 MG/ML VIAL IV PRN (16:24)
[2025-08-05 16:29] VITALS: RESP 7
--- NOTE | 2025-08-06 12:47 | Discharge Summary ---
Discharge Summary Date of Service August 06, 2025 Principal Dx & Hospital Course #1 = Principal Diagnosis (1) Small cell lung cancer: (2) Cancer associated pain: (3) Comfort measures only status: Plan 65-year-old female who had significant past medical history of metastatic small cell carcinoma, recurrent left pleural effusion, chronic hypoxemic respiratory failure, mechanical mitral valve replacement, permanent atrial fibrillation and CKD stage III who presented to ED secondary to uncontrolled symptoms while on hospice at home. Small cell lung cancer Cancer associated pain Comfort measures only Patient presented with uncontrolled symptoms at home associated with end of life care Admitted under GIP per [facility] Home Hosp[facility] Comfort care orders while inpatient Patient on 08/06/2025 at 0015 due to cessation of breathing per documentation from RN Cause of is hypoxic respiratory failure in the setting of recurrent pleural effusion and metastatic small cell lung cancer Patient seen in collaboration with Dr. Solo. Please see addendum. Notes For Next Care Provider N/A Medication Changes From Visit N/A Admission HPI Per Admitting Provider This is a 65-year-old female who has significant past medical history of metastatic small cell carcinoma, recurrent left pleural effusion, chronic hypoxemic respiratory failure, mechanical mitral valve replacement, permanent atrial fibrillation and CKD stage III who presents to ED secondary to uncontrolled symptoms while on hospice at home. Patient's niece is at bedside who helps elicit history. She has not had any form of meaningful intake over the last 2 days. She has been very difficult to care for at home as patient is having significant restlessness, pain and occasional combativeness. She has been compliant with her oxygen, but family has been having a difficult time getting oral medications in her. At times she has been spitting them out. Family reports they were not provided with a home pack or liquid medication with syringe. They have been trying to crush her meds and has not been working. Niece at bedside does not want to see her suffer like this any longer and therefore decided to bring her to ED. Discharge Exam Undersigned was not regional safety manager at time of demise Updated Medication List Medication Instructions Recorded Confirmed Type bupropion HCl 75 mg tablet 75 mg PO DAILY 08/04/25 08/04/25 History furosemide 40 mg tablet 40 mg PO DAILY 08/04/25 08/04/25 History levothyroxine 125 mcg tablet 125 mcg PO DAILYBB 08/04/25 08/04/25 History meclizine 25 mg tablet 25 mg PO TID PRN Dizziness 08/04/25 08/04/25 History ondansetron HCl 4 mg tablet 4 mg PO Q6H PRN Nausea 08/04/25 08/04/25 History oxycodone 5 mg tablet 5 mg PO Q4H PRN Pain 08/04/25 08/04/25 History Hospital Stay Data Consultations 08/04/25 16:08 ED Decision to Admit Stat Total Time Total Time Spent Total Time Spent (In Minutes): N/A Supervising Physician Co-Signing Physician Notes Pt overnight. agree with above.
[2025-08-07] MEDS ORDERED: REMOVE TRANSDERM-SCOP PATCH SCH (17:00)
== END 2025-08-06 00:48 | disposition expired | DRG 951 ==
LOC: ED 14:19 → EDINP 16:05 → SUATTDRO 16:05 → EDINP 19:47 → 3E 20:12